=== PATIENT | female | born 1955 | race Caucasian/White ===

== ENCOUNTER → 2016-05-17 | Outpatient (CLI) | payer BC, MEDICAID, MEDICARE ==
[2016-05-17 16:42] LABS: BASO # 0.1 K/mm3 (0.0-0.2); BASO % 1.3 % (0.0-1.0); EOS # 0.2 K/mm3 (0.0-0.50); EOS % 2.3 % (0.0-3.0); LARGE UNSTAINED CELL # 0.2 K/mm3 (0.0-0.4); LYMPH # 2.8 K/mm3 (1.5-4.5); LYMPH % 33.2 % (24.0-44.0); MEAN CORPUSCULAR HEMOGLOBIN 29.9 pg (27.0-33.0); MEAN CORPUSCULAR HGB CONC 33.6 g/dl (32.0-36.5); MONO # 0.3 K/mm3 (0.0-0.8); MONO % 3.7 % (0.0-5.0); NEUTROPHILS # 4.9 K/mm3 (1.8-7.7); NEUTROPHILS % 57.5 % (36.0-66.0); PLATELET COUNT, AUTOMATED 257 k/mm3 (150-450); RED CELL DISTRIBUTION WIDTH 14.8 % (11.5-14.5); WHITE BLOOD COUNT 8.5 K/mm3 (4.0-10.0)
[2016-05-17 17:05] LABS: ALBUMIN 3.5 GM/DL (3.2-5.2); ALBUMIN/GLOBULIN RATIO 1.06 (1.00-1.93); ALKALINE PHOSPHATASE 111 U/L (45-117); ALT/SGPT 45 U/L (12-78); ANION GAP 8 MEQ/L (8-16); AST/SGOT 42 U/L (15-37); BILIRUBIN,TOTAL 0.4 MG/DL (0.2-1.0); BLOOD UREA NITROGEN 10 MG/DL (7-18); CALCIUM LEVEL 10.4 MG/DL (8.8-10.2); CARBON DIOXIDE LEVEL 27 MEQ/L (21-32); CHLORIDE LEVEL 106 MEQ/L (98-107); CHOLESTEROL LEVEL 275 MG/DL (<200); CREATININE FOR GFR 0.58 MG/DL (0.55-1.02); GLOMERULAR FILTRATION RATE > 60.0 (>45); GLUCOSE, FASTING 150 MG/DL (80-110); POTASSIUM SERUM 4.3 MEQ/L (3.5-5.1); SODIUM LEVEL 141 MEQ/L (136-145); TOTAL PROTEIN 6.8 GM/DL (6.4-8.2); TRIGLYCERIDES LEVEL 905 MG/DL (<150)
--- NOTE | 2016-05-19 00:46 | ECGEPIP ---
Stationary ECG Study [facility] Test Date: 2016-05-17 Pat Name: SHELBIE PEÑA Department: Room: - Gender: F Dominatrix: RF : 1955 Requested By: Taj Rosen Order Number: [id number] Reading MD: Don Graham Measurements Intervals [place] Rate: 65 P: 90 PA: 166 QRS: -50 QRSD: 110 T: 33 QT: 415 QTc: 433 Interpretive Statements SINUS RHYTHM MARKED LEFT AXIS DEVIATION PATTERN CONSISTENT WITH PULMONARY DISEASE Artifact noted on the baseline in the limb leads No prior tracing in the system Electronically Signed On 05-19-2016 0:46:28 EST by Don Graham
== END ==
LOC: M LAB 15:45
PROVIDERS: ATTEND Family Medicine Addiction Medicine
DX: E78.5 Hyperlipidemia, unspecified (principal); Z79.899 Other long term (current) drug therapy

== ENCOUNTER 2016-05-31 16:13 | Emergency (ER) | payer MEDICARE ==
[2016-05-31] MEDS ORDERED: ASPIRIN 81 MG CHEW TABLET As Ordered ONE (16:39)
[2016-05-31 16:52] LABS: BASO # 0.1 K/mm3 (0.0-0.2); BASO % 0.7 % (0.0-1.0); EOS # 0.2 K/mm3 (0.0-0.50); EOS % 2.1 % (0.0-3.0); LARGE UNSTAINED CELL # 0.2 K/mm3 (0.0-0.4); LARGE UNSTAINED CELL % 1.4 % (0.0-4.0); LYMPH # 2.6 K/mm3 (1.5-4.5); LYMPH % 22.8 % (24.0-44.0); MEAN CORPUSCULAR HEMOGLOBIN 30.1 pg (27.0-33.0); MEAN CORPUSCULAR HGB CONC 33.9 g/dl (32.0-36.5); MEAN CORPUSCULAR VOLUME 88.8 fl (80.0-96.0); MONO # 0.5 K/mm3 (0.0-0.8); MONO % 4.6 % (0.0-5.0); NEUTROPHILS # 7.4 K/mm3 (1.8-7.7); NEUTROPHILS % 68.4 % (36.0-66.0); PLATELET COUNT, AUTOMATED 279 k/mm3 (150-450); RED CELL DISTRIBUTION WIDTH 15.3 % (11.5-14.5); WHITE BLOOD COUNT 10.9 K/mm3 (4.0-10.0)
[2016-05-31 16:59] LABS: INR 1.54
--- NOTE | 2016-05-31 17:15 | REP ---
Portable chest, frontal 04:00 p.m., single AP view, patient sitting: The lung lagos are clear. The cardiac size is normal. The ann, mediastinum, and bony thorax are unremarkable. Impression: Negative portable chest. There is no interval change Signed by Abhishek Mendoza MD 05/31/2016 05:07 P
[2016-05-31 17:21] LABS: ANION GAP 7 MEQ/L (8-16); BLOOD UREA NITROGEN 15 MG/DL (7-18); CALCIUM LEVEL 10.3 MG/DL (8.8-10.2); CARBON DIOXIDE LEVEL 25 MEQ/L (21-32); CHLORIDE LEVEL 106 MEQ/L (98-107); CREATININE FOR GFR 0.61 MG/DL (0.55-1.02); GLOMERULAR FILTRATION RATE > 60.0 (>45); GLUCOSE, FASTING 170 MG/DL (80-110); POTASSIUM SERUM 4.2 MEQ/L (3.5-5.1); SODIUM LEVEL 138 MEQ/L (136-145)
[2016-05-31] MEDS ORDERED: PROMETHAZINE INJ 25 MG/ML VIAL (J2550) As Ordered ONE (17:35)
[2016-05-31] MEDS ORDERED: KETOROLAC 30 MG/ML VIAL (J1885) As Ordered ONE (17:35)
[2016-05-31] MEDS ORDERED: LORazepam 2 MG/ML VIAL (J2060) As Ordered ONE (17:36)
--- NOTE | 2016-05-31 18:58 | EDDOCDS ---
Physician Documentation [facility] Name: Yessenia Mars Age: 60 yrs Sex: Female : 1955 Arrival Date: 05/31/2016 Time: 16:13 Bed 5 Private MD: Frank Rosen Disposition: 05/31/16 18:12 Discharged to Home/Self Care. Impression: Chest pain, unspecified, Essential (primary) hypertension. - Condition is Stable. - Discharge Instructions: Nonspecific Chest Pain, Hypertension. - Medication Reconciliation, Local Pharmacy Hours form. - Follow up: Frank Rosen; When: Call to arrange an appointment; Reason: Continuance of care. - Problem is new. - Symptoms have improved. Historical: - Allergies: Morphine; Niacin; Zxzstsc-Vlq-Awr Reductase Inhibitors; - Home Meds: 1. Lantus 64 units Sub-Q crtg 64 units daily 2. Humalog subcutaneous 24 units Sub-Q three times a day 3. allopurinol 300 mg Oral tab 1 tab once daily 4. allopurinol 100 mg Oral tab evenings 5. citalopram 40 mg Oral tab 1 tab once daily 6. furosemide 20 mg Oral tab 1 tab once daily 7. Lovaza 1 gram oral cap 3 caps once daily 8. omeprazole 40 mg Oral cpDR 1 cap once daily 9. warfarin 6 mg Oral tab 1 tab once daily 10. metoprolol tartrate 50 mg Oral tab 1 tab 2 times per day 11. prednisone 5 mg Oral tab once daily 12. valsartan 160 mg oral tab 1 tab once daily 13. Saline Mist nasal nasal as needed 14. ventolin inhaler as needed for Cough and Congestion 15. oxycodone-acetaminophen 7.5-325 mg Oral tab 1 tab every 6 hours - PMHx: Diabetes - IDDM: uncontrolled; DVT; GERD; Gout; Hypertension; - PSHx: Hip Arthroplasty, Left; Hip Arthroplasty, Right; ; Tonsillectomy; Cholecystectomy; pilonidal cyst; - Social history: Smoking status: Patient uses tobacco products, current every day smoker. No barriers to communication noted, The patient speaks fluent Slovenian, Speaks appropriately for age. - Family history: Not pertinent. - : The pt / caregiver states he / she is not on anticoagulants. Home medication list is obtained from the patient. - Exposure Risk Screening:: None identified. Vital Signs: 05/31 16:16 BP 219 / 97; Pulse 66; Resp 18; Pulse Ox 99% on R/A; Weight 136.08 kg / 300.01 lbs; sew Height 5 ft. 10 in. (177.80 cm); Pain 7/10; 16:32 Pulse 66 MON; Pulse Ox 95% ; pml 16:32 BP 183 / 84 (auto/); pml 16:38 Pulse 58 MON; Pulse Ox 93% ; pml 16:38 BP 170 / 72 (auto/); pml 16:53 Pulse 58 MON; Pulse Ox 91% ; pml 16:53 BP 166 / 76 (auto/); pml 17:08 Pulse 60 MON; Pulse Ox 92% ; pml 17:08 BP 161 / 67 (auto/); pml 17:23 Pulse 56 MON; Pulse Ox 97% ; pml 17:23 BP 149 / 72 (auto/); pml 17:38 Pulse 56 MON; Pulse Ox 95% ; pml 17:38 BP 159 / 70 (auto/); pml 17:53 Pulse 62 MON; Pulse Ox 93% ; pml 17:53 BP 156 / 71 (auto/); pml 18:00 Pain 4/10; pml 18:08 Pulse 56 MON; Pulse Ox 95% ; pml 18:08 BP 156 / 72 (auto/); pml 18:44 BP 158 / 74; Pulse 60; Resp 20; Temp 97.3(O); Pulse Ox 94% on R/A; Pain 0/10; jmv 16:16 Body Mass Index 43.05 (136.08 kg, 177.80 cm) sew MDM: 16:15 ECG WITH READING ER PHYS+CARDIAG ordered. EDMS 16:33 Aspirin Chewable Tablet 324 mg PO once ordered. fg 16:33 Network Engineer/Pulse Ox/q 30 min VS ordered. fg 16:33 IV Saline Lock ordered. fg 16:33 Rhythm Strip to chart ordered. fg 16:33 Undress patient appropriately for examination ordered. fg 16:33 hydrALAZINE 5 mg IV at bolus once ordered. fg 16:34 B-Type Natiuretic Peptide Ordered. EDMS 16:34 Basic Metabolic Profile Ordered. EDMS 16:34 CBC with Diff Ordered. EDMS 16:34 Cardiac Injury Profile Ordered. EDMS 16:34 Prothrombin Time Profile\E\INR Ordered. EDMS 16:34 Troponin Ordered. EDMS 16:35 portable chest Ordered. EDMS 17:07 Financial registration complete. gjb 17:08 [facility] Payment Agreement was scanned into [employer] and attached to record. gjb 17:33 ketorolac 30 mg IVP once ordered. fg 17:33 Promethazine 25 mg IVP once; dilute and administer 30-60 minutes ordered. fg 17:33 LORazepam 0.5 mg PO once ordered. fg 17:47 LORazepam 0.5 mg IVP once ordered. pml Administered Medications: 16:38 Not Given (Physician Discretion): hydrALAZINE 5 mg IV at bolus once pml 16:41 Drug: Aspirin 324 mg [aspirin 81 mg chewable tablet (4 tabs)] Route: PO; pml 17:41 Drug: ketorolac 30 mg [ketorolac 30 mg/mL (1 mL) injection solution (1 mL)] Route: IVP; pml Site: right antecubital; 18:00 Follow up: Pain 4/10 Adult; Response: Pain is decreased pml 17:41 Drug: Promethazine 25 mg [promethazine 25 mg/mL injection solution (1 mL)] Route: IVP; pml Site: left antecubital; 17:47 Not Given (Duplicate Order): LORazepam 0.5 mg PO once pml 17:47 Drug: LORazepam 0.5 mg [lorazepam 2 mg/mL injection solution (0.25 mL)] Route: IVP; pml Site: right antecubital; 18:56 Follow up: Response: Confirmed pt not driving. pml Signatures: Dispatcher [employer] EDUT Christine Kidd RN RN [facility] Carol Moura RN RN [facility] Misti White MD MD fg Beck, Gabriela gjb The chart was reviewed and I authenticate all verbal orders and agree with the evaluation and treatment provided.Attachments: 17:08 [facility] Payment Agreement gjb MTDD
--- NOTE | 2016-05-31 18:58 | EDDOCDS ---
Nurse's Notes [facility] Name: Yessenia Mars Age: 60 yrs Sex: Female : 1955 Arrival Date: 05/31/2016 Time: 16:13 Bed 5 Private MD: Frank Rosen Diagnosis: Chest pain, unspecified;Essential (primary) hypertension Presentation: 05/31 16:20 Presenting complaint: Patient states: chest pain, palpitation,headache, and high bp for srm [address] tena 2 weeks ago and today as recheck. symptoms persist. Aspirin was not taken prior to arrival. Adult Sepsis Screening: The patient does not have new or worsening altered mentation. Patient's respiratory rate is less than 22. Systolic blood pressure is greater than 100. Patient has a qSOFA score of 0- Negative Sepsis Screen. Suicide/Homicide risk assessment- the patient denies having any suicidal and/or homicidal ideations and does not present with any other emotional, behavioral or mental health complaints. Status: Patient is not a director of field service or dependent. Transition of care: patient was received from a primary care office; dr matute. 16:20 Acuity: SIMON Level 2 [facility] 16:20 Method Of Arrival: Wheelchair [facility] Triage Assessment: 16:29 General: Appears uncomfortable, Behavior is anxious, appropriate for age, cooperative. srm Pain: Pain currently is 7 out of 10 on a pain scale. HIV screening NA for this visit Offered previously. Cardiovascular: Chest pain is described as vague, radiates Does not radiate. episodes are intermittent began 4 weeks ago. Historical: - Allergies: Morphine; Niacin; Ggckseu-Paf-Rqz Reductase Inhibitors; - Home Meds: 1. Lantus 64 units Sub-Q crtg 64 units daily 2. Humalog subcutaneous 24 units Sub-Q three times a day 3. allopurinol 300 mg Oral tab 1 tab once daily 4. allopurinol 100 mg Oral tab evenings 5. citalopram 40 mg Oral tab 1 tab once daily 6. furosemide 20 mg Oral tab 1 tab once daily 7. Lovaza 1 gram oral cap 3 caps once daily 8. omeprazole 40 mg Oral cpDR 1 cap once daily 9. warfarin 6 mg Oral tab 1 tab once daily 10. metoprolol tartrate 50 mg Oral tab 1 tab 2 times per day 11. prednisone 5 mg Oral tab once daily 12. valsartan 160 mg oral tab 1 tab once daily 13. Saline Mist nasal nasal as needed 14. ventolin inhaler as needed for Cough and Congestion 15. oxycodone-acetaminophen 7.5-325 mg Oral tab 1 tab every 6 hours - PMHx: Diabetes - IDDM: uncontrolled; DVT; GERD; Gout; Hypertension; - PSHx: Hip Arthroplasty, Left; Hip Arthroplasty, Right; ; Tonsillectomy; Cholecystectomy; pilonidal cyst; - Social history: Smoking status: Patient uses tobacco products, current every day smoker. No barriers to communication noted, The patient speaks fluent Yoruba, Speaks appropriately for age. - Family history: Not pertinent. - : The pt / caregiver states he / she is not on anticoagulants. Home medication list is obtained from the patient. - Exposure Risk Screening:: None identified. Screenin:33 Screening information is obtained from the patient. Fall risk: At risk due to gait srm disturbance. Assistance ADL's: requires no assistance with activities of daily living. Abuse/DV Screen: The patient / caregiver reports he/she is: not in a situation that causes fear, pain or injury. Nutritional screening: No deficits noted. Advance Directives: Currently, there is no health care proxy. There is no active DNR order. There is no Power of Branch Office Manager. home support is adequate. Assessment: 16:42 General: Appears in no apparent distress, comfortable, Behavior is appropriate for age, pml cooperative. Pain: Location: chest Pain currently is 10 out of 10 on a pain scale. Quality of pain is described as heavy, pressure, Pain began 4 weeks ago. Neurological: Level of Consciousness is awake, alert, Oriented to person, place, time. Cardiovascular: Capillary refill < 3 seconds Rhythm is sinus rhythm No ectopy. Respiratory: Airway is patent Respiratory effort is even, unlabored, Breath sounds are clear bilaterally. Reports pain with respiration since 4 weeks ago. GI: Abdomen is non- distended obese. Derm: Skin is pink, warm & dry. Swollen area noted that is +1 non pitting edema bilateral lower extremities. 17:47 General: Resting on stretcher, no apparent distress. resps easy and unlabored, skin pml p/w/d. sinus rhythm on monitor without ectopy. reports pain in chest persists. 18:13 General: Appears in no apparent distress, Behavior is appropriate for age, cooperative. pml Pain: Location: chest Pain currently is 4 out of 10 on a pain scale. Neurological: Level of Consciousness is awake, alert, Oriented to person, place, time. Cardiovascular: Capillary refill < 3 seconds Rhythm is sinus rhythm No ectopy. Derm: Skin is pink, warm & dry. 18:55 General: Appears in no apparent distress, Behavior is appropriate for age, cooperative. pml Pain: Location: chest Pain currently is 4 out of 10 on a pain scale. Neurological: Level of Consciousness is awake, alert, Oriented to person, place, time. Cardiovascular: Capillary refill < 3 seconds. Respiratory: Airway is patent Respiratory effort is even, unlabored. GI: Abdomen is non- distended obese. Derm: Skin is pink, warm & dry. Vital Signs: 16:16 BP 219 / 97; Pulse 66; Resp 18; Pulse Ox 99% on R/A; Weight 136.08 kg; Height 5 ft. 10 sew in. (177.80 cm); Pain 7/10; 16:32 Pulse 66 MON; Pulse Ox 95% ; pml 16:32 BP 183 / 84 (auto/); pml 16:38 Pulse 58 MON; Pulse Ox 93% ; pml 16:38 BP 170 / 72 (auto/); pml 16:53 Pulse 58 MON; Pulse Ox 91% ; pml 16:53 BP 166 / 76 (auto/); pml 17:08 Pulse 60 MON; Pulse Ox 92% ; pml 17:08 BP 161 / 67 (auto/); pml 17:23 Pulse 56 MON; Pulse Ox 97% ; pml 17:23 BP 149 / 72 (auto/); pml 17:38 Pulse 56 MON; Pulse Ox 95% ; pml 17:38 BP 159 / 70 (auto/); pml 17:53 Pulse 62 MON; Pulse Ox 93% ; pml 17:53 BP 156 / 71 (auto/); pml 18:00 Pain 4/10; pml 18:08 Pulse 56 MON; Pulse Ox 95% ; pml 18:08 BP 156 / 72 (auto/); pml 18:44 BP 158 / 74; Pulse 60; Resp 20; Temp 97.3(O); Pulse Ox 94% on R/A; Pain 0/10; jmv 16:16 Body Mass Index 43.05 (136.08 kg, 177.80 cm) sew Vitals: 16:16 Log In Time: May 31, 2016 at 16:13. RN notified that patient meets Red Flag sew criteria. ED Course: 16:15 Patient visited by Екатерина Marino. sew 16:15 Frank Rosen is Private Physician. sew 16:15 Patient moved to Waiting sew 16:17 Patient visited by Екатерина Marino. sew 16:17 Patient moved to Pre RCE sew 16:21 Triage Initiated srm 16:22 EKG done. (by ED staff). Reviewed by Misti White MD. dem1 16:24 Patient moved to kr3 16:26 quality assurance monitor body on. Pulse ox on. NIBP on. dem1 16:28 Patient visited by Phil Rodriguez. dem1 16:32 Misti White MD is Attending Physician. fg 16:32 Patient visited by Misti White MD. fg 16:32 The patient / caregiver is instructed regarding the plan of care and ED course. Patient srm has correct armband on for positive identification. Placed in gown. Bed in low position. Call light in reach. Side rails up X2. 16:32 Inserted saline lock: 18 gauge in right antecubital area and blood collected. by Tor tatum rn. 16:43 Patient visited by Carol Moura,TODD. pml 17:08 [facility] Payment Agreement was scanned into [employer] and attached to record. gjb 17:39 portable chest Returned. EDMS 17:46 Patient visited by Misti White MD. fg 18:12 Frank Rosen is Referral Physician. fg 18:15 Patient visited by Carol Moura,TODD. pml 18:45 Patient visited by Mario Flores PCA. jmv 18:55 Discontinued lock intact, bleeding controlled, pressure dressing applied, No pml redness/swelling at site. No procedures done that require assistance. Administered Medications: 16:38 Not Given (Physician Discretion): hydrALAZINE 5 mg IV at bolus once pml 16:41 Drug: Aspirin 324 mg [aspirin 81 mg chewable tablet (4 tabs)] Route: PO; pml 17:41 Drug: ketorolac 30 mg [ketorolac 30 mg/mL (1 mL) injection solution (1 mL)] Route: IVP; pml Site: right antecubital; 18:00 Follow up: Pain 4/10 Adult; Response: Pain is decreased pml 17:41 Drug: Promethazine 25 mg [promethazine 25 mg/mL injection solution (1 mL)] Route: IVP; pml Site: left antecubital; 17:47 Not Given (Duplicate Order): LORazepam 0.5 mg PO once pml 17:47 Drug: LORazepam 0.5 mg [lorazepam 2 mg/mL injection solution (0.25 mL)] Route: IVP; pml Site: right antecubital; 18:56 Follow up: Response: Confirmed pt not driving. pml Order Results: Lab Order: B-Type Natiuretic Peptide; SPEC'M 05/31/16 16:29 Test: BRAIN NATRIURETIC PEPTIDE; Value: 165; Range: <100; Abnormal: Above high normal; Units: PG/ML; Status: F Lab Order: Basic Metabolic Profile; SPEC'M 05/31/16 16:29 Test: GLUCOSE, FASTING; Value: 170; Range: 80-110; Abnormal: Above high normal; Units: MG/DL; Status: F Test: BLOOD UREA NITROGEN; Value: 15; Range: 7-18; Units: MG/DL; Status: F Test: CREATININE FOR GFR; Value: 0.61; Range: 0.55-1.02; Units: MG/DL; Status: F Test: GLOMERULAR FILTRATION RATE; Value: > 60.0; Range: >45; Status: F Test: SODIUM LEVEL; Value: 138; Range: 136-145; Units: MEQ/L; Status: F Test: POTASSIUM SERUM; Value: 4.2; Range: 3.5-5.1; Units: MEQ/L; Status: F Test: CHLORIDE LEVEL; Value: 106; Range: 98-107; Units: MEQ/L; Status: F Test: CARBON DIOXIDE LEVEL; Value: 25; Range: 21-32; Units: MEQ/L; Status: F Test: ANION GAP; Value: 7; Range: 8-16; Abnormal: Below low normal; Units: MEQ/L; Status: F Test: CALCIUM LEVEL; Value: 10.3; Range: 8.8-10.2; Abnormal: Above high normal; Units: MG/DL; Status: F Test Note: ; Units are mL/min/1.73 m2 Chronic Kidney Disease Staging per NKF: Stage I & II GFR >=60 Normal to Mildly Decreased Stage III GFR 30-59 Moderately Decreased Stage IV GFR 15-29 Severely Decreased Stage V GFR <15 Very Little GFR Left ESRD GFR <15 on CONSULTING ACTUARY Lab Order: CBC with Diff; [facility] 05/31/16 16:29 Test: WHITE BLOOD COUNT; Value: 10.9; Range: 4.0-10.0; Abnormal: Above high normal; Units: K/mm3; Status: F Test: RED BLOOD COUNT; Value: 4.49; Range: 4.00-5.40; Units: M/mm3; Status: F Test: HEMOGLOBIN; Value: 13.5; Range: 12.0-16.0; Units: g/dl; Status: F Test: HEMATOCRIT; Value: 39.9; Range: 36.0-47.0; Units: %; Status: F Test: MEAN CORPUSCULAR VOLUME; Value: 88.8; Range: 80.0-96.0; Units: fl; Status: F Test: MEAN CORPUSCULAR HEMOGLOBIN; Value: 30.1; Range: 27.0-33.0; Units: pg; Status: F Test: MEAN CORPUSCULAR HGB CONC; Value: 33.9; Range: 32.0-36.5; Units: g/dl; Status: F Test: RED CELL DISTRIBUTION WIDTH; Value: 15.3; Range: 11.5-14.5; Abnormal: Above high normal; Units: %; Status: F Test: PLATELET COUNT, AUTOMATED; Value: 279; Range: 150-450; Units: k/mm3; Status: F Test: NEUTROPHILS %; Value: 68.4; Range: 36.0-66.0; Abnormal: Above high normal; Units: %; Status: F Test: LYMPH %; Value: 22.8; Range: 24.0-44.0; Abnormal: Below low normal; Units: %; Status: F Test: MONO %; Value: 4.6; Range: 0.0-5.0; Units: %; Status: F Test: EOS %; Value: 2.1; Range: 0.0-3.0; Units: %; Status: F Test: BASO %; Value: 0.7; Range: 0.0-1.0; Units: %; Status: F Test: LARGE UNSTAINED CELL %; Value: 1.4; Range: 0.0-4.0; Units: %; Status: F Test: NEUTROPHILS #; Value: 7.4; Range: 1.8-7.7; Units: K/mm3; Status: F Test: LYMPH #; Value: 2.6; Range: 1.5-4.5; Units: K/mm3; Status: F Test: MONO #; Value: 0.5; Range: 0.0-0.8; Units: K/mm3; Status: F Test: EOS #; Value: 0.2; Range: 0.0-0.50; Units: K/mm3; Status: F Test: BASO #; Value: 0.1; Range: 0.0-0.2; Units: K/mm3; Status: F Test: LARGE UNSTAINED CELL #; Value: 0.2; Range: 0.0-0.4; Units: K/mm3; Status: F Lab Order: Cardiac Injury Profile; [facility]' 05/31/16 16:29 Test: CPK CREATINE PHOSPHOKINASE; Value: 47; Range: 26-192; Units: U/L; Status: F Test: CK-MB VALUE MASS; Value: 1.0; Range: 0.0-3.6; Units: NG/ML; Status: F Test: MB/CK RELATIVE INDEX; Value: 2.12; Range: < OR =4; Status: F Test Note: ; DIAGNOSIS CRITERIA MMB ng/ml Relative Index (RI) NON-AMI < or = 5 N/A GREEN ZONE > 5 < or = 4 AMI > 5 > 4 Lab Order: Prothrombin Time Profile\E\INR; [facility]' 05/31/16 16:29 Test: PROTHROMBIN TIME; Value: 18.6; Range: 12.3-14.5; Abnormal: Above high normal; Units: SECONDS; Status: F Test: INR; Value: 1.54; Status: F Test Note: ; THERAPUTIC HUMAN INR VALUES INDICATIONS NORMAL RANGES PROPHYLAXIS/TREATMENT OF: VENOUS THROMBOSIS 2.0-3.0 PULMONARY EMBOLISM 2.0-3.0 PREVENTION OF SYSTEMIC EMBOLISM FROM: TISSUE HEART VALVES 2.0-3.0 ACUTE MYOCARDIAL INFARCTION 2.0-3.0 VALVULAR HEART DISEASE 2.0-3.0 ATRIAL FIBRILLATION 2.0-3.0 MECHANICAL VALVES(HIGH RISK) 2.5-3.5 RECURRENT MYOCARDIAL INFARCTION 2.5-3.5 Lab Order: Troponin; [facility] 05/31/16 16:29 Test: TROPONIN I; Value: < 0.02; Range: < 0.10; Units: NG/ML; Status: F Test Note: ; Troponin I Reference Interval for Siemens [place] LOCI: 99th Percentile= 0.00-0.045 ng/ml Risk Stratification: <= 0.10 ng/ml Decreased Risk for Adverse Clinical Events. 0.10-1.50 ng/ml Increased Risk for Adverse Clinical Events. Evaluation of additional criterion and/or repeat testing in 2-6 hours is suggested to rule out myocardial damage. >= 1.50 ng/ml Indicative of Myocardial Injury. Radiology Order: portable chest Test: portable chest REASON FOR EXAMINATION: Chest Pain; Portable chest, frontal 04:00 p.m., single AP view, patient sitting:; ; The lung lagos are clear.; ; The cardiac size is normal.; ; The ann, mediastinum, and bony thorax are unremarkable.; ; Impression:; ; Negative portable chest. There is no interval change; ; ; Signed by; Abhishek Mendoza MD 05/31/2016 05:07 P; Outcome: 18:12 Discharge ordered by Provider. fg 18:55 Discharge Assessment: Patient awake, alert and oriented x 3. No cognitive and/or pml functional deficits noted. Patient verbalized understanding of disposition instructions. patient administered narcotics - yes. Pt provided with safe discharge. The following High Risk Discharge criteria are identified: None. Discharged to home ambulatory, with family. Condition: good Condition: stable. Discharge instructions given to patient, Instructed on discharge instructions, follow up and referral plans. Demonstrated understanding of instructions, Pt was receptive of discharge instructions/ teaching. No special radiology studies were completed. Property sent home with patient. 18:57 Patient left the ED. pml Signatures: Dispatcher [employer] EDMS Christine Kidd, Zenaida Mackey RN, RN RN kr3 Carol Moura RN RN pml Mack, Demeishia dem1 Wallace, Sarah sew Gill, Frances, MD MD fg Beck, Gabriela gjb Vega, Jose, PCA PCA jmv MTDD
--- NOTE | 2016-06-01 12:47 | ECGEPIP ---
Stationary ECG Study [facility] - ED Test Date: 2016-05-31 Pat Name: SHELBIE PEÑA Department: Room: - Gender: F Production Clerk: john : 1955 Requested By: IRIS Torres Order Number: [id number] Reading MD: Linda Yeung Measurements Intervals [place] Rate: 68 P: 64 CO: 161 QRS: -49 QRSD: 93 T: 11 QT: 390 QTc: 415 Interpretive Statements SINUS RHYTHM WITH OCCASIONAL SUPRAVENTRICULAR PREMATURE COMPLEXES MARKED LEFT AXIS DEVIATION PATTERN CONSISTENT WITH PULMONARY DISEASE INFERIOR MYOCARDIAL INFARCTION, OF INDETERMINATE AGE CW 05/17/16 - RATE INCREASED Electronically Signed On 06-01-2016 12:47:37 EST by Linda Yeung
--- NOTE | 2016-06-02 19:58 | EDDOCDS ---
Physician Documentation [facility] Name: Yessenia Mars Age: 60 yrs Sex: Female : 1955 Arrival Date: 05/31/2016 Time: 16:13 Bed 5 Private MD: Frank Rosen Disposition: 05/31/16 18:12 Discharged to Home/Self Care. Impression: Chest pain, unspecified, Essential (primary) hypertension. - Condition is Stable. - Discharge Instructions: Nonspecific Chest Pain, Hypertension. - Medication Reconciliation, Local Pharmacy Hours form. - Follow up: Frank Rosen; When: Call to arrange an appointment; Reason: Continuance of care. - Problem is new. - Symptoms have improved. Historical: - Allergies: Morphine; Niacin; Nbxqtyd-Tdc-Yxu Reductase Inhibitors; - Home Meds: 1. Lantus 64 units Sub-Q crtg 64 units daily 2. Humalog subcutaneous 24 units Sub-Q three times a day 3. allopurinol 300 mg Oral tab 1 tab once daily 4. allopurinol 100 mg Oral tab evenings 5. citalopram 40 mg Oral tab 1 tab once daily 6. furosemide 20 mg Oral tab 1 tab once daily 7. Lovaza 1 gram oral cap 3 caps once daily 8. omeprazole 40 mg Oral cpDR 1 cap once daily 9. warfarin 6 mg Oral tab 1 tab once daily 10. metoprolol tartrate 50 mg Oral tab 1 tab 2 times per day 11. prednisone 5 mg Oral tab once daily 12. valsartan 160 mg oral tab 1 tab once daily 13. Saline Mist nasal nasal as needed 14. ventolin inhaler as needed for Cough and Congestion 15. oxycodone-acetaminophen 7.5-325 mg Oral tab 1 tab every 6 hours - PMHx: Diabetes - IDDM: uncontrolled; DVT; GERD; Gout; Hypertension; - PSHx: Hip Arthroplasty, Left; Hip Arthroplasty, Right; ; Tonsillectomy; Cholecystectomy; pilonidal cyst; - Social history: Smoking status: Patient uses tobacco products, current every day smoker. No barriers to communication noted, The patient speaks fluent Portuguese, Speaks appropriately for age. - Family history: Not pertinent. - : The pt / caregiver states he / she is not on anticoagulants. Home medication list is obtained from the patient. - Exposure Risk Screening:: None identified. Vital Signs: 05/31 16:16 BP 219 / 97; Pulse 66; Resp 18; Pulse Ox 99% on R/A; Weight 136.08 kg / 300.01 lbs; sew Height 5 ft. 10 in. (177.80 cm); Pain 7/10; 16:32 Pulse 66 MON; Pulse Ox 95% ; pml 16:32 BP 183 / 84 (auto/); pml 16:38 Pulse 58 MON; Pulse Ox 93% ; pml 16:38 BP 170 / 72 (auto/); pml 16:53 Pulse 58 MON; Pulse Ox 91% ; pml 16:53 BP 166 / 76 (auto/); pml 17:08 Pulse 60 MON; Pulse Ox 92% ; pml 17:08 BP 161 / 67 (auto/); pml 17:23 Pulse 56 MON; Pulse Ox 97% ; pml 17:23 BP 149 / 72 (auto/); pml 17:38 Pulse 56 MON; Pulse Ox 95% ; pml 17:38 BP 159 / 70 (auto/); pml 17:53 Pulse 62 MON; Pulse Ox 93% ; pml 17:53 BP 156 / 71 (auto/); pml 18:00 Pain 4/10; pml 18:08 Pulse 56 MON; Pulse Ox 95% ; pml 18:08 BP 156 / 72 (auto/); pml 18:44 BP 158 / 74; Pulse 60; Resp 20; Temp 97.3(O); Pulse Ox 94% on R/A; Pain 0/10; jmv 16:16 Body Mass Index 43.05 (136.08 kg, 177.80 cm) sew MDM: 16:15 ECG WITH READING ER PHYS+CARDIAG ordered. EDMS 16:33 Aspirin Chewable Tablet 324 mg PO once ordered. fg 16:33 Supervisor Television Chassis Repair/Pulse Ox/q 30 min VS ordered. fg 16:33 IV Saline Lock ordered. fg 16:33 Rhythm Strip to chart ordered. fg 16:33 Undress patient appropriately for examination ordered. fg 16:33 hydrALAZINE 5 mg IV at bolus once ordered. fg 16:34 B-Type Natiuretic Peptide Ordered. EDMS 16:34 Basic Metabolic Profile Ordered. EDMS 16:34 CBC with Diff Ordered. EDMS 16:34 Cardiac Injury Profile Ordered. EDMS 16:34 Prothrombin Time Profile\E\INR Ordered. EDMS 16:34 Troponin Ordered. EDMS 16:35 portable chest Ordered. EDMS 17:07 Financial registration complete. gjb 17:08 [facility] Agreement was scanned into [employer] and attached to record. gjb 17:33 ketorolac 30 mg IVP once ordered. fg 17:33 Promethazine 25 mg IVP once; dilute and administer 30-60 minutes ordered. fg 17:33 LORazepam 0.5 mg PO once ordered. fg 17:47 LORazepam 0.5 mg IVP once ordered. pml 06/01 10:37 T-Sheet-- Draft Copy was scanned into [employer] and attached to record. gb 15:39 ECG/EKG was scanned into [employer] and attached to record. gb Administered Medications: 05/31 16:38 Not Given (Physician Discretion): hydrALAZINE 5 mg IV at bolus once pml 16:41 Drug: Aspirin 324 mg [aspirin 81 mg chewable tablet (4 tabs)] Route: PO; pml 17:41 Drug: ketorolac 30 mg [ketorolac 30 mg/mL (1 mL) injection solution (1 mL)] Route: IVP; pml Site: right antecubital; 18:00 Follow up: Pain 4/10 Adult; Response: Pain is decreased pml 17:41 Drug: Promethazine 25 mg [promethazine 25 mg/mL injection solution (1 mL)] Route: IVP; pml Site: left antecubital; 17:47 Not Given (Duplicate Order): LORazepam 0.5 mg PO once pml 17:47 Drug: LORazepam 0.5 mg [lorazepam 2 mg/mL injection solution (0.25 mL)] Route: IVP; pml Site: right antecubital; 18:56 Follow up: Response: Confirmed pt not driving. pml Signatures: Dispatcher [employer] EDMS Christine Kidd RN RN srm Gabriella Lee, Reg Reg gb Carol Moura RN RN pml Misti White MD MD fg Beck, Gabriela gjb The chart was reviewed and I authenticate all verbal orders and agree with the evaluation and treatment provided.Attachments: 17:08 [facility] Payment Agreement gjb 06/01 10:37 T-Sheet-- Draft Copy gb 15:39 ECG/EKG gb Chart Complete MTDD
--- NOTE | 2016-06-02 19:58 | EDDOCDS ---
Nurse's Notes [facility] Name: Yessenia Peña Age: 60 yrs Sex: Female : 1955 Arrival Date: 05/31/2016 Time: 16:13 Bed 5 Private MD: Frank Rosen Diagnosis: Chest pain, unspecified;Essential (primary) hypertension Presentation: 05/31 16:20 Presenting complaint: Patient states: chest pain, palpitation,headache, and high bp for srm [address] tena 2 weeks ago and today as recheck. symptoms persist. Aspirin was not taken prior to arrival. Adult Sepsis Screening: The patient does not have new or worsening altered mentation. Patient's respiratory rate is less than 22. Systolic blood pressure is greater than 100. Patient has a qSOFA score of 0- Negative Sepsis Screen. Suicide/Homicide risk assessment- the patient denies having any suicidal and/or homicidal ideations and does not present with any other emotional, behavioral or mental health complaints. Status: Patient is not a field services director or dependent. Transition of care: patient was received from a primary care office; dr matute. 16:20 Acuity: SIMON Level 2 [facility] 16:20 Method Of Arrival: Wheelchair [facility] Triage Assessment: 16:29 General: Appears uncomfortable, Behavior is anxious, appropriate for age, cooperative. srm Pain: Pain currently is 7 out of 10 on a pain scale. HIV screening NA for this visit Offered previously. Cardiovascular: Chest pain is described as vague, radiates Does not radiate. episodes are intermittent began 4 weeks ago. Historical: - Allergies: Morphine; Niacin; Qretyzg-Ljm-Qdz Reductase Inhibitors; - Home Meds: 1. Lantus 64 units Sub-Q crtg 64 units daily 2. Humalog subcutaneous 24 units Sub-Q three times a day 3. allopurinol 300 mg Oral tab 1 tab once daily 4. allopurinol 100 mg Oral tab evenings 5. citalopram 40 mg Oral tab 1 tab once daily 6. furosemide 20 mg Oral tab 1 tab once daily 7. Lovaza 1 gram oral cap 3 caps once daily 8. omeprazole 40 mg Oral cpDR 1 cap once daily 9. warfarin 6 mg Oral tab 1 tab once daily 10. metoprolol tartrate 50 mg Oral tab 1 tab 2 times per day 11. prednisone 5 mg Oral tab once daily 12. valsartan 160 mg oral tab 1 tab once daily 13. Saline Mist nasal nasal as needed 14. ventolin inhaler as needed for Cough and Congestion 15. oxycodone-acetaminophen 7.5-325 mg Oral tab 1 tab every 6 hours - PMHx: Diabetes - IDDM: uncontrolled; DVT; GERD; Gout; Hypertension; - PSHx: Hip Arthroplasty, Left; Hip Arthroplasty, Right; ; Tonsillectomy; Cholecystectomy; pilonidal cyst; - Social history: Smoking status: Patient uses tobacco products, current every day smoker. No barriers to communication noted, The patient speaks fluent Japanese, Speaks appropriately for age. - Family history: Not pertinent. - : The pt / caregiver states he / she is not on anticoagulants. Home medication list is obtained from the patient. - Exposure Risk Screening:: None identified. Screenin:33 Screening information is obtained from the patient. Fall risk: At risk due to gait srm disturbance. Assistance ADL's: requires no assistance with activities of daily living. Abuse/DV Screen: The patient / caregiver reports he/she is: not in a situation that causes fear, pain or injury. Nutritional screening: No deficits noted. Advance Directives: Currently, there is no health care proxy. There is no active DNR order. There is no Power of Dye Range Feeder. home support is adequate. Assessment: 16:42 General: Appears in no apparent distress, comfortable, Behavior is appropriate for age, pml cooperative. Pain: Location: chest Pain currently is 10 out of 10 on a pain scale. Quality of pain is described as heavy, pressure, Pain began 4 weeks ago. Neurological: Level of Consciousness is awake, alert, Oriented to person, place, time. Cardiovascular: Capillary refill < 3 seconds Rhythm is sinus rhythm No ectopy. Respiratory: Airway is patent Respiratory effort is even, unlabored, Breath sounds are clear bilaterally. Reports pain with respiration since 4 weeks ago. GI: Abdomen is non- distended obese. Derm: Skin is pink, warm & dry. Swollen area noted that is +1 non pitting edema bilateral lower extremities. 17:47 General: Resting on stretcher, no apparent distress. resps easy and unlabored, skin pml p/w/d. sinus rhythm on monitor without ectopy. reports pain in chest persists. 18:13 General: Appears in no apparent distress, Behavior is appropriate for age, cooperative. pml Pain: Location: chest Pain currently is 4 out of 10 on a pain scale. Neurological: Level of Consciousness is awake, alert, Oriented to person, place, time. Cardiovascular: Capillary refill < 3 seconds Rhythm is sinus rhythm No ectopy. Derm: Skin is pink, warm & dry. 18:55 General: Appears in no apparent distress, Behavior is appropriate for age, cooperative. pml Pain: Location: chest Pain currently is 4 out of 10 on a pain scale. Neurological: Level of Consciousness is awake, alert, Oriented to person, place, time. Cardiovascular: Capillary refill < 3 seconds. Respiratory: Airway is patent Respiratory effort is even, unlabored. GI: Abdomen is non- distended obese. Derm: Skin is pink, warm & dry. Vital Signs: 16:16 BP 219 / 97; Pulse 66; Resp 18; Pulse Ox 99% on R/A; Weight 136.08 kg; Height 5 ft. 10 sew in. (177.80 cm); Pain 7/10; 16:32 Pulse 66 MON; Pulse Ox 95% ; pml 16:32 BP 183 / 84 (auto/); pml 16:38 Pulse 58 MON; Pulse Ox 93% ; pml 16:38 BP 170 / 72 (auto/); pml 16:53 Pulse 58 MON; Pulse Ox 91% ; pml 16:53 BP 166 / 76 (auto/); pml 17:08 Pulse 60 MON; Pulse Ox 92% ; pml 17:08 BP 161 / 67 (auto/); pml 17:23 Pulse 56 MON; Pulse Ox 97% ; pml 17:23 BP 149 / 72 (auto/); pml 17:38 Pulse 56 MON; Pulse Ox 95% ; pml 17:38 BP 159 / 70 (auto/); pml 17:53 Pulse 62 MON; Pulse Ox 93% ; pml 17:53 BP 156 / 71 (auto/); pml 18:00 Pain 4/10; pml 18:08 Pulse 56 MON; Pulse Ox 95% ; pml 18:08 BP 156 / 72 (auto/); pml 18:44 BP 158 / 74; Pulse 60; Resp 20; Temp 97.3(O); Pulse Ox 94% on R/A; Pain 0/10; jmv 16:16 Body Mass Index 43.05 (136.08 kg, 177.80 cm) sew Vitals: 16:16 Log In Time: May 31, 2016 at 16:13. RN notified that patient meets Red Flag sew criteria. ED Course: 16:15 Patient visited by Екатерина Marino. sew 16:15 Frank Rosen is Private Physician. sew 16:15 Patient moved to Waiting sew 16:17 Patient visited by Екатерина Marino. sew 16:17 Patient moved to Pre RCE sew 16:21 Triage Initiated srm 16:22 EKG done. (by ED staff). Reviewed by Misti White MD. dem1 16:24 Patient moved to kr3 16:26 environmental monitoring technician on. Pulse ox on. NIBP on. dem1 16:28 Patient visited by Phil Rodriguez. dem1 16:32 Misti White MD is Attending Physician. fg 16:32 Patient visited by Misti White MD. fg 16:32 The patient / caregiver is instructed regarding the plan of care and ED course. Patient srm has correct armband on for positive identification. Placed in gown. Bed in low position. Call light in reach. Side rails up X2. 16:32 Inserted saline lock: 18 gauge in right antecubital area and blood collected. by Tor tatum rn. 16:43 Patient visited by Carol Moura,OTDD. pml 17:08 [facility] Payment Agreement was scanned into [employer] and attached to record. gjb 17:39 portable chest Returned. EDMS 17:46 Patient visited by Misti White MD. fg 18:12 Frank Rosen is Referral Physician. fg 18:15 Patient visited by Carol Moura,TODD. pml 18:45 Patient visited by Mario Flores PCA. jmv 18:55 Discontinued lock intact, bleeding controlled, pressure dressing applied, No pml redness/swelling at site. No procedures done that require assistance. 06/01 10:37 T-Sheet-- Draft Copy was scanned into [employer] and attached to record. gb 13:27 EKG-ADULT Returned. EDMS 15:39 ECG/EKG was scanned into [employer] and attached to record. gb Administered Medications: 05/31 16:38 Not Given (Physician Discretion): hydrALAZINE 5 mg IV at bolus once pml 16:41 Drug: Aspirin 324 mg [aspirin 81 mg chewable tablet (4 tabs)] Route: PO; pml 17:41 Drug: ketorolac 30 mg [ketorolac 30 mg/mL (1 mL) injection solution (1 mL)] Route: IVP; pml Site: right antecubital; 18:00 Follow up: Pain 4/10 Adult; Response: Pain is decreased pml 17:41 Drug: Promethazine 25 mg [promethazine 25 mg/mL injection solution (1 mL)] Route: IVP; pml Site: left antecubital; 17:47 Not Given (Duplicate Order): LORazepam 0.5 mg PO once pml 17:47 Drug: LORazepam 0.5 mg [lorazepam 2 mg/mL injection solution (0.25 mL)] Route: IVP; pml Site: right antecubital; 18:56 Follow up: Response: Confirmed pt not driving. pml Order Results: Lab Order: B-Type Natiuretic Peptide; SPEC'M 05/31/16 16:29 Test: BRAIN NATRIURETIC PEPTIDE; Value: 165; Range: <100; Abnormal: Above high normal; Units: PG/ML; Status: F Lab Order: Basic Metabolic Profile; SPEC'M 05/31/16 16:29 Test: GLUCOSE, FASTING; Value: 170; Range: 80-110; Abnormal: Above high normal; Units: MG/DL; Status: F Test: BLOOD UREA NITROGEN; Value: 15; Range: 7-18; Units: MG/DL; Status: F Test: CREATININE FOR GFR; Value: 0.61; Range: 0.55-1.02; Units: MG/DL; Status: F Test: GLOMERULAR FILTRATION RATE; Value: > 60.0; Range: >45; Status: F Test: SODIUM LEVEL; Value: 138; Range: 136-145; Units: MEQ/L; Status: F Test: POTASSIUM SERUM; Value: 4.2; Range: 3.5-5.1; Units: MEQ/L; Status: F Test: CHLORIDE LEVEL; Value: 106; Range: 98-107; Units: MEQ/L; Status: F Test: CARBON DIOXIDE LEVEL; Value: 25; Range: 21-32; Units: MEQ/L; Status: F Test: ANION GAP; Value: 7; Range: 8-16; Abnormal: Below low normal; Units: MEQ/L; Status: F Test: CALCIUM LEVEL; Value: 10.3; Range: 8.8-10.2; Abnormal: Above high normal; Units: MG/DL; Status: F Test Note: ; Units are mL/min/1.73 m2 Chronic Kidney Disease Staging per NKF: Stage I & II GFR >=60 Normal to Mildly Decreased Stage III GFR 30-59 Moderately Decreased Stage IV GFR 15-29 Severely Decreased Stage V GFR <15 Very Little GFR Left ESRD GFR <15 on BOAT CARPENTER MECHANIC Lab Order: CBC with Diff; MAEGAN'M 05/31/16 16:29 Test: WHITE BLOOD COUNT; Value: 10.9; Range: 4.0-10.0; Abnormal: Above high normal; Units: K/mm3; Status: F Test: RED BLOOD COUNT; Value: 4.49; Range: 4.00-5.40; Units: M/mm3; Status: F Test: HEMOGLOBIN; Value: 13.5; Range: 12.0-16.0; Units: g/dl; Status: F Test: HEMATOCRIT; Value: 39.9; Range: 36.0-47.0; Units: %; Status: F Test: MEAN CORPUSCULAR VOLUME; Value: 88.8; Range: 80.0-96.0; Units: fl; Status: F Test: MEAN CORPUSCULAR HEMOGLOBIN; Value: 30.1; Range: 27.0-33.0; Units: pg; Status: F Test: MEAN CORPUSCULAR HGB CONC; Value: 33.9; Range: 32.0-36.5; Units: g/dl; Status: F Test: RED CELL DISTRIBUTION WIDTH; Value: 15.3; Range: 11.5-14.5; Abnormal: Above high normal; Units: %; Status: F Test: PLATELET COUNT, AUTOMATED; Value: 279; Range: 150-450; Units: k/mm3; Status: F Test: NEUTROPHILS %; Value: 68.4; Range: 36.0-66.0; Abnormal: Above high normal; Units: %; Status: F Test: LYMPH %; Value: 22.8; Range: 24.0-44.0; Abnormal: Below low normal; Units: %; Status: F Test: MONO %; Value: 4.6; Range: 0.0-5.0; Units: %; Status: F Test: EOS %; Value: 2.1; Range: 0.0-3.0; Units: %; Status: F Test: BASO %; Value: 0.7; Range: 0.0-1.0; Units: %; Status: F Test: LARGE UNSTAINED CELL %; Value: 1.4; Range: 0.0-4.0; Units: %; Status: F Test: NEUTROPHILS #; Value: 7.4; Range: 1.8-7.7; Units: K/mm3; Status: F Test: LYMPH #; Value: 2.6; Range: 1.5-4.5; Units: K/mm3; Status: F Test: MONO #; Value: 0.5; Range: 0.0-0.8; Units: K/mm3; Status: F Test: EOS #; Value: 0.2; Range: 0.0-0.50; Units: K/mm3; Status: F Test: BASO #; Value: 0.1; Range: 0.0-0.2; Units: K/mm3; Status: F Test: LARGE UNSTAINED CELL #; Value: 0.2; Range: 0.0-0.4; Units: K/mm3; Status: F Lab Order: Cardiac Injury Profile; SPEC'M 05/31/16 16:29 Test: CPK CREATINE PHOSPHOKINASE; Value: 47; Range: 26-192; Units: U/L; Status: F Test: CK-MB VALUE MASS; Value: 1.0; Range: 0.0-3.6; Units: NG/ML; Status: F Test: MB/CK RELATIVE INDEX; Value: 2.12; Range: < OR =4; Status: F Test Note: ; DIAGNOSIS CRITERIA MMB ng/ml Relative Index (RI) NON-AMI < or = 5 N/A GREEN ZONE > 5 < or = 4 AMI > 5 > 4 Lab Order: Prothrombin Time Profile\E\INR; SPEC'M 05/31/16 16:29 Test: PROTHROMBIN TIME; Value: 18.6; Range: 12.3-14.5; Abnormal: Above high normal; Units: SECONDS; Status: F Test: INR; Value: 1.54; Status: F Test Note: ; THERAPUTIC HUMAN INR VALUES INDICATIONS NORMAL RANGES PROPHYLAXIS/TREATMENT OF: VENOUS THROMBOSIS 2.0-3.0 PULMONARY EMBOLISM 2.0-3.0 PREVENTION OF SYSTEMIC EMBOLISM FROM: TISSUE HEART VALVES 2.0-3.0 ACUTE MYOCARDIAL INFARCTION 2.0-3.0 VALVULAR HEART DISEASE 2.0-3.0 ATRIAL FIBRILLATION 2.0-3.0 MECHANICAL VALVES(HIGH RISK) 2.5-3.5 RECURRENT MYOCARDIAL INFARCTION 2.5-3.5 Lab Order: Troponin; SPEC'M 05/31/16 16:29 Test: TROPONIN I; Value: < 0.02; Range: < 0.10; Units: NG/ML; Status: F Test Note: ; Troponin I Reference Interval for Siemens [place] LOCI: 99th Percentile= 0.00-0.045 ng/ml Risk Stratification: <= 0.10 ng/ml Decreased Risk for Adverse Clinical Events. 0.10-1.50 ng/ml Increased Risk for Adverse Clinical Events. Evaluation of additional criterion and/or repeat testing in 2-6 hours is suggested to rule out myocardial damage. >= 1.50 ng/ml Indicative of Myocardial Injury. Radiology Order: EKG-ADULT Test: EKG-ADULT REASON FOR EXAMINATION: Chest Pain; Stationary ECG Study; [facility] - ED; ; Test Date: 2016-05-31; Pat Name: YESSENIA PEÑA Department:; Room: -; Gender: F Nurse Practitioner Physicians Assistant: john; : 1955 Requested By: MISTI Torres; Order Number: [id number] Reading MD: Linda Yeung; Measurements; Intervals [place]; Rate: 68 P: 64; MS: 161 QRS: -49; QRSD: 93 T: 11; QT: 390; QTc: 415; Interpretive Statements; SINUS RHYTHM WITH OCCASIONAL SUPRAVENTRICULAR PREMATURE COMPLEXES; MARKED LEFT AXIS DEVIATION; PATTERN CONSISTENT WITH PULMONARY DISEASE; INFERIOR MYOCARDIAL INFARCTION, OF INDETERMINATE AGE; ; CW 05/17/16 - RATE INCREASED; ; Electronically Signed On 06-01-2016 12:47:37 EST by Linda Yeung; Radiology Order: portable chest Test: portable chest REASON FOR EXAMINATION: Chest Pain; Portable chest, frontal 04:00 p.m., single AP view, patient sitting:; ; The lung lagos are clear.; ; The cardiac size is normal.; ; The ann, mediastinum, and bony thorax are unremarkable.; ; Impression:; ; Negative portable chest. There is no interval change; ; ; Signed by; Abhishek Mendoza MD 05/31/2016 05:07 P; Outcome: 18:12 Discharge ordered by Provider. fg 18:55 Discharge Assessment: Patient awake, alert and oriented x 3. No cognitive and/or pml functional deficits noted. Patient verbalized understanding of disposition instructions. patient administered narcotics - yes. Pt provided with safe discharge. The following High Risk Discharge criteria are identified: None. Discharged to home ambulatory, with family. Condition: good Condition: stable. Discharge instructions given to patient, Instructed on discharge instructions, follow up and referral plans. Demonstrated understanding of instructions, Pt was receptive of discharge instructions/ teaching. No special radiology studies were completed. Property sent home with patient. 18:57 Patient left the ED. pml Signatures: Dispatcher [employer] EDMS Christine Kidd, RN RN [facility] Jesus, Gabriella, Reg Reg gb Zenaida Wolfe,RN TODD [id number] Carol Moura RN RN Phil Cornejo Sarah sew Gill, Frances, MD MD fg Beck, Gabriela gjb Vega, Jose, DEJON MEDICAL TRANSCRIPTION EDITOR jmv Chart Complete MTDD
--- NOTE | 2016-06-02 19:58 | EDDOCDS ---
Physician Documentation [facility] Name: Yessenia Mars Age: 60 yrs Sex: Female : 1955 Arrival Date: 05/31/2016 Time: 16:13 Bed 5 Private MD: Frank Rosen Disposition: 05/31/16 18:12 Discharged to Home/Self Care. Impression: Chest pain, unspecified, Essential (primary) hypertension. - Condition is Stable. - Discharge Instructions: Nonspecific Chest Pain, Hypertension. - Medication Reconciliation, Local Pharmacy Hours form. - Follow up: Frank Rosen; When: Call to arrange an appointment; Reason: Continuance of care. - Problem is new. - Symptoms have improved. Historical: - Allergies: Morphine; Niacin; Fwisdcp-Fuc-Jgk Reductase Inhibitors; - Home Meds: 1. Lantus 64 units Sub-Q crtg 64 units daily 2. Humalog subcutaneous 24 units Sub-Q three times a day 3. allopurinol 300 mg Oral tab 1 tab once daily 4. allopurinol 100 mg Oral tab evenings 5. citalopram 40 mg Oral tab 1 tab once daily 6. furosemide 20 mg Oral tab 1 tab once daily 7. Lovaza 1 gram oral cap 3 caps once daily 8. omeprazole 40 mg Oral cpDR 1 cap once daily 9. warfarin 6 mg Oral tab 1 tab once daily 10. metoprolol tartrate 50 mg Oral tab 1 tab 2 times per day 11. prednisone 5 mg Oral tab once daily 12. valsartan 160 mg oral tab 1 tab once daily 13. Saline Mist nasal nasal as needed 14. ventolin inhaler as needed for Cough and Congestion 15. oxycodone-acetaminophen 7.5-325 mg Oral tab 1 tab every 6 hours - PMHx: Diabetes - IDDM: uncontrolled; DVT; GERD; Gout; Hypertension; - PSHx: Hip Arthroplasty, Left; Hip Arthroplasty, Right; ; Tonsillectomy; Cholecystectomy; pilonidal cyst; - Social history: Smoking status: Patient uses tobacco products, current every day smoker. No barriers to communication noted, The patient speaks fluent Estonian, Speaks appropriately for age. - Family history: Not pertinent. - : The pt / caregiver states he / she is not on anticoagulants. Home medication list is obtained from the patient. - Exposure Risk Screening:: None identified. Vital Signs: 05/31 16:16 BP 219 / 97; Pulse 66; Resp 18; Pulse Ox 99% on R/A; Weight 136.08 kg / 300.01 lbs; sew Height 5 ft. 10 in. (177.80 cm); Pain 7/10; 16:32 Pulse 66 MON; Pulse Ox 95% ; pml 16:32 BP 183 / 84 (auto/); pml 16:38 Pulse 58 MON; Pulse Ox 93% ; pml 16:38 BP 170 / 72 (auto/); pml 16:53 Pulse 58 MON; Pulse Ox 91% ; pml 16:53 BP 166 / 76 (auto/); pml 17:08 Pulse 60 MON; Pulse Ox 92% ; pml 17:08 BP 161 / 67 (auto/); pml 17:23 Pulse 56 MON; Pulse Ox 97% ; pml 17:23 BP 149 / 72 (auto/); pml 17:38 Pulse 56 MON; Pulse Ox 95% ; pml 17:38 BP 159 / 70 (auto/); pml 17:53 Pulse 62 MON; Pulse Ox 93% ; pml 17:53 BP 156 / 71 (auto/); pml 18:00 Pain 4/10; pml 18:08 Pulse 56 MON; Pulse Ox 95% ; pml 18:08 BP 156 / 72 (auto/); pml 18:44 BP 158 / 74; Pulse 60; Resp 20; Temp 97.3(O); Pulse Ox 94% on R/A; Pain 0/10; jmv 16:16 Body Mass Index 43.05 (136.08 kg, 177.80 cm) sew MDM: 16:15 ECG WITH READING ER PHYS+CARDIAG ordered. EDMS 16:33 Aspirin Chewable Tablet 324 mg PO once ordered. fg 16:33 Director Of Accounting/Pulse Ox/q 30 min VS ordered. fg 16:33 IV Saline Lock ordered. fg 16:33 Rhythm Strip to chart ordered. fg 16:33 Undress patient appropriately for examination ordered. fg 16:33 hydrALAZINE 5 mg IV at bolus once ordered. fg 16:34 B-Type Natiuretic Peptide Ordered. EDMS 16:34 Basic Metabolic Profile Ordered. EDMS 16:34 CBC with Diff Ordered. EDMS 16:34 Cardiac Injury Profile Ordered. EDMS 16:34 Prothrombin Time Profile\E\INR Ordered. EDMS 16:34 Troponin Ordered. EDMS 16:35 portable chest Ordered. EDMS 17:07 Financial registration complete. gjb 17:08 [facility] Payment Agreement was scanned into [employer] and attached to record. gjb 17:33 ketorolac 30 mg IVP once ordered. fg 17:33 Promethazine 25 mg IVP once; dilute and administer 30-60 minutes ordered. fg 17:33 LORazepam 0.5 mg PO once ordered. fg 17:47 LORazepam 0.5 mg IVP once ordered. pml 06/01 10:37 T-Sheet-- Draft Copy was scanned into [employer] and attached to record. gb 15:39 ECG/EKG was scanned into [employer] and attached to record. gb Administered Medications: 05/31 16:38 Not Given (Physician Discretion): hydrALAZINE 5 mg IV at bolus once pml 16:41 Drug: Aspirin 324 mg [aspirin 81 mg chewable tablet (4 tabs)] Route: PO; pml 17:41 Drug: ketorolac 30 mg [ketorolac 30 mg/mL (1 mL) injection solution (1 mL)] Route: IVP; pml Site: right antecubital; 18:00 Follow up: Pain 4/10 Adult; Response: Pain is decreased pml 17:41 Drug: Promethazine 25 mg [promethazine 25 mg/mL injection solution (1 mL)] Route: IVP; pml Site: left antecubital; 17:47 Not Given (Duplicate Order): LORazepam 0.5 mg PO once pml 17:47 Drug: LORazepam 0.5 mg [lorazepam 2 mg/mL injection solution (0.25 mL)] Route: IVP; pml Site: right antecubital; 18:56 Follow up: Response: Confirmed pt not driving. pml Signatures: Dispatcher [employer] EDMS Christine Kidd RN RN srm Gabriella Lee, Reg Reg gb Carol Moura RN RN pml Misti White MD MD fg Beck, Gabriela gjb The chart was reviewed and I authenticate all verbal orders and agree with the evaluation and treatment provided.Attachments: 17:08 [facility] Payment Agreement gjb 06/01 10:37 T-Sheet-- Draft Copy gb 15:39 ECG/EKG gb Chart Complete MTDD
== END 2016-05-31 18:57 | disposition home or self-care (01) ==
LOC: M ED 16:13
DX: R07.9 Chest pain, unspecified (principal); I10 Essential (primary) hypertension; E10.9 Type 1 diabetes mellitus without complications; K21.9 Gastro-esophageal reflux disease without esophagitis; M10.9 Gout, unspecified; Z72.0 Tobacco use; Z86.718 Personal history of other venous thrombosis and embolism; Z96.641 Presence of right artificial hip joint; Z96.642 Presence of left artificial hip joint; Z79.01 Long term (current) use of anticoagulants; Z79.4 Long term (current) use of insulin; Z79.52 Long term (current) use of systemic steroids; Z79.891 Long term (current) use of opiate analgesic; Z79.899 Other long term (current) drug therapy; Z88.5 Allergy status to narcotic agent; Z88.6 Allergy status to analgesic agent; Z88.8 Allergy status to other drugs, medicaments and biological substances
CPT/HCPCS: 36415; 71010; 80048; 82550; 82553; 83880; 84484; 85025; 85610; 93005; 93041; 96374; 96375; 99284; J1885; J2060

== ENCOUNTER 2016-08-12 14:47 | Emergency (ER) | payer MEDICARE ==
[~2016-08-12] VITALS: Ht 154.9 cm; Wt 130.6 kg
[2016-08-12] MEDS ORDERED: METO50TA2 (15:16)
[2016-08-12] MEDS ORDERED: ALLO15TA (15:16)
[2016-08-12] MEDS ORDERED: HUMI40KI2 (15:16)
[2016-08-12] MEDS ORDERED: FURO20TA2 (15:16)
[2016-08-12] MEDS ORDERED: WARF4TAB52 (15:16)
[2016-08-12] MEDS ORDERED: PRED5TA (15:16)
[2016-08-12] MEDS ORDERED: ALLO100T (15:16)
[2016-08-12] MEDS ORDERED: OMEP40CA2 (15:16)
[2016-08-12] MEDS ORDERED: CITA40TA4 (15:16)
[2016-08-12] MEDS ORDERED: LORSARTIN (15:16)
[2016-08-12] MEDS ORDERED: INSULANT SC (15:16)
[2016-08-12] MEDS ORDERED: ASPIRIN 81 MG CHEW TABLET PO ONE (16:15)
[2016-08-12 16:25] LABS: BASO # 0.1 K/mm3 (0.0-0.2); BASO % 0.6 % (0.0-1.0); EOS # 0.2 K/mm3 (0.0-0.50); EOS % 1.6 % (0.0-3.0); LARGE UNSTAINED CELL # 0.1 K/mm3 (0.0-0.4); LARGE UNSTAINED CELL % 1.1 % (0.0-4.0); LYMPH # 1.8 K/mm3 (1.5-4.5); LYMPH % 15.9 % (24.0-44.0); MEAN CORPUSCULAR HEMOGLOBIN 29.7 pg (27.0-33.0); MEAN CORPUSCULAR HGB CONC 33.8 g/dl (32.0-36.5); MEAN CORPUSCULAR VOLUME 87.8 fl (80.0-96.0); MONO # 0.4 K/mm3 (0.0-0.8); MONO % 3.5 % (0.0-5.0); NEUTROPHILS # 8.2 K/mm3 (1.8-7.7); NEUTROPHILS % 77.3 % (36.0-66.0); PLATELET COUNT, AUTOMATED 262 k/mm3 (150-450); RED CELL DISTRIBUTION WIDTH 15.1 % (11.5-14.5); WHITE BLOOD COUNT 10.6 K/mm3 (4.0-10.0)
[2016-08-12 16:35] LABS: ANION GAP 7 MEQ/L (8-16); BLOOD UREA NITROGEN 11 MG/DL (7-18); CALCIUM LEVEL 9.7 MG/DL (8.8-10.2); CARBON DIOXIDE LEVEL 25 MEQ/L (21-32); CHLORIDE LEVEL 106 MEQ/L (98-107); CREATININE FOR GFR 0.67 MG/DL (0.55-1.02); GLOMERULAR FILTRATION RATE > 60.0 (>45); GLUCOSE, FASTING 181 MG/DL (80-110); POTASSIUM SERUM 4.4 MEQ/L (3.5-5.1); SODIUM LEVEL 138 MEQ/L (136-145)
--- NOTE | 2016-08-12 16:55 | REP ---
PORTABLE CHEST: HISTORY: Chest pain. COMPARISON: 05/31/2016, also portable. The technique utilized in obtaining the radiograph has magnified the cardiac silhouette and accentuated the interstitial markings. The superior mediastinal structures are midline. The cardiac silhouette is unremarkable in size, shape, and position. The diaphragmatic surfaces of the lungs are regular, and the costophrenic angles are clear. The pulmonary lagos are clear. The imaged osseous structures are intact. IMPRESSION: There is no acute cardiopulmonary disease. No significant change from the prior exam. Signed by Vince Hernandez DO 08/13/2016 09:34 A
[2016-08-12 18:32] VITALS: BP 146/70
--- NOTE | 2016-08-12 20:42 | ECGEPIP ---
Stationary ECG Study [facility] - ED Test Date: 2016-08-12 Pat Name: SHELBIE PEÑA Department: Room: - Gender: F Strategic Planning Director: tara : 1955 Requested By: Nikita Davis Order Number: [id number] Reading MD: Екатерина Alcala Measurements Intervals [place] Rate: 60 P: 67 WA: 160 QRS: -51 QRSD: 101 T: 32 QT: 405 QTc: 407 Interpretive Statements SINUS RHYTHM PATTERN CONSISTENT WITH PULMONARY DISEASE LEFT ANTERIOR FASCICULAR BLOCK PRWP NSTTW ABNORMALITY Electronically Signed On 08-12-2016 20:42:04 EDT by Екатерина Alcala
--- NOTE | 2016-08-12 20:43 | ECGEPIP ---
Stationary ECG Study [facility] - ED Test Date: 2016-08-12 Pat Name: SHELBIE PEÑA Department: Room: - Gender: F Clinical Nursing Instructor: edgar : 1955 Requested By: Nikita Davis Order Number: [id number] Reading MD: Екатерина Alcala Measurements Intervals [place] Rate: 55 P: 72 GA: 164 QRS: -52 QRSD: 102 T: 18 QT: 447 QTc: 429 Interpretive Statements SINUS BRADYCARDIA WITH OCCASIONAL SUPRAVENTRICULAR PREMATURE COMPLEXES PATTERN CONSISTENT WITH PULMONARY DISEASE LEFT ANTERIOR FASCICULAR BLOCK PRWP NSTTW ABNORMALITY ?PRIOR INFERIOR GA SIMILAR 15:13 Electronically Signed On 08-12-2016 20:42:51 EDT by Екатерина Alcala
== END 2016-08-12 18:43 | disposition home or self-care (01) ==
LOC: M ED 16:04
DX: R07.89 Other chest pain (principal); I10 Essential (primary) hypertension; I44.4 Left anterior fascicular block; R94.31 Abnormal electrocardiogram [ECG] [EKG]; E78.5 Hyperlipidemia, unspecified; E11.9 Type 2 diabetes mellitus without complications; E66.9 Obesity, unspecified; M06.9 Rheumatoid arthritis, unspecified; Z82.49 Family history of ischemic heart disease and other diseases of the circulatory system; Z79.899 Other long term (current) drug therapy; Z79.01 Long term (current) use of anticoagulants; Z79.4 Long term (current) use of insulin

== ENCOUNTER → 2016-10-11 | Outpatient (REF) | payer MEDICARE ==
[~2016-10-11] MED LIST: ALLO100T; ALLO15TA; CITA40TA4; FURO20TA2; HUMI40KI2; INSULANT SC; LORSARTIN; METO50TA2; OMEP40CA2; PRED5TA; WARF4TAB52
[2016-10-11 18:48] LABS: INR 1.49
== END ==
LOC: M LAB REF 16:23
PROVIDERS: ATTEND Family Medicine Addiction Medicine
DX: Z79.01 Long term (current) use of anticoagulants (principal)

== ENCOUNTER 2016-12-02 19:50 | Emergency (ER) | payer MEDICARE ==
[~2016-12-02] VITALS: Ht 177.8 cm; Wt 135.4 kg
[~2016-12-02 19:50] MED LIST changes: -ALLO100T; +ALLO100T PO; -CITA40TA4; +CITA40TA4 PO; -FURO20TA2; +FURO20TA2 PO; -HUMI40KI2; +HUMI40KI2 IM; -METO50TA2; +METO50TA7 PO; -OMEP40CA2; +OMEP40CA2 PO; -PRED5TA; +PRED5TA PO
[2016-12-02] MEDS ORDERED: FENO48TA2 PO ×2 (20:15)
[2016-12-02] MEDS ORDERED: COUM6TAB PO (20:15)
[2016-12-02] MEDS ORDERED: OXYC1TAB15 PO (20:15)
--- NOTE | 2016-12-02 23:00 | REPUSA ---
CLINICAL HISTORY: Pain. COMMENTS: Real time sonography with duplex doppler of the left lower extremity was performed with attention to the major deep venous structures. Evaluation reveals the left common femoral, superficial femoral and popliteal veins to be completely compressible without intraluminal thrombus. There is normal spontaneous phasic flow and augmentation. The greater saphenous/common femoral vein junction is patent. IMPRESSION: No evidence of DVT in left lower extremity. Thank you for your kind referral of this patient.
[2016-12-02] MEDS ORDERED: CYCL10TA PO (23:15)
[2016-12-02 23:38] VITALS: BP 146/71
== END 2016-12-02 23:39 | disposition home or self-care (01) ==
LOC: M ED 19:50
DX: S86.902A Unspecified injury of unspecified muscle(s) and tendon(s) at lower leg level, left leg, initial encounter (principal); I10 Essential (primary) hypertension; Z86.718 Personal history of other venous thrombosis and embolism; X58.XXXA Exposure to other specified factors, initial encounter; Y92.018 Other place in single-family (private) house as the place of occurrence of the external cause; Y99.9 Unspecified external cause status; Y93.9 Activity, unspecified; Z88.8 Allergy status to other drugs, medicaments and biological substances; Z79.01 Long term (current) use of anticoagulants; Z79.4 Long term (current) use of insulin; Z79.899 Other long term (current) drug therapy

== ENCOUNTER 2016-12-29 18:21 | Inpatient (IN) | payer MEDICARE ==
[~2016-12-29] VITALS: Ht 177.8 cm; Wt 147.0 kg
[~2016-12-29 18:21] MED LIST changes: +COUM6TAB PO; +CYCL10TA PO; +FENO48TA2 PO; +OXYC1TAB15 PO
--- NOTE | 2016-12-29 19:55 | REP ---
Clinical: Pain and swelling. Technique: AP, lateral, bilateral oblique views of the right foot. Findings: Diffuse moderate/early advanced osteoarthritic degenerative changes are appreciated including hallux valgus deformity, joint space narrowing, subchondral sclerosis/heterogeneity and somewhat mottled appearance to the periarticular osteoid matrix. Oblique and lateral views demonstrate calcifications in the plantar fascia. No obvious acute fracture dislocation. Impression: Diffuse moderate to early advanced degenerative changes. No acute fracture dislocation. Diffuse swelling. Osteomyelitis cannot definitively be diagnosed based on radiographic evaluation. Signed by Jeffrey Olsen MD 12/29/2016 07:47 P
--- NOTE | 2016-12-29 19:56 | REP ---
Clinical: Pain and swelling. Technique: AP, lateral, bilateral oblique views of the right ankle. Findings: Moderate osteopenia and arthritic degenerative changes are appreciated along with soft tissue swelling. No definite acute fracture dislocation. No obvious lytic / destructive changes and no periosteal reaction identified to suggest osteomyelitis. Ankle mortise is intact. Lateral view demonstrates significant calcifications in the plantar fascia. Impression: Moderate osteopenia and arthritic degenerative changes. No obvious acute fracture dislocation. Osteomyelitis cannot be diagnosed based on radiographic evaluation. Signed by Jeffrey Olsen MD 12/29/2016 07:48 P
[2016-12-29 20:01] LABS: BASO # 0.1 K/mm3 (0.0-0.2); BASO % 0.6 % (0.0-1.0); EOS # 0.3 K/mm3 (0.0-0.50); EOS % 2.3 % (0.0-3.0); LARGE UNSTAINED CELL # 0.1 K/mm3 (0.0-0.4); LARGE UNSTAINED CELL % 0.9 % (0.0-4.0); LYMPH # 1.8 K/mm3 (1.5-4.5); MEAN CORPUSCULAR HGB CONC 34.3 g/dl (32.0-36.5); MEAN CORPUSCULAR VOLUME 90.3 fl (80.0-96.0); MONO # 0.5 K/mm3 (0.0-0.8); MONO % 4.1 % (0.0-5.0); NEUTROPHILS # 10.4 K/mm3 (1.8-7.7); NEUTROPHILS % 79.1 % (36.0-66.0); PLATELET COUNT, AUTOMATED 257 k/mm3 (150-450); RED CELL DISTRIBUTION WIDTH 15.3 % (11.5-14.5); WHITE BLOOD COUNT 13.2 K/mm3 (4.0-10.0)
[2016-12-29 20:08] LABS: INR 1.86
[2016-12-29 20:23] LABS: ALBUMIN 3.6 GM/DL (3.2-5.2); ALBUMIN/GLOBULIN RATIO 1.03 (1.00-1.93); ALKALINE PHOSPHATASE 115 U/L (45-117); ALT/SGPT 37 U/L (12-78); ANION GAP 5 MEQ/L (8-16); AST/SGOT 17 U/L (15-37); BILIRUBIN,TOTAL 0.4 MG/DL (0.2-1.0); BLOOD UREA NITROGEN 11 MG/DL (7-18); CALCIUM LEVEL 10.7 MG/DL (8.8-10.2); CARBON DIOXIDE LEVEL 31 MEQ/L (21-32); CHLORIDE LEVEL 101 MEQ/L (98-107); CREATININE FOR GFR 0.76 MG/DL (0.55-1.02); GLOMERULAR FILTRATION RATE > 60.0 (>45); GLUCOSE, FASTING 195 MG/DL (80-110); POTASSIUM SERUM 3.9 MEQ/L (3.5-5.1); SODIUM LEVEL 137 MEQ/L (136-145); TOTAL PROTEIN 7.1 GM/DL (6.4-8.2); URIC ACID 3.4 MG/DL (2.6-6.0)
[2016-12-29 20:25] LABS: ERYTHROCYTE SEDIMENTATION RATE 40 mm/hr (0-30)
[2016-12-29] MEDS ORDERED: VANCOMYCIN HCL 1,000 MG, VIAL MATE ADAPTER 1 EACH in D5W 250 ML IV ONE (21:15)
[2016-12-29] MEDS ORDERED: ZYLO300T4 PO (22:32)
[2016-12-29] MEDS ORDERED: LOSA50TA20 PO (22:32)
[2016-12-29] MEDS ORDERED: FENO200C PO (22:32)
[2016-12-29] MEDS ORDERED: LANTINJ4 SC (22:32)
--- NOTE | 2016-12-29 22:35 | HPEPDOC ---
Medical History and Physical Date of Admission Dec 29, 2016 at 21:44 History and Physical PRIMARY CARE PROVIDER: Dr. Taj Rosen ATTENDING: Dr. Luis Tang CHIEF COMPLAINT: Left leg erythema/pain HISTORY OF PRESENT ILLNESS: 61-year-old female with insulin-dependent diabetes mellitus, obstructive sleep apnea on CPAP, hypertension, DVT on Coumadin, rheumatoid arthritis, ankylosing spondylitis, gout who presents complaining of right foot pain and swelling. Patient states that she initially and developed pain in bruising appearing area of her right foot on Friday, which developed into warm/hot/tender region that was edematous. On Friday she started to develop chills and decided to came to the ED. Patient denies any trauma to her right foot. States she's been unable to walk on it given the pain. Patient denies chest pain/shortness of breath/palpitations. No nausea/vomiting/ abdominal pain. PAST MEDICAL HISTORY: As per HPI PAST SURGICAL HISTORY: Cholecystectomy, b/l hip replacement, pilonidal cyst, tonsillectomy, , SOCIAL HISTORY: smokes half a pack per day 25 years, no alcohol or illicit drug use. FAMILY HISTORY: Father with lymphoma, mother with Parkinson's ALLERGIES: Please see below. REVIEW OF SYSTEMS: HEENT: Denies sore throat/headache CARDIOVASCULAR: Denies chest pain/palpitations RESPIRATORY: Denies shortness of breath/cough GASTROINTESTINAL: denies nausea/vomiting GENITOURINARY: Denies dysuria/urinary urgency. MUSCULOSKELETAL: Denies myalgias/arthralgias NEUROLOGICAL: Denies any focal weakness HOME MEDICATIONS: Please see below. PHYSICAL EXAMINATION: Vitals: (see below) General: No acute distress, laying comfortably in bed. HEENT: Moist mucous membranes. Neck: No JVD or lymphadenopathy Cardiac: RRR, No murmurs Pulm: Clear to auscultation b/l. No wheezing, rhonchi Abd: NT/ND + BS Ext: Right lower extremity 1-2+ pitting edema. Distal pulses intact. Significant erythema of the dorsal surface of the right foot with cellulitis extending midway up the tibial region. Capillary refill less than 2 seconds. Tender to palpation. No fluctuant region. No abscess noted. LABORATORY DATA: See below. IMAGING: X-ray right foot on 12/29/16 Impression: Diffuse moderate to early advanced degenerative changes. No acute fracture dislocation. Diffuse swelling. Osteomyelitis cannot definitively be diagnosed based on radiographic evaluation. X-ray right ankle on 12/29/16 Impression: Moderate osteopenia and arthritic degenerative changes. No obvious acute fracture dislocation. Osteomyelitis cannot be diagnosed based on radiographic evaluation. MICROBIOLOGY: Please see below. ASSESSMENT/PLAN: 1. Sepsis secondary to right lower extremity cellulitis. Febrile with leukocytosis. Patient denies any trauma. Diabetic foot infection. Started on vancomycin. We will also obtain a lactic acid level, venous blood gas, blood cultures. CT of the right lower extremity to rule out abscess. May need MRI to rule out osteomyelitis. Trend CRP/ESR. 2. Right lower extremity edema- likely secondary to underlying infection. Given the subtherapeutic INR, we'll obtain ultrasound to rule out recurrent DVT. 3. History of DVT- resume Coumadin. 4. History of hypertension- continue home meds 5. History of DREW- on CPAP 6. History of diabetes mellitus- continue insulin regimen. Sliding scale insulin. 7. History of rheumatoid arthritis/ankylosing spondylitis/gout- continue home meds 8. History of GERD- on PPI 9. History tobacco abuse- tobacco cessation counseling DVT prophylaxis- on Coumadin Patient followed by Dr. Luis Tang starting 12/30/16 at 7 AM. 8. Vital Signs Vital Signs Date Time Temp Pulse Resp B/P (MAP) Pulse Ox O2 Delivery O2 Flow Rate FiO2 12/29/16 20:49 101.0 74 18 167/64 (98) 98 Room Air Laboratory Data Labs 24H Laboratory Tests 2 12/29/16 19:47: White Blood Count 13.2H, Red Blood Count 4.74, Hemoglobin 14.7, Hematocrit 42.8 , Mean Corpuscular Volume 90.3, Mean Corpuscular Hemoglobin 31.0, Mean Corpuscular Hemoglobin Concent 34.3, Red Cell Distribution Width 15.3H, Platelet Count 257, Neutrophils (%) (Auto) 79.1H, Lymphocytes (%) (Auto) 13.0L, Monocytes (%) (Auto) 4.1, Eosinophils (%) (Auto) 2.3, Basophils (%) (Auto) 0.6, Neutrophils # (Auto) 10.4H, Lymphocytes # (Auto) 1.8, Monocytes # (Auto) 0.5, Eosinophils # (Auto) 0.3, Basophils # (Auto) 0.1, Large Unclassified Cells % 0.9 , Large Unclassified Cells # 0.1, Erythrocyte Sedimentation Rate 40H, Prothrombin Time 22.0H, Prothromb Time International Ratio 1.86, Anion Gap 5L, Glomerular Filtration Rate > 60.0, Blood Urea Nitrogen 11, Creatinine 0.76, Sodium Level 137, Potassium Level 3.9, Chloride Level 101, Carbon Dioxide Level 31, Calcium Level 10.7H, Aspartate Amino Transf (AST/SGOT) 17, Alanine Aminotransferase (ALT/SGPT) 37, Alkaline Phosphatase 115, Total Bilirubin 0.4, Uric Acid 3.4, Total Protein 7.1, Albumin 3.6, C-Reactive Protein, Quantitative 7.29H, Albumin/Globulin Ratio 1.03 CBC/BMP Laboratory Tests 12/29/16 19:47 Red Blood Count 4.74, Mean Corpuscular Volume 90.3, Mean Corpuscular Hemoglobin 31.0, Mean Corpuscular Hemoglobin Concent 34.3, Red Cell Distribution Width 15.3 H, Neutrophils (%) (Auto) 79.1 H, Lymphocytes (%) (Auto) 13.0 L, Monocytes (%) (Auto) 4.1, Eosinophils (%) (Auto) 2.3, Basophils (%) (Auto) 0.6, Neutrophils # (Auto) 10.4 H, Lymphocytes # (Auto) 1.8, Monocytes # (Auto) 0.5, Eosinophils # (Auto) 0.3, Basophils # (Auto) 0.1, Calcium Level 10.7 H, Aspartate Amino Transf (AST/SGOT) 17, Alanine Aminotransferase (ALT/SGPT) 37, Alkaline Phosphatase 115, Total Bilirubin 0.4, Uric Acid 3.4, Total Protein 7.1 , Albumin 3.6 Home Medications Scheduled Warfarin Sod (Coumadin) 6 Mg Tab, 6 MG PO DAILY Scheduled PRN Insulin Glargine (Lantus) 1 Units/0.01 Ml Susp, 60 UNITS SC units PRN for am Miscellaneous Medications (Humira Pen) 40 Mg/0.8 Ml Kit (Oxycodone/Acetaminophen 7.5-325 mg) 1 Tab Tab, 1 TAB PO for PAIN Allopurinol (Allopurinol) 150 Mg Halftab Allopurinol (Allopurinol) 100 Mg Tab Citalopram Hydrobromide (Citalopram Hydrobromide) 40 Mg Tab Fenofibrate (Fenofibrate) 48 Mg Tab, 48 MG PO Furosemide (Furosemide) 20 Mg Tab Metoprolol Tartrate (Metoprolol Tartrate) 50 Mg Tab Omeprazole (Omeprazole) 40 Mg Cap Prednisone (Prednisone) 5 Mg Tab [Lorsartin] , 50 MG Allergies Coded Allergies: Niacin (Verified Allergy, Severe, 12/29/16) ERIKA LEWIS MD Dec 29, 2016 22:35
[2016-12-29] MEDS ORDERED: ISOVUE-370 76% 100ML VIAL (Q9967) As Ordered ONE (22:43)
[2016-12-29] MEDS ORDERED: WARFARIN SOD 3 MG TAB PO ONE (23:00)
--- NOTE | 2016-12-29 23:20 | REPUSA ---
Clinical history: Pain, swelling. Findings: The common femoral, superficial femoral, popliteal, and other deep venous structures compre ss normally and demonstrate normal color Doppler flow. Normal venous waveforms with augmentation are seen. Impression: No evidence of deep vein thrombosis in either femoral popliteal venous system.
[2016-12-30] MEDS ORDERED: VANCOMYCIN HCL 1,000 MG, VIAL MATE ADAPTER 1 EACH in D5W 250 ML IV ONE ×3
--- NOTE | 2016-12-30 | REPUSA ---
CT of the right hip with contrast Clinical statement: infection, rule out abscess. Technique: Multiple axial CT images were obtained with 5 mm cuts through the right lower extremity af ter administration of nonionic intravenous contrast. Coronal and sagittal reconstructions were also o btained. No comparison is available. Findings: The osseous structures do not demonstrate any fractures or dislocations. Right hip arthropl asty is in satisfactory position and alignment. There is no evidence of loosening or displacement of the surgical hardware. No soft tissue masses or fluid collections are identified. There is mild soft tissue edema in the posterior aspect of the calf. Several prominent lymph nodes are seen in the right inguinal region, the largest measuring 2.5 x 1.4 cm. The superficial soft tissues are otherwise unr emarkable. Anterior varicose veins are noted. The joint spaces are well-maintained. Impression: 1. No focal abscess, fluid collection, or mass is appreciated. 2. Mild posterior soft tissue edema in the right lower leg. This is a nonspecific finding, likely rep resenting edema. However, early cellulitis could have this appearance. Clinical correlation is recomm ended. 3. No suspicious or destructive osseous lesions. 4. The right hip arthroplasty is intact. 5. Mild right inguinal lymphadenopathy.
[2016-12-30] MEDS ORDERED: UNRESOLVED CLARIFICATION ENTRY XX SCH (00:01)
[2016-12-30] MEDS: METOPROLOL TART 50 MG TAB PO SCH ×3 (00:01→20:44)
[2016-12-30] MEDS: LOSARTAN 50 MG TAB PO SCH ×3 (00:02→20:43)
--- NOTE | 2016-12-30 00:12 | PHACANCOPD ---
PHARMACY VANCOMYCIN DOSING Pt Demographics Demographics Patient Age:61 , Weight:135.450 , Gender: female Adjusted Body Weight Date: 12/30/16, Adjusted Body Weight: [95.28] Kg Vancomycin Vancomycin indication: RT.FOOT CELLULITIS/SEPSIS Vancomycin Target Ranges: 15-20 mcg/ml Vancomycin Load Y/N: Yes Load Dose Date Time Vancomycin Load Dose: 2GM Date: 12/29 Time: 2200 Vancomycin Dose Date: 12/30/16. Current Vancomycin Dose: [1 GM IV Q12H@12] Intermittent Dosing?: No Labs Labs Laboratory Tests 12/29/16 19:47 Red Blood Count 4.74, Mean Corpuscular Volume 90.3, Mean Corpuscular Hemoglobin 31.0, Mean Corpuscular Hemoglobin Concent 34.3, Red Cell Distribution Width 15.3 H, Neutrophils (%) (Auto) 79.1 H, Lymphocytes (%) (Auto) 13.0 L, Monocytes (%) (Auto) 4.1, Eosinophils (%) (Auto) 2.3, Basophils (%) (Auto) 0.6, Neutrophils # (Auto) 10.4 H, Lymphocytes # (Auto) 1.8, Monocytes # (Auto) 0.5, Eosinophils # (Auto) 0.3, Basophils # (Auto) 0.1, Calcium Level 10.7 H, Aspartate Amino Transf (AST/SGOT) 17, Alanine Aminotransferase (ALT/SGPT) 37, Alkaline Phosphatase 115, Total Bilirubin 0.4, Uric Acid 3.4, Total Protein 7.1 , Albumin 3.6 Creatinine Clearance Date:12/30/16. Creatinine Clearance: [>100].CALCULATED Pending Labs VANCOMYCIN TROUGH DUE Assessment and Plan Maintaining Current Dose?: Yes Reason for dose change: No Dose Change Pharmacist Note Pharmacist Note Date: 12/30/16. Pharmacist note:61YOF 70",135.45KG,ALLERGY=NIACIN,SCR=0.76,CRCL> 100(calculated).Admitted w/ rt.foot pain/swelling;treating sepsis/cellulitis w/ Vancomycin per Pharmacy consult. Vancomycin 1 GMgiven in ED@2200@12mid (2 gram total as load),Then will continue regimen at 1 gram q12h. First trough scheduled for12/30@2299(prior to the 3rd dose.;Will continue to follow levels and labs NAGI GALEAS PHARMACY Dec 30, 2016 00:12
[2016-12-30] MEDS: ALLOPURINOL 100 MG TAB PO SCH ×2 (00:17→20:43)
[2016-12-30] MEDS: PERCOCET 5MG/325MG TAB PO PRN ×2 (00:19→14:24)
[2016-12-30] MEDS: MORPHINE 2 MG/ML 1ML SYRINGE IV PRN ×3 (01:11→23:24)
[2016-12-30] MEDS: ONDANSETRON 4MG/2ML VIAL (J2405) IV PRN (01:16)
[2016-12-30 03:18] LABS: VENOUS BASE EXCESS -0.9 (-2.0-2.0); VENOUS O2 SATURATION 72.7 % (60.0-80.0); VENOUS PARTIAL PRESSURE CO2 42.6 mmHg (38.0-50.0); VENOUS PARTIAL PRESSURE O2 34.8 mmHg (30.0-50.0); VENOUS STANDARD HCO3 23.2 MEQ/L; VENOUS TOTAL CO2 25.7 MEQ/L (24.0-28.0)
[2016-12-30 03:25] VITALS: BP 134/63
[2016-12-30] MEDS ORDERED: GLUCAGON FOR INJ 1 MG VIAL (J1610) SC PRN (04:30)
[2016-12-30] MEDS ORDERED: GLUCOSE 4 GM CHEW TABLET PO PRN (04:30)
[2016-12-30] MEDS ORDERED: DEXTROSE 50% 50 ML SYRINGE IV PRN (04:30)
[2016-12-30 05:46] LABS: BASO # 0.1 K/mm3 (0.0-0.2); BASO % 0.5 % (0.0-1.0); EOS # 0.1 K/mm3 (0.0-0.50); EOS % 1.3 % (0.0-3.0); LARGE UNSTAINED CELL # 0.2 K/mm3 (0.0-0.4); LARGE UNSTAINED CELL % 1.5 % (0.0-4.0); LYMPH # 1.9 K/mm3 (1.5-4.5); LYMPH % 17.1 % (24.0-44.0); MEAN CORPUSCULAR HGB CONC 34.5 g/dl (32.0-36.5); MEAN CORPUSCULAR VOLUME 89.7 fl (80.0-96.0); MONO # 0.5 K/mm3 (0.0-0.8); MONO % 4.7 % (0.0-5.0); NEUTROPHILS # 8.3 K/mm3 (1.8-7.7); NEUTROPHILS % 74.8 % (36.0-66.0); PLATELET COUNT, AUTOMATED 229 k/mm3 (150-450); WHITE BLOOD COUNT 11.1 K/mm3 (4.0-10.0)
[2016-12-30 05:49] LABS: INR 1.9
[2016-12-30 06:01] LABS: ALBUMIN 2.8 GM/DL (3.2-5.2); ALKALINE PHOSPHATASE 90 U/L (45-117); ALT/SGPT 33 U/L (12-78); ANION GAP 5 MEQ/L (8-16); AST/SGOT 21 U/L (15-37); BILIRUBIN,TOTAL 0.5 MG/DL (0.2-1.0); BLOOD UREA NITROGEN 10 MG/DL (7-18); CALCIUM LEVEL 9.6 MG/DL (8.8-10.2); CARBON DIOXIDE LEVEL 27 MEQ/L (21-32); CHLORIDE LEVEL 105 MEQ/L (98-107); CREATININE FOR GFR 0.69 MG/DL (0.55-1.02); GLOMERULAR FILTRATION RATE > 60.0 (>45); GLUCOSE, FASTING 181 MG/DL (80-110); MAGNESIUM LEVEL 1.7 MG/DL (1.8-2.4); SODIUM LEVEL 137 MEQ/L (136-145); TOTAL PROTEIN 6.3 GM/DL (6.4-8.2)
[2016-12-30] MEDS ORDERED: MAG SULF 1GM/100ML (MAG RUN) 1 GM in APPROPRIATE DILUENT 1 EA IV ONE (06:45)
[2016-12-30 07:41] LABS: ERYTHROCYTE SEDIMENTATION RATE 56 mm/hr (0-30)
[2016-12-30 08:00] VITALS: BP 107/52
[2016-12-30] MEDS ORDERED: FUROSEMIDE 20 MG TAB PO SCH (09:00)
[2016-12-30] MEDS ORDERED: LEVEMIR (INSULIN DETEMIR) 1 UNITS/0.01ML SC SCH (09:00)
[2016-12-30] MEDS: HumaLOG INSULIN (NovoLOG) PER UNIT SC SCH ×4 (09:24→20:44)
[2016-12-30] MEDS: CitaloPRAM (CeleXA) 20 MG TAB PO SCH (09:25)
[2016-12-30] MEDS: predniSONE 5 MG TAB PO SCH (09:25)
[2016-12-30] MEDS: OMEPRAZOLE 20 MG CAP PO SCH (09:26)
[2016-12-30] MEDS: ALLOPURINOL 300 MG TAB PO SCH (09:26)
--- NOTE | 2016-12-30 11:58 | IPN ---
DATE: 12/30/2016 SUBJECTIVE: The patient complains of pain her right foot. She tells me that it is not any better than yesterday. She denies fevers, chills, chest pain, or shortness of breath. OBJECTIVE: VITAL SIGNS: T-max 101.6, temperature current 98.4, pulse 70, respiratory rate 20, blood pressure 124/60, oxygen saturation 93% on room air. GENERAL: She is a morbidly obese female sitting on the edge of her bed. She does not appear to be any acute distress. HEENT: Cranial nerves II through XII are grossly intact. She has moist mucous membranes and a large neck. CARDIOVASCULAR EXAM: S1 and S2 regular. RESPIRATORY EXAM: Clear. ABDOMINAL EXAM: Obese and nontender. EXTREMITIES: The right lower extremity, the dorsum of the right foot is red, swollen and tender, warm to touch. It is difficult to examine in between her toes as there is significant edema. However, no obvious areas of necrosis or ulcers. She does have some breaks in her skin and there does appear to be dirt in between her toes as well suggestive of poor hygiene. LABORATORY STUDIES: WBC 11.1, hemoglobin 12.9, hematocrit 37.3, platelet count 229. Chemistry panel: Sodium 137, potassium 4.0, chloride 105, bicarb 27, BUN 10, creatinine 0.6, magnesium level of 1.7, which has been repleted. CRP is 10.3 today. She did have a VBG in the emergency room with a pH of 7.3, pCO2 14.6, and a pO2 of 34.8, INR is 1.9. Blood cultures are currently drawn and pending. IMAGING: The patient had an x-ray of the foot, which could not definitively diagnoses osteomyelitis. No acute fracture or dislocation. Diffuse moderate to early advanced degenerative changes. Patent also had an ankle x-ray that revealed moderate osteopenia and arthritic degenerative changes. No obvious acute fracture or dislocation and osteomyelitis could not be diagnosed per radiographic evaluation. She also had a vascular ultrasound that revealed no evidence of deep vein thrombosis (DVT) in either femoral or popliteal venous systems. She did have a CT scan of the lower extremity which revealed no focal abscess, fluid collection or mass. There was mild posterior soft tissue edema in the right lower leg likely representing edema. No suspicious or destructive osseous lesions. ASSESSMENT/PLAN: This is a 61-year-old female with a diabetic lower extremity cellulitis. PROBLEMS: 1. Diabetic lower extremity cellulitis. Patient is currently on vancomycin. I will add Zosyn as well. Her fever curve appears to be trending down. Her pain is significant. I suspect it will take significant time for this to improve. Physical therapy has been ordered for the patient. Continue to monitor her CRP and ESR. At this time I do have little suspicion for osteomyelitis per imaging studies thus far. I will continue to follow her closely. 2. History of DVT. No acute DVT at this time. She is continued on Coumadin. She is slightly subtherapeutic, but she is also starting on antibiotics, so I suspect this will become therapeutic very shortly. 3. Hypertension. She is continued on losartan and metoprolol. 4. Sleep apnea. She is using her home CPAP. 5. Type 2 diabetes. She is on sliding scale insulin. 6. Rheumatoid arthritis/anklyosing spondylitis. She is on low dose prednisone. We will monitor for any adrenal insufficiency. 7. Gastroesophageal reflux disease (GERD). She is on omeprazole. 8. Tobacco abuse. Cessation and counseling offered. 9. Gout. She is continued on allopurinol. 10. Mood disorder. She is on Celexa. 11. Fluid overload. She is chronically Lasix, which she is continued on here. Her edema is restricted to the right lower extremity and on the left. 12. Deep vein thrombosis (DVT) prophylaxis. Patient is on Coumadin. DISPOSITION: Continue to monitor the patient closely. She is stable without any events on telemetry. She can be transferred to the medical/surgical floor.
[2016-12-30] MEDS: PIPERACILLIN/TAZOBACTAM SOD 3.375 GM in D5W MINI-BAG PLUS 50 ML IV SCH ×2 (12:08→18:01)
[2016-12-30] MEDS: VANCOMYCIN HCL 1,000 MG, VIAL MATE ADAPTER 1 EACH in D5W 250 ML IV SCH ×2 (13:46→23:24)
[2016-12-30 16:00] VITALS: BP 149/68
[2016-12-30] MEDS ORDERED: WARFARIN SOD 3 MG TAB PO SCH (17:00)
[2016-12-30 19:42] VITALS: BP 129/59
[2016-12-30 23:26] VITALS: BP 152/69
--- NOTE | 2016-12-30 23:33 | PHACANCOPD ---
PHARMACY VANCOMYCIN DOSING Pt Demographics Demographics Patient Age:61 , Weight:148.400 , Gender: female Adjusted Body Weight Date: 12/30/16, Adjusted Body Weight: [95.28] Kg Events Past 24 Hours Events Past 24 Hours: NO: Dialysis, Diuretic Therapy, Change in CrCl, Fever, Elevation in WBC, Pending Diagnostics, Pending Procedures, Other Vancomycin Vancomycin indication: RT.FOOT CELLULITIS/SEPSIS Vancomycin Target Ranges: 15-20 mcg/ml Vancomycin Load Y/N: Yes Load Dose Date Time Vancomycin Load Dose: 2GM Date: 12/29 Time: 2200 Vancomycin Dose Date: 12/30/16. Current Vancomycin Dose: [1 GM IV Q6H] Intermittent Dosing?: No Labs Labs Item Value Date Time White Blood Count 11.1 K/mm3 H 12/30/16 0509 Creatinine 0.69 MG/DL 12/30/16 0509 Vancomycin Level Trough 7.5 UG/ML L 12/30/16 2245 Vital Signs Label Value Date Time Patient Temperature 99.3 degrees F 12/30/161941 Temperature Source Temporal 12/30/161941 Micro Microbiology 12/30/16 Blood Culture, Received Pending 12/30/16 Blood Culture, Received Pending Creatinine Clearance Date:12/30/16. Creatinine Clearance: [>100].CALCULATED Pending Labs VANCOMYCIN TROUGH DUE 12/31@1700 Assessment and Plan Maintaining Current Dose?: No Reason for dose change: Trough too low Pharmacist Note Pharmacist Note Date: 12/30/16. Pharmacist note:Trough of 7.5 is below target range. Dose increased to 1000mg q6h with a trough ordered for 12-31 @1700. Will continue to monitor and make adjustments as needed. [facility] Dec 30, 2016 23:33
[2016-12-31] VITALS (9 sets, daily range): BP systolic 119–148; BP diastolic 57–77
[2016-12-31] MEDS ORDERED: ISOVUE-370 76% 100ML VIAL (Q9967) As Ordered ONE (00:22)
[2016-12-31] MEDS ORDERED: MORPHINE 2 MG/ML 1ML SYRINGE IV ONE (00:45)
[2016-12-31 00:52] LABS: ALBUMIN 2.8 GM/DL (3.2-5.2); ALBUMIN/GLOBULIN RATIO 0.93 (1.00-1.93); ALKALINE PHOSPHATASE 90 U/L (45-117); ALT/SGPT 26 U/L (12-78); ANION GAP 4 MEQ/L (8-16); AST/SGOT 13 U/L (15-37); BILIRUBIN,TOTAL 0.4 MG/DL (0.2-1.0); BLOOD UREA NITROGEN 10 MG/DL (7-18); CALCIUM LEVEL 9.6 MG/DL (8.8-10.2); CARBON DIOXIDE LEVEL 29 MEQ/L (21-32); CHLORIDE LEVEL 105 MEQ/L (98-107); CREATININE FOR GFR 0.76 MG/DL (0.55-1.02); GLOMERULAR FILTRATION RATE > 60.0 (>45); GLUCOSE, FASTING 203 MG/DL (80-110); POTASSIUM SERUM 4.3 MEQ/L (3.5-5.1); SODIUM LEVEL 138 MEQ/L (136-145); TOTAL PROTEIN 5.8 GM/DL (6.4-8.2)
[2016-12-31 01:00] LABS: BASO # 0.1 K/mm3 (0.0-0.2); BASO % 0.6 % (0.0-1.0); EOS # 0.2 K/mm3 (0.0-0.50); EOS % 1.4 % (0.0-3.0); LARGE UNSTAINED CELL # 0.2 K/mm3 (0.0-0.4); LARGE UNSTAINED CELL % 1.5 % (0.0-4.0); LYMPH # 1.5 K/mm3 (1.5-4.5); LYMPH % 14.3 % (24.0-44.0); MEAN CORPUSCULAR HEMOGLOBIN 30.9 pg (27.0-33.0); MEAN CORPUSCULAR HGB CONC 33.9 g/dl (32.0-36.5); MEAN CORPUSCULAR VOLUME 91.3 fl (80.0-96.0); MONO # 0.5 K/mm3 (0.0-0.8); MONO % 4.7 % (0.0-5.0); NEUTROPHILS # 8.2 K/mm3 (1.8-7.7); NEUTROPHILS % 77.5 % (36.0-66.0); PLATELET COUNT, AUTOMATED 212 k/mm3 (150-450); WHITE BLOOD COUNT 10.5 K/mm3 (4.0-10.0)
--- NOTE | 2016-12-31 02:10 | REPUSA ---
CLINICAL HISTORY: Abdominal pain. TECHNIQUE: Multiple axial, sagittal and coronal CT images were obtained through the abdomen and pelvi s after administration of intravenous contrast material. COMMENTS: Comparison is made to prior exam performed on 01/01/2015. Impacted appendicolith at the base of the appendix. Enlarged appendix measuring 1.2 cm in its largest transverse dimension. Diffuse thickening of the wall of the appendix. Periappendiceal fat stranding. Fat-containing umbilical hernia without incarceration. Prior cholecystectomy. The liver is of uniform attenuation without mass or defect. Interposition of the colon between the liver and the right hemidiaphragm. There is no intra or extrahepatic biliary ductal dilatation. The spleen is normal. The pancreas is of normal contour and attenuation characteristics. There is no evidence of adrenal ma ss. Both kidneys demonstrate prompt and equal nephrograms. The kidneys are normal in size, shape and conf iguration. There is no evidence of renal or ureteral mass. No renal or ureteral calculi are identifie d. There is no hydroureter or hydronephrosis. There is no bowel wall thickening. No evidence for small or large bowel obstruction. There is no evid ence of abdominal ascites or lymphadenopathy. There is no evidence of intrinsic or extrinsic bladder mass. There is no pelvic ascites or lymphadeno mirza. Images of the lung bases show no evidence of pleural or parenchymal mass. There are no pleural effusi ons. The bony structures are free of lytic or blastic lesions. Multilevel degenerative changes are seen in volving the thoracolumbar spine. Scattered calcifications are seen involving the aorta and major branches compatible with atherosclero sis. Bilateral total hip arthroplasties. Metallic prostheses are in good position. IMPRESSION: Hepatomegaly with fatty liver infiltration. Prior cholecystectomy. Acute appendicitis. No perforation or abscess formation. Impacted appendicolith in the base of the appendix. Interposition of the colon between the liver and the right hemidiaphragm. Benign chronic finding. Thank you for your kind referral of this patient.
[2016-12-31] MEDS ORDERED: NS 0.45% 1,000 ML IV SCH (02:30)
[2016-12-31] MEDS: PIPERACILLIN/TAZOBACTAM SOD 3.375 GM in D5W MINI-BAG PLUS 50 ML IV SCH ×3 (02:39→20:06)
--- NOTE | 2016-12-31 02:40 | IPNPDOC ---
Text Note Date of Service The patient was seen on 12/30/16. NOTE Call to evaluate patient who is complaining of right lower quadrant pain. Patient had initially been admitted for sepsis secondary to right lower extremity cellulitis. She is a diabetic. The patient was hemodynamically stable. Saturating well. Patient states that she developed nonspecific right- sided abdominal pain on Friday morning which has been progressing. She states the pain is severe at this point and is 7 out of 10, sharp, nonradiating, no associated nausea/vomiting. Patient denies any prior episodes. The patient's abdomen was tender to palpation at the right lower quadrant however no rebound guarding or rigidity was noted. CT abdomen and pelvis was ordered and was notable for acute appendicitis however no perforation or abscess was noted. I discussed these findings with Dr. Dacosta, who will take the patient to the OR in the a.m. We will continue with the current antibiotic regimen. Nothing by mouth. IV fluids. We'll also decrease the patient's Levemir dose as she is NPO now. D/c lasix. Increase morphine dosage. The patient's INR on the morning of was 1.9 and the patient has received dosage of Coumadin at 6 PM. We have discussed this with Dr. Day recommends no vitamin K, however we will order 2 unit of FFP to be given prior to surgery. Will need anticoagulation restarted after surgery given her history of DVT. Also has RA - will need proper care with positioning of cervical spine when intubated for surgery. Has DREW which may complicate/prolong extubation after OR. VS,Fishbone, I+O VS, Fishbone, I+O Laboratory Tests 12/30/16 05:09 Red Blood Count 4.16, Mean Corpuscular Volume 89.7, Mean Corpuscular Hemoglobin 31.0, Mean Corpuscular Hemoglobin Concent 34.5, Red Cell Distribution Width 15.0 H, Neutrophils (%) (Auto) 74.8 H, Lymphocytes (%) (Auto) 17.1 L, Monocytes (%) (Auto) 4.7, Eosinophils (%) (Auto) 1.3, Basophils (%) (Auto) 0.5, Neutrophils # (Auto) 8.3 H, Lymphocytes # (Auto) 1.9, Monocytes # (Auto) 0.5, Eosinophils # (Auto) 0.1, Basophils # (Auto) 0.1, Calcium Level 9.6, Aspartate Amino Transf (AST/SGOT) 21, Alanine Aminotransferase (ALT/SGPT) 33, Alkaline Phosphatase 90, Total Bilirubin 0.5, Total Protein 6.3 L, Albumin 2.8 #L 12/31/16 00:14 Red Blood Count 4.08, Mean Corpuscular Volume 91.3, Mean Corpuscular Hemoglobin 30.9, Mean Corpuscular Hemoglobin Concent 33.9, Red Cell Distribution Width 15.0 H, Neutrophils (%) (Auto) 77.5 H, Lymphocytes (%) (Auto) 14.3 L, Monocytes (%) (Auto) 4.7, Eosinophils (%) (Auto) 1.4, Basophils (%) (Auto) 0.6, Neutrophils # (Auto) 8.2 H, Lymphocytes # (Auto) 1.5, Monocytes # (Auto) 0.5, Eosinophils # (Auto) 0.2, Basophils # (Auto) 0.1, Calcium Level 9.6, Aspartate Amino Transf (AST/SGOT) 13 L, Alanine Aminotransferase (ALT/SGPT) 26, Alkaline Phosphatase 90, Total Bilirubin 0.4, Total Protein 5.8 L, Albumin 2.8 L Vital Signs Date Time Temp Pulse Resp B/P (MAP) Pulse Ox O2 Delivery O2 Flow Rate FiO2 12/31/16 00:49 18 12/30/16 23:26 98.5 75 152/69 (96) 93 Room Air 12/30/16 14:54 2.0 I&O- Last 24 Hours up to 6 AM 12/31/16 06:00 Intake Total 610 ml Output Total 1900 ml Balance -1290 ml ERIKA LEWIS MD Dec 31, 2016 02:40
[2016-12-31] MEDS: MORPHINE 2 MG/ML 1ML SYRINGE IV PRN ×3 (04:36→18:39)
[2016-12-31 04:55] LABS: BASO # 0.1 K/mm3 (0.0-0.2); BASO % 0.5 % (0.0-1.0); EOS # 0.3 K/mm3 (0.0-0.50); LARGE UNSTAINED CELL # 0.1 K/mm3 (0.0-0.4); LYMPH # 1.7 K/mm3 (1.5-4.5); LYMPH % 12.2 % (24.0-44.0); MEAN CORPUSCULAR HEMOGLOBIN 30.5 pg (27.0-33.0); MEAN CORPUSCULAR HGB CONC 33.9 g/dl (32.0-36.5); MEAN CORPUSCULAR VOLUME 90.1 fl (80.0-96.0); MONO # 0.6 K/mm3 (0.0-0.8); MONO % 4.7 % (0.0-5.0); NEUTROPHILS # 10.2 K/mm3 (1.8-7.7); NEUTROPHILS % 79.6 % (36.0-66.0); PLATELET COUNT, AUTOMATED 226 k/mm3 (150-450); RED CELL DISTRIBUTION WIDTH 15.3 % (11.5-14.5); WHITE BLOOD COUNT 12.8 K/mm3 (4.0-10.0)
[2016-12-31 04:56] LABS: INR 2.23
[2016-12-31 05:12] LABS: ALBUMIN 2.9 GM/DL (3.2-5.2); ALBUMIN/GLOBULIN RATIO 0.74 (1.00-1.93); ALKALINE PHOSPHATASE 85 U/L (45-117); ALT/SGPT 36 U/L (12-78); ANION GAP 6 MEQ/L (8-16); AST/SGOT 24 U/L (15-37); BILIRUBIN,TOTAL 0.5 MG/DL (0.2-1.0); BLOOD UREA NITROGEN 8 MG/DL (7-18); CALCIUM LEVEL 10.4 MG/DL (8.8-10.2); CARBON DIOXIDE LEVEL 25 MEQ/L (21-32); CHLORIDE LEVEL 107 MEQ/L (98-107); CREATININE FOR GFR 0.65 MG/DL (0.55-1.02); GLOMERULAR FILTRATION RATE > 60.0 (>45); GLUCOSE, FASTING 171 MG/DL (80-110); MAGNESIUM LEVEL 1.7 MG/DL (1.8-2.4); SODIUM LEVEL 138 MEQ/L (136-145); TOTAL PROTEIN 6.8 GM/DL (6.4-8.2)
[2016-12-31] MEDS: VANCOMYCIN HCL 1,000 MG, VIAL MATE ADAPTER 1 EACH in D5W 250 ML IV SCH ×3 (05:15→17:41)
[2016-12-31 05:53] LABS: ERYTHROCYTE SEDIMENTATION RATE 65 mm/hr (0-30)
[2016-12-31] MEDS ORDERED: MAG SULF 1GM/100ML (MAG RUN) 1 GM in APPROPRIATE DILUENT 1 EA IV ONE (06:30)
[2016-12-31] MEDS ORDERED: PHYTONADIONE 10MG/ML INJECTION (J3430) SQ ONE (09:00)
[2016-12-31] MEDS ORDERED: PHYTONADIONE INJection 10 MG in NS 50 ML IV ONE (09:00)
--- NOTE | 2016-12-31 09:16 | ECGEPIP ---
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
[2016-12-31] MEDS ORDERED: ZOSYN 3.375 GM VIAL (J2543) As Ordered ONE (09:44)
[2016-12-31] MEDS ORDERED: HumaLOG INSULIN (NovoLOG) PER UNIT As Ordered ONE ×2 (09:58→12:16)
[2016-12-31] MEDS: HumaLOG INSULIN (NovoLOG) PER UNIT SC SCH ×4 (10:05→20:09)
[2016-12-31] MEDS ORDERED: BUPIVACAINE/EPIN 0.25% 30 ML VIAL As Ordered ONE (10:08)
[2016-12-31] MEDS ORDERED: HumaLOG INSULIN (NovoLOG) PER UNIT SC ONE ×2 (10:15→12:45)
[2016-12-31] MEDS ORDERED: PROPOFOL 200 MG/20 ML VIAL As Ordered ONE (11:01)
[2016-12-31] MEDS ORDERED: KETOROLAC 60 MG/2 ML VIAL (J1885) As Ordered ONE (11:01)
[2016-12-31] MEDS ORDERED: ROCURONIUM BROMIDE 50 MG/5 ML VIAL/SYRINGE As Ordered ONE (11:01)
[2016-12-31] MEDS ORDERED: ONDANSETRON 4MG/2ML VIAL (J2405) As Ordered ONE (11:01)
[2016-12-31] MEDS ORDERED: HYDROCORTISONE 100 MG/2 ML VIAL (J1720) As Ordered ONE (11:01)
[2016-12-31] MEDS ORDERED: MIDAZOLAM INJ 2 MG/2 ML VIAL (J2250) As Ordered ONE (11:01)
[2016-12-31] MEDS ORDERED: LIDOCAINE 2% INJ 100 MG/5 ML SDV (FOR ANES.) As Ordered ONE (11:01)
[2016-12-31] MEDS ORDERED: fentaNYL 100 MCG/2 ML INJECTION (J3010) As Ordered ONE ×2 (11:01→11:31)
[2016-12-31] MEDS ORDERED: GLYCOPYRROLATE INJ 0.2 MG/ML 2 ML VIAL As Ordered ONE (11:02)
[2016-12-31] MEDS ORDERED: NEOSTIGMINE 1MG/ML 5 ML SYRINGE (J2710) As Ordered ONE (11:02)
[2016-12-31] MEDS ORDERED: ePHEDrine SULFATE 25 MG/5 ML(5MG/ML) SYRINGE As Ordered ONE (11:04)
--- NOTE | 2016-12-31 11:50 | RO ---
DATE OF PROCEDURE: 12/31/2016 PREOPERATIVE DIAGNOSIS: Acute appendicitis. POSTOPERATIVE DIAGNOSIS: Acute appendicitis. PROCEDURE: Laparoscopic appendectomy. SURGEON: Dr. Cuba Valentine TRANSFORMATION ANALYST: ANESTHESIA: General endotracheal anesthesia. ESTIMATED BLOOD LOSS: Minimal. FLUIDS: Crystalloid. BRIEF PROCEDURE SUMMARY: The patient was brought to the operating room and was given general anesthesia. After adequate anesthesia, the patient was prepped and draped in the usual sterile fashion. Next, a supraumbilical incision was made with skin knife. Blunt dissection was carried down to fascia. The fascia was grasped with Ciro clamps, elevated and a Veress needle placed into the abdominal cavity and insufflated to 15 mm of pressure. A dilating 10 mm trocar was placed at the umbilicus and under direct visualization a midline lower abdominal 5 mm trocar was placed as well as just to the left of the midline infraumbilically a second 5 mm trocar was placed. The patient was placed in Trendelenburg position during this portion of the procedure and then placed left side down. The patient had some adhesions in the right upper quadrant and in the right lateral abdomen. These were not taken down. There was some fibrinous exudate in the area of the cecum and it was obvious that there was an inflammatory process here. Thus, after some minimal blunt dissection, the appendix could be seen. It was quite inflamed and had some fibrinous exudate associated with it. The tip of the appendix was able to be mobilized easily; however, the rest of the mesentery was taken piecemeal using the harmonic scalpel all the way to the base of the appendix to where it abutted the cecum. Once I was approximated nicely on the base of the appendix, the 45 EEA stapler was placed across the base of the appendix and transected. This was placed in an EndoCatch bag and brought out through the umbilicus. The right lower quadrant was copiously irrigated until clear. No excessive bleeding was appreciated; however, care was taken during all the dissection to make sure that a slow meticulous transection of vessels was created along the mesentery itself. After the staple line appeared clean and dry and the right lower quadrant was copiously irrigated clean and the operative field was clean and dry, all trocars were removed under direct visualization. #0 Vicryl was used close the fascia at the umbilicus and all incisions were closed with #4-0 Vicryl. Steri-Strips and a dry sterile dressing was applied. The patient was awakened, extubated and brought to the recovery room awake, alert and hemodynamically stable. Sponge and needle counts were correct times two.
[2016-12-31] MEDS ORDERED: PERCOCET 5MG/325MG TAB PO PRN (12:45)
[2016-12-31] MEDS ORDERED: MEPERIDINE INJ 25 MG/ML VIAL (J2175) IV PRN (12:45)
[2016-12-31] MEDS ORDERED: fentaNYL 100 MCG/2 ML INJECTION (J3010) IV PRN (12:45)
[2016-12-31] MEDS ORDERED: METOCLOPRAMIDE INJ 10MG/2ML VIAL (J2765) IV PRN (12:45)
[2016-12-31] MEDS ORDERED: ONDANSETRON 4MG/2ML VIAL (J2405) IV PRN (12:45)
[2016-12-31] MEDS ORDERED: LR 1,000 ML IV SCH (12:45)
[2016-12-31] MEDS: LOSARTAN 50 MG TAB PO SCH ×2 (13:47→20:06)
[2016-12-31] MEDS: LEVEMIR (INSULIN DETEMIR) 1 UNITS/0.01ML SC SCH (13:47)
[2016-12-31] MEDS: CitaloPRAM (CeleXA) 20 MG TAB PO SCH (13:47)
[2016-12-31] MEDS: OMEPRAZOLE 20 MG CAP PO SCH (13:47)
[2016-12-31] MEDS: ALLOPURINOL 300 MG TAB PO SCH (13:48)
[2016-12-31] MEDS: METOPROLOL TART 50 MG TAB PO SCH ×2 (13:48→20:07)
[2016-12-31] MEDS: predniSONE 5 MG TAB PO SCH (13:48)
--- NOTE | 2016-12-31 15:20 | IPN ---
DATE: 12/31/2016 SOCIAL HISTORY: This morning the patient tells me that she is having continued pain in the right lower quadrant. She denies fevers or chest pain. She does have some nausea but no vomiting. OBJECTIVE: VITAL SIGNS: Temperature 98.6, maximum temperature 99.3, pulse 72, respiratory rate 18, blood pressure (BP) 136/63, oxygen saturation 94% on 3 liters nasal cannula. GENERAL: She is a morbidly obese elderly female lying flat in bed. She appears to be mildly diaphoretic but in no acute distress. HEENT: Cranial nerves II-XII are grossly intact. She has moist mucous membranes. No elevation in central venous pressure (CVP). CARDIOVASCULAR: S1, S2, regular. RESPIRATORY: Clear. ABDOMEN: Bowel sounds are diminished. She has tenderness in the right lower quadrant. No rebound or guarding. The patient's right lower extremity erythema appears to be slightly decreased. LABORATORY STUDIES: WBC 12.8, hemoglobin 12.9, platelet count 226. Chemistry panel: Sodium 138, potassium 4.0, chloride 107, bicarbonate 25, BUN 8, creatinine 0.6. INR is 2.23 this morning. Blood cultures are negative after 24 hours. NEW IMAGING: The patient did have a CT scan of the abdomen and pelvis completed overnight, which revealed acute appendicitis, impacted appendicolith in the base of the appendix. ASSESSMENT AND PLAN: This is a 61-year-old female initially admitted for right lower extremity diabetic cellulitis, hospital course complicated by acute appendicitis. 1. Acute appendicitis. General surgery's help is greatly appreciated. Patient is to proceed to the operating room (OR) this morning. She is currently on vancomycin and Zosyn. 2. Diabetic lower extremity cellulitis. She is currently on vancomycin and Zosyn. Will followup her cultures. Her fever curve was trending down, but her inflammatory markers began to rise again when she underwent acute appendicitis. Continue to monitor her clinically. Have her work with physical therapy (PT). 3. History of deep vein thromboses (DVTs). No acute DVT. At this time she is continued on Coumadin. She will be given 2 units fresh frozen plasma (FFP) prior to the operating room. Her INR was therapeutic this morning. 4. Hypertension. She is on losartan and metoprolol. Monitor her postoperatively. 5. Obstructive sleep apnea. She is compliant with her home continuous positive airway pressure (CPAP). 6. Type 2 diabetes. She is on sliding-scale insulin. 7. Rheumatoid arthritis and ankylosing spondylitis. She is on a low-dose prednisone. Will monitor her for any adrenal insufficiency postoperatively. 8. Gastroesophageal reflux disease. She is on omeprazole. 9. Tobacco abuse cessation. Counseling offered. 10. Gout. She is on allopurinol. 11. Mood disorder. She is on Celexa. 12. Fluid overload. She is chronically on Lasix, which is continued here. Her edema is restricted to the right lower extremity associated with her cellulitis. 13. DVT prophylaxis. She is on Coumadin. DISPOSITION: Pending clinical improvement. MTDD
[2016-12-31] MEDS: ALLOPURINOL 100 MG TAB PO SCH (20:06)
[2016-12-31] MEDS: PERCOCET 5MG/325MG TAB PO PRN (20:41)
[2017-01-01] MEDS: VANCOMYCIN HCL 1,000 MG, VIAL MATE ADAPTER 1 EACH in D5W 250 ML IV SCH ×2 (00:21→05:46)
[2017-01-01 02:00] VITALS: BP 139/65
[2017-01-01] MEDS: PIPERACILLIN/TAZOBACTAM SOD 3.375 GM in D5W MINI-BAG PLUS 50 ML IV SCH ×3 (02:41→18:15)
[2017-01-01 06:00] VITALS: BP 146/65
[2017-01-01 06:47] LABS: BASO % 0.4 % (0.0-1.0); EOS # 0.2 K/mm3 (0.0-0.50); EOS % 1.8 % (0.0-3.0); INR 1.92; LARGE UNSTAINED CELL # 0.1 K/mm3 (0.0-0.4); LARGE UNSTAINED CELL % 1.2 % (0.0-4.0); LYMPH # 1.2 K/mm3 (1.5-4.5); LYMPH % 11.6 % (24.0-44.0); MEAN CORPUSCULAR HEMOGLOBIN 31.1 pg (27.0-33.0); MEAN CORPUSCULAR HGB CONC 34.3 g/dl (32.0-36.5); MEAN CORPUSCULAR VOLUME 90.5 fl (80.0-96.0); MONO # 0.5 K/mm3 (0.0-0.8); MONO % 5.1 % (0.0-5.0); NEUTROPHILS % 79.9 % (36.0-66.0); PLATELET COUNT, AUTOMATED 215 k/mm3 (150-450); RED CELL DISTRIBUTION WIDTH 14.9 % (11.5-14.5)
[2017-01-01] MEDS: PERCOCET 5MG/325MG TAB PO PRN (06:48)
[2017-01-01] MEDS: MORPHINE 2 MG/ML 1ML SYRINGE IV PRN ×2 (06:50→20:18)
[2017-01-01 07:03] LABS: ALBUMIN 2.5 GM/DL (3.2-5.2); ALBUMIN/GLOBULIN RATIO 0.6 (1.00-1.93); BILIRUBIN,TOTAL 0.6 MG/DL (0.2-1.0); CREATININE FOR GFR 1.21 MG/DL (0.55-1.02); POTASSIUM SERUM 4.6 MEQ/L (3.5-5.1); TOTAL PROTEIN 6.7 GM/DL (6.4-8.2)
[2017-01-01 07:26] LABS: ERYTHROCYTE SEDIMENTATION RATE 72 mm/hr (0-30)
[2017-01-01] MEDS: METOPROLOL TART 50 MG TAB PO SCH ×2 (08:56→20:17)
[2017-01-01] MEDS: OMEPRAZOLE 20 MG CAP PO SCH (08:56)
[2017-01-01] MEDS: CitaloPRAM (CeleXA) 20 MG TAB PO SCH (08:56)
[2017-01-01] MEDS: ALLOPURINOL 300 MG TAB PO SCH (08:57)
[2017-01-01] MEDS: predniSONE 5 MG TAB PO SCH (08:57)
[2017-01-01] MEDS: LOSARTAN 50 MG TAB PO SCH ×2 (08:57→20:19)
[2017-01-01] MEDS: HumaLOG INSULIN (NovoLOG) PER UNIT SC SCH ×4 (08:57→21:00)
[2017-01-01] MEDS: LEVEMIR (INSULIN DETEMIR) 1 UNITS/0.01ML SC SCH (08:58)
[2017-01-01] MEDS ORDERED: INFLUENZA QUADRIVALENT PF VACCINE 0.5ML SYRINGE (90686) IM ONE (09:00)
[2017-01-01 10:00] VITALS: BP 145/65
[2017-01-01] MEDS: ACETAMINOPHEN TAB 650MG DOSE (2X325MG) PO PRN (10:07)
[2017-01-01] MEDS ORDERED: VANCOMYCIN HCL 1,000 MG, VIAL MATE ADAPTER 1 EACH in D5W 250 ML IV SCH (13:15)
--- NOTE | 2017-01-01 13:44 | PHACANCOPD ---
PHARMACY VANCOMYCIN DOSING Pt Demographics Demographics Patient Age:61 , Weight:148.000 , Gender: female Adjusted Body Weight Date: 12/30/16, Adjusted Body Weight: [95.28] Kg Events Past 24 Hours Events Past 24 Hours: YES: Change in CrCl Vancomycin Vancomycin indication: RT.FOOT CELLULITIS/SEPSIS Vancomycin Target Ranges: 15-20 mcg/ml Vancomycin Load Y/N: Yes Load Dose Date Time Vancomycin Load Dose: 2GM Date: 12/29 Time: 2200 Vancomycin Dose Date: 01/01/17. Current Vancomycin Dose: [1 GM IV Q12H] Date: 12/30/16. Current Vancomycin Dose: [1 GM IV Q6H] Intermittent Dosing?: No Labs Micro Microbiology 12/30/16 Blood Culture - Preliminary, Resulted No Growth after 48 hours. All Specime... 12/30/16 Blood Culture - Preliminary, Resulted No Growth after 48 hours. All Specime... Creatinine Clearance Date:01/01/17. Creatinine Clearance: [77ML/MIN CALCULATED]. Date:12/30/16. Creatinine Clearance: [>100].CALCULATED Pending Labs VANCOMYCIN TROUGH DUE 12/31@1700 Assessment and Plan Maintaining Current Dose?: No Reason for dose change: Change in serum Cr, Significant event Pharmacist Note Pharmacist Note Date: 01/01/17. Pharmacist note: Pt had an increase in her Scr to 1.21mg/dl and her estimated creatinine clearance decreased to 77ml min. Her noon dose was held and a random vancomycin level was drawn at 12:00 which came back 27.3mcg/ ml. To allow vancomycin to clear dosing will be restarted 01/02 @ at 1g iv q 12h. We will continue to monitor and adjust dose as needed Date: 12/30/16. Pharmacist note:Trough of 7.5 is below target range. Dose increased to 1000mg q6h with a trough ordered for 12-31 @1700. Will continue to monitor and make adjustments as needed. [facility] Jan 01, 2017 13:44
[2017-01-01 14:00] VITALS: BP 134/61
--- NOTE | 2017-01-01 17:42 | IPN ---
DATE: Ms. Mars is feeling a little better today. She does have some abdominal discomfort on the right. She thinks her foot is still quite red and not much improved from the time of presentation. She has been tolerating diet. T-max is 102, T-current 98.3, pulse is 77, respiratory rate 20, blood pressure 145/65. She is 89% on room air. Input and output notable for a positive fluid balance of 1390. No bowel movements noted. Body mass index 46.8. She is awake, appropriately interactive, pleasant conversant. A good historian. Mucous membranes are moist. Breathing is symmetrical and rested. No accessory muscle use. Speaking in complete sentences. Heart is distant sounding. Normal S1, S2, is not tachycardiac. Abdomen is distended, mildly tender especially in the right lower quadrant without rebound or guarding. Right foot is erythematous especially on the dorsum. There is erythema in the distal half of the lower extremity. There is some tenderness of the foot, but no drainage. White cell count is 10, down from 12.8, hemoglobin 12.3, platelets 215. Erythrocyte sedimentation rate is 72. BUN 13, creatine 1.2. C-reactive protein (CRP) is 15.8. Blood cultures from the are negative. My assessment is as follows: This is a 61-year-old status post acute appendicitis with right lower extremity cellulitis related to diabetes. Plan is the followin. Acute appendicitis. The patient is postoperative day one, abdomen is relatively benign. She is tolerating diet. 2. The patient has right lower extremity diabetic foot. Magnetic Resonance Imaging (MRI) is ordered to assess for the possibility of osteomyelitis. I have consulted Dr. Ledezma for assistance. Will continue with current antibiotics and monitor clinically. 3. The patient has a history of deep vein thrombosis (DVT). No evidence of acute deep vein thrombosis (DVT) currently. She is on Coumadin. She was given fresh frozen plasma (FFP) prior to the OR yesterday. 4. The patient has obstructive sleep apnea. She is compliant with her CPAP. 5. The patient has type 2 diabetes. This is recently well controlled with the current setting. 6. The patient has rheumatoid arthritis, ankylosing spondylitis. She is on chronic steroid therapy. Does not appear to be adrenally insufficient currently.
[2017-01-01 18:00] VITALS: BP 155/81
[2017-01-01] MEDS: ONDANSETRON 4MG/2ML VIAL (J2405) IV PRN (20:17)
[2017-01-01] MEDS: ALLOPURINOL 100 MG TAB PO SCH (20:19)
[2017-01-01 22:00] VITALS: BP 144/67
[2017-01-02] MEDS: VANCOMYCIN HCL 1,000 MG, VIAL MATE ADAPTER 1 EACH in D5W 250 ML IV SCH ×2 (01:14→13:42)
[2017-01-02 02:00] VITALS: BP 168/79
[2017-01-02] MEDS: PIPERACILLIN/TAZOBACTAM SOD 3.375 GM in D5W MINI-BAG PLUS 50 ML IV SCH ×3 (03:00→18:34)
[2017-01-02 06:00] VITALS: BP 129/62
[2017-01-02 06:54] LABS: BASO # 0.1 K/mm3 (0.0-0.2); BASO % 0.6 % (0.0-1.0); EOS # 0.2 K/mm3 (0.0-0.50); LARGE UNSTAINED CELL # 0.1 K/mm3 (0.0-0.4); LARGE UNSTAINED CELL % 1.1 % (0.0-4.0); LYMPH # 1.4 K/mm3 (1.5-4.5); LYMPH % 12.5 % (24.0-44.0); MEAN CORPUSCULAR HEMOGLOBIN 30.6 pg (27.0-33.0); MEAN CORPUSCULAR HGB CONC 33.6 g/dl (32.0-36.5); MONO # 0.6 K/mm3 (0.0-0.8); MONO % 5.8 % (0.0-5.0); NEUTROPHILS # 7.8 K/mm3 (1.8-7.7); NEUTROPHILS % 78.1 % (36.0-66.0); PLATELET COUNT, AUTOMATED 248 k/mm3 (150-450); RED CELL DISTRIBUTION WIDTH 15.1 % (11.5-14.5)
[2017-01-02 07:00] LABS: INR 1.45
[2017-01-02 07:20] LABS: ERYTHROCYTE SEDIMENTATION RATE > 140 mm/hr (0-30)
[2017-01-02 07:23] LABS: ALBUMIN 2.4 GM/DL (3.2-5.2); ALBUMIN/GLOBULIN RATIO 0.56 (1.00-1.93); BILIRUBIN,TOTAL 0.7 MG/DL (0.2-1.0); CALCIUM LEVEL 10.1 MG/DL (8.8-10.2); MAGNESIUM LEVEL 1.7 MG/DL (1.8-2.4); POTASSIUM SERUM 3.8 MEQ/L (3.5-5.1); TOTAL PROTEIN 6.7 GM/DL (6.4-8.2)
[2017-01-02 07:40] LABS: GLOMERULAR FILTRATION RATE 31.1 (>45)
[2017-01-02 07:46] LABS: CREATININE FOR GFR 1.76 MG/DL (0.55-1.02)
[2017-01-02] MEDS: HumaLOG INSULIN (NovoLOG) PER UNIT SC SCH ×4 (08:08→21:00)
[2017-01-02] MEDS: LEVEMIR (INSULIN DETEMIR) 1 UNITS/0.01ML SC SCH (08:08)
[2017-01-02] MEDS: ALLOPURINOL 300 MG TAB PO SCH (08:09)
[2017-01-02] MEDS: CitaloPRAM (CeleXA) 20 MG TAB PO SCH (08:09)
[2017-01-02] MEDS: PERCOCET 5MG/325MG TAB PO PRN (08:09)
[2017-01-02] MEDS: predniSONE 5 MG TAB PO SCH (08:09)
[2017-01-02] MEDS: OMEPRAZOLE 20 MG CAP PO SCH (08:09)
[2017-01-02] MEDS: LOSARTAN 50 MG TAB PO SCH (08:10)
[2017-01-02] MEDS: METOPROLOL TART 50 MG TAB PO SCH ×2 (08:10→20:29)
--- NOTE | 2017-01-02 08:27 | IPN ---
DATE: 01/02/2017 TIME: 7:36 a.m. CHIEF COMPLAINT: The patient is seen at bedside for evaluation of pain and swelling of her right lower extremity. The patient states that she also, several days after she presented with the pain and swelling of her right leg, had abdominal pain and subsequent appendectomy. She is seen today for evaluation of swelling and blister formation of her right foot. She denies any trauma to the area and states that it just started getting red. The patient is a diabetic and has ankylosing spondylitis with rheumatoid arthritis. PAST MEDICAL HISTORY: 1. Diabetes mellitus. 2. Ankylosing spondylitis. 3. Rheumatoid arthritis. 4. Gastroesophageal reflux disease (GERD). 5. Tobacco abuse. 6. History of deep vein thrombosis (DVT). 7. Hypertension. PHYSICAL EXAMINATION: Reveals an alert, well oriented 61-year-old female with insulin-dependent diabetes. Evaluation of her lower extremity reveals an area of erythema on the dorsal aspect of her foot. This area of erythema measures 8 cm x 6 cm on the dorsum of the foot, centered between the first, second and third metatarsals. There is a blister formation on the hallux and on the plantar aspect of the foot. These two blisters appear to be coalesced into one large blister. This does seem to be contiguous also with the dorsal foot. The blister on the plantar surface is 3 cm x 2 cm and on the dorsal surface of the hallux measures 7 cm x 2 cm. There is a moderately severe hallux valgus deformity with limited range of motion on the first metatarsophalangeal joint. The dorsalis pedis and posterior tibialis pulses are palpable. ASSESSMENT: Cellulitis with infected blisters, right foot, as described. PLAN: Unfortunately, the patient was unable to sit still for her MRI last night and this will be repeated today. It is quite possible the patient has a dorsal space abscess. The skin was cleansed with Betadine and utilizing an 18 gauge needle, approximately 1.5 cm of infected fluid was drained from the blister. This was deluna to yellow in color and was somewhat viscous. This will be cultured for aerobic and anaerobic and gram stain was ordered. A dry, sterile dressing was applied. The patient will be followed up after her MRI. Thank you for this consultation.
[2017-01-02 10:00] VITALS: BP 156/73
[2017-01-02] MEDS ORDERED: MAG SULF 1GM/100ML (MAG RUN) 1 GM in APPROPRIATE DILUENT 1 EA IV ONE (10:00)
[2017-01-02] MEDS ORDERED: NS 500 ML IV SCH (10:00)
--- NOTE | 2017-01-02 12:14 | IPN ---
DATE: 01/02/2017 Ms. Mars is feeling well pretty well this morning. She tried to get an MRI last night, had too many generalized aches and pains to accomplish that. Not particularly uncomfortable right now. Thinks she will be able to get an MRI today. Was seen by Dr. Ledezma earlier. Temperature 97.3, pulse 66, respiratory rate 17, blood pressure 156/73, 98% on 2 liters. Input and output notable for a negative fluid balance of -415. Weight is 149 kg. Body mass index is 47. She is awake, appropriately interactive, pleasantly conversant, reasonable historian. Breathing is symmetrical, rested. I:E ratio is 1:3. No wheezes, rales or rhonchi. Heart is distant sounding, normal S1, S2. Radial pulses 2+. Abdomen is mildly tender right side. No rebound. No guarding. Hyperactive bowel sounds. Right foot is cleanly dressed. There is fading erythema of the right leg. White cell count 10, hemoglobin 11.6, platelets 248. BUN 20, creatinine 1.76 which is worse than baseline. C-reactive protein is 20.6 which is also an increase. This is a 61-year-old status post acute appendicitis with right lower extremity cellulitis in the setting of diabetes. PLAN: 1. Acute appendicitis. The patient is postoperative day #2. The abdomen is somewhat uncomfortable but benign. She is tolerating diet. 2. Patient has right lower extremity diabetic foot. Discussed this case with Dr. Ledezma who has sent a fluid sample for culture. MRI is pending. I believe we will be able to obtain that today. Look for evidence of osteomyelitis or perhaps abscess. Patient may require surgical debridement. 3. Patient has a history of deep venous thrombosis (DVT). There is no evidence of acute DVT currently. Coumadin has been held in the postoperative setting as there are potentially plans for upcoming podiatric surgery. Will continue to hold that now. 4. Patient has obstructive sleep apnea (DREW), she is compliant with CPAP. She is requiring some daytime oxygen which she has not required previously. This is either an instance where she did require a daytime oxygen and did not know it or it is because of her namely bed bound state. 5. Patient has type 2 diabetes which is reasonable well controlled in the current setting. 6. Patient has rheumatoid arthritis and ankylosing spondylitis. She is on chronic steroid therapy. If she did go to the operating room (OR) again, would likely benefit from some additional steroid treatment.
[2017-01-02 14:00] VITALS: BP 130/71
[2017-01-02 18:00] VITALS: BP 139/65
[2017-01-02] MEDS: MORPHINE 2 MG/ML 1ML SYRINGE IV PRN (18:34)
[2017-01-02] MEDS: ALLOPURINOL 100 MG TAB PO SCH (20:29)
[2017-01-02 22:00] VITALS: BP 135/63
[2017-01-03 02:00] VITALS: BP 159/79
[2017-01-03] MEDS: PIPERACILLIN/TAZOBACTAM SOD 3.375 GM in D5W MINI-BAG PLUS 50 ML IV SCH ×3 (02:28→18:39)
[2017-01-03 06:00] VITALS: BP 153/77
[2017-01-03 07:07] LABS: BASO % 0.6 % (0.0-1.0); EOS # 0.2 K/mm3 (0.0-0.50); EOS % 1.9 % (0.0-3.0); LARGE UNSTAINED CELL # 0.2 K/mm3 (0.0-0.4); LARGE UNSTAINED CELL % 1.8 % (0.0-4.0); LYMPH # 1.1 K/mm3 (1.5-4.5); LYMPH % 11.8 % (24.0-44.0); MEAN CORPUSCULAR HEMOGLOBIN 31.1 pg (27.0-33.0); MEAN CORPUSCULAR HGB CONC 34.3 g/dl (32.0-36.5); MEAN CORPUSCULAR VOLUME 90.7 fl (80.0-96.0); MONO # 0.5 K/mm3 (0.0-0.8); MONO % 5.5 % (0.0-5.0); NEUTROPHILS # 7.4 K/mm3 (1.8-7.7); NEUTROPHILS % 78.5 % (36.0-66.0); PLATELET COUNT, AUTOMATED 300 k/mm3 (150-450); RED CELL DISTRIBUTION WIDTH 14.8 % (11.5-14.5); WHITE BLOOD COUNT 9.4 K/mm3 (4.0-10.0)
[2017-01-03 07:08] LABS: INR 1.27
[2017-01-03 07:26] LABS: ALBUMIN 2.3 GM/DL (3.2-5.2); ALBUMIN/GLOBULIN RATIO 0.52 (1.00-1.93); BILIRUBIN,TOTAL 0.5 MG/DL (0.2-1.0); CALCIUM LEVEL 10.5 MG/DL (8.8-10.2); CREATININE FOR GFR 1.79 MG/DL (0.55-1.02); GLOMERULAR FILTRATION RATE 30.5 (>45); MAGNESIUM LEVEL 1.9 MG/DL (1.8-2.4); TOTAL PROTEIN 6.7 GM/DL (6.4-8.2)
[2017-01-03] MEDS: HumaLOG INSULIN (NovoLOG) PER UNIT SC SCH ×5 (07:30→21:00)
[2017-01-03 07:47] LABS: ERYTHROCYTE SEDIMENTATION RATE > 140 mm/hr (0-30)
[2017-01-03] MEDS: ALLOPURINOL 300 MG TAB PO SCH (09:38)
[2017-01-03] MEDS: CitaloPRAM (CeleXA) 20 MG TAB PO SCH (09:38)
[2017-01-03] MEDS: predniSONE 5 MG TAB PO SCH (09:38)
[2017-01-03] MEDS: OMEPRAZOLE 20 MG CAP PO SCH (09:38)
[2017-01-03] MEDS: METOPROLOL TART 50 MG TAB PO SCH ×2 (09:38→22:12)
--- NOTE | 2017-01-03 09:42 | REP ---
MRI RIGHT FOOT WITHOUT CONTRAST: HISTORY: Osteomyelitis right foot. Comparison radiographs December 29, 2016. TECHNIQUE: Axial coronal and sagittal imaging planes utilized. T1 and T2-weighted scans were obtained with and without fat saturation. MRI FINDINGS: There is a moderate hallux valgus as seen radiographically. Cortical and medullary bone signal intensity are normal in the tarsal bones and metatarsal bones. There are arthritis associated small subcortical cysts on either side of the articulation between the cuboid and the lateral cuneiform. There is no MR evidence of osteomyelitis. There is no evidence to suggest soft tissue abscess. The dorsal skin of the foot appears thickened. This is a diffuse finding. It extends about the ankle with subcutaneous edema associated. No fluid collection is seen. IMPRESSION: Dorsal skin thickening and subcutaneous edema. No abscess or evidence of osteomyelitis seen. Moderate hallux valgus. Signed by Adam Lisa MD 01/03/2017 02:46 P
[2017-01-03 10:00] VITALS: BP 147/67
[2017-01-03] MEDS: LEVEMIR (INSULIN DETEMIR) 1 UNITS/0.01ML SC SCH (10:34)
[2017-01-03] MEDS: PERCOCET 5MG/325MG TAB PO PRN (12:09)
[2017-01-03 14:00] VITALS: BP 151/70
[2017-01-03 17:58] VITALS: BP 159/75
--- NOTE | 2017-01-03 18:02 | IPN ---
DATE: 01/03/2017 Ms. Mars believes that she is starting to feel better. She still has abdominal pain which is worse with movement. She is tolerating a diet and passing her bowels. Her foot is perhaps somewhat better. She did have an MRI today and saw Dr. Ledezma. Temperature is 98.9, pulse 67, respiratory rate 18, blood pressure 147/67, 94% on two liters. Body mass index (BMI) is 47.2. Input and output are notable for a positive fluid balance 1440. One bowel movement today which she described as large. She is awake, appropriately interactive. Her breathing is symmetrical and rested. Heart is in a regular rate and rhythm. Abdomen is somewhat distended, some right-sided tenderness without rebound or guarding. Less erythema in her right foot, less swelling. She did have a blister drained and sent for culture. LABORATORY DATA: White cell count 9.4, hemoglobin 11.5. ASSESSMENT: This is a 61-year-old with diabetic right foot cellulitis and resolved appendicitis. PLAN: 1. Acute appendicitis. This is postoperative day number three. Abdomen continues to be somewhat uncomfortable but benign. She is tolerating a diet and moving her bowels. She is likely improving as expected. 2. The patient has right lower extremity diabetic foot cellulitis. I again discussed this case with Dr. Ledezma. There is no role for surgery as the MRI shows no abscess or osteomyelitis which is excellent news for her, and in fact the foot does for the first time look substantially better today. Continue on antibiotics as ordered with the exception of vancomycin. I have held that, random level was 21, and her renal function has declined. We will repeat a level tomorrow. Depending on culture results, we may switch to Teflaro. 3. The patient has a history of deep venous thrombosis (DVT). We can restart her Coumadin now that there is no role for surgery. 4. The patient has obstructive sleep apnea (DREW) and is compliant with continuous positive airway pressure (CPAP). She is requiring daytime oxygen and she may require this at the time of discharge. 5. The patient has type 2 diabetes which is reasonably well-controlled. 6. The patient has rheumatoid arthritis and ankylosing spondylitis. She is on chronic steroid therapy.
[2017-01-03] MEDS: WARFARIN SOD 3 MG TAB PO SCH (18:39)
[2017-01-03 22:00] VITALS: BP 152/68
[2017-01-03] MEDS: ALLOPURINOL 100 MG TAB PO SCH (22:10)
[2017-01-04] VITALS (7 sets, daily range): BP systolic 140–182; BP diastolic 60–82
[2017-01-04] MEDS: PIPERACILLIN/TAZOBACTAM SOD 3.375 GM in D5W MINI-BAG PLUS 50 ML IV SCH ×3 (03:12→18:15)
[2017-01-04 06:34] LABS: BASO # 0.1 K/mm3 (0.0-0.2); BASO % 0.9 % (0.0-1.0); EOS # 0.3 K/mm3 (0.0-0.50); EOS % 2.7 % (0.0-3.0); LARGE UNSTAINED CELL # 0.2 K/mm3 (0.0-0.4); LARGE UNSTAINED CELL % 1.4 % (0.0-4.0); LYMPH # 1.5 K/mm3 (1.5-4.5); MEAN CORPUSCULAR HGB CONC 33.1 g/dl (32.0-36.5); MEAN CORPUSCULAR VOLUME 90.7 fl (80.0-96.0); MONO # 0.6 K/mm3 (0.0-0.8); MONO % 5.9 % (0.0-5.0); NEUTROPHILS % 76.1 % (36.0-66.0); PLATELET COUNT, AUTOMATED 327 k/mm3 (150-450); RED CELL DISTRIBUTION WIDTH 14.7 % (11.5-14.5); WHITE BLOOD COUNT 10.5 K/mm3 (4.0-10.0)
[2017-01-04 06:41] LABS: INR 1.19
[2017-01-04 07:03] LABS: ALBUMIN 2.3 GM/DL (3.2-5.2); ALBUMIN/GLOBULIN RATIO 0.51 (1.00-1.93); BILIRUBIN,TOTAL 0.4 MG/DL (0.2-1.0); CALCIUM LEVEL 9.9 MG/DL (8.8-10.2); CREATININE FOR GFR 1.63 MG/DL (0.55-1.02); MAGNESIUM LEVEL 1.8 MG/DL (1.8-2.4); POTASSIUM SERUM 3.9 MEQ/L (3.5-5.1); TOTAL PROTEIN 6.8 GM/DL (6.4-8.2); VANCOMYCIN RANDOM 12.8 UG/ML
[2017-01-04 07:21] LABS: ERYTHROCYTE SEDIMENTATION RATE 125 mm/hr (0-30)
[2017-01-04] MEDS: predniSONE 5 MG TAB PO SCH (08:15)
[2017-01-04] MEDS: CitaloPRAM (CeleXA) 20 MG TAB PO SCH (08:16)
[2017-01-04] MEDS: OMEPRAZOLE 20 MG CAP PO SCH (08:16)
[2017-01-04] MEDS: METOPROLOL TART 50 MG TAB PO SCH ×2 (08:16→21:08)
[2017-01-04] MEDS: ALLOPURINOL 300 MG TAB PO SCH (08:16)
[2017-01-04] MEDS: HumaLOG INSULIN (NovoLOG) PER UNIT SC SCH ×4 (08:17→21:00)
[2017-01-04] MEDS: LEVEMIR (INSULIN DETEMIR) 1 UNITS/0.01ML SC SCH (08:17)
[2017-01-04] MEDS: ONDANSETRON 4MG/2ML VIAL (J2405) IV PRN (13:00)
[2017-01-04] MEDS: WARFARIN SOD 3 MG TAB PO SCH (17:03)
[2017-01-04] MEDS: ENOXAPARIN 40 MG/0.4 ML SYRINGE (J1650) SC SCH (17:04)
--- NOTE | 2017-01-04 18:07 | IPN ---
DATE: 01/04/2017 Ms. Mars is feeling better. She has been walking short distances. Still has abdominal pain, which is improving. Temperature 97.3, pulse 79, respiratory rate 20, blood pressure 123/82, 94% on 2 liters. Input and output notable for negative fluid balance of -1070. Three bowel movements today. She is awake, appropriately interactive, pleasantly conversant, good historian. Mucous membranes are moist. Neck is supple. Breathing is symmetrical and rested. Heart has regular rate and rhythm. Abdomen is soft, distended, nontender. Active bowel sounds. Less erythema on her right foot, tender, warm. White cell count 10.5, hemoglobin 12.9, ESR is 125, trending downward. BUN 27, creatinine 1.63, C-reactive protein is 10.6. ASSESSMENT: This is a 61-year-old with diabetic foot cellulitis, resolved appendicitis. PLAN: 1. Acute appendicitis. This is resolved, postoperative day #4. 2. The patient has right lower extremity diabetic foot cellulitis. Culture has grown Staphylococcus aureus. No further role for vancomycin. Continue with Zosyn for now. The patient is improving. 3. The patient has a history of deep vein thrombosis (DVT) and has been started on Coumadin. INR is subtherapeutic. At this point, should likely start DVT prophylaxis in the form of Lovenox. 4. The patient has obstructive sleep apnea and has been compliant as an outpatient with a CPAP. 5. The patient has type 2 diabetes, reasonably well controlled. 6. The patient has rheumatoid arthritis and ankylosing spondylitis.
[2017-01-04] MEDS: ALLOPURINOL 100 MG TAB PO SCH (21:08)
[2017-01-04 23:36] LABS: BASO # 0.1 K/mm3 (0.0-0.2); BASO % 0.7 % (0.0-1.0); EOS # 0.3 K/mm3 (0.0-0.50); EOS % 2.6 % (0.0-3.0); LARGE UNSTAINED CELL # 0.2 K/mm3 (0.0-0.4); LARGE UNSTAINED CELL % 1.5 % (0.0-4.0); LYMPH # 1.6 K/mm3 (1.5-4.5); LYMPH % 13.5 % (24.0-44.0); MEAN CORPUSCULAR HEMOGLOBIN 30.1 pg (27.0-33.0); MEAN CORPUSCULAR HGB CONC 33.5 g/dl (32.0-36.5); MEAN CORPUSCULAR VOLUME 89.9 fl (80.0-96.0); MONO # 0.5 K/mm3 (0.0-0.8); MONO % 4.6 % (0.0-5.0); NEUTROPHILS # 8.5 K/mm3 (1.8-7.7); NEUTROPHILS % 77.2 % (36.0-66.0); PLATELET COUNT, AUTOMATED 344 k/mm3 (150-450); RED CELL DISTRIBUTION WIDTH 14.8 % (11.5-14.5); WHITE BLOOD COUNT 11.1 K/mm3 (4.0-10.0)
[2017-01-04 23:56] LABS: CALCIUM LEVEL 10.7 MG/DL (8.8-10.2); CREATININE FOR GFR 1.57 MG/DL (0.55-1.02); GLOMERULAR FILTRATION RATE 35.5 (>45); MAGNESIUM LEVEL 1.9 MG/DL (1.8-2.4); POTASSIUM SERUM 3.6 MEQ/L (3.5-5.1)
[2017-01-05] VITALS (7 sets, daily range): BP systolic 118–178; BP diastolic 60–91
[2017-01-05] MEDS ORDERED: POTASSIUM CHLORIDE 10 MEQ SR TABLET PO ONE (00:15)
[2017-01-05] MEDS: PIPERACILLIN/TAZOBACTAM SOD 3.375 GM in D5W MINI-BAG PLUS 50 ML IV SCH ×3 (02:41→18:06)
[2017-01-05] MEDS: ACETAMINOPHEN TAB 650MG DOSE (2X325MG) PO PRN ×2 (02:42→21:13)
[2017-01-05 06:21] LABS: INR 1.22
--- NOTE | 2017-01-05 06:25 | ECGEPIP ---
Stationary ECG Study [facility] Test Date: 2017-01-04 Pat Name: SHELBIE PEÑA Department: 4PAV Room: [place] [address] Gender: F Data Collection Associate: COLLEEN : 1955 Requested By: ROSALIA TURNER Order Number: [id number] Reading MD: Judd Koehler Measurements Intervals [place] Rate: 106 P: 95 NE: 176 QRS: -49 QRSD: 105 T: 59 QT: 326 QTc: 433 Interpretive Statements SINUS TACHYCARDIA WITH FREQUENT SUPRAVENTRICULAR PREMATURE COMPLEXES MARKED LEFT AXIS DEVIATION PATTERN CONSISTENT WITH PULMONARY DISEASE Nonspecific ST-T wave abnormalities Baseline artifact Electronically Signed On 01-05-2017 6:24:59 EDT by Judd Koehler
[2017-01-05 06:29] LABS: BASO % 0.5 % (0.0-1.0); EOS # 0.2 K/mm3 (0.0-0.50); LARGE UNSTAINED CELL # 0.2 K/mm3 (0.0-0.4); LARGE UNSTAINED CELL % 2.2 % (0.0-4.0); LYMPH # 1.4 K/mm3 (1.5-4.5); LYMPH % 14.2 % (24.0-44.0); MEAN CORPUSCULAR HEMOGLOBIN 31.1 pg (27.0-33.0); MEAN CORPUSCULAR HGB CONC 35.1 g/dl (32.0-36.5); MEAN CORPUSCULAR VOLUME 88.4 fl (80.0-96.0); MONO # 0.4 K/mm3 (0.0-0.8); MONO % 4.3 % (0.0-5.0); NEUTROPHILS # 7.3 K/mm3 (1.8-7.7); NEUTROPHILS % 76.7 % (36.0-66.0); PLATELET COUNT, AUTOMATED 350 k/mm3 (150-450); RED CELL DISTRIBUTION WIDTH 14.5 % (11.5-14.5); WHITE BLOOD COUNT 9.6 K/mm3 (4.0-10.0)
[2017-01-05 06:35] LABS: ALBUMIN 2.2 GM/DL (3.2-5.2); ALBUMIN/GLOBULIN RATIO 0.51 (1.00-1.93); BILIRUBIN,TOTAL 0.3 MG/DL (0.2-1.0); CALCIUM LEVEL 10.1 MG/DL (8.8-10.2); CREATININE FOR GFR 1.61 MG/DL (0.55-1.02); GLOMERULAR FILTRATION RATE 34.5 (>45); MAGNESIUM LEVEL 1.8 MG/DL (1.8-2.4); POTASSIUM SERUM 4.1 MEQ/L (3.5-5.1); TOTAL PROTEIN 6.5 GM/DL (6.4-8.2)
[2017-01-05 07:04] LABS: ERYTHROCYTE SEDIMENTATION RATE 108 mm/hr (0-30)
[2017-01-05] MEDS: HumaLOG INSULIN (NovoLOG) PER UNIT SC SCH ×4 (07:30→21:00)
[2017-01-05] MEDS: LEVEMIR (INSULIN DETEMIR) 1 UNITS/0.01ML SC SCH (09:00)
[2017-01-05] MEDS: CitaloPRAM (CeleXA) 20 MG TAB PO SCH (09:23)
[2017-01-05] MEDS: OMEPRAZOLE 20 MG CAP PO SCH (09:23)
[2017-01-05] MEDS: ALLOPURINOL 300 MG TAB PO SCH (09:23)
[2017-01-05] MEDS: predniSONE 5 MG TAB PO SCH (09:23)
[2017-01-05] MEDS: METOPROLOL TART 50 MG TAB PO SCH ×2 (09:24→21:14)
[2017-01-05] MEDS: ENOXAPARIN 40 MG/0.4 ML SYRINGE (J1650) SC SCH (09:24)
[2017-01-05] MEDS: WARFARIN SOD 4 MG TAB PO SCH (17:14)
[2017-01-05] MEDS: ONDANSETRON 4MG/2ML VIAL (J2405) IV PRN (18:06)
--- NOTE | 2017-01-05 20:48 | IPN ---
DATE: 01/05/2017 Ms. Mars is feeling well today. Unfortunately, she has had an elevated temperature of 100.2. Foot feels better. Abdomen feels better. She has no cough. Was not complaining of diarrhea or dysuria. Temperature 100.2, pulse 56, respiratory rate 18, blood pressure 150/60, 96% on room air. Negative fluid balance of -490, four bowel movements yesterday. She is awake, appropriately interactive, pleasantly conversant. Neck is thick. Breathing is symmetrical and rested. Heart is distant sounding, normal S1, S2. Abdomen soft, doughy, nontender, even on the right. Right foot is less red, nontender, there is no erythema at the lower extremity. White cell count 9.6, hemoglobin 11.1, platelets 350, BUN 24, creatinine 1.6, INR 1.22. My assessment is as follows: This is a 61-year-old with diabetic foot cellulitis and resolved appendicitis. Plan is as follows: 1. Acute appendicitis. This is resolved postoperative day #5. 2. The patient has right lower extremity diabetic foot cellulitis. Culture has grown Staphylococcus aureus. Continue with Zosyn. Had received vancomycin briefly. Patient is much improved and is able to walk short distances. Unfortunately, the patient is still febrile and will be monitored clinically in hospital. 3. The patient has a history of deep venous thrombosis (DVT) and has been started on Coumadin. Dose was increased today. INR is subtherapeutic. The patient does have Lovenox for deep venous thrombosis (DVT) prophylaxis currently. 4. The patient has obstructive sleep apnea and has not been compliant as an outpatient with continuous positive airway pressure (CPAP). 5. The patient has type 2 diabetes, which is reasonably controlled for the current setting. 6. Ankylosing spondylitis. [facility]
[2017-01-05] MEDS: ALLOPURINOL 100 MG TAB PO SCH (21:13)
[2017-01-06 02:00] VITALS: BP 156/64
[2017-01-06] MEDS: PIPERACILLIN/TAZOBACTAM SOD 3.375 GM in D5W MINI-BAG PLUS 50 ML IV SCH ×3 (02:36→18:02)
[2017-01-06 06:00] VITALS: BP 152/68
[2017-01-06] MEDS: LEVEMIR (INSULIN DETEMIR) 1 UNITS/0.01ML SC SCH (09:00)
[2017-01-06] MEDS: OMEPRAZOLE 20 MG CAP PO SCH (09:24)
[2017-01-06] MEDS: CitaloPRAM (CeleXA) 20 MG TAB PO SCH (09:24)
[2017-01-06] MEDS: METOPROLOL TART 50 MG TAB PO SCH ×2 (09:25→20:14)
[2017-01-06] MEDS: predniSONE 5 MG TAB PO SCH (09:25)
[2017-01-06] MEDS: ALLOPURINOL 300 MG TAB PO SCH (09:25)
[2017-01-06] MEDS: ENOXAPARIN 40 MG/0.4 ML SYRINGE (J1650) SC SCH (09:26)
[2017-01-06] MEDS: HumaLOG INSULIN (NovoLOG) PER UNIT SC SCH ×4 (09:28→21:00)
[2017-01-06 10:00] VITALS: BP 164/78
--- NOTE | 2017-01-06 12:36 | IPN ---
DATE: 01/06/2017 Ms. Mars is feeling better. She has walked short distances but has not seen physical therapy in several days and needs to do 13 stairs to go home. Abdominal pain has resolved. Temperature 97.4, pulse 68, respiratory rate 18, blood pressure 162/68, 100% on room air. Intake and output notable for a positive fluid balance of 350. Two bowel movements yesterday. She is awake, appropriately interactive, pleasantly conversant. Breathing is symmetrical and rested. I:E ratio is 1:3. Heart is distant sounding, regular rate and rhythm. Normal S1, S2. Abdomen soft, doughy , nontender. Right lower extremity is undressed. The previously debrided blister is dried. There is no drainage. Minimal erythema to the foot. White cell count 9.6, hemoglobin 11.1, platelets 350. BUN 24, creatinine 1.6. This is a 61-year-old with diabetic foot cellulitis and resolved appendicitis. Plan is as follows: 1. Acute appendicitis. This is postoperative day #6. She is tolerating diet. 2. Patient has right lower extremity diabetic foot. Culture has grown Staphylococcus aureus susceptible to penicillins. Continue on Zosyn for now. Vancomycin has been discontinued. She has not yet passed physical therapy. 3. Patient has a history of deep venous thrombosis (DVT) and is on Coumadin. Dose was increased. International normalized ratio (INR) is increasing from yesterday. She does have Lovenox for deep venous thrombosis (DVT) prophylaxis. 4. Patient has type 2 diabetes, which is reasonably well controlled. 5. Patient has an element of acute renal failure. Most likely related to her acute illness and use of vancomycin. Will continue to monitor her labs. 6. Patient has obstructive sleep apnea. Is not compliant as an outpatient with continuous positive airway pressure (CPAP). 7. Patient has ankylosing spondylitis. [facility]
[2017-01-06 14:00] VITALS: BP 176/72
[2017-01-06 18:00] VITALS: BP 152/78
[2017-01-06] MEDS: WARFARIN SOD 4 MG TAB PO SCH (18:02)
[2017-01-06] MEDS: ALLOPURINOL 100 MG TAB PO SCH (20:13)
[2017-01-06] MEDS: ACETAMINOPHEN TAB 650MG DOSE (2X325MG) PO PRN (20:23)
[2017-01-06 22:00] VITALS: BP 142/70
[2017-01-07] VITALS (8 sets, daily range): BP systolic 142–178; BP diastolic 52–82
[2017-01-07] MEDS: PIPERACILLIN/TAZOBACTAM SOD 3.375 GM in D5W MINI-BAG PLUS 50 ML IV SCH ×3 (03:00→18:51)
[2017-01-07] MEDS: ACETAMINOPHEN TAB 650MG DOSE (2X325MG) PO PRN ×2 (09:52→17:10)
[2017-01-07] MEDS: predniSONE 5 MG TAB PO SCH (09:52)
[2017-01-07] MEDS: METOPROLOL TART 50 MG TAB PO SCH ×2 (09:53→20:37)
[2017-01-07] MEDS: ALLOPURINOL 300 MG TAB PO SCH (09:53)
[2017-01-07] MEDS: CitaloPRAM (CeleXA) 20 MG TAB PO SCH (09:54)
[2017-01-07] MEDS: OMEPRAZOLE 20 MG CAP PO SCH (09:54)
[2017-01-07] MEDS: ENOXAPARIN 40 MG/0.4 ML SYRINGE (J1650) SC SCH (09:54)
[2017-01-07] MEDS: LEVEMIR (INSULIN DETEMIR) 1 UNITS/0.01ML SC SCH (09:56)
[2017-01-07] MEDS: HumaLOG INSULIN (NovoLOG) PER UNIT SC SCH ×4 (10:20→20:37)
[2017-01-07] MEDS ORDERED: SODIUM CHLORIDE NASAL 0.65% SPRAY BTL (OCEAN) PRN (14:00)
[2017-01-07 14:10] LABS: INR 1.33
[2017-01-07 14:14] LABS: CALCIUM LEVEL 9.7 MG/DL (8.8-10.2); CREATININE FOR GFR 1.62 MG/DL (0.55-1.02); GLOMERULAR FILTRATION RATE 34.3 (>45); POTASSIUM SERUM 4.1 MEQ/L (3.5-5.1)
[2017-01-07 14:32] LABS: BASO # 0.1 K/mm3 (0.0-0.2); BASO % 0.8 % (0.0-1.0); EOS # 0.2 K/mm3 (0.0-0.50); EOS % 1.8 % (0.0-3.0); LARGE UNSTAINED CELL # 0.1 K/mm3 (0.0-0.4); LARGE UNSTAINED CELL % 1.3 % (0.0-4.0); LYMPH # 1.3 K/mm3 (1.5-4.5); MEAN CORPUSCULAR HEMOGLOBIN 30.2 pg (27.0-33.0); MEAN CORPUSCULAR HGB CONC 33.5 g/dl (32.0-36.5); MEAN CORPUSCULAR VOLUME 90.3 fl (80.0-96.0); MONO # 0.4 K/mm3 (0.0-0.8); MONO % 3.6 % (0.0-5.0); NEUTROPHILS # 8.1 K/mm3 (1.8-7.7); NEUTROPHILS % 80.6 % (36.0-66.0); PLATELET COUNT, AUTOMATED 380 k/mm3 (150-450); RED CELL DISTRIBUTION WIDTH 14.6 % (11.5-14.5)
[2017-01-07] MEDS: ONDANSETRON 4MG/2ML VIAL (J2405) IV PRN (17:10)
[2017-01-07] MEDS: WARFARIN SOD 4 MG TAB PO SCH (17:10)
[2017-01-07] MEDS: ALLOPURINOL 100 MG TAB PO SCH (20:37)
--- NOTE | 2017-01-07 21:10 | IPN ---
DATE: 01/07/2017 The patient is not feeling very well today. She has upper nasal congestion. SUBJECTIVE: Fever and generally feels unwell. Declined physical therapy today. Did not pass physical therapy yesterday. PHYSICAL EXAMINATION: Temperature is 98.3, pulse 66, respirations 15, blood pressure 143.60, 97% on room air. Body mass index is 46.5. She is awake, appropriately interactive. Pleasantly conversant. Appears somewhat uncomfortable but not in any acute distress. Neck is supple. Thick. Breathing is symmetrical. Inspiratory to expiratory (I-to-E) ratio is 1:3. No wheezes, rales or rhonchi. Heart: Regular rate and rhythm. Abdomen: Soft, doughy, nontender. White cell count 10, hemoglobin 11.6, and platelets of 380. INR 1.33. Trending upward. BUN 19, creatinine 1.62. ASSESSMENT: This is a 61-year-old diabetic with cellulitis and resolved appendicitis. PLAN: 1. Acute appendicitis. The patient is postoperative day #7 for acute appendicitis. Tolerating diet. No abdominal pain. 2. The patient has right lower extremity diabetic foot. No evidence of abscess or osteomyelitis. Continuing on broad-spectrum antibiotics. Wound culture grew staphylococcus aureus. 3. The patient has history of deep venous thrombosis (DVT). Is on Coumadin. INR is still subtherapeutic. She is on Lovenox for DVT prophylaxis. 4. The patient has type 2 diabetes, which is reasonably well controlled. 5. The patient has continuous positive airway pressure (CPAP) for obstructive sleep apnea. 6. The patient has acute renal failure, which continues to be worse than baseline. Might be related to previous antibiotic use. The patient is not currently on any nephrotoxic drugs. This will be monitored clinically.
[2017-01-07] MEDS: AZELASTINE 137MCG NASAL SPY 30 ML (ASTELIN) SCH (21:29)
[2017-01-08] MEDS: ACETAMINOPHEN TAB 650MG DOSE (2X325MG) PO PRN (01:20)
[2017-01-08 02:00] VITALS: BP 174/78
[2017-01-08] MEDS: PIPERACILLIN/TAZOBACTAM SOD 3.375 GM in D5W MINI-BAG PLUS 50 ML IV SCH ×2 (02:51→11:26)
[2017-01-08] MEDS: PERCOCET 5MG/325MG TAB PO PRN (02:52)
[2017-01-08 06:00] VITALS: BP 168/72
[2017-01-08 06:56] LABS: MEAN CORPUSCULAR HGB CONC 34.2 g/dl (32.0-36.5); MEAN CORPUSCULAR VOLUME 87.6 fl (80.0-96.0); RED CELL DISTRIBUTION WIDTH 14.2 % (11.5-14.5); WHITE BLOOD COUNT 8.3 K/mm3 (4.0-10.0)
[2017-01-08 07:12] LABS: CALCIUM LEVEL 9.7 MG/DL (8.8-10.2); CREATININE FOR GFR 1.57 MG/DL (0.55-1.02); GLOMERULAR FILTRATION RATE 35.5 (>45); INR 1.58; POTASSIUM SERUM 3.8 MEQ/L (3.5-5.1)
[2017-01-08 08:00] VITALS: BP 136/82
[2017-01-08] MEDS: HumaLOG INSULIN (NovoLOG) PER UNIT SC SCH ×2 (08:33→12:13)
[2017-01-08] MEDS ORDERED: DOXY100C PO (10:02)
[2017-01-08] MEDS: LEVEMIR (INSULIN DETEMIR) 1 UNITS/0.01ML SC SCH (10:37)
[2017-01-08] MEDS: CitaloPRAM (CeleXA) 20 MG TAB PO SCH (10:40)
[2017-01-08] MEDS: ALLOPURINOL 300 MG TAB PO SCH (10:41)
[2017-01-08] MEDS: predniSONE 5 MG TAB PO SCH (10:41)
[2017-01-08] MEDS: OMEPRAZOLE 20 MG CAP PO SCH (10:41)
[2017-01-08 10:43] VITALS: BP 136/82
[2017-01-08] MEDS: METOPROLOL TART 50 MG TAB PO SCH (10:43)
[2017-01-08] MEDS: ENOXAPARIN 40 MG/0.4 ML SYRINGE (J1650) SC SCH (10:45)
[2017-01-08] MEDS: AZELASTINE 137MCG NASAL SPY 30 ML (ASTELIN) SCH (10:45)
[2017-01-08 12:00] VITALS: BP 156/78
--- NOTE | 2017-01-08 16:35 | DSES ---
DATE OF ADMISSION: 12/29/2016 DATE OF DISCHARGE: 01/08/2017 SPECIALISTS INVOLVED IN CARE: Dr. Valentine, Dr. Ledezma. PROCEDURES PERFORMED DURING STAY: Include appendectomy. COMPLICATIONS OF STAY: None. DIAGNOSES: 1. Diabetic foot. 2. Right-sided diabetic cellulitis. 3. Acute appendicitis. 4. Hypertension. 5. Obstructive sleep apnea. 6. Type 2 diabetes. 7. Rheumatoid arthritis. 8. Ankylosing spondylitis. 9. Chronic steroid use. 10. Gastroesophageal reflux disease. 11. Tobacco use. 12. Gout. 13. Mood disorder. 14. Fluid overload. SUMMARY OF PRESENTATION: This is a 61-year-old patient of Dr. Taj Rosen, who presented with right lower extremity pain and erythema. Was admitted to the hospitalist service. Was started on appropriate antibiotics. There was no evidence of abscess, although she did have blistering of the skin. She did eventually go on to have MRI of the lower extremity, which showed no evidence of abscess or osteomyelitis. Unfortunately during the stay she developed symptoms associated with acute appendicitis and had to go for a laparoscopic appendectomy, which occurred on December 31. She did well. She recovered quickly from that. Was able to tolerate diet, and then was treated for a course of intravenous (IV) antibiotics. Was seen by physical therapy and eventually cleared physical therapy. On the date of discharge she is feeling well. She feels ready to go home. There are no complaints of pain, chest pain, shortness of breath. Temperature is 98, pulse 60, respiratory rate 20, blood pressure 156/78, 94% on room air. Awake, appropriately interactive, pleasantly conversant. Positive fluid balance of 740. Two bowel movements on the day prior to discharge. Mucous membranes moist. Neck supple, thick. Breathing is symmetrical and rested. Heart is in a regular rate and rhythm. Abdomen soft, doughy, nontender. Steri-Strips are in place, right lower extremity. Has no significant erythema. A blister that was drained by Dr. Ledezma has dried. There is no role for further dressing to that foot. White cell count 8.3, hemoglobin 10.4, platelets of 351. BUN 18, creatinine 1.57, which is higher than her baseline. We have discontinued vancomycin, which seemed to have contributed to the change in renal function. DISCHARGE ORDERS: Followup with Dr. Valentine as needed. Followup with Dr. Taj Rosen on January 15 at 9:30. Diet and activity as tolerated. Continue doxycycline 100 mg by mouth twice daily for 7 more days. Continue allopurinol 200 mg by mouth every evening, 300 mg by mouth daily, citalopram 40 mg by mouth daily, fenofibrate 200 mg by mouth daily. Continue home Humira dosing. Continue Lantus 64 units daily and 30 units in the evening, metoprolol tartrate 50 mg by mouth twice daily, omeprazole 40 mg by mouth daily, oxycodone/Tylenol 7.5/325 every 6 hours as needed for pain. Continue home prednisone 5 mg by mouth daily, Coumadin 6 mg by mouth every evening. I have discontinued Lasix and losartan for now in the setting of acute renal failure. I have given her a prescription for PT/INR and basic metabolic panel (BMP) twice weekly with results to Dr. Rosen.
== END 2017-01-08 13:52 | disposition home or self-care (01) | DRG 854 ==
LOC: M ED 18:21 → M ED INP 21:44 → M PCU 12-30 03:25 → M MSPAV 12-31 11:46
PROVIDERS: ADMIT Internal Medicine; ATTEND Internal Medicine
PROC: 30253K1 (ICD-10-PCS; 2016-12-31)
PROC: 0DTJ4ZZ Resection of Appendix, Percutaneous Endoscopic Approach (ICD-10-PCS; principal; 2016-12-31 06:30)
PROC: 0HDMXZZ Extraction of Right Foot Skin, External Approach (ICD-10-PCS; 2017-01-02)
DX: A41.9 Sepsis, unspecified organism (principal); L03.115 Cellulitis of right lower limb; Z68.42 Body mass index [BMI] 45.0-49.9, adult; K35.80 Unspecified acute appendicitis; E11.69 Type 2 diabetes mellitus with other specified complication; G47.33 Obstructive sleep apnea (adult) (pediatric); I10 Essential (primary) hypertension; M06.9 Rheumatoid arthritis, unspecified; F17.210 Nicotine dependence, cigarettes, uncomplicated; K21.9 Gastro-esophageal reflux disease without esophagitis; E66.01 Morbid (severe) obesity due to excess calories; F39 Unspecified mood [affective] disorder; E87.70 Fluid overload, unspecified; M10.9 Gout, unspecified; M45.9 Ankylosing spondylitis of unspecified sites in spine; Z96.643 Presence of artificial hip joint, bilateral; Z86.718 Personal history of other venous thrombosis and embolism; Z79.01 Long term (current) use of anticoagulants; Z79.4 Long term (current) use of insulin; Z88.8 Allergy status to other drugs, medicaments and biological substances; Z79.899 Other long term (current) drug therapy; Z79.52 Long term (current) use of systemic steroids

== ENCOUNTER → 2017-01-15 | Outpatient (REF) | payer MEDICARE ==
[~2017-01-15] MED LIST changes: +DOXY100C PO; +FENO200C PO; +LANTINJ4 SC; +LOSA50TA20 PO; +ZYLO300T4 PO
[2017-01-15 19:13] LABS: INR 1.78
[2017-01-15 19:18] LABS: ALBUMIN 3.1 GM/DL (3.2-5.2); ALBUMIN/GLOBULIN RATIO 0.78 (1.00-1.93); BILIRUBIN,TOTAL 0.3 MG/DL (0.2-1.0); CALCIUM LEVEL 11.3 MG/DL (8.8-10.2); CREATININE FOR GFR 1.26 MG/DL (0.55-1.02); GLOMERULAR FILTRATION RATE 45.8 (>45); POTASSIUM SERUM 4.4 MEQ/L (3.5-5.1); TOTAL PROTEIN 7.1 GM/DL (6.4-8.2)
== END ==
LOC: M LAB REF 16:19
PROVIDERS: ATTEND Family Medicine Addiction Medicine
DX: N28.9 Disorder of kidney and ureter, unspecified (principal); Z79.01 Long term (current) use of anticoagulants

== ENCOUNTER → 2017-01-20 | Outpatient (REF) | payer MEDICARE ==
[2017-01-20 18:22] LABS: INR 2.85
[2017-01-20 21:15] LABS: ALBUMIN 3.3 GM/DL (3.2-5.2); ALBUMIN/GLOBULIN RATIO 0.85 (1.00-1.93); BILIRUBIN,TOTAL 0.3 MG/DL (0.2-1.0); CALCIUM LEVEL 10.2 MG/DL (8.8-10.2); CREATININE FOR GFR 1.05 MG/DL (0.55-1.02); GLOMERULAR FILTRATION RATE 56.5 (>45); POTASSIUM SERUM 4.3 MEQ/L (3.5-5.1); TOTAL PROTEIN 7.2 GM/DL (6.4-8.2)
== END ==
LOC: M LAB REF 16:21
PROVIDERS: ATTEND Family Medicine Addiction Medicine
DX: N28.9 Disorder of kidney and ureter, unspecified (principal); Z79.01 Long term (current) use of anticoagulants

== ENCOUNTER → 2017-01-31 | Outpatient (CLI) | payer MEDICARE ==
[2017-01-31 15:25] LABS: INR 3.76
== END ==
LOC: M LAB 14:47
PROVIDERS: ATTEND Family Medicine Addiction Medicine
DX: Z79.01 Long term (current) use of anticoagulants (principal)

== ENCOUNTER → 2017-02-07 | Outpatient (CLI) | payer MEDICARE ==
[2017-02-07 15:05] LABS: INR 1.92
== END ==
LOC: M LAB 13:54
PROVIDERS: ATTEND Family Medicine Addiction Medicine
DX: Z79.01 Long term (current) use of anticoagulants (principal)

== ENCOUNTER 2017-03-07 05:10 | Inpatient (IN) | payer MEDICARE ==
[~2017-03-07] VITALS: Ht 177.8 cm; Wt 140.4 kg
[2017-03-07] VITALS (26 sets, daily range): BP systolic 79–177; BP diastolic 41–79
[2017-03-07] MEDS ORDERED: ACETAMINOPHEN 325 MG TAB PO ONE (05:30)
[2017-03-07] MEDS ORDERED: NS 1,000 ML IV ONE ×2 (05:30→06:30)
[2017-03-07] MEDS ORDERED: METOPROLOL 5 MG/5 ML VIAL IV STA ×3 (05:32→17:05)
[2017-03-07 05:44] LABS: BASO % 0.4 % (0.0-1.0); EOS % 0.2 % (0.0-3.0); IMMATURE GRANULOCYTE % 0.7 % (0-0); LYMPH # 0.6 10^3/uL (1.5-4.5); LYMPH % 6.1 % (24.0-44.0); MEAN CORPUSCULAR HGB CONC 33.1 g/dl (32.0-36.5); MEAN CORPUSCULAR VOLUME 87.6 fl (80.0-96.0); MONO # 0.6 10^3/uL (0.0-0.8); MONO % 6.3 % (0.0-5.0); NEUTROPHILS # 8.7 10^3/uL (1.8-7.7); NEUTROPHILS % 86.3 % (36.0-66.0); PLATELET COUNT, AUTOMATED 235 10^3/uL (150-450); RED CELL DISTRIBUTION WIDTH 14.9 % (11.5-14.5); WHITE BLOOD COUNT 10.1 10^3/uL (4.0-10.0)
[2017-03-07] MEDS ORDERED: LOSA100T36 PO (05:53)
[2017-03-07] MEDS ORDERED: AMLO5TAB2 PO (05:53)
[2017-03-07] MEDS ORDERED: VENTAER INH (05:53)
[2017-03-07 05:58] LABS: INR 1.71
[2017-03-07 06:09] LABS: ALBUMIN 3.1 GM/DL (3.2-5.2); ALBUMIN/GLOBULIN RATIO 0.82 (1.00-1.93); ALKALINE PHOSPHATASE 76 U/L (45-117); ALT/SGPT 29 U/L (12-78); ANION GAP 13 MEQ/L (8-16); AST/SGOT 22 U/L (7-37); BILIRUBIN,DIRECT 0.3 MG/DL (0.0-0.2); BILIRUBIN,TOTAL 0.7 MG/DL (0.2-1.0); BLOOD UREA NITROGEN 12 MG/DL (7-18); CALCIUM LEVEL 10.2 MG/DL (8.8-10.2); CARBON DIOXIDE LEVEL 19 MEQ/L (21-32); CHLORIDE LEVEL 105 MEQ/L (98-107); CREATININE FOR GFR 1.14 MG/DL (0.55-1.02); GLOMERULAR FILTRATION RATE 51.4 (>45); GLUCOSE, FASTING 211 MG/DL (80-110); POTASSIUM SERUM 3.7 MEQ/L (3.5-5.1); SODIUM LEVEL 137 MEQ/L (136-145); T UPTAKE 34 % (30-39); THYROXINE (T4) 9.6 UG/DL (4.5-12.0); TOTAL PROTEIN 6.9 GM/DL (6.4-8.2)
[2017-03-07] MEDS ORDERED: ISOVUE-370 76% 100ML VIAL (Q9967) As Ordered ONE (06:29)
--- NOTE | 2017-03-07 07:20 | REPUSA ---
CLINICAL HISTORY: Abdominal pain. TECHNIQUE: Multiple axial, sagittal and coronal CT images were obtained through the abdomen and pelvi s after administration of oral and intravenous contrast material. Images were obtained before and aft er IV contrast administration. COMMENTS: Comparison to prior exam on 12/24/2016. Mild diffuse thickening of the rectosigmoid colon. The liver is moderately enlarged with decreased attenuation without mass or defect. There is no intra or extrahepatic biliary ductal dilatation. The spleen is normal. The gallbladder is surgically absen t. The pancreas is of normal contour and attenuation characteristics. There is no evidence of adrenal mass. Mild fullness of the right collecting system with the right urothelial thickening. Both kidneys demonstrate prompt and equal nephrograms. The kidneys are normal in size, shape and conf iguration. There is no evidence of renal or ureteral mass. No renal or ureteral calculi are identifie d. There is no hydroureter or hydronephrosis. Appendectomy in the interim. There is no bowel wall thickening. No evidence for small or large bowel obstruction. There is no evidence of abdominal ascites or lymphadenopathy. There is no evidence of intrinsic or extrinsic bladder mass. There is no pelvic ascites or lymphadeno mirza. Images of the lung bases show no evidence of pleural or parenchymal mass. There are no pleural effusi ons. The bony structures are free of lytic or blastic lesions. Multilevel degenerative changes are seen in volving the thoracolumbar spine. Scattered calcifications are seen involving the aorta and major bran ches compatible with atherosclerosis. Bilateral hip arthroplasties. Metallic prostheses are in good position. IMPRESSION: Mild diffuse thickening of the rectosigmoid junction. Underdistention, spasm versus mild colitis. Unchanged hepatomegaly with fatty infiltration. Appendectomy in the interim. Unchanged cholecystectomy. Mild fullness of the right collecting system. Recent passage of a calculus versus an ascending urinar y tract infection. Unchanged, chronic perinephric fat stranding. Thank you for your kind referral of this patient.
[2017-03-07] MEDS ORDERED: LevoFLOXacin IV 750 MG in APPROPRIATE DILUENT 1 EA IV ONE (07:45)
--- NOTE | 2017-03-07 07:48 | ECGEPIP ---
Stationary ECG Study [facility] - ED Test Date: 2017-03-07 Pat Name: SHELBIE PEÑA Department: Room: - Gender: F Home Coordinator: kolby : 1955 Requested By: BULL MILTON Order Number: [id number] Reading MD: Nikita Short Measurements Intervals [place] Rate: 145 P: [place]: 0 QRS: -77 QRSD: 109 T: 80 QT: 318 QTc: 495 Interpretive Statements ATRIAL FIBRILLATION WITH RAPID VENTRICULAR RESPONSE LEFT AXIS DEVIATION PATTERN CONSISTENT WITH PULMONARY DISEASE LEFT ANTERIOR FASCICULAR BLOCK MODERATE ST DEPRESSION RHYTHM CHANGE COMPARED TO 01/04/17 Electronically Signed On 03-07-2017 7:48:41 EST by Nikita Short
--- NOTE | 2017-03-07 07:51 | REP ---
Clinical: Fever. Comparison: 08/12/2016. Findings: Examination is somewhat limited by underpenetration and portable technique. Mediastinum and cardiac silhouette are within normal limits and stable. Lung lagos are relatively clear and without focal consolidation, obvious effusion or pneumothorax. Skeletal structures intact. Impression: Stable portable chest x-ray. No obvious acute cardiopulmonary process. Signed by Jeffrey Olsen MD 03/07/2017 07:43 A
[2017-03-07] MEDS ORDERED: GLUCOSE 4 GM CHEW TABLET PO PRN (08:45)
[2017-03-07] MEDS ORDERED: DEXTROSE 50% 50 ML SYRINGE IV PRN (08:45)
[2017-03-07] MEDS ORDERED: GLUCAGON FOR INJ 1 MG VIAL (J1610) SC PRN (08:45)
[2017-03-07] MEDS ORDERED: LevoFLOXacin IV 750 MG in APPROPRIATE DILUENT 1 EA IV SCH (09:00)
[2017-03-07] MEDS ORDERED: amLODIPine 5 MG TAB PO SCH (09:00)
[2017-03-07] MEDS ORDERED: OMEPRAZOLE 20 MG CAP PO SCH (09:00)
--- NOTE | 2017-03-07 09:22 | HPE ---
DATE OF ADMISSION: 03/07/2017 PRIMARY CARE PHYSICIAN: Dr. Taj Rosen CHIEF COMPLAINT: Fever, palpitations. HISTORY OF PRESENT ILLNESS: This is a 61-year-old female with history of atrial fibrillation on chronic warfarin who presents to the emergency room with a three day history of ongoing fever, 101-102 at home, and complains of dysuria, urgency, and frequency, some malodorous urine with no hematuria. Patient has been taking Tylenol every 4 hours without much relief. She complains of right sided flank pain radiating to the groin, but has had no prior history of kidney stones. No prior episodes of pyelonephritis. The patient also complains of palpitations, dizziness, or lightheadedness, but able to ambulate well with her walker. She has had no near syncopal episodes. No chest pain or shortness of breath. She has had some episodes of nausea and vomiting over the past three days. Has had decrease in oral intake, only had toast this morning, which she was able to keep down. Despite having nausea and four episodes of vomiting at home, the patient was able to take her home medications. She has also noted some diarrhea, about six stools per day, which were watery, nonbloody, non-mucusy without alternating constipation. No prior history of recent antibiotic use. No prior history of C. Difficile. The hospitalist service was called for admission for a urinary tract infection, atrial fibrillation with rapid ventricular rate and sepsis. PAST MEDICAL HISTORY: Atrial fibrillation on chronic anticoagulation with Coumadin. Morbid obesity, body mass index (BMI) of 46.5. Type 2 diabetes, insulin dependent. Obstructive sleep apnea (DREW) on CPAP. Hypertension. Deep vein thrombosis (DVT) on chronic Coumadin. Rheumatoid arthritis. Anklyosing spondylitis. Gout. PAST SURGICAL HISTORY: Cholecystectomy. Bilateral hip replacement. Pilonidal cyst. Tonsillectomy. section. SOCIAL HISTORY: Smokes a half a pack a day for 25 years. No alcohol or illicit drug use. FAMILY HISTORY: Father with lymphoma. Mother with Parkinson's. ALLERGIES: 1. NIACIN. HOME MEDICATIONS: - allopurinol 200 mg at bedtime - albuterol two puffs every 4 hours as needed for wheezing - allopurinol 300 mg daily - amlodipine 5 mg daily - citalopram 40 mg daily - Lantus insulin 30 units subcu at bedtime, 64 units subcu daily - losartan 100 mg daily - metoprolol 50 mg twice a day - omeprazole 40 mg daily - prednisone 5 mg daily - warfarin 6 mg every evening - fenofibrate 200 mg daily - Humira one injectable IM every 2 weeks - Percocet one tablet every 6 hours as needed for pain REVIEW OF SYSTEMS: 12 point system negative aside from positive findings on history of present illness. PHYSICAL EXAMINATION: VITAL SIGNS: Temperature 102.1, pulse 145, respiratory rate 26, blood pressure 120/58, 98% on 3 liters nasal cannula. GENERAL: Patient is in moderate distress. She appears diaphoretic. No use of respiratory accessory muscles. No cyanosis. No tracheal deviation or nasal flaring. Patient is able to speak in full sentences. Pupils round and reactive. Dry mucous membranes. No jugular venous distention (JVD). No thyromegaly. HEART: S1, S2 irregularly irregular. LUNGS: Diminished breath sounds, occasional wheezing. ABDOMEN: Obese, soft, tender, right flank. No rebound or guarding. Positive bowel sounds times four quadrants. EXTREMITIES: No pitting edema. LABORATORY DATA: White count 10.1, hemoglobin 14, hematocrit 43, platelet count 235. Sodium 137, potassium 3.7, chloride 105, bicarb 19, BUN 12, creatinine 1.14, glucose 211. Lactic acid of 3.5. Previous urine culture with E. coli resistant to Levaquin in 2015. IMAGING STUDIES: CT abdomen and pelvis mild diffuse thickening of the rectosigmoid colon, spasm versus mild colitis. Fatty infiltration. Appendectomy. Mild fullness of the right collecting system. Recent passage of a calculus versus ascending UTI. Chronic perinephric fat stranding. ASSESSMENT/PLAN: This is a 61-year-old female history of deep vein thrombosis (DVT) on chronic Coumadin who presented with new onset atrial fibrillation, fever and UTI, prior history of diabetes, right sided diabetic cellulitis, appendicitis, hypertension, obstructive sleep apnea (DREW), rheumatoid arthritis, ankylosis spondylitis, chronic steroid use, reflux, tobacco use, gout, mood disorder, fluid overload, who presented to the emergency room with three day history of ongoing fever 101.6 to 102 at home, dysuria, urgency, frequency and diarrhea. Patient is admitted for the following issues: 1. Atrial fibrillation with RVR secondary to sepsis from UTI and possible colitis. Patient has been given intravenous fluids with improvement. Metoprolol has been given 5 mg intravenously with rate control. Blood pressure is maintained at 110 to 120 systolic. Cardiac markers will be checked. She will be resumed on her home dose of Coumadin. Telemetry monitoring. Titrate metoprolol as needed for better rate control. 2. Urinary tract infection/sepsis with fever of 102.1, pulse of 147, respiratory rate of 26, lactic acidosis. Patient had received intravenous Levaquin from the emergency room, however review of her microbiology shows resistance to Levaquin in a urine culture that was done on 01/01/2015 with E. Coli. Therefore will change to ceftriaxone. 3. Mild colitis. Patient will be given anaerobic coverage with Flagyl. Continue on ceftriaxone for gram negative coverage. Patient has had resistance to quinolones from a UTI sample back in 2014 with E. coli resistance to Levaquin. 4. Metabolic acidosis. Most likely secondary to recent diarrhea. Check a GI panel. Rule out C. Difficile. Bacid one tablet twice a day with meals to prevent C. Difficile. 5. DREW. May resume home CPAP at bedtime. Supplement her oxygen as needed. Resume home nebulizers. 6. Morbid obesity complicating acute medical issues. 7. History of DVT on chronic Coumadin. Recheck INR and adjust to target INR of 2-3. 8. History of rheumatoid arthritis. Will need to hold medications until the patient's infection has resolved. 9. Reflux. Continue on proton pump inhibitor (PPI). 10. Gout. Continue on allopurinol. 11. Tobacco abuse. Tobacco cessation counseling. Nicotine patch as needed.
[2017-03-07] MEDS: LEVEMIR (INSULIN DETEMIR) 1 UNITS/0.01ML SC SCH ×2 (10:01→21:18)
[2017-03-07] MEDS: predniSONE 5 MG TAB PO SCH (10:02)
[2017-03-07] MEDS: LACTOBACILLUS ACIDOPHILUS CAP (BACID) PO SCH ×2 (10:02→17:22)
[2017-03-07] MEDS: CitaloPRAM (CeleXA) 20 MG TAB PO SCH (10:02)
[2017-03-07] MEDS: ALLOPURINOL 300 MG TAB PO SCH (10:03)
[2017-03-07] MEDS: METOPROLOL TART 50 MG TAB PO SCH ×2 (10:03→21:19)
[2017-03-07] MEDS: metroNIDAZOLE 500 MG in APPROPRIATE DILUENT 1 EA IV SCH ×2 (10:04→18:29)
[2017-03-07] MEDS ORDERED: CEFTRIAXONE SOD 2 GM in APPROPRIATE DILUENT 1 EA IV ONE (11:00)
[2017-03-07] MEDS: HumaLOG INSULIN (NovoLOG) PER UNIT SC SCH ×3 (12:17→21:00)
[2017-03-07] MEDS: ACETAMINOPHEN TAB 650MG DOSE (2X325MG) PO PRN ×2 (14:37→22:13)
[2017-03-07] MEDS ORDERED: diltiaZEM 125 MG in NS 100 ML IV SCH (16:00)
[2017-03-07] MEDS ORDERED: FUROSEMIDE 40 MG/4 ML VIAL (J1940) IV ONE (16:00)
[2017-03-07 16:12] LABS: ABG BASE EXCESS -2.5 (-2.0-2.0); ABG HCO3 18.9 MEQ/L (22.0-26.0); ABG PARTIAL PRESSURE CO2 24.4 mmHg (35.0-45.0); ABG PARTIAL PRESSURE O2 70.6 mmHg (75.0-100.0); ABG STANDARD HCO3 22.4 MEQ/L (22.0-26.0); ABG TOTAL CO2 19.7 MEQ/L (23.0-31.0); ABG pH (ARTERIAL) 7.507 UNITS (7.350-7.450)
[2017-03-07 16:39] LABS: ANION GAP 11 MEQ/L (8-16); BLOOD UREA NITROGEN 13 MG/DL (7-18); CALCIUM LEVEL 9.6 MG/DL (8.8-10.2); CARBON DIOXIDE LEVEL 20 MEQ/L (21-32); CHLORIDE LEVEL 107 MEQ/L (98-107); CREATININE FOR GFR 0.98 MG/DL (0.55-1.02); GLOMERULAR FILTRATION RATE > 60.0 (>45); GLUCOSE, FASTING 151 MG/DL (80-110); POTASSIUM SERUM 3.6 MEQ/L (3.5-5.1); SODIUM LEVEL 138 MEQ/L (136-145)
--- NOTE | 2017-03-07 16:42 | REP ---
PORTABLE CHEST: AP portable view of the chest is performed and compared to prior exam of the same day. No acute infiltrate is seen. Cardiomediastinal silhouette appears somewhat magnified and is unchanged. IMPRESSION: No acute pulmonary disease. Signed by Abhishek Huddleston MD 03/07/2017 08:11 P
[2017-03-07] MEDS ORDERED: VANCOMYCIN HCL 1,000 MG, VIAL MATE ADAPTER 1 EACH in D5W 250 ML IV ONE (17:15)
[2017-03-07] MEDS: WARFARIN SOD 3 MG TAB PO SCH (17:22)
[2017-03-07] MEDS ORDERED: NS 1,000 ML IV SCH (17:45)
[2017-03-07] MEDS ORDERED: LACTOBACILLUS ACIDOPHILUS CAP (BACID) PO SCH (18:00)
[2017-03-07] MEDS: ALLOPURINOL 100 MG TAB PO SCH (21:18)
[2017-03-07] MEDS: ONDANSETRON 4MG/2ML VIAL (J2405) IV PRN (22:13)
[2017-03-08] VITALS (7 sets, daily range): BP systolic 116–166; BP diastolic 57–81
[2017-03-08] MEDS: metroNIDAZOLE 500 MG in APPROPRIATE DILUENT 1 EA IV SCH ×3 (02:50→17:06)
[2017-03-08 05:16] LABS: MEAN CORPUSCULAR HEMOGLOBIN 29.4 pg (27.0-33.0); MEAN CORPUSCULAR HGB CONC 33.1 g/dl (32.0-36.5); MEAN CORPUSCULAR VOLUME 88.9 fl (80.0-96.0); PLATELET COUNT, AUTOMATED 195 10^3/uL (150-450); RED CELL DISTRIBUTION WIDTH 14.9 % (11.5-14.5); WHITE BLOOD COUNT 8.6 10^3/uL (4.0-10.0)
[2017-03-08 05:31] LABS: MAGNESIUM LEVEL 1.7 MG/DL (1.8-2.4)
[2017-03-08] MEDS ORDERED: ATENOLOL 50 MG TAB PO ONE (06:45)
[2017-03-08] MEDS ORDERED: MAGNESIUM SULFATE 1 GM/100 ML D5W BAG (10MG/ML) (J3475) As Ordered ONE (06:52)
[2017-03-08] MEDS ORDERED: ATENOLOL 50 MG TAB As Ordered ONE (06:52)
[2017-03-08 07:11] LABS: BLOOD UREA NITROGEN 11 MG/DL (7-18); CALCIUM LEVEL 10.4 MG/DL (8.8-10.2); CHLORIDE LEVEL 111 MEQ/L (98-107); CREATININE FOR GFR 0.86 MG/DL (0.55-1.02); GLUCOSE, FASTING 98 MG/DL (80-110); POTASSIUM SERUM 3.5 MEQ/L (3.5-5.1); SODIUM LEVEL 140 MEQ/L (136-145)
[2017-03-08 07:22] LABS: ANION GAP 11 MEQ/L (8-16); CARBON DIOXIDE LEVEL 18 MEQ/L (21-32)
[2017-03-08] MEDS: ACETAMINOPHEN TAB 650MG DOSE (2X325MG) PO PRN ×2 (07:22→19:41)
[2017-03-08] MEDS: MAG SULF 1GM/100ML (MAG RUN) 1 GM in APPROPRIATE DILUENT 1 EA IV SCH ×2 (07:23→11:06)
[2017-03-08] MEDS: HumaLOG INSULIN (NovoLOG) PER UNIT SC SCH ×4 (08:16→20:53)
[2017-03-08] MEDS: CitaloPRAM (CeleXA) 20 MG TAB PO SCH (08:17)
[2017-03-08] MEDS: POTASSIUM CHLORIDE 10 MEQ SR TABLET PO SCH (08:17)
[2017-03-08] MEDS: LACTOBACILLUS ACIDOPHILUS CAP (BACID) PO SCH ×2 (08:18→17:07)
[2017-03-08] MEDS: predniSONE 5 MG TAB PO SCH (08:18)
[2017-03-08] MEDS: METOPROLOL TART 50 MG TAB PO SCH ×2 (08:19→21:01)
[2017-03-08] MEDS: ALLOPURINOL 300 MG TAB PO SCH (08:19)
[2017-03-08] MEDS: LEVEMIR (INSULIN DETEMIR) 1 UNITS/0.01ML SC SCH ×2 (08:23→21:01)
[2017-03-08] MEDS: ATENOLOL 50 MG TAB PO SCH ×2 (08:23→21:01)
[2017-03-08] MEDS ORDERED: SODIUM BICARBONATE 150 MEQ in STERILE WATER LITER BAG 1,000 ML IV SCH (10:00)
[2017-03-08] MEDS: CEFTRIAXONE SOD 1 GM in APPROPRIATE DILUENT 1 EA IV SCH (11:07)
--- NOTE | 2017-03-08 11:49 | ECGEPIP ---
Stationary ECG Study [facility] Test Date: 2017-03-07 Pat Name: SHELBIE PEÑA Department: Room: [place] [address] Gender: F Kettle Cook: ISMAEL : 1955 Requested By: SUSY Gregg Order Number: [id number] Reading MD: Perlita Ellis Measurements Intervals [place] Rate: 112 P: [place]: 0 QRS: -55 QRSD: 110 T: 98 QT: 370 QTc: 506 Interpretive Statements ATRIAL FLUTTER/TACHYCARDIA WITH RAPID VENTRICULAR RESPONSE PATTERN CONSISTENT WITH PULMONARY DISEASE INCOMPLETE RIGHT BUNDLE BRANCH BLOCK LEFT ANTERIOR FASCICULAR BLOCK NO CHANGE SINCE 5:27 SAME DAY BUT FOR SLOWER HR Electronically Signed On 03-08-2017 11:48:36 EST by Perlita Ellis
[2017-03-08] MEDS: ONDANSETRON 4MG/2ML VIAL (J2405) IV PRN (13:14)
--- NOTE | 2017-03-08 14:58 | IPN ---
DATE OF SERVICE: 03/08/2017 Patient seen and examined at the bedside. Chart has been reviewed. The patient had better control with Cardizem with the heart rate into the 70s. This morning back into the low 100's. Blood pressure is well maintained. She complains of no diarrhea overnight. She does not feel well with generalized malaise and discomfort this morning all over. No cough. No fever. No chills. Vitals: Temperature 97.6, pulse 79, respiratory rate 18, blood pressure 132/64, 92% on 1 liter nasal cannula. Generally, awake, alert, oriented times three. Answering questions appropriately. No use of respiratory accessory muscles. No cyanosis. No icterus. Lungs are clear to auscultation. No wheezes, rales, or rhonchi . Heart: S1, S2. Irregularly irregular. Abdomen: Soft, nontender, nondistended, positive bowel sounds. Extremities: No pitting edema. Laboratory data and imaging studies have been reviewed. ASSESSMENT/PLAN: This is a 61-year-old female with history of morbid obesity, Body Mass Index (BMI) of 46, type 2 diabetes, obstructive sleep apnea, deep vein thrombosis (DVT) on chronic Coumadin, hypertension, rheumatoid arthritis, ankylosing spondylolysis and gout, who presented to the emergency room with complaints of fever, palpitations, and found to have new onset atrial fibrillation with rapid ventricular rate and urinary tract infection (UTI) with sepsis with fever of 102, pulse 147, lactic acidosis and respiratory rate of 26, treated with IV Levaquin in the emergency room. Urine culture is currently pending. Previous urine culture grew out Escherichia (E) coli in 2014, resistant to Levaquin. The patient has been switched to ceftriaxone. 1. Sepsis secondary to urinary tract infection (UTI) present on admission. Currently on ceftriaxone due to prior history of resistant to Levaquin. With E coli she has also been given vancomycin for possible Enterococcus. 2. Atrial fibrillation with rapid ventricular rate. Improved from 147 to about 100, may transition to Atenolol 50 mg twice a day. Continue with IV fluid hydration. On Coumadin, adjust as needed to target INR 2 to 3. 3. Metabolic acidosis, most likely secondary to sepsis from UTI and colitis. The patient has not had any diarrhea episodes during this admission. GI panel is negative. The patient will be given bicarbonate drip times 1 liter. Recheck BMP at 6:00 p.m. 4. Metabolic acidosis secondary to sepsis and diarrhea. 5. Mild colitis, on ceftriaxone and Flagyl. Tolerating her diet well. 6. Obstructive sleep apnea. On home CPAP. 7. Morbid obesity complicating care. 8. Acute medical issues. 9. History of DVT on chronic Coumadin. 10. History of rheumatoid arthritis. Hold medications until the patient's active infection is resolved. 11. Reflux. On proton pump inhibitor. 12. Gout. On allopurinol.
[2017-03-08] MEDS: WARFARIN SOD 3 MG TAB PO SCH (16:45)
[2017-03-08] MEDS: ALLOPURINOL 100 MG TAB PO SCH (21:01)
[2017-03-09] MEDS: metroNIDAZOLE 500 MG in APPROPRIATE DILUENT 1 EA IV SCH ×3 (02:17→17:17)
[2017-03-09] MEDS: ACETAMINOPHEN TAB 650MG DOSE (2X325MG) PO PRN (03:26)
[2017-03-09 04:00] VITALS: BP 161/79
[2017-03-09] MEDS ORDERED: ALBUTEROL 90 MCG/ACT 8GM HFA INHALER INH PRN (04:00)
[2017-03-09 06:08] LABS: MEAN CORPUSCULAR HEMOGLOBIN 28.9 pg (27.0-33.0); MEAN CORPUSCULAR VOLUME 84.9 fl (80.0-96.0); PLATELET COUNT, AUTOMATED 231 10^3/uL (150-450); RED CELL DISTRIBUTION WIDTH 14.6 % (11.5-14.5); WHITE BLOOD COUNT 9.3 10^3/uL (4.0-10.0)
[2017-03-09] MEDS ORDERED: ATENOLOL 25 MG TAB PO ONE (07:00)
[2017-03-09 07:22] LABS: BASO % 0.4 % (0.0-1.0); EOS % 0.4 % (0.0-3.0); IMMATURE GRANULOCYTE % 0.5 % (0-0); LYMPH # 1.3 10^3/uL (1.5-4.5); LYMPH % 13.2 % (24.0-44.0); MONO # 0.8 10^3/uL (0.0-0.8); MONO % 7.9 % (0.0-5.0); NEUTROPHILS # 7.3 10^3/uL (1.8-7.7); NEUTROPHILS % 77.6 % (36.0-66.0)
[2017-03-09 07:44] LABS: ANION GAP 10 MEQ/L (8-16); BLOOD UREA NITROGEN 11 MG/DL (7-18); CALCIUM LEVEL 9.7 MG/DL (8.8-10.2); CARBON DIOXIDE LEVEL 22 MEQ/L (21-32); CHLORIDE LEVEL 106 MEQ/L (98-107); CREATININE FOR GFR 0.76 MG/DL (0.55-1.02); GLOMERULAR FILTRATION RATE > 60.0 (>45); GLUCOSE, FASTING 119 MG/DL (80-110); MAGNESIUM LEVEL 1.6 MG/DL (1.8-2.4); POTASSIUM SERUM 3.3 MEQ/L (3.5-5.1); SODIUM LEVEL 138 MEQ/L (136-145)
[2017-03-09] MEDS: ALLOPURINOL 300 MG TAB PO SCH (08:06)
[2017-03-09] MEDS: LACTOBACILLUS ACIDOPHILUS CAP (BACID) PO SCH ×2 (08:06→17:17)
[2017-03-09] MEDS: predniSONE 5 MG TAB PO SCH (08:06)
[2017-03-09] MEDS: POTASSIUM CHLORIDE 10 MEQ SR TABLET PO SCH (08:06)
[2017-03-09] MEDS: METOPROLOL TART 50 MG TAB PO SCH ×2 (08:07→21:26)
[2017-03-09] MEDS: CitaloPRAM (CeleXA) 20 MG TAB PO SCH (08:07)
[2017-03-09] MEDS: HumaLOG INSULIN (NovoLOG) PER UNIT SC SCH ×4 (08:08→21:00)
[2017-03-09] MEDS: LEVEMIR (INSULIN DETEMIR) 1 UNITS/0.01ML SC SCH ×2 (08:09→21:27)
[2017-03-09 08:15] VITALS: BP 132/62
[2017-03-09] MEDS ORDERED: MAG SULF 1GM/100ML (MAG RUN) 1 GM in APPROPRIATE DILUENT 1 EA IV ONE (08:30)
[2017-03-09 09:36] LABS: DIFF SLIDE NUMBER 39
[2017-03-09] MEDS ORDERED: FUROSEMIDE 40 MG/4 ML VIAL (J1940) IV ONE (10:30)
[2017-03-09] MEDS ORDERED: ENOXAPARIN 100MG/1ML SYRINGE (J1650) SC ONE (10:30)
[2017-03-09] MEDS ORDERED: ISOVUE-370 76% 100ML VIAL (Q9967) As Ordered ONE (10:37)
[2017-03-09] MEDS: CEFTRIAXONE SOD 1 GM in APPROPRIATE DILUENT 1 EA IV SCH (11:38)
[2017-03-09 12:42] VITALS: BP 134/62
--- NOTE | 2017-03-09 13:05 | REP ---
CT ANGIOGRAM OF THE CHEST: TECHNIQUE: Axial contrast enhanced images from the thoracic inlet to the upper abdomen using 100 mL Isovue 370 intravenous contrast material with multiplanar reformations. There is no CT evidence of pulmonary embolism. The study is somewhat limited by patient motion. There is no thoracic aortic aneurysm or dissection. There is mild cardiomegaly. A mildly enlarged subcarinal lymph node measures 1.3 cm in short axis dimension without other significant adenopathy. There are tiny bilateral pleural effusions without pericardial effusion. Diffuse bilateral infiltrates are seen throughout both lungs. In the visualized portions of the upper abdomen there is evidence of prior cholecystectomy. There are degenerative changes of the spine IMPRESSION: No CT evidence of pulmonary embolism. Diffuse bilateral infiltrates. Tiny effusions bilaterally. Mild cardiomegaly. Mildly enlarged subcarinal lymph node 1.3 cm in short axis dimension. There is a 3 cm left thyroid nodule. Recommend thyroid ultrasound to further evaluate. Signed by Abhishek Huddleston MD 03/09/2017 05:36 P
[2017-03-09 16:00] VITALS: BP 155/90
[2017-03-09] MEDS: WARFARIN SOD 3 MG TAB PO SCH (16:41)
--- NOTE | 2017-03-09 17:53 | IPN ---
DATE: 03/09/2017 Patient is seen and examined at the bedside. Chart has been reviewed. Chest x-ray 03/07/2017, showed no acute cardiopulmonary disease. Patient has not had any loose bowel movements, no fever or chills, had a temperature of 101.6 despite being on ceftriaxone for Escherichia (E) coli. Blood culture is negative. Gastrointestinal (GI) panel is negative. VITAL SIGNS: Maximum temperature (T-max) 101.6, current temperature 99, pulse 84, respiratory rate 13, blood pressure 132/62, 91% on 4 liters nasal cannula. GENERALLY: Awake, alert, oriented times three, answering questions appropriately. LUNGS: Diminished breath sounds. Clear to auscultation. No wheezing, rales, or rhonchi. HEART: S1, S2, sinus rhythm. ABDOMEN: Soft, nontender, nondistended. Positive bowel sounds. Obese. EXTREMITIES: No cyanosis or clubbing. Urine culture (E) coli, crenshaw sensitive. Laboratory data reviewed. ASSESSMENT AND PLAN: This is a 61-year-old female with morbid obesity, body mass index (BMI) of 46, diabetes, obstructive sleep apnea (DREW), deep venous thrombosis (DVT) on chronic Coumadin, hypertension, rheumatoid arthritis, ankylosing spondylitis, INR is 1.7, presents to the emergency room with fever, dysuria, and diarrhea, found to have a urinary tract infection (UTI), also complained of shortness of breath. Current issues are as follows: 1. Atrial fibrillation with rapid ventricular response (RVR). Currently improved with atenolol 75 mg. On Coumadin, titrate according to target INR of 2-3. Will give one dose of Lovenox. 2. Urinary tract infection with Escherichia (E) coli. Currently on ceftriaxone. Patient had a fever. Blood cultures and chest x-rays are negative. No signs of skin infection or abscess. Will continue to monitor for recurrent fever. Infectious disease specialist in the morning if persistently febrile. Patient's white count is improved. Will keep to the same management with ceftriaxone. 3. Metabolic acidosis secondary to sepsis, urinary tract infection (UTI), and colitis. Currently improved back to normal. 4. Colitis, on ceftriaxone and Flagyl. 5. Electrolyte abnormalities. Potassium and magnesium have been supplemented. 6. History of obstructive sleep apnea. May resume home bilevel positive airway pressure (BiPAP) at night. 7. Hypoxic respiratory failure. Check a CT chest, rule out pulmonary embolus (PE). No pneumonia and no pulmonary edema. Patient did receive IV fluids yesterday. 8. History of deep venous thrombosis (DVT) on chronic Coumadin. Overlap with Lovenox to target INR of 2-3. Check CT chest, rule out pulmonary embolus (PE) due to hypoxia.
[2017-03-09 20:20] VITALS: BP 132/79
[2017-03-09] MEDS: ALLOPURINOL 100 MG TAB PO SCH (21:26)
[2017-03-09 23:59] VITALS: BP 139/83
[2017-03-10] MEDS: metroNIDAZOLE 500 MG in APPROPRIATE DILUENT 1 EA IV SCH ×3 (02:58→16:56)
[2017-03-10 04:00] VITALS: BP 136/83
[2017-03-10 04:55] LABS: MEAN CORPUSCULAR HEMOGLOBIN 29.2 pg (27.0-33.0); MEAN CORPUSCULAR HGB CONC 33.4 g/dl (32.0-36.5); MEAN CORPUSCULAR VOLUME 87.4 fl (80.0-96.0); PLATELET COUNT, AUTOMATED 260 10^3/uL (150-450); WHITE BLOOD COUNT 7.7 10^3/uL (4.0-10.0)
[2017-03-10 05:18] LABS: INR 2.23
[2017-03-10 05:38] LABS: ANION GAP 7 MEQ/L (8-16); BLOOD UREA NITROGEN 13 MG/DL (7-18); CALCIUM LEVEL 10.1 MG/DL (8.8-10.2); CARBON DIOXIDE LEVEL 25 MEQ/L (21-32); CHLORIDE LEVEL 109 MEQ/L (98-107); CREATININE FOR GFR 0.84 MG/DL (0.55-1.02); GLOMERULAR FILTRATION RATE > 60.0 (>45); GLUCOSE, FASTING 117 MG/DL (80-110); MAGNESIUM LEVEL 1.7 MG/DL (1.8-2.4); POTASSIUM SERUM 3.4 MEQ/L (3.5-5.1); SODIUM LEVEL 141 MEQ/L (136-145)
[2017-03-10] MEDS ORDERED: POTASSIUM CHLORIDE 10 MEQ SR TABLET PO ONE (07:00)
[2017-03-10] MEDS ORDERED: FUROSEMIDE 40 MG/4 ML VIAL (J1940) IV ONE (07:15)
[2017-03-10 07:41] LABS: T UPTAKE 38 % (30-39); THYROXINE (T4) 9.1 UG/DL (4.5-12.0)
[2017-03-10] MEDS: LACTOBACILLUS ACIDOPHILUS CAP (BACID) PO SCH ×2 (07:43→16:57)
[2017-03-10] MEDS: HumaLOG INSULIN (NovoLOG) PER UNIT SC SCH ×4 (07:44→22:34)
[2017-03-10 07:46] VITALS: BP 127/84
[2017-03-10] MEDS ORDERED: MAG SULF 1GM/100ML (MAG RUN) 1 GM in APPROPRIATE DILUENT 1 EA IV ONE (08:00)
--- NOTE | 2017-03-10 08:38 | REP ---
Clinical: Shortness of breath . Comparison: 03/07/2017 at 4:05 p.m. . Findings: The mediastinum and cardiac silhouette are stable and within normal limits for portable technique. The lung lagos are clear without acute consolidation, effusion, or pneumothorax. Skeletal structures are intact. Impression: No acute cardiopulmonary process appreciated. Signed by Jeffrey Olsen MD 03/10/2017 08:29 A
[2017-03-10] MEDS: predniSONE 5 MG TAB PO SCH (09:31)
[2017-03-10] MEDS: POTASSIUM CHLORIDE 10 MEQ SR TABLET PO SCH (09:32)
[2017-03-10] MEDS: METOPROLOL TART 50 MG TAB PO SCH ×2 (09:32→22:36)
[2017-03-10] MEDS: ALLOPURINOL 300 MG TAB PO SCH (09:32)
[2017-03-10] MEDS: CitaloPRAM (CeleXA) 20 MG TAB PO SCH (09:32)
[2017-03-10] MEDS: LEVEMIR (INSULIN DETEMIR) 1 UNITS/0.01ML SC SCH ×2 (09:33→22:35)
--- NOTE | 2017-03-10 10:18 | IPN ---
DATE OF SERVICE: 03/10/2017 Patient is seen and examined at the bedside. Chart has been reviewed. This morning, the patient has no complaints of cough, shortness of breath, palpitations, nausea, vomiting or diarrhea, or dysuria, urgency or frequency. No other issues per nursing. The patient's heart rate has improved from 145 atrial fibrillation with rapid ventricular rate (RVR) to 58-81 with holding parameters on her metoprolol. Temperature 96.1, pulse 58, respiratory rate 22, blood pressure 127/84, 98% on room air. GENERALLY: Awake, alert, oriented times three, answering questions appropriately. LUNGS: Clear to auscultation. No wheezing, rales, or rhonchi. HEART: S1, S2, sinus rhythm. ABDOMEN: Soft, nontender, nondistended. Positive bowel sounds. EXTREMITIES: No cyanosis or clubbing. SKIN: Warm, dry, well perfused, pink in color. LABORATORY DATA: INR 2.23. White count 7.7. Hemoglobin 11. Hematocrit 34. Platelet count 260. Sodium 141. Potassium 34. Chloride 109. Bicarbonate 25. BUN 13. Creatinine 0.8. Glucose 117. Magnesium 1.7. 03/07/2017 - (E) coli, crenshaw sensitive. ASSESSMENT AND PLAN: This is a 61-year-old female with history of morbid obesity, body mass index (BMI) of 46, diabetes, obstructive sleep apnea (DREW), deep venous thrombosis (DVT) on chronic Coumadin, hypertension, rheumatoid arthritis, ankylosing spondylitis, admission INR 1.7, current INR of 2.4, who presents to the emergency room with fever, dysuria, and diarrhea, found to have a urinary tract infection (UTI), and complained of shortness of breath as well. Current issues are as follows: 1. Atrial fibrillation with rapid ventricular response (RVR), resolved. Currently on metoprolol 50 twice a day with holding parameters for heart rate less than 60s an systolic pressure less than 120. Heart rate is 58-81. Blood pressure is maintained at 127-139. Resolving. 2. Urinary tract infection with Escherichia (E) coli. Currently on ceftriaxone. Blood cultures and chest x-ray negative. No other signs of skin infection or abscess. Continue to monitor white count and for recurrent fevers. 3. Metabolic acidosis secondary to sepsis, urinary tract infection (UTI), and colitis. Currently improved back to normal. 4. Colitis, on ceftriaxone and Flagyl. No recurrent diarrhea. 5. Electrolyte abnormalities. Potassium and magnesium have been supplemented. 6. History of obstructive sleep apnea (DREW). May resume home bilevel positive airway pressure (BiPAP) with home settings. 7. Hypoxic respiratory failure. CT of chest showed no pulmonary edema, pneumonia or pulmonary embolism. Did receive IV fluids yesterday. Will discontinue Lasix. 8. History of deep venous thrombosis (DVT) on chronic Coumadin. The patient received Lovenox yesterday. Currently at target INR of 2-3. 9. Morbid obesity complicating acute issues. Body mass index (BMI) of 39.4. 10. Deconditioning Physical therapy (PT) clearance prior to discharge home.
[2017-03-10 12:00] VITALS: BP 123/73
[2017-03-10] MEDS ORDERED: FUROSEMIDE 40 MG/4 ML VIAL (J1940) IV SCH (12:00)
[2017-03-10] MEDS: CEFTRIAXONE SOD 1 GM in APPROPRIATE DILUENT 1 EA IV SCH (12:08)
[2017-03-10 16:00] VITALS: BP 144/76
[2017-03-10] MEDS: WARFARIN SOD 5 MG TAB PO SCH (16:57)
--- NOTE | 2017-03-10 18:06 | REP ---
Clinical: Nodule. Technique: Real time deluna scale and color evaluation using linear high frequency transducer. Findings: Heterogeneous nodular thyroid gland is appreciated. No prior examination is available for comparison. Isthmus measures 2.7 mm in width. The left thyroid lobe is enlarged measuring 6.2 x 3.4 x 3.0 cm and is dominated by a 4.6 x 2.4 x 3.0 cm complex solid nodule. The right thyroid lobe measures 3.7 x 2.0 x 1.5 cm and includes 1.0 x 0.7 x 0.9 cm upper pole hypoechoic nodule, 1.1 x 0.7 x 0.8 cm hypoechoic mid pole nodule, and 0.6 x 0.4 x 0.5 cm hypoechoic lower pole nodule. Impression: Heterogeneous thyroid gland with bilateral nodules (left greater than right). Signed by Jeffrey Olsen MD 03/10/2017 05:57 P
--- NOTE | 2017-03-10 18:21 | ECHO ---
DATE OF PROCEDURE: 03/10/2017 REFERRING PHYSICIAN: Dr. Nam. Study performed on 03/10/2017 for indication of congestive heart failure. The patient measures 178 cm and weighs 125 kg. DIMENSIONS: IVS: 1.3 LV: 4.4 LVPW: 1.3 LA: 4.0 Aorta 3.0 FINDINGS: The study is of fair technical quality corresponding to patient's body habitus. The patient is in atrial fibrillation with controlled rate. Left ventricle is normal size and grossly preserved LV systolic function. Based on limitation of the study, I certainly cannot rule out subtle wall motion abnormalities but overall ejection fraction (EF) is going to be normal or near normal. I estimate left ventricular ejection fraction (LVEF) approximately 60%. Right ventricle does not appear enlarged. Both atria are likely severely enlarged. No pericardial effusion is noted. Aortic, mitral and tricuspid valves appear grossly normal. Pulmonic valve was not well visualized. Inferior vena cava is normal size. Aortic root and aortic arch and visualized segment of abdominal aorta appear normal. Doppler interrogation reveals no significant aortic disease. There is trace mitral insufficiency and trace tricuspid insufficiency. Calculated pulmonary artery pressure is within normal limits, but quality of TR jet was fair and I would not consider this information completely reliable. Evaluation of diastolic function is inconclusive due to underlying atrial fibrillation. CONCLUSIONS: 1. Study is of fair technical quality. 2. Normal left ventricular (LV) size and global systolic function. Mild left ventricular hypertrophy (LVH). 3. No significant valvular disease. 4. Suggestive of normal central venous pressure and pulmonary artery pressure. 5. Severe biatrial enlargement. COMMENT: Subacute bacterial endocarditis (SBE) prophylaxis is not recommended.
[2017-03-10 20:00] VITALS: BP 133/78
[2017-03-10] MEDS: ALLOPURINOL 100 MG TAB PO SCH (22:37)
[2017-03-10 23:59] VITALS: BP 122/82
[2017-03-11] MEDS: metroNIDAZOLE 500 MG in APPROPRIATE DILUENT 1 EA IV SCH ×2 (02:00→09:34)
[2017-03-11 04:00] VITALS: BP 125/74
[2017-03-11 06:11] LABS: MEAN CORPUSCULAR HGB CONC 33.1 g/dl (32.0-36.5); MEAN CORPUSCULAR VOLUME 87.5 fl (80.0-96.0); PLATELET COUNT, AUTOMATED 374 10^3/uL (150-450); RED CELL DISTRIBUTION WIDTH 14.7 % (11.5-14.5); WHITE BLOOD COUNT 8.8 10^3/uL (4.0-10.0)
[2017-03-11 06:15] LABS: INR 2.5
[2017-03-11] MEDS ORDERED: POTASSIUM CHLORIDE 10 MEQ SR TABLET PO ONE (07:30)
[2017-03-11 08:00] VITALS: BP 118/61
[2017-03-11] MEDS ORDERED: MAG SULF 1GM/100ML (MAG RUN) 1 GM in APPROPRIATE DILUENT 1 EA IV ONE (08:00)
[2017-03-11] MEDS: HumaLOG INSULIN (NovoLOG) PER UNIT SC SCH ×4 (08:32→21:00)
[2017-03-11] MEDS: LEVEMIR (INSULIN DETEMIR) 1 UNITS/0.01ML SC SCH ×2 (08:33→22:11)
[2017-03-11] MEDS: POTASSIUM CHLORIDE 10 MEQ SR TABLET PO SCH (08:33)
[2017-03-11] MEDS: CitaloPRAM (CeleXA) 20 MG TAB PO SCH (08:34)
[2017-03-11] MEDS: METOPROLOL TART 50 MG TAB PO SCH ×2 (08:34→22:12)
[2017-03-11] MEDS: ALLOPURINOL 300 MG TAB PO SCH (08:34)
[2017-03-11] MEDS: LACTOBACILLUS ACIDOPHILUS CAP (BACID) PO SCH ×2 (08:34→17:30)
[2017-03-11] MEDS: predniSONE 5 MG TAB PO SCH (08:34)
[2017-03-11] MEDS: AUGMENTIN 500 MG TAB PO SCH ×2 (10:52→22:11)
[2017-03-11 12:00] VITALS: BP 128/64
--- NOTE | 2017-03-11 12:49 | IPNPDOC ---
Text Note Date of Service The patient was seen on 03/11/17. NOTE Subjective: Patient is a 61 year old female with a PMHx of A. fib (on Coumadin), Hx of DVT, HTN, DREW on CPAP, RA, Ankylosing spondylitis, Morbid obesity, who presented to the ER with complaint of fever, dysuria and frequency. She was found to have a UTI and was in a. fib with RVR in the ER. She has since been rate controlled and has been on a course of ceftriaxone. Patient was seen and examined at the bedside. Currently she denies any new problems and notes that her dysuria has resolved. Objective: Vitals (See below) General: Lying in bed, no acute distress, comfortable, AAOx3 HEENT: NC, AT CVS: RRR, +S1S2 Lungs: Fair air entry b/l, -w/r/r Abdomen: Soft, ND, NT Extremities: - Edema, - Calf tenderness Assessment and plan: s/p Atrial fibrillation with RVR - Patient is currently rate controlled and remains asymptomatic - Heart rate has remained within the 60s to 80s range - Continue with metoprolol tartrate for rate control - INR of 2.50, will continue with Coumadin 5 mg daily Urinary tract infection - likely 2/2 E. Coli - Clinically has improvement in her symptoms; denies any dysuria or frequency - Physical without any abdominal tenderness or flank tenderness; remains afebrile - Leukocytosis and lactic acidosis have resolved - Urine culture 03/07: Positive for Escherichia coli - pansensitive - Status post ceftriaxone and metronidazole IV; Will start Augmentin PO ( Antibiotic day#4) s/p Metabolic acidosis likely secondary to lactic acidosis and diarrhea s/p Diarrhea Left thyroid nodule - Ultrasound thyroid 03/10: Heterogenous thyroid gland with bilateral nodules, left greater than right - Thyroid function test noted within normal limits - We will have outpatient follow-up and thyroid uptake scan Electrolyte abnormalities; hypokalemia and hypomagnesemia - Will supplement HTN - Pressure remains well-controlled - Continue with metoprolol IDDM2 - Continue with insulin sliding scale and Levemir DREW on BiPAP - Allow home BiPAP use Ankylosing spondylitis - Continue with prednisone Morbid obesity - Complicating medical care History of DVT / DVT prophylaxis - On full anticoagulation with Coumadin Disposition: - Awaiting physical therapy clearance VS,Bipin, I+O VS, Bipin, I+O Laboratory Tests 03/11/17 05:16 Red Blood Count 4.07, Mean Corpuscular Volume 87.5, Mean Corpuscular Hemoglobin 29.0, Mean Corpuscular Hemoglobin Concent 33.1, Red Cell Distribution Width 14.7 H Vital Signs Date Time Temp Pulse Resp B/P (MAP) Pulse Ox O2 Delivery O2 Flow Rate FiO2 03/11/17 11:54 BIPAP/CPAP 03/11/17 08:34 68 125/74 03/11/17 08:00 97.0 20 96 03/10/17 23:51 2.0 I&O- Last 24 Hours up to 6 AM 03/12/17 06:00 Intake Total 480 ml Output Total 300 ml Balance 180 ml JAKUB LUIS MD Mar 11, 2017 12:49
[2017-03-11 16:00] VITALS: BP 118/69
[2017-03-11] MEDS: WARFARIN SOD 5 MG TAB PO SCH (17:30)
[2017-03-11 18:30] VITALS: BP 148/88
[2017-03-11 22:00] VITALS: BP 152/70
[2017-03-11] MEDS: ALLOPURINOL 100 MG TAB PO SCH (22:11)
[2017-03-12 06:00] VITALS: BP 136/79
[2017-03-12 06:19] LABS: MEAN CORPUSCULAR HEMOGLOBIN 28.8 pg (27.0-33.0); MEAN CORPUSCULAR HGB CONC 32.7 g/dl (32.0-36.5); PLATELET COUNT, AUTOMATED 415 10^3/uL (150-450); WHITE BLOOD COUNT 11.9 10^3/uL (4.0-10.0)
[2017-03-12 06:27] LABS: INR 2.91
[2017-03-12] MEDS: HumaLOG INSULIN (NovoLOG) PER UNIT SC SCH ×2 (07:39→12:16)
[2017-03-12] MEDS: LACTOBACILLUS ACIDOPHILUS CAP (BACID) PO SCH (07:40)
[2017-03-12 07:49] LABS: BASO # 0.1 10^3/uL (0.0-0.2); BASO % 1.1 % (0.0-1.0); EOS # 0.2 10^3/uL (0.0-0.50); EOS % 1.7 % (0.0-3.0); IMMATURE GRANULOCYTE % 4.3 % (0-0); LYMPH # 4.3 10^3/uL (1.5-4.5); LYMPH % 35.4 % (24.0-44.0); MONO # 0.7 10^3/uL (0.0-0.8); MONO % 5.8 % (0.0-5.0); NEUTROPHILS # 6.3 10^3/uL (1.8-7.7); NEUTROPHILS % 51.7 % (36.0-66.0)
[2017-03-12 08:05] LABS: ALBUMIN 2.5 GM/DL (3.2-5.2); ALBUMIN/GLOBULIN RATIO 0.78 (1.00-1.93); ALKALINE PHOSPHATASE 55 U/L (45-117); ALT/SGPT 21 U/L (12-78); ANION GAP 5 MEQ/L (8-16); AST/SGOT 16 U/L (7-37); BILIRUBIN,TOTAL 0.2 MG/DL (0.2-1.0); BLOOD UREA NITROGEN 17 MG/DL (7-18); CALCIUM LEVEL 10.1 MG/DL (8.8-10.2); CARBON DIOXIDE LEVEL 27 MEQ/L (21-32); CHLORIDE LEVEL 112 MEQ/L (98-107); CREATININE FOR GFR 0.81 MG/DL (0.55-1.02); GLOMERULAR FILTRATION RATE > 60.0 (>45); GLUCOSE, FASTING 109 MG/DL (80-110); MAGNESIUM LEVEL 1.8 MG/DL (1.8-2.4); POTASSIUM SERUM 4.5 MEQ/L (3.5-5.1); SODIUM LEVEL 144 MEQ/L (136-145); TOTAL PROTEIN 5.7 GM/DL (6.4-8.2)
[2017-03-12] MEDS ORDERED: AMOX500T2 PO (08:35)
[2017-03-12] MEDS ORDERED: COUM1TAB17 PO (08:35)
[2017-03-12] MEDS: AUGMENTIN 500 MG TAB PO SCH (08:39)
[2017-03-12] MEDS: ALLOPURINOL 300 MG TAB PO SCH (08:40)
[2017-03-12] MEDS: predniSONE 5 MG TAB PO SCH (08:40)
[2017-03-12] MEDS: CitaloPRAM (CeleXA) 20 MG TAB PO SCH (08:40)
[2017-03-12] MEDS: POTASSIUM CHLORIDE 10 MEQ SR TABLET PO SCH (08:40)
[2017-03-12 08:43] VITALS: BP 134/83
[2017-03-12] MEDS: METOPROLOL TART 50 MG TAB PO SCH (08:43)
[2017-03-12] MEDS: LEVEMIR (INSULIN DETEMIR) 1 UNITS/0.01ML SC SCH (09:28)
--- NOTE | 2017-03-12 15:56 | DSES ---
DATE OF ADMISSION: 03/07/2017 DATE OF DISCHARGE: 03/12/2017 ATTENDING PHYSICIAN: Dr. Deuce Chaidez, Dr. Shanti Peterson PRIMARY CARE PHYSICIAN: Dr. Taj Rosen REFERRING PHYSICIAN: None. CONSULTING PHYSICIAN: None. CONDITION ON DISCHARGE: Stable. FINAL DIAGNOSES: Atrial fibrillation with rapid ventricular response and urinary tract infection. PROCEDURES: None. HISTORY OF PRESENT ILLNESS: Patient is a 61-year-old female with a past medical history of atrial fibrillation, on Coumadin, history of deep vein thrombosis (DVT), hypertension, obstructive sleep apnea, on continuous positive airway pressure (CPAP), rheumatoid arthritis, ankylosing spondylitis, morbid obesity, who presented to the emergency room (ER) with complaints of fever, dysuria, and frequency. She was found to have a urinary tract infection and was in atrial fibrillation with rapid ventricular response (RVR) in the emergency room. She has since been rate controlled and has been on a course of ceftriaxone. HOSPITAL COURSE: 1. Atrial fibrillation with RVR. Has resolved. Patient is currently rate controlled and remains asymptomatic. Heart rate remains within 60s to 80s range. Continue with metoprolol tartrate for rate control. INR of 2.50. Will continue with Coumadin at home dose. 2. Urinary tract infection, likely secondary to Escherichia (E) coli. Clinically has resolution of her symptoms. Denies any dysuria or frequency. Physical without any abdominal tenderness or flank tenderness. Remains afebrile. Leukocytosis and lactic acidosis have resolved. Urine culture on March 07 was positive for E. coli. Patient is status post ceftriaxone and metronidazole and has been switched to Augmentin on March 11. She will be continued on Augmentin as an outpatient to complete antibiotic course. 3. Status post metabolic acidosis likely secondary to lactic acidosis and diarrhea. 4. Status post diarrhea. 5. Left thyroid nodule. Ultrasound thyroid on March 10 revealed a heterogeneous thyroid gland with bilateral nodules, left greater than right. Thyroid function test was noted within normal limits. We will have outpatient followup for thyroid uptake scan. 6. Electrolyte abnormalities. Hypokalemia and hypomagnesemia. Will supplement. 7. Hypertension. Blood pressure remains well controlled. Continue with metoprolol. 8. Insulin-dependent diabetes mellitus, type 2. Continue with insulin sliding scale and Levemir. 9. Obstructive sleep apnea, on bilevel positive airway pressure (BiPAP). Allow home BiPAP use. 10. Ankylosing spondylitis. Continue on prednisone. 11. Morbid obesity complicating medical care. 12. History of deep vein thrombosis (DVT)/DVT prophylaxis. Is on full anticoagulation with Coumadin. DISCHARGE MEDICATIONS: Patient being discharged home with the following medication list: - albuterol two puffs inhaled every 4 hours as needed for shortness of breath - allopurinol 200 mg by mouth at bedtime - allopurinol 300 mg by mouth daily - amlodipine 5 mg by mouth daily - citalopram 40 mg by mouth daily - fenofibrate 200 mg by mouth daily - Humira pen one injection intramuscular (IM) every 2 weeks - insulin glargine 64 units subcutaneous daily - insulin glargine 30 units subcutaneous every evening - losartan 100 mg by mouth daily - metoprolol 50 mg by mouth twice a day - omeprazole 40 mg by mouth daily - Percocet one tablet by mouth every 6 hours as needed for pain - prednisone 5 mg by mouth daily New medications prescribed include: Warfarin 5 mg by mouth daily, which is replacement of her home dose warfarin of 6 mg daily, amoxicillin/clavulanic one tablet by mouth twice a day for completion of antibiotic course. DISCHARGE INSTRUCTIONS: Patient has been advised to followup with her primary care provider, Dr. Taj Rosen, within the next 7 days. She has been advised to remain compliant with treatment plan and medications and return to the emergency room if she experiences any problems. TIME SPENT ON DISCHARGE: Greater than 35 minutes. MTDD
== END 2017-03-12 14:29 | disposition home or self-care (01) | DRG 872 ==
LOC: M ED 05:10 → M ED INP 07:40 → M PCU 09:07 → M MSPAV 03-11 18:24
PROVIDERS: ADMIT General Practice; ATTEND Internal Medicine
DX: A41.9 Sepsis, unspecified organism (principal); Z68.42 Body mass index [BMI] 45.0-49.9, adult; N39.0 Urinary tract infection, site not specified; E87.2 Acidosis; I48.91 Unspecified atrial fibrillation; E66.01 Morbid (severe) obesity due to excess calories; E11.9 Type 2 diabetes mellitus without complications; F17.210 Nicotine dependence, cigarettes, uncomplicated; G47.33 Obstructive sleep apnea (adult) (pediatric); I10 Essential (primary) hypertension; M06.9 Rheumatoid arthritis, unspecified; K52.9 Noninfective gastroenteritis and colitis, unspecified; E04.2 Nontoxic multinodular goiter; B96.20 Unspecified Escherichia coli [E. coli] as the cause of diseases classified elsewhere; M45.9 Ankylosing spondylitis of unspecified sites in spine; M10.9 Gout, unspecified; Z96.643 Presence of artificial hip joint, bilateral; Z88.8 Allergy status to other drugs, medicaments and biological substances; Z79.01 Long term (current) use of anticoagulants; Z79.52 Long term (current) use of systemic steroids; Z79.899 Other long term (current) drug therapy; Z79.4 Long term (current) use of insulin; Z79.891 Long term (current) use of opiate analgesic; Z86.718 Personal history of other venous thrombosis and embolism

== ENCOUNTER 2017-04-05 16:04 | Emergency (ER) | payer MEDICARE ==
[~2017-04-05] VITALS: Ht 177.8 cm; Wt 133.2 kg
[~2017-04-05 16:04] MED LIST changes: +AMLO5TAB2 PO; +AMOX500T2 PO; +COUM1TAB17 PO; +LOSA100T36 PO; +VENTAER INH
[2017-04-05] MEDS ORDERED: NS 500 ML IV ONE (17:00)
[2017-04-05 17:22] LABS: BASO # 0.1 10^3/uL (0.0-0.2); BASO % 0.9 % (0.0-1.0); EOS # 0.2 10^3/uL (0.0-0.50); EOS % 2.5 % (0.0-3.0); IMMATURE GRANULOCYTE % 0.7 % (0-0); LYMPH % 29.1 % (24.0-44.0); MEAN CORPUSCULAR HEMOGLOBIN 29.3 pg (27.0-33.0); MEAN CORPUSCULAR HGB CONC 32.9 g/dl (32.0-36.5); MEAN CORPUSCULAR VOLUME 88.9 fl (80.0-96.0); MONO # 0.5 10^3/uL (0.0-0.8); MONO % 6.5 % (0.0-5.0); NEUTROPHILS # 4.2 10^3/uL (1.8-7.7); NEUTROPHILS % 60.3 % (36.0-66.0); PLATELET COUNT, AUTOMATED 303 10^3/uL (150-450); RED CELL DISTRIBUTION WIDTH 16.1 % (11.5-14.5); WHITE BLOOD COUNT 6.9 10^3/uL (4.0-10.0)
[2017-04-05 17:28] LABS: INR 2.76
[2017-04-05 17:36] LABS: ALBUMIN 3.2 GM/DL (3.2-5.2); ALBUMIN/GLOBULIN RATIO 0.91 (1.00-1.93); ALKALINE PHOSPHATASE 73 U/L (45-117); ALT/SGPT 23 U/L (12-78); ANION GAP 10 MEQ/L (8-16); AST/SGOT 17 U/L (7-37); BILIRUBIN,DIRECT < 0.1 MG/DL (0.0-0.2); BILIRUBIN,TOTAL 0.2 MG/DL (0.2-1.0); BLOOD UREA NITROGEN 11 MG/DL (7-18); CALCIUM LEVEL 9.4 MG/DL (8.8-10.2); CARBON DIOXIDE LEVEL 22 MEQ/L (21-32); CHLORIDE LEVEL 108 MEQ/L (98-107); CREATININE FOR GFR 0.85 MG/DL (0.55-1.02); FREE T4 0.93 NG/DL (0.76-1.46); GLOMERULAR FILTRATION RATE > 60.0 (>45); GLUCOSE, FASTING 255 MG/DL (80-110); SODIUM LEVEL 140 MEQ/L (136-145); TOTAL PROTEIN 6.7 GM/DL (6.4-8.2)
--- NOTE | 2017-04-05 18:04 | REP ---
PA and lateral chest: Comparisons 03/02/2015. The lung lagos are clear. The cardiac size is normal The ann, mediastinum, and bony thorax are unremarkable. Impression: Negative PA and lateral chest. There is no interval change. Signed by Abhishek Mendoza MD 04/05/2017 05:56 P
[2017-04-05] MEDS ORDERED: METOPROLOL 5 MG/5 ML VIAL IV STA (18:42)
[2017-04-05] MEDS ORDERED: METOPROLOL TART 50 MG TAB PO ONE (18:45)
[2017-04-05 18:49] VITALS: BP 135/84
[2017-04-05 19:07] VITALS: BP 144/94
[2017-04-05] MEDS ORDERED: METO50TA7 PO (19:18)
--- NOTE | 2017-04-05 19:45 | ECGEPIP ---
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
== END 2017-04-05 19:30 | disposition home or self-care (01) ==
LOC: M ED 16:04
DX: I48.91 Unspecified atrial fibrillation (principal); E11.9 Type 2 diabetes mellitus without complications; G47.30 Sleep apnea, unspecified; M06.9 Rheumatoid arthritis, unspecified; F17.210 Nicotine dependence, cigarettes, uncomplicated; Z79.52 Long term (current) use of systemic steroids; Z79.899 Other long term (current) drug therapy; Z79.84 Long term (current) use of oral hypoglycemic drugs; Z88.8 Allergy status to other drugs, medicaments and biological substances; Z86.718 Personal history of other venous thrombosis and embolism

== ENCOUNTER 2017-04-21 15:55 | Emergency (ER) | payer MEDICARE ==
[2017-04-21 19:25] LABS: BEDSIDE GLUCOSE 138 MG/DL (80-115)
[2017-04-21] MEDS: IPRATROPIUM 0.5MG/ALBUTEROL 2.5MG INH SOL UD 3ML (DUONEB)(J7620) NEB ×2 (19:32→20:05)
[2017-04-21 19:46] LABS: BASO # 0.1 10^3/uL (0.0-0.2); BASO % 0.5 % (0.0-1.0); EOS # 0.1 10^3/uL (0.0-0.50); HEMATOCRIT 41.1 % (36.0-47.0); IMMATURE GRANULOCYTE # 0.1 10^3/uL (0-0); IMMATURE GRANULOCYTE % 0.6 % (0-0); LYMPH # 2.9 10^3/uL (1.5-4.5); LYMPH % 24.9 % (24.0-44.0); MEAN CORPUSCULAR HEMOGLOBIN 29.4 pg (27.0-33.0); MEAN CORPUSCULAR HGB CONC 34.1 g/dl (32.0-36.5); MEAN CORPUSCULAR VOLUME 86.3 fl (80.0-96.0); MONO # 0.5 10^3/uL (0.0-0.8); MONO % 4.3 % (0.0-5.0); NEUTROPHILS # 8.1 10^3/uL (1.8-7.7); NEUTROPHILS % 68.7 % (36.0-66.0); PLATELET COUNT, AUTOMATED 367 10^3/uL (150-450); RED BLOOD COUNT 4.76 10^6/uL (4.00-5.40); RED CELL DISTRIBUTION WIDTH 15.2 % (11.5-14.5); WHITE BLOOD COUNT 11.8 10^3/uL (4.0-10.0)
[2017-04-21 19:54] LABS: INR 3.01; PROTHROMBIN TIME 32.6 SECONDS (12.4-14.5)
[2017-04-21 20:16] LABS: ANION GAP 8 MEQ/L (8-16); BLOOD UREA NITROGEN 12 MG/DL (7-18); CALCIUM LEVEL 10.3 MG/DL (8.8-10.2); CARBON DIOXIDE LEVEL 27 MEQ/L (21-32); CHLORIDE LEVEL 107 MEQ/L (98-107); CREATININE FOR GFR 0.69 MG/DL (0.55-1.02); GLOMERULAR FILTRATION RATE > 60.0 (>45); GLUCOSE, FASTING 148 MG/DL (80-110); POTASSIUM SERUM 4.1 MEQ/L (3.5-5.1); SODIUM LEVEL 142 MEQ/L (136-145)
[2017-04-21] MEDS: DOXYCYCLINE HYCLATE 100 MG TAB PO (21:45)
[2017-04-21] MEDS: predniSONE 20 MG TAB PO (21:45)
== END 2017-04-21 21:50 | disposition home or self-care (01) ==
LOC: M ED 15:55
DX: J44.1 Chronic obstructive pulmonary disease with (acute) exacerbation (principal); J18.1 Lobar pneumonia, unspecified organism; E11.9 Type 2 diabetes mellitus without complications; F17.210 Nicotine dependence, cigarettes, uncomplicated; Z79.52 Long term (current) use of systemic steroids; Z79.899 Other long term (current) drug therapy; Z79.2 Long term (current) use of antibiotics; Z79.01 Long term (current) use of anticoagulants; Z88.8 Allergy status to other drugs, medicaments and biological substances
CPT/HCPCS: 71046

== ENCOUNTER → 2017-08-06 | Outpatient (REF) | payer MEDICARE ==
[2017-08-06 16:59] LABS: INR 2.51; PROTHROMBIN TIME 28.1 SECONDS (12.4-14.5)
== END ==
LOC: M LAB REF 16:39
DX: I48.2 Chronic atrial fibrillation (principal)
CPT/HCPCS: 85610

== ENCOUNTER → 2017-12-03 | Outpatient (REF) | payer MEDICARE ==
[2017-12-03 19:21] LABS: INR 1.62; PROTHROMBIN TIME 19.5 SECONDS (12.1-14.4)
== END ==
LOC: M LAB REF 16:38
DX: I48.2 Chronic atrial fibrillation (principal)
CPT/HCPCS: 85610

== ENCOUNTER 2017-12-15 20:17 | Inpatient (IN) | payer MEDICARE ==
[2017-12-15 20:46] LABS: BASO # 0.1 10^3/uL (0.0-0.2); BASO % 0.4 % (0.0-1.0); EOS # 0.1 10^3/uL (0.0-0.50); EOS % 0.3 % (0.0-3.0); HEMATOCRIT 45.9 % (36.0-47.0); IMMATURE GRANULOCYTE % 0.6 % (0-3.0); LYMPH # 1.2 10^3/uL (1.5-4.5); LYMPH % 6.7 % (24.0-44.0); MEAN CORPUSCULAR HEMOGLOBIN 30.9 pg (27.0-33.0); MEAN CORPUSCULAR HGB CONC 34.9 g/dl (32.0-36.5); MEAN CORPUSCULAR VOLUME 88.8 fl (80.0-96.0); MONO # 0.4 10^3/uL (0.0-0.8); MONO % 2.3 % (0.0-5.0); NEUTROPHILS # 16.3 10^3/uL (1.8-7.7); NEUTROPHILS % 89.7 % (36.0-66.0); PLATELET COUNT, AUTOMATED 248 10^3/uL (150-450); RED BLOOD COUNT 5.17 10^6/uL (4.00-5.40); RED CELL DISTRIBUTION WIDTH 13.7 % (11.5-14.5); WHITE BLOOD COUNT 18.2 10^3/uL (4.0-10.0)
[2017-12-15] MEDS: METOCLOPRAMIDE INJ 10MG/2ML VIAL (J2765) IV (20:59)
[2017-12-15 21:00] LABS: ALBUMIN 3.4 GM/DL (3.2-5.2); ALBUMIN/GLOBULIN RATIO 0.89 (1.00-1.93); ALKALINE PHOSPHATASE 104 U/L (45-117); ALT/SGPT 41 U/L (12-78); ANION GAP 11 MEQ/L (8-16); AST/SGOT 25 U/L (7-37); BILIRUBIN,DIRECT < 0.1 MG/DL (0.0-0.2); BILIRUBIN,TOTAL 0.4 MG/DL (0.2-1.0); BLOOD UREA NITROGEN 17 MG/DL (7-18); CALCIUM LEVEL 10.5 MG/DL (8.8-10.2); CARBON DIOXIDE LEVEL 23 MEQ/L (21-32); CHLORIDE LEVEL 103 MEQ/L (98-107); CREATININE FOR GFR 1.06 MG/DL (0.55-1.30); GLOMERULAR FILTRATION RATE 55.7 (>45); GLUCOSE, FASTING 264 MG/DL (70-100); LIPASE 224 U/L (73-393); POTASSIUM SERUM 4.2 MEQ/L (3.5-5.1); SODIUM LEVEL 137 MEQ/L (136-145); TOTAL PROTEIN 7.2 GM/DL (6.4-8.2)
[2017-12-15] MEDS: NS 1,000 ML IV (21:03)
[2017-12-15 21:10] LABS: INR 1.12; PROTHROMBIN TIME 14.6 SECONDS (12.1-14.4)
[2017-12-15 21:36] LABS: KETONE, URINE AUTO RFX TRACE mg/dL (NEGATIVE); LEUKOCYTE ESTERASE UR AUTO RFX NEGATIVE (NEGATIVE); NITRITE, URINE AUTO RFX NEGATIVE (NEGATIVE); RBC, URINE AUTO RFX 1 /HPF (0-3); SPECIFIC GRAVITY UR AUTO RFX 1.016 (1.002-1.035); SQUAM EPITHELIAL CELL UR AURFX 0 /HPF (0-6); WBC, URINE AUTO RFX 3 /HPF (0-3)
[2017-12-15] MEDS: CEFEPIME HCL 1 GM in D5W MINI-BAG PLUS 50 ML IV (22:24)
[2017-12-15] MEDS: ACETAMINOPHEN 325 MG TAB PO (22:24)
[2017-12-15 22:55] LABS: LACTIC ACID SEPSIS PROTOCOL 3.7 MMOL/L (0.4-2.0)
[2017-12-15] MEDS: VANCOMYCIN 1000 MG/20 ML VIAL (J3370) IP (23:46)
[2017-12-16] MEDS ORDERED: NS 1,000 ML IV
[2017-12-16] MEDS ORDERED: IPRATROPIUM 0.5MG/ALBUTEROL 2.5MG INH SOL UD 3ML (DUONEB)(J7620) NEB
[2017-12-16 00:07] LABS: CPK CREATINE PHOSPHOKINASE 38 U/L (26-192); MB/CK RELATIVE INDEX 2.63 (< OR =4); TROPONIN I < 0.02 NG/ML (< 0.10)
[2017-12-16] MEDS: NS 1,000 ML IV ×3 (00:10→04:33)
[2017-12-16] MEDS: WARFARIN SOD 3 MG TAB PO ×4 (00:13→04:39)
[2017-12-16] MEDS ORDERED: DEXTROSE 50% 50 ML SYRINGE IV (00:15)
[2017-12-16] MEDS ORDERED: GLUCOSE 4 GM CHEW TABLET PO (00:15)
[2017-12-16] MEDS ORDERED: GLUCAGON FOR INJ 1 MG VIAL (J1610) SC (00:15)
[2017-12-16] MEDS: DOCUSATE SODIUM 100 MG CAP PO ×3 (00:36→20:26)
[2017-12-16 00:53] LABS: BEDSIDE GLUCOSE 275 MG/DL (80-115)
[2017-12-16] MEDS: diltiaZEM 125 MG in NS 100 ML IV (01:30)
[2017-12-16] MEDS: HumaLOG INSULIN (NovoLOG) PER UNIT SC ×5 (01:31→20:34)
[2017-12-16] MEDS: NS 250 ML IV (03:00)
[2017-12-16] MEDS: VANCOMYCIN HCL 1,000 MG, VIAL MATE ADAPTER 1 EACH in D5W 250 ML IV ×4 (03:05→23:55)
[2017-12-16] MEDS: ENOXAPARIN 40 MG/0.4 ML SYRINGE (J1650) SC (03:07)
[2017-12-16 03:24] LABS: BASO % 0.2 % (0.0-1.0); IMMATURE GRANULOCYTE % 3.9 % (0-3.0); LYMPH # 0.6 10^3/uL (1.5-4.5); LYMPH % 3.4 % (24.0-44.0); MEAN CORPUSCULAR HEMOGLOBIN 30.9 pg (27.0-33.0); MEAN CORPUSCULAR HGB CONC 33.9 g/dl (32.0-36.5); MEAN CORPUSCULAR VOLUME 91.1 fl (80.0-96.0); MONO # 0.8 10^3/uL (0.0-0.8); MONO % 4.4 % (0.0-5.0); NEUTROPHILS # 15.7 10^3/uL (1.8-7.7); NEUTROPHILS % 88.1 % (36.0-66.0); PLATELET COUNT, AUTOMATED 203 10^3/uL (150-450); RED CELL DISTRIBUTION WIDTH 13.8 % (11.5-14.5); WHITE BLOOD COUNT 17.8 10^3/uL (4.0-10.0)
[2017-12-16 03:32] LABS: HEMOGLOBIN 13.9 g/dl (12.0-15.5)
[2017-12-16 03:36] LABS: PROTHROMBIN TIME 15.4 SECONDS (12.1-14.4)
[2017-12-16 03:53] LABS: ABG HCO3 13.7 MEQ/L (22.0-26.0); ABG O2 SATURATION 98.7 % (95.0-99.0); ABG PARTIAL PRESSURE CO2 20.9 mmHg (35.0-45.0); ABG PARTIAL PRESSURE O2 114.1 mmHg (75.0-100.0); ABG STANDARD HCO3 18.1 MEQ/L (22.0-26.0); ABG TOTAL CO2 14.4 MEQ/L (23.0-31.0); ABG pH (ARTERIAL) 7.436 UNITS (7.350-7.450)
[2017-12-16 03:56] LABS: ALBUMIN 2.5 GM/DL (3.2-5.2); ALBUMIN/GLOBULIN RATIO 0.76 (1.00-1.93); ALKALINE PHOSPHATASE 71 U/L (45-117); ALT/SGPT 28 U/L (12-78); ANION GAP 12 MEQ/L (8-16); AST/SGOT 22 U/L (7-37); BILIRUBIN,TOTAL 0.5 MG/DL (0.2-1.0); BLOOD UREA NITROGEN 19 MG/DL (7-18); CALCIUM LEVEL 9.2 MG/DL (8.8-10.2); CARBON DIOXIDE LEVEL 18 MEQ/L (21-32); CHLORIDE LEVEL 109 MEQ/L (98-107); CK-MB VALUE MASS < 1.0 NG/ML (<3.6); CPK CREATINE PHOSPHOKINASE 416 U/L (26-192); CREATININE FOR GFR 1.33 MG/DL (0.55-1.30); GLOMERULAR FILTRATION RATE 42.9 (>45); GLUCOSE, FASTING 218 MG/DL (70-100); MB/CK RELATIVE INDEX 0.24 (< OR =4); NT-PRO BNP 2019 PG/ML (<125); POTASSIUM SERUM 3.5 MEQ/L (3.5-5.1); SODIUM LEVEL 139 MEQ/L (136-145); TOTAL PROTEIN 5.8 GM/DL (6.4-8.2); TROPONIN I < 0.02 NG/ML (< 0.10)
[2017-12-16 04:04] LABS: LACTIC ACID SEPSIS PROTOCOL 5.7 MMOL/L (0.4-2.0)
[2017-12-16] MEDS: POTASSIUM CHLORIDE 10% LIQ 20 MEQ/15 ML UDC PO (04:33)
[2017-12-16] MEDS: MAG SULF 1GM/100ML (MAG RUN) 1 GM in APPROPRIATE DILUENT 1 EA IV ×2 (04:33→05:30)
[2017-12-16] MEDS: DIGOXIN INJ 0.5 MG/2 ML AMP (J1160) IV ×2 (04:33→08:28)
[2017-12-16 05:42] LABS: ESTIMATED AVERAGE GLUCOSE 235 MG/DL (60-110); HEMOGLOBIN A1c 9.8 %
[2017-12-16] MEDS ORDERED: HEPARIN SOD (PORCINE) 5000 UNITS/ML VIAL SC (06:00)
[2017-12-16] MEDS: OMEPRAZOLE 20 MG CAP PO (08:28)
[2017-12-16] MEDS: SPIRONOLACTONE 25 MG TAB PO (08:28)
[2017-12-16] MEDS: CitaloPRAM (CeleXA) 20 MG TAB PO (08:28)
[2017-12-16] MEDS: IPRATROPIUM 0.5MG/ALBUTEROL 2.5MG INH SOL UD 3ML (DUONEB)(J7620) NEB ×2 (08:36→19:37)
[2017-12-16 08:44] LABS: ERYTHROCYTE SEDIMENTATION RATE 1 mm/hr (0-30)
[2017-12-16 08:45] LABS: MAGNESIUM LEVEL 1.5 MG/DL (1.8-2.4)
[2017-12-16] MEDS ORDERED: PANTOPRAZOLE 40MG TAB (PROTONIX) PO (09:00)
[2017-12-16] MEDS ORDERED: diltiaZEM **CD** 180 MG CAP PO (09:00)
[2017-12-16] MEDS ORDERED: CHLORTHALIDONE 12.5MG PER 1/2 TABLET PO (09:00)
[2017-12-16] MEDS: KCL 20MEQ in NS 1000ML 1,000 ML IV (09:09)
[2017-12-16 11:29] LABS: BEDSIDE GLUCOSE 297 MG/DL (80-115)
[2017-12-16] MEDS: LACTOBACILLUS ACIDOPHILUS CAP (BACID) PO ×2 (11:53→18:11)
[2017-12-16] MEDS: METOPROLOL TART 25 MG TABLET PO ×3 (11:54→23:53)
[2017-12-16 13:11] LABS: TROPONIN I < 0.02 NG/ML (< 0.10)
[2017-12-16 13:22] LABS: CK-MB VALUE MASS 5.5 NG/ML (<3.6); CPK CREATINE PHOSPHOKINASE 1565 U/L (26-192); MB/CK RELATIVE INDEX 0.35 (< OR =4)
[2017-12-16] MEDS: ACETAMINOPHEN TAB 650MG DOSE (2X325MG) PO (14:18)
[2017-12-16 17:17] LABS: BEDSIDE GLUCOSE 202 MG/DL (80-115)
[2017-12-16 17:39] LABS: VANCOMYCIN LEVEL TROUGH 9.8 UG/ML (10.0-20.0)
[2017-12-16] MEDS: WARFARIN SOD 5 MG TAB PO (18:11)
[2017-12-16] MEDS: ENOXAPARIN 100MG/1ML SYRINGE (J1650) SC (18:11)
[2017-12-16] MEDS: VANCOMYCIN HCL 500 MG in D5W MINI-BAG PLUS 100 ML IV (19:51)
[2017-12-16 20:26] LABS: BEDSIDE GLUCOSE 294 MG/DL (80-115)
[2017-12-16] MEDS: LEVEMIR (INSULIN DETEMIR) 1 UNITS/0.01ML SC (20:34)
[2017-12-16] MEDS ORDERED: WARFARIN SOD 4 MG TAB PO (21:00)
[2017-12-16] MEDS: CEFEPIME HCL 1 GM in D5W MINI-BAG PLUS 50 ML IV (23:16)
[2017-12-17] MEDS: ACETAMINOPHEN TAB 650MG DOSE (2X325MG) PO ×4 (03:58→23:24)
[2017-12-17 05:08] LABS: BASO # 0.1 10^3/uL (0.0-0.2); BASO % 0.3 % (0.0-1.0); EOS # 0.1 10^3/uL (0.0-0.50); EOS % 0.4 % (0.0-3.0); HEMOGLOBIN 12.9 g/dl (12.0-15.5); IMMATURE GRANULOCYTE % 1.7 % (0-3.0); LYMPH # 1.3 10^3/uL (1.5-4.5); LYMPH % 7.5 % (24.0-44.0); MEAN CORPUSCULAR HEMOGLOBIN 30.9 pg (27.0-33.0); MEAN CORPUSCULAR HGB CONC 34.9 g/dl (32.0-36.5); MEAN CORPUSCULAR VOLUME 88.7 fl (80.0-96.0); MONO # 0.4 10^3/uL (0.0-0.8); MONO % 2.5 % (0.0-5.0); NEUTROPHILS # 15.6 10^3/uL (1.8-7.7); NEUTROPHILS % 87.6 % (36.0-66.0); PLATELET COUNT, AUTOMATED 178 10^3/uL (150-450); RED BLOOD COUNT 4.17 10^6/uL (4.00-5.40); RED CELL DISTRIBUTION WIDTH 14.1 % (11.5-14.5); WHITE BLOOD COUNT 17.8 10^3/uL (4.0-10.0)
[2017-12-17 05:32] LABS: ALBUMIN 2.3 GM/DL (3.2-5.2); ALBUMIN/GLOBULIN RATIO 0.59 (1.00-1.93); ALKALINE PHOSPHATASE 69 U/L (45-117); ALT/SGPT 26 U/L (12-78); ANION GAP 9 MEQ/L (8-16); AST/SGOT 64 U/L (7-37); BILIRUBIN,TOTAL 0.4 MG/DL (0.2-1.0); BLOOD UREA NITROGEN 13 MG/DL (7-18); CARBON DIOXIDE LEVEL 20 MEQ/L (21-32); CHLORIDE LEVEL 110 MEQ/L (98-107); GLOMERULAR FILTRATION RATE > 60.0 (>45); GLUCOSE, FASTING 192 MG/DL (70-100); POTASSIUM SERUM 3.9 MEQ/L (3.5-5.1); SODIUM LEVEL 139 MEQ/L (136-145); TOTAL PROTEIN 6.2 GM/DL (6.4-8.2)
[2017-12-17 05:43] LABS: INR 1.41; PROTHROMBIN TIME 17.5 SECONDS (12.1-14.4)
[2017-12-17] MEDS: VANCOMYCIN HCL 1,000 MG, VIAL MATE ADAPTER 1 EACH in D5W 250 ML IV ×3 (05:46→18:43)
[2017-12-17] MEDS: METOPROLOL TART 25 MG TABLET PO ×4 (05:47→23:17)
[2017-12-17] MEDS: ENOXAPARIN 100MG/1ML SYRINGE (J1650) SC ×2 (05:47→18:02)
[2017-12-17 07:58] LABS: MAGNESIUM LEVEL 1.6 MG/DL (1.8-2.4)
[2017-12-17] MEDS: IPRATROPIUM 0.5MG/ALBUTEROL 2.5MG INH SOL UD 3ML (DUONEB)(J7620) NEB ×2 (08:09→20:02)
[2017-12-17] MEDS: OMEPRAZOLE 20 MG CAP PO (08:55)
[2017-12-17] MEDS: LACTOBACILLUS ACIDOPHILUS CAP (BACID) PO ×3 (08:55→18:03)
[2017-12-17] MEDS: CitaloPRAM (CeleXA) 20 MG TAB PO (08:55)
[2017-12-17] MEDS: DIGOXIN 0.25 MG TAB PO (08:55)
[2017-12-17] MEDS: HumaLOG INSULIN (NovoLOG) PER UNIT SC ×4 (08:55→20:31)
[2017-12-17] MEDS: DOCUSATE SODIUM 100 MG CAP PO ×2 (09:00→20:23)
[2017-12-17] MEDS ORDERED: GENTAMICIN SULFATE 0.1% OINT 15 GM TOP (09:00)
[2017-12-17 12:23] LABS: BEDSIDE GLUCOSE 239 MG/DL (80-115)
[2017-12-17] MEDS: GENTAMICIN SULFATE 0.1% OINT 15 GM TOP ×2 (13:24→20:32)
[2017-12-17 17:40] LABS: BEDSIDE GLUCOSE 225 MG/DL (80-115)
[2017-12-17] MEDS: WARFARIN SOD 3 MG TAB PO (18:03)
[2017-12-17] MEDS: ALLOPURINOL 100 MG TAB PO (18:07)
[2017-12-17] MEDS: LEVEMIR (INSULIN DETEMIR) 1 UNITS/0.01ML SC (20:30)
[2017-12-17 20:32] LABS: BEDSIDE GLUCOSE 276 MG/DL (80-115)
[2017-12-17] MEDS: CEFEPIME HCL 1 GM in D5W MINI-BAG PLUS 50 ML IV (23:18)
[2017-12-18] MEDS: traMADol 50 MG TAB PO (00:57)
[2017-12-18] MEDS: ONDANSETRON 4MG/2ML VIAL (J2405) IV (00:57)
[2017-12-18] MEDS: METOPROLOL TART 25 MG TABLET PO ×3 (05:21→17:38)
[2017-12-18] MEDS: ENOXAPARIN 100MG/1ML SYRINGE (J1650) SC ×2 (05:21→17:37)
[2017-12-18 05:38] LABS: BASO # 0.1 10^3/uL (0.0-0.2); BASO % 0.4 % (0.0-1.0); EOS # 0.2 10^3/uL (0.0-0.50); EOS % 1.2 % (0.0-3.0); HEMATOCRIT 35.9 % (36.0-47.0); HEMOGLOBIN 12.3 g/dl (12.0-15.5); IMMATURE GRANULOCYTE % 1.1 % (0-3.0); LYMPH # 1.7 10^3/uL (1.5-4.5); LYMPH % 14.2 % (24.0-44.0); MEAN CORPUSCULAR HEMOGLOBIN 30.8 pg (27.0-33.0); MEAN CORPUSCULAR HGB CONC 34.3 g/dl (32.0-36.5); MONO # 0.4 10^3/uL (0.0-0.8); MONO % 3.2 % (0.0-5.0); NEUTROPHILS # 9.6 10^3/uL (1.8-7.7); NEUTROPHILS % 79.9 % (36.0-66.0); PLATELET COUNT, AUTOMATED 164 10^3/uL (150-450); RED BLOOD COUNT 3.99 10^6/uL (4.00-5.40); RED CELL DISTRIBUTION WIDTH 13.7 % (11.5-14.5); WHITE BLOOD COUNT 12.1 10^3/uL (4.0-10.0)
[2017-12-18 05:48] LABS: INR 1.57
[2017-12-18 05:52] LABS: ALBUMIN 2.2 GM/DL (3.2-5.2); ALBUMIN/GLOBULIN RATIO 0.54 (1.00-1.93); ALKALINE PHOSPHATASE 67 U/L (45-117); ALT/SGPT 21 U/L (12-78); ANION GAP 11 MEQ/L (8-16); AST/SGOT 33 U/L (7-37); BILIRUBIN,TOTAL 0.3 MG/DL (0.2-1.0); BLOOD UREA NITROGEN 9 MG/DL (7-18); CARBON DIOXIDE LEVEL 21 MEQ/L (21-32); CHLORIDE LEVEL 109 MEQ/L (98-107); CREATININE FOR GFR 0.73 MG/DL (0.55-1.30); GLOMERULAR FILTRATION RATE > 60.0 (>45); GLUCOSE, FASTING 212 MG/DL (70-100); POTASSIUM SERUM 4.2 MEQ/L (3.5-5.1); SODIUM LEVEL 141 MEQ/L (136-145); TOTAL PROTEIN 6.3 GM/DL (6.4-8.2)
[2017-12-18 05:59] LABS: CK-MB VALUE MASS < 1.0 NG/ML (<3.6); CPK CREATINE PHOSPHOKINASE 585 U/L (26-192); MB/CK RELATIVE INDEX 0.17 (< OR =4); TROPONIN I < 0.02 NG/ML (< 0.10)
[2017-12-18] MEDS: HumaLOG INSULIN (NovoLOG) PER UNIT SC ×4 (07:36→21:18)
[2017-12-18] MEDS: IPRATROPIUM 0.5MG/ALBUTEROL 2.5MG INH SOL UD 3ML (DUONEB)(J7620) NEB ×2 (07:42→20:37)
[2017-12-18] MEDS: DOCUSATE SODIUM 100 MG CAP PO ×2 (09:00→21:18)
[2017-12-18] MEDS: LACTOBACILLUS ACIDOPHILUS CAP (BACID) PO ×3 (09:31→17:37)
[2017-12-18] MEDS: DIGOXIN 0.25 MG TAB PO (09:31)
[2017-12-18] MEDS: OMEPRAZOLE 20 MG CAP PO (09:32)
[2017-12-18] MEDS: CitaloPRAM (CeleXA) 20 MG TAB PO (09:32)
[2017-12-18] MEDS: ALLOPURINOL 100 MG TAB PO (09:33)
[2017-12-18] MEDS: GENTAMICIN SULFATE 0.1% OINT 15 GM TOP ×2 (09:35→21:00)
[2017-12-18 11:49] LABS: BEDSIDE GLUCOSE 245 MG/DL (80-115)
[2017-12-18] MEDS: NYSTATIN 100,000 UNITS/GM TOPICAL PWD 15 GM TOP ×2 (14:11→21:17)
[2017-12-18 16:44] LABS: BEDSIDE GLUCOSE 224 MG/DL (80-115)
[2017-12-18] MEDS: WARFARIN SOD 3 MG TAB PO (17:38)
[2017-12-18 19:43] LABS: BEDSIDE GLUCOSE 255 MG/DL (80-115)
[2017-12-18] MEDS: METOPROLOL TART 50 MG TAB PO (21:00)
[2017-12-18] MEDS ORDERED: NYSTATIN 100,000 UNITS/GM TOPICAL PWD 15 GM TOP (21:00)
[2017-12-18] MEDS: LEVEMIR (INSULIN DETEMIR) 1 UNITS/0.01ML SC (21:18)
[2017-12-18] MEDS: cefTRIAXone SOD 2 GM in D5W MINI-BAG PLUS 50 ML IV (23:17)
[2017-12-19] MEDS: ENOXAPARIN 100MG/1ML SYRINGE (J1650) SC ×2 (05:33→17:21)
[2017-12-19 05:55] LABS: BASO # 0.1 10^3/uL (0.0-0.2); BASO % 0.5 % (0.0-1.0); EOS # 0.2 10^3/uL (0.0-0.50); HEMATOCRIT 37.2 % (36.0-47.0); HEMOGLOBIN 12.7 g/dl (12.0-15.5); IMMATURE GRANULOCYTE % 1.5 % (0-3.0); LYMPH # 2.4 10^3/uL (1.5-4.5); LYMPH % 24.5 % (24.0-44.0); MEAN CORPUSCULAR HEMOGLOBIN 30.6 pg (27.0-33.0); MEAN CORPUSCULAR HGB CONC 34.1 g/dl (32.0-36.5); MEAN CORPUSCULAR VOLUME 89.6 fl (80.0-96.0); MONO # 0.6 10^3/uL (0.0-0.8); MONO % 5.7 % (0.0-5.0); NEUTROPHILS # 6.3 10^3/uL (1.8-7.7); NEUTROPHILS % 65.8 % (36.0-66.0); PLATELET COUNT, AUTOMATED 178 10^3/uL (150-450); RED BLOOD COUNT 4.15 10^6/uL (4.00-5.40); RED CELL DISTRIBUTION WIDTH 13.6 % (11.5-14.5); WHITE BLOOD COUNT 9.6 10^3/uL (4.0-10.0)
[2017-12-19 06:07] LABS: INR 1.78
[2017-12-19 06:23] LABS: ALBUMIN 2.2 GM/DL (3.2-5.2); ALKALINE PHOSPHATASE 72 U/L (45-117); ALT/SGPT 18 U/L (12-78); ANION GAP 9 MEQ/L (8-16); AST/SGOT 24 U/L (7-37); BILIRUBIN,TOTAL 0.2 MG/DL (0.2-1.0); BLOOD UREA NITROGEN 8 MG/DL (7-18); CALCIUM LEVEL 10.3 MG/DL (8.8-10.2); CARBON DIOXIDE LEVEL 23 MEQ/L (21-32); CHLORIDE LEVEL 109 MEQ/L (98-107); CK-MB VALUE MASS < 1.0 NG/ML (<3.6); CPK CREATINE PHOSPHOKINASE 232 U/L (26-192); CREATININE FOR GFR 0.64 MG/DL (0.55-1.30); GLOMERULAR FILTRATION RATE > 60.0 (>45); GLUCOSE, FASTING 171 MG/DL (70-100); MAGNESIUM LEVEL 1.3 MG/DL (1.8-2.4); MB/CK RELATIVE INDEX 0.43 (< OR =4); POTASSIUM SERUM 4.3 MEQ/L (3.5-5.1); SODIUM LEVEL 141 MEQ/L (136-145); TOTAL PROTEIN 6.6 GM/DL (6.4-8.2); TROPONIN I < 0.02 NG/ML (< 0.10)
[2017-12-19] MEDS: IPRATROPIUM 0.5MG/ALBUTEROL 2.5MG INH SOL UD 3ML (DUONEB)(J7620) NEB ×2 (07:23→20:26)
[2017-12-19] MEDS: NYSTATIN 100,000 UNITS/GM TOPICAL PWD 15 GM TOP ×2 (08:32→20:54)
[2017-12-19] MEDS: HumaLOG INSULIN (NovoLOG) PER UNIT SC ×4 (08:32→20:55)
[2017-12-19] MEDS: CHLORTHALIDONE 12.5MG PER 1/2 TABLET PO (08:33)
[2017-12-19] MEDS: METOPROLOL TART 50 MG TAB PO ×2 (08:34→21:00)
[2017-12-19] MEDS: CitaloPRAM (CeleXA) 20 MG TAB PO (08:35)
[2017-12-19] MEDS: SPIRONOLACTONE 12.5MG PER 1/2 TABLET PO (08:35)
[2017-12-19] MEDS: MAGNESIUM OXIDE 400 MG TAB (MAG-OX) PO ×2 (08:35→21:29)
[2017-12-19] MEDS: LACTOBACILLUS ACIDOPHILUS CAP (BACID) PO ×3 (08:35→17:22)
[2017-12-19] MEDS: OMEPRAZOLE 20 MG CAP PO (08:35)
[2017-12-19] MEDS: DIGOXIN 0.25 MG TAB PO (08:36)
[2017-12-19] MEDS: ALLOPURINOL 100 MG TAB PO (08:36)
[2017-12-19] MEDS: DOCUSATE SODIUM 100 MG CAP PO ×2 (08:36→20:56)
[2017-12-19] MEDS: GENTAMICIN SULFATE 0.1% OINT 15 GM TOP ×2 (08:37→23:43)
[2017-12-19 11:32] LABS: BEDSIDE GLUCOSE 275 MG/DL (80-115)
[2017-12-19] MEDS: MAG SULF 1GM/100ML (MAG RUN) 1 GM in APPROPRIATE DILUENT 1 EA IV ×3 (12:26→20:23)
[2017-12-19 16:49] LABS: BEDSIDE GLUCOSE 208 MG/DL (80-115)
[2017-12-19] MEDS: WARFARIN SOD 3 MG TAB PO (17:22)
[2017-12-19 20:27] LABS: BEDSIDE GLUCOSE 229 MG/DL (80-115)
[2017-12-19] MEDS: LEVEMIR (INSULIN DETEMIR) 1 UNITS/0.01ML SC (20:55)
[2017-12-19] MEDS: cefTRIAXone SOD 2 GM in D5W MINI-BAG PLUS 50 ML IV (23:42)
[2017-12-20 05:27] LABS: BASO # 0.1 10^3/uL (0.0-0.2); BASO % 0.9 % (0.0-1.0); EOS # 0.2 10^3/uL (0.0-0.50); EOS % 2.6 % (0.0-3.0); IMMATURE GRANULOCYTE % 4.1 % (0-3.0); LYMPH # 2.6 10^3/uL (1.5-4.5); LYMPH % 31.7 % (24.0-44.0); MEAN CORPUSCULAR HEMOGLOBIN 30.3 pg (27.0-33.0); MEAN CORPUSCULAR HGB CONC 34.2 g/dl (32.0-36.5); MEAN CORPUSCULAR VOLUME 88.6 fl (80.0-96.0); MONO # 0.5 10^3/uL (0.0-0.8); MONO % 5.8 % (0.0-5.0); NEUTROPHILS # 4.5 10^3/uL (1.8-7.7); NEUTROPHILS % 54.9 % (36.0-66.0); PLATELET COUNT, AUTOMATED 233 10^3/uL (150-450); RED BLOOD COUNT 4.29 10^6/uL (4.00-5.40); RED CELL DISTRIBUTION WIDTH 13.3 % (11.5-14.5); WHITE BLOOD COUNT 8.2 10^3/uL (4.0-10.0)
[2017-12-20 05:37] LABS: INR 1.98; PROTHROMBIN TIME 22.9 SECONDS (12.1-14.4)
[2017-12-20 05:40] LABS: ALBUMIN 2.2 GM/DL (3.2-5.2); ALBUMIN/GLOBULIN RATIO 0.51 (1.00-1.93); ALKALINE PHOSPHATASE 71 U/L (45-117); ALT/SGPT 21 U/L (12-78); ANION GAP 11 MEQ/L (8-16); AST/SGOT 19 U/L (7-37); BILIRUBIN,TOTAL 0.2 MG/DL (0.2-1.0); BLOOD UREA NITROGEN 9 MG/DL (7-18); CALCIUM LEVEL 10.1 MG/DL (8.8-10.2); CARBON DIOXIDE LEVEL 22 MEQ/L (21-32); CHLORIDE LEVEL 107 MEQ/L (98-107); CK-MB VALUE MASS < 1.0 NG/ML (<3.6); CPK CREATINE PHOSPHOKINASE 95 U/L (26-192); CREATININE FOR GFR 0.62 MG/DL (0.55-1.30); GLOMERULAR FILTRATION RATE > 60.0 (>45); GLUCOSE, FASTING 178 MG/DL (70-100); MAGNESIUM LEVEL 1.5 MG/DL (1.8-2.4); MB/CK RELATIVE INDEX 1.05 (< OR =4); POTASSIUM SERUM 3.7 MEQ/L (3.5-5.1); SODIUM LEVEL 140 MEQ/L (136-145); TOTAL PROTEIN 6.5 GM/DL (6.4-8.2); TROPONIN I < 0.02 NG/ML (< 0.10)
[2017-12-20] MEDS: IPRATROPIUM 0.5MG/ALBUTEROL 2.5MG INH SOL UD 3ML (DUONEB)(J7620) NEB ×2 (08:32→20:23)
[2017-12-20] MEDS: LACTOBACILLUS ACIDOPHILUS CAP (BACID) PO ×3 (08:49→17:24)
[2017-12-20] MEDS: SPIRONOLACTONE 12.5MG PER 1/2 TABLET PO (08:49)
[2017-12-20] MEDS: CHLORTHALIDONE 12.5MG PER 1/2 TABLET PO (08:50)
[2017-12-20] MEDS: CitaloPRAM (CeleXA) 20 MG TAB PO (08:51)
[2017-12-20] MEDS: DOCUSATE SODIUM 100 MG CAP PO ×2 (08:52→20:26)
[2017-12-20] MEDS: METOPROLOL TART 50 MG TAB PO ×2 (08:52→20:27)
[2017-12-20] MEDS: DIGOXIN 0.25 MG TAB PO (08:52)
[2017-12-20] MEDS: FAMOTIDINE 20 MG TAB PO (08:52)
[2017-12-20] MEDS: ALLOPURINOL 100 MG TAB PO (08:52)
[2017-12-20] MEDS: NYSTATIN 100,000 UNITS/GM TOPICAL PWD 15 GM TOP ×2 (08:53→20:28)
[2017-12-20] MEDS: GENTAMICIN SULFATE 0.1% OINT 15 GM TOP ×2 (08:54→20:28)
[2017-12-20] MEDS: HumaLOG INSULIN (NovoLOG) PER UNIT SC ×4 (08:55→20:27)
[2017-12-20] MEDS: MAGNESIUM OXIDE 400 MG TAB (MAG-OX) PO (09:05)
[2017-12-20 11:44] LABS: BEDSIDE GLUCOSE 250 MG/DL (80-115)
[2017-12-20] MEDS: TORSEMIDE 20 MG TAB PO (12:00)
[2017-12-20] MEDS: SPIRONOLACTONE 25 MG TAB PO (12:54)
[2017-12-20] MEDS: MAG SULF 1GM/100ML (MAG RUN) 1 GM in APPROPRIATE DILUENT 1 EA IV (12:55)
[2017-12-20 17:07] LABS: BEDSIDE GLUCOSE 259 MG/DL (80-115)
[2017-12-20] MEDS: WARFARIN SOD 3 MG TAB PO (17:24)
[2017-12-20 19:58] LABS: BEDSIDE GLUCOSE 271 MG/DL (80-115)
[2017-12-20] MEDS: MAGNESIUM CHLORIDE 64 MG TABCR (SLO MAG) PO (20:26)
[2017-12-20] MEDS: LEVEMIR (INSULIN DETEMIR) 1 UNITS/0.01ML SC (20:27)
[2017-12-20] MEDS: ACETAMINOPHEN TAB 650MG DOSE (2X325MG) PO (20:29)
[2017-12-20] MEDS: cefTRIAXone SOD 2 GM in D5W MINI-BAG PLUS 50 ML IV (22:14)
[2017-12-21 05:09] LABS: INR 1.95; PROTHROMBIN TIME 22.6 SECONDS (12.1-14.4)
[2017-12-21 05:21] LABS: CK-MB VALUE MASS < 1.0 NG/ML (<3.6); CPK CREATINE PHOSPHOKINASE 62 U/L (26-192); MB/CK RELATIVE INDEX 1.61 (< OR =4); TROPONIN I < 0.02 NG/ML (< 0.10)
[2017-12-21 06:52] LABS: ALBUMIN 2.3 GM/DL (3.2-5.2); ALBUMIN/GLOBULIN RATIO 0.52 (1.00-1.93); AST/SGOT 21 U/L (7-37); BILIRUBIN,TOTAL 0.2 MG/DL (0.2-1.0); BLOOD UREA NITROGEN 15 MG/DL (7-18); CALCIUM LEVEL 10.6 MG/DL (8.8-10.2); CHLORIDE LEVEL 107 MEQ/L (98-107); CREATININE FOR GFR 0.79 MG/DL (0.55-1.30); GLOMERULAR FILTRATION RATE > 60.0 (>45); GLUCOSE, FASTING 254 MG/DL (70-100); MAGNESIUM LEVEL 1.4 MG/DL (1.8-2.4); POTASSIUM SERUM 3.9 MEQ/L (3.5-5.1); SODIUM LEVEL 139 MEQ/L (136-145); TOTAL PROTEIN 6.7 GM/DL (6.4-8.2)
[2017-12-21 07:07] LABS: ALKALINE PHOSPHATASE 71 U/L (45-117); ALT/SGPT 24 U/L (12-78); ANION GAP 9 MEQ/L (8-16); CARBON DIOXIDE LEVEL 23 MEQ/L (21-32)
[2017-12-21 07:29] LABS: HEMATOCRIT 40.3 % (36.0-47.0); HEMOGLOBIN 13.8 g/dl (12.0-15.5); MEAN CORPUSCULAR HEMOGLOBIN 30.4 pg (27.0-33.0); MEAN CORPUSCULAR HGB CONC 34.2 g/dl (32.0-36.5); MEAN CORPUSCULAR VOLUME 88.8 fl (80.0-96.0); PLATELET COUNT, AUTOMATED 292 10^3/uL (150-450); RED BLOOD COUNT 4.54 10^6/uL (4.00-5.40); RED CELL DISTRIBUTION WIDTH 13.3 % (11.5-14.5)
[2017-12-21] MEDS: IPRATROPIUM 0.5MG/ALBUTEROL 2.5MG INH SOL UD 3ML (DUONEB)(J7620) NEB ×2 (08:03→20:01)
[2017-12-21] MEDS: MAGNESIUM CHLORIDE 64 MG TABCR (SLO MAG) PO ×2 (08:20→21:37)
[2017-12-21] MEDS: ALLOPURINOL 100 MG TAB PO (08:20)
[2017-12-21] MEDS: SPIRONOLACTONE 25 MG TAB PO (08:20)
[2017-12-21] MEDS: LACTOBACILLUS ACIDOPHILUS CAP (BACID) PO ×3 (08:20→18:07)
[2017-12-21] MEDS: DIGOXIN 0.25 MG TAB PO (08:21)
[2017-12-21] MEDS: FAMOTIDINE 20 MG TAB PO (08:21)
[2017-12-21] MEDS: DOCUSATE SODIUM 100 MG CAP PO ×2 (08:22→21:00)
[2017-12-21] MEDS: TORSEMIDE 20 MG TAB PO (08:22)
[2017-12-21] MEDS: CitaloPRAM (CeleXA) 20 MG TAB PO (08:23)
[2017-12-21] MEDS: HumaLOG INSULIN (NovoLOG) PER UNIT SC ×4 (08:23→21:00)
[2017-12-21] MEDS: NYSTATIN 100,000 UNITS/GM TOPICAL PWD 15 GM TOP ×2 (09:00→21:39)
[2017-12-21] MEDS: METOPROLOL TART 50 MG TAB PO (09:00)
[2017-12-21] MEDS: GENTAMICIN SULFATE 0.1% OINT 15 GM TOP ×2 (09:00→21:38)
[2017-12-21 12:07] LABS: BEDSIDE GLUCOSE 259 MG/DL (80-115)
[2017-12-21] MEDS: CARVedilol 6.25 MG TAB PO ×2 (12:43→21:37)
[2017-12-21] MEDS: MAG SULF 1GM/100ML (MAG RUN) 1 GM in APPROPRIATE DILUENT 1 EA IV ×2 (12:44→16:13)
[2017-12-21] MEDS: WARFARIN SOD 3 MG TAB PO (16:14)
[2017-12-21 16:54] LABS: BEDSIDE GLUCOSE 282 MG/DL (80-115)
[2017-12-21] MEDS: ACETAMINOPHEN TAB 650MG DOSE (2X325MG) PO (18:50)
[2017-12-21 20:38] LABS: BEDSIDE GLUCOSE 237 MG/DL (80-115)
[2017-12-21] MEDS: LEVEMIR (INSULIN DETEMIR) 1 UNITS/0.01ML SC (21:38)
[2017-12-21] MEDS: cefTRIAXone SOD 2 GM in D5W MINI-BAG PLUS 50 ML IV (22:21)
[2017-12-22 06:13] LABS: HEMATOCRIT 40.1 % (36.0-47.0); HEMOGLOBIN 13.9 g/dl (12.0-15.5); MEAN CORPUSCULAR HEMOGLOBIN 30.3 pg (27.0-33.0); MEAN CORPUSCULAR HGB CONC 34.7 g/dl (32.0-36.5); MEAN CORPUSCULAR VOLUME 87.4 fl (80.0-96.0); PLATELET COUNT, AUTOMATED 307 10^3/uL (150-450); RED BLOOD COUNT 4.59 10^6/uL (4.00-5.40); RED CELL DISTRIBUTION WIDTH 13.4 % (11.5-14.5); WHITE BLOOD COUNT 8.8 10^3/uL (4.0-10.0)
[2017-12-22 06:17] LABS: PROTHROMBIN TIME 23.1 SECONDS (12.1-14.4)
[2017-12-22 06:33] LABS: ANION GAP 9 MEQ/L (8-16); BLOOD UREA NITROGEN 17 MG/DL (7-18); CALCIUM LEVEL 10.3 MG/DL (8.8-10.2); CARBON DIOXIDE LEVEL 22 MEQ/L (21-32); CHLORIDE LEVEL 106 MEQ/L (98-107); CK-MB VALUE MASS < 1.0 NG/ML (<3.6); CPK CREATINE PHOSPHOKINASE 36 U/L (26-192); CREATININE FOR GFR 0.79 MG/DL (0.55-1.30); GLOMERULAR FILTRATION RATE > 60.0 (>45); GLUCOSE, FASTING 267 MG/DL (70-100); MAGNESIUM LEVEL 1.6 MG/DL (1.8-2.4); MB/CK RELATIVE INDEX 2.77 (< OR =4); POTASSIUM SERUM 3.8 MEQ/L (3.5-5.1); SODIUM LEVEL 137 MEQ/L (136-145); TROPONIN I < 0.02 NG/ML (< 0.10)
[2017-12-22] MEDS: IPRATROPIUM 0.5MG/ALBUTEROL 2.5MG INH SOL UD 3ML (DUONEB)(J7620) NEB (08:22)
[2017-12-22] MEDS ORDERED: SLF 3 ML SYR IV ×2 (09:00→14:00)
[2017-12-22] MEDS: HumaLOG INSULIN (NovoLOG) PER UNIT SC (09:33)
[2017-12-22] MEDS: SPIRONOLACTONE 25 MG TAB PO (09:33)
[2017-12-22] MEDS: DOCUSATE SODIUM 100 MG CAP PO (09:33)
[2017-12-22] MEDS: FAMOTIDINE 20 MG TAB PO (09:33)
[2017-12-22] MEDS: TORSEMIDE 20 MG TAB PO (09:34)
[2017-12-22] MEDS: LACTOBACILLUS ACIDOPHILUS CAP (BACID) PO (09:34)
[2017-12-22] MEDS: CARVedilol 6.25 MG TAB PO (09:36)
[2017-12-22] MEDS: NYSTATIN 100,000 UNITS/GM TOPICAL PWD 15 GM TOP (09:37)
[2017-12-22] MEDS: ALLOPURINOL 100 MG TAB PO (10:01)
[2017-12-22] MEDS: DIGOXIN 0.25 MG TAB PO (10:02)
[2017-12-22] MEDS: CitaloPRAM (CeleXA) 20 MG TAB PO (10:02)
[2017-12-22] MEDS: MAGNESIUM CHLORIDE 64 MG TABCR (SLO MAG) PO (11:36)
[2017-12-22] MEDS: GENTAMICIN SULFATE 0.1% OINT 15 GM TOP (11:36)
== END 2017-12-22 12:45 | disposition home or self-care (01) | DRG 853 ==
LOC: M ED 20:17 → M PCU 12-18 19:46 → M ED INP 23:27 → M PCU 12-17 23:04 → M ICU 12-16 02:34
PROC: 0JDR0ZZ Extraction of Left Foot Subcutaneous Tissue and Fascia, Open Approach (ICD-10-PCS; principal; 2017-12-17)
DX: A40.1 Sepsis due to streptococcus, group B (principal); I50.33 Acute on chronic diastolic (congestive) heart failure; Z68.42 Body mass index [BMI] 45.0-49.9, adult; M62.82 Rhabdomyolysis; I48.2 Chronic atrial fibrillation; E11.42 Type 2 diabetes mellitus with diabetic polyneuropathy; G47.33 Obstructive sleep apnea (adult) (pediatric); I11.0 Hypertensive heart disease with heart failure; L03.032 Cellulitis of left toe; J44.9 Chronic obstructive pulmonary disease, unspecified; E66.01 Morbid (severe) obesity due to excess calories; L97.521 Non-pressure chronic ulcer of other part of left foot limited to breakdown of skin; M06.9 Rheumatoid arthritis, unspecified; M10.9 Gout, unspecified; E11.621 Type 2 diabetes mellitus with foot ulcer; K21.9 Gastro-esophageal reflux disease without esophagitis; F41.9 Anxiety disorder, unspecified; M45.9 Ankylosing spondylitis of unspecified sites in spine; F32.9 Major depressive disorder, single episode, unspecified; E83.42 Hypomagnesemia; F17.210 Nicotine dependence, cigarettes, uncomplicated; Z96.643 Presence of artificial hip joint, bilateral; Z79.01 Long term (current) use of anticoagulants; Z79.899 Other long term (current) drug therapy; Z79.52 Long term (current) use of systemic steroids; Z79.4 Long term (current) use of insulin; Z88.8 Allergy status to other drugs, medicaments and biological substances; Z86.718 Personal history of other venous thrombosis and embolism

== ENCOUNTER 2018-01-26 20:06 | Emergency (ER) | payer MEDICARE ==
[2018-01-26 20:55] LABS: BASO # 0.1 10^3/uL (0.0-0.2); BASO % 0.8 % (0.0-1.0); EOS # 0.2 10^3/uL (0.0-0.50); HEMOGLOBIN 15.6 g/dl (12.0-15.5); IMMATURE GRANULOCYTE % 0.3 % (0-3.0); LYMPH # 2.5 10^3/uL (1.5-4.5); LYMPH % 27.4 % (24.0-44.0); MEAN CORPUSCULAR HEMOGLOBIN 30.6 pg (27.0-33.0); MEAN CORPUSCULAR HGB CONC 34.7 g/dl (32.0-36.5); MEAN CORPUSCULAR VOLUME 88.4 fl (80.0-96.0); MONO # 0.5 10^3/uL (0.0-0.8); MONO % 5.4 % (0.0-5.0); NEUTROPHILS # 5.7 10^3/uL (1.8-7.7); NEUTROPHILS % 64.1 % (36.0-66.0); PLATELET COUNT, AUTOMATED 266 10^3/uL (150-450); RED BLOOD COUNT 5.09 10^6/uL (4.00-5.40); RED CELL DISTRIBUTION WIDTH 13.8 % (11.5-14.5); WHITE BLOOD COUNT 8.9 10^3/uL (4.0-10.0)
[2018-01-26 21:05] LABS: INR 2.47; PROTHROMBIN TIME 27.3 SECONDS (12.1-14.4)
[2018-01-26 21:06] LABS: PARTIAL THROMBOPLASTIN TIME 36.6 SECONDS (25.4-37.6)
[2018-01-26 21:52] LABS: ALBUMIN 3.4 GM/DL (3.2-5.2); ALBUMIN/GLOBULIN RATIO 0.92 (1.00-1.93); ALKALINE PHOSPHATASE 105 U/L (45-117); ANION GAP 10 MEQ/L (8-16); BILIRUBIN,TOTAL 0.3 MG/DL (0.2-1.0); BLOOD UREA NITROGEN 16 MG/DL (7-18); CALCIUM LEVEL 9.9 MG/DL (8.8-10.2); CARBON DIOXIDE LEVEL 24 MEQ/L (21-32); CHLORIDE LEVEL 101 MEQ/L (98-107); CREATININE FOR GFR 0.98 MG/DL (0.55-1.30); GLOMERULAR FILTRATION RATE > 60.0 (>45); LIPASE 190 U/L (73-393); NT-PRO BNP 457 PG/ML (<125); SODIUM LEVEL 135 MEQ/L (136-145); TOTAL PROTEIN 7.1 GM/DL (6.4-8.2); TROPONIN I < 0.02 NG/ML (< 0.10)
[2018-01-26 21:53] LABS: ALT/SGPT 23 U/L (12-78); AST/SGOT 24 U/L (7-37); BILIRUBIN,DIRECT < 0.1 MG/DL (0.0-0.2); CPK CREATINE PHOSPHOKINASE 55 U/L (26-192); GLUCOSE, FASTING 402 MG/DL (70-100); MB/CK RELATIVE INDEX 3.09 (< OR =4); POTASSIUM SERUM 4.3 MEQ/L (3.5-5.1)
[2018-01-26] MEDS ORDERED: HALOPERIDOL 5 MG/ML VIAL (J1630) IM (22:24)
[2018-01-26] MEDS: MORPHINE 4 MG/ML 1ML VIAL/SYRINGE (J2270) IV (22:30)
[2018-01-26] MEDS: HumuLIN R (REGULAR) INSULIN (NovoLIN R) **100U/ML** PER UNIT IV (23:25)
[2018-01-26 23:28] LABS: BEDSIDE GLUCOSE 378 MG/DL (80-115)
[2018-01-26] MEDS: NS 1,000 ML IV (23:28)
[2018-01-27 00:03] LABS: BEDSIDE GLUCOSE 280 MG/DL (80-115)
[2018-01-27] MEDS ORDERED: ISOVUE-370 76% 100ML VIAL (Q9967) As Ordered (00:11)
== END 2018-01-27 05:35 | disposition home or self-care (01) ==
LOC: M ED 01-27 05:35
DX: E11.649 Type 2 diabetes mellitus with hypoglycemia without coma (principal); R19.7 Diarrhea, unspecified; I48.91 Unspecified atrial fibrillation; K21.9 Gastro-esophageal reflux disease without esophagitis; M06.9 Rheumatoid arthritis, unspecified; E66.01 Morbid (severe) obesity due to excess calories; Z68.41 Body mass index [BMI] 40.0-44.9, adult; Z86.19 Personal history of other infectious and parasitic diseases; Z88.8 Allergy status to other drugs, medicaments and biological substances; Z79.899 Other long term (current) drug therapy; Z79.01 Long term (current) use of anticoagulants
CPT/HCPCS: J2270

== ENCOUNTER 2018-02-02 00:10 | Emergency (ER) | payer MEDICARE ==
[2018-02-02] MEDS: ONDANSETRON 4MG/2ML VIAL (J2405) IV (01:27)
[2018-02-02] MEDS: NS 1,000 ML IV (01:27)
[2018-02-02] MEDS: MORPHINE 4 MG/ML 1ML VIAL/SYRINGE (J2270) IV (01:28)
[2018-02-02 01:34] LABS: BASO # 0.1 10^3/uL (0.0-0.2); BASO % 0.7 % (0.0-1.0); EOS # 0.2 10^3/uL (0.0-0.50); EOS % 2.2 % (0.0-3.0); HEMATOCRIT 44.5 % (36.0-47.0); HEMOGLOBIN 15.6 g/dl (12.0-15.5); IMMATURE GRANULOCYTE % 0.3 % (0-3.0); LYMPH % 31.6 % (24.0-44.0); MEAN CORPUSCULAR HEMOGLOBIN 30.5 pg (27.0-33.0); MEAN CORPUSCULAR HGB CONC 35.1 g/dl (32.0-36.5); MEAN CORPUSCULAR VOLUME 87.1 fl (80.0-96.0); MONO # 0.6 10^3/uL (0.0-0.8); MONO % 6.3 % (0.0-5.0); NEUTROPHILS # 5.6 10^3/uL (1.8-7.7); NEUTROPHILS % 58.9 % (36.0-66.0); PLATELET COUNT, AUTOMATED 273 10^3/uL (150-450); RED BLOOD COUNT 5.11 10^6/uL (4.00-5.40); RED CELL DISTRIBUTION WIDTH 13.7 % (11.5-14.5); WHITE BLOOD COUNT 9.6 10^3/uL (4.0-10.0)
[2018-02-02 01:45] LABS: ALBUMIN 3.1 GM/DL (3.2-5.2); ALBUMIN/GLOBULIN RATIO 0.76 (1.00-1.93); ALKALINE PHOSPHATASE 105 U/L (45-117); ALT/SGPT 25 U/L (12-78); ANION GAP 9 MEQ/L (8-16); AST/SGOT 20 U/L (7-37); BILIRUBIN,DIRECT < 0.1 MG/DL (0.0-0.2); BILIRUBIN,TOTAL 0.4 MG/DL (0.2-1.0); BLOOD UREA NITROGEN 13 MG/DL (7-18); CALCIUM LEVEL 9.6 MG/DL (8.8-10.2); CARBON DIOXIDE LEVEL 22 MEQ/L (21-32); CHLORIDE LEVEL 102 MEQ/L (98-107); GLOMERULAR FILTRATION RATE > 60.0 (>45); GLUCOSE, FASTING 250 MG/DL (70-100); LIPASE 107 U/L (73-393); POTASSIUM SERUM 4.1 MEQ/L (3.5-5.1); SODIUM LEVEL 133 MEQ/L (136-145); TOTAL PROTEIN 7.2 GM/DL (6.4-8.2)
[2018-02-02 01:56] LABS: KETONE, URINE AUTO RFX NEGATIVE (NEGATIVE); LEUKOCYTE ESTERASE UR AUTO RFX NEGATIVE (NEGATIVE); NITRITE, URINE AUTO RFX NEGATIVE (NEGATIVE); RBC, URINE AUTO RFX 2 /HPF (0-3); SPECIFIC GRAVITY UR AUTO RFX 1.002 (1.002-1.035); SQUAM EPITHELIAL CELL UR AURFX 0 /HPF (0-6); WBC, URINE AUTO RFX 0 /HPF (0-3)
[2018-02-02 02:19] LABS: LACTIC ACID SEPSIS PROTOCOL 2.2 MMOL/L (0.4-2.0)
[2018-02-02] MEDS ORDERED: ISOVUE-370 76% 100ML VIAL (Q9967) As Ordered (02:40)
[2018-02-02] MEDS: OXYCODONE/APAP 5MG/325MG(BULK FOR ED) 1 TABLET PO (06:00)
== END 2018-02-02 06:11 | disposition home or self-care (01) ==
LOC: M ED 00:10
DX: R10.9 Unspecified abdominal pain (principal); R19.7 Diarrhea, unspecified; I25.10 Atherosclerotic heart disease of native coronary artery without angina pectoris; I48.91 Unspecified atrial fibrillation; Z79.899 Other long term (current) drug therapy; Z79.01 Long term (current) use of anticoagulants; Z88.8 Allergy status to other drugs, medicaments and biological substances
CPT/HCPCS: J2270

== ENCOUNTER → 2018-02-03 | Outpatient (REF) | payer MEDICARE | LOC: M LAB REF 15:50 | DX: R19.7 Diarrhea, unspecified (principal) | CPT/HCPCS: 87507 ==

== ENCOUNTER 2018-03-20 15:14 | Emergency (ER) | payer MEDICARE ==
[2018-03-20 16:03] LABS: BASO # 0.1 10^3/uL (0.0-0.2); BASO % 0.6 % (0.0-1.0); EOS # 0.1 10^3/uL (0.0-0.50); EOS % 1.4 % (0.0-3.0); HEMATOCRIT 42.1 % (36.0-47.0); HEMOGLOBIN 14.6 g/dl (12.0-15.5); IMMATURE GRANULOCYTE % 0.4 % (0-3.0); LYMPH # 2.8 10^3/uL (1.5-4.5); LYMPH % 28.1 % (24.0-44.0); MEAN CORPUSCULAR HEMOGLOBIN 29.8 pg (27.0-33.0); MEAN CORPUSCULAR HGB CONC 34.7 g/dl (32.0-36.5); MEAN CORPUSCULAR VOLUME 85.9 fl (80.0-96.0); MONO # 0.4 10^3/uL (0.0-0.8); MONO % 4.3 % (0.0-5.0); NEUTROPHILS # 6.5 10^3/uL (1.8-7.7); NEUTROPHILS % 65.2 % (36.0-66.0); PLATELET COUNT, AUTOMATED 352 10^3/uL (150-450); WHITE BLOOD COUNT 9.9 10^3/uL (4.0-10.0)
[2018-03-20 16:14] LABS: PARTIAL THROMBOPLASTIN TIME 29.6 SECONDS (25.4-37.6)
[2018-03-20 16:47] LABS: ALBUMIN 3.2 GM/DL (3.2-5.2); ALBUMIN/GLOBULIN RATIO 0.82 (1.00-1.93); ALKALINE PHOSPHATASE 85 U/L (45-117); ALT/SGPT 23 U/L (12-78); ANION GAP 11 MEQ/L (8-16); AST/SGOT 19 U/L (7-37); BILIRUBIN,DIRECT < 0.1 MG/DL (0.0-0.2); BILIRUBIN,TOTAL 0.4 MG/DL (0.2-1.0); BLOOD UREA NITROGEN 19 MG/DL (7-18); CALCIUM LEVEL 10.5 MG/DL (8.8-10.2); CARBON DIOXIDE LEVEL 23 MEQ/L (21-32); CHLORIDE LEVEL 102 MEQ/L (98-107); CPK CREATINE PHOSPHOKINASE 62 U/L (26-192); CREATININE FOR GFR 1.01 MG/DL (0.55-1.30); DIGOXIN LEVEL 0.6 NG/ML (0.5-2.0); GLOMERULAR FILTRATION RATE 58.9 (>45); GLUCOSE, FASTING 267 MG/DL (70-100); LIPASE 142 U/L (73-393); MAGNESIUM LEVEL 1.3 MG/DL (1.8-2.4); MB/CK RELATIVE INDEX 3.23 (< OR =4); NT-PRO BNP 457 PG/ML (<125); POTASSIUM SERUM 4.4 MEQ/L (3.5-5.1); SODIUM LEVEL 136 MEQ/L (136-145); TOTAL PROTEIN 7.1 GM/DL (6.4-8.2); TROPONIN I < 0.02 NG/ML (< 0.10)
[2018-03-20] MEDS: MAG SULF 1GM/100ML (MAG RUN) 1 GM in APPROPRIATE DILUENT 1 EA IV ×2 (17:31→18:46)
[2018-03-20] MEDS: ONDANSETRON 4MG/2ML VIAL (J2405) IV (17:37)
[2018-03-20] MEDS: ASPIRIN 81 MG CHEW TABLET PO (17:37)
[2018-03-20] MEDS: MORPHINE 2 MG/ML 1ML SYRINGE (J2270) IV (17:38)
[2018-03-20 18:31] LABS: D-DIMER QUANT < 270 ng/ml (<500)
[2018-03-20 21:48] LABS: CPK CREATINE PHOSPHOKINASE 59 U/L (26-192); MB/CK RELATIVE INDEX 3.05 (< OR =4); TROPONIN I < 0.02 NG/ML (< 0.10)
== END 2018-03-21 00:15 | disposition left against medical advice (07) ==
LOC: M ED 03-21 00:15
DX: R07.9 Chest pain, unspecified (principal); I48.91 Unspecified atrial fibrillation; E11.9 Type 2 diabetes mellitus without complications; I11.0 Hypertensive heart disease with heart failure; I50.9 Heart failure, unspecified
CPT/HCPCS: J2405

== ENCOUNTER 2018-04-17 13:51 | Emergency (ER) | payer MEDICARE ==
[~2018-04-17] VITALS: Ht 177.8 cm; Wt 131.8 kg
[~2018-04-17 13:51] MED LIST changes: +ALLO10TA PO; -AMLO5TAB2 PO; +AMLO5TAB6 PO; +ARTI99.0 OU; +BACITAB PO; +BASA100I SC; +CARV6.25 PO; +CEFD300CAP PO; +CEFT500T3 PO; +CHLO25TA PO; +COMBAER6 INH; +COUM2.5T17 PO; +DEMA20TA6 PO; +DIGO0.127 PO; +DIGO0.25 PO; +DILT1CAP46 PO; +DOXY100C37 PO; +FAMO20TA PO; +GENT1OI TOP; -LOSA100T36 PO; +LOSA100T50 PO; -LOSA50TA20 PO; +LOSA50TA88 PO; +MAGN64TASA PO; +PERC5TAB12 PO; +PRED10TA2 PO; +SALI0.6528; +SPIR-10 PO; +TORS20TA2 PO; +VERA300C PO; +WARF-20 PO; +WARF4TAB51 PO; -ZYLO300T4 PO; +ZYLO300T6 PO
[2018-04-17 14:02] VITALS: BP 175/117
[2018-04-17] MEDS ORDERED: ASPIRIN 81 MG CHEW TABLET PO ONE (14:30)
[2018-04-17] MEDS: IPRATROPIUM 0.5MG/ALBUTEROL 2.5MG INH SOL UD 3ML (DUONEB)(J7620) NEB PRN ×2 (14:53→15:33)
[2018-04-17 14:54] LABS: BASO # 0.1 10^3/uL (0.0-0.2); BASO % 0.8 % (0.0-1.0); EOS # 0.2 10^3/uL (0.0-0.50); EOS % 2.2 % (0.0-3.0); HEMATOCRIT 43.7 % (36.0-47.0); HEMOGLOBIN 15.6 g/dl (12.0-15.5); LYMPH # 2.9 10^3/uL (1.5-4.5); LYMPH % 28.7 % (24.0-44.0); MEAN CORPUSCULAR HEMOGLOBIN 30.8 pg (27.0-33.0); MEAN CORPUSCULAR HGB CONC 35.7 g/dl (32.0-36.5); MEAN CORPUSCULAR VOLUME 86.4 fl (80.0-96.0); MONO # 0.5 10^3/uL (0.0-0.8); MONO % 4.6 % (0.0-5.0); NEUTROPHILS # 6.4 10^3/uL (1.8-7.7); NEUTROPHILS % 63.1 % (36.0-66.0); PLATELET COUNT, AUTOMATED 287 10^3/uL (150-450); RED BLOOD COUNT 5.06 10^6/uL (4.00-5.40); WHITE BLOOD COUNT 10.1 10^3/uL (4.0-10.0)
[2018-04-17 15:04] LABS: INR 1.75; PROTHROMBIN TIME 20.7 SECONDS (12.1-14.4)
--- NOTE | 2018-04-17 15:15 | REP ---
CHEST X-RAY: Two views. HISTORY: Dyspnea and cough. COMPARISON STUDY: March 20, 2018. FINDINGS: The lungs are symmetrically aerated and clear. Pleural angles are sharp. Heart is not enlarged. There are degenerative changes in the thoracic spine. Pulmonary vasculature is not increased. Osteoarthritic changes are noted at the shoulders. IMPRESSION: No active cardiopulmonary disease. Electronically Signed by Adam Lisa MD 04/17/2018 04:18 P
[2018-04-17 15:47] LABS: BLOOD UREA NITROGEN 12 MG/DL (7-18); CALCIUM LEVEL 10.4 MG/DL (8.8-10.2); CARBON DIOXIDE LEVEL 22 MEQ/L (21-32); CHLORIDE LEVEL 106 MEQ/L (98-107); CREATININE FOR GFR 0.78 MG/DL (0.55-1.30); DIGOXIN LEVEL 0.9 NG/ML (0.5-2.0); GLOMERULAR FILTRATION RATE > 60.0 (>45); GLUCOSE, FASTING 198 MG/DL (70-100); POTASSIUM SERUM 4.4 MEQ/L (3.5-5.1); SODIUM LEVEL 137 MEQ/L (136-145)
[2018-04-17] MEDS ORDERED: VENTAER INH (16:36)
[2018-04-17] MEDS ORDERED: CELE100C PO (16:46)
== END 2018-04-17 17:03 | disposition home or self-care (01) ==
LOC: M ED 13:51
DX: J44.1 Chronic obstructive pulmonary disease with (acute) exacerbation (principal); R09.02 Hypoxemia; I10 Essential (primary) hypertension; E11.9 Type 2 diabetes mellitus without complications; I48.91 Unspecified atrial fibrillation; I25.10 Atherosclerotic heart disease of native coronary artery without angina pectoris; Z79.899 Other long term (current) drug therapy; Z79.01 Long term (current) use of anticoagulants; Z88.8 Allergy status to other drugs, medicaments and biological substances; F17.210 Nicotine dependence, cigarettes, uncomplicated

== ENCOUNTER 2018-05-05 14:34 | Emergency (ER) | payer MEDICARE ==
[~2018-05-05] VITALS: Ht 177.8 cm; Wt 127.3 kg
[~2018-05-05 14:34] MED LIST changes: -AVEL1TAB3 PO; -TRAM50TA2 PO
[2018-05-05] MEDS ORDERED: IPRATROPIUM 0.5MG/ALBUTEROL 2.5MG INH SOL UD 3ML (DUONEB)(J7620) NEB ONE (15:15)
[2018-05-05] MEDS ORDERED: NS 1,000 ML IV ONE (15:15)
[2018-05-05 15:30] LABS: VENOUS BASE EXCESS -3.3 (-2.0-2.0); VENOUS HCO3 19.9 MEQ/L (23.0-27.0); VENOUS PARTIAL PRESSURE CO2 31.5 mmHg (38.0-50.0); VENOUS PARTIAL PRESSURE O2 54.4 mmHg (30.0-50.0); VENOUS PH 7.418 UNITS (7.330-7.430); VENOUS STANDARD HCO3 21.5 MEQ/L; VENOUS TOTAL CO2 20.8 MEQ/L (24.0-28.0)
[2018-05-05 15:33] LABS: BASO # 0.1 10^3/uL (0.0-0.2); BASO % 0.8 % (0.0-1.0); EOS # 0.2 10^3/uL (0.0-0.50); EOS % 1.6 % (0.0-3.0); HEMATOCRIT 45.1 % (36.0-47.0); HEMOGLOBIN 15.8 g/dl (12.0-15.5); LYMPH # 2.4 10^3/uL (1.5-4.5); LYMPH % 21.6 % (24.0-44.0); MEAN CORPUSCULAR HEMOGLOBIN 30.4 pg (27.0-33.0); MEAN CORPUSCULAR VOLUME 86.9 fl (80.0-96.0); MONO # 0.5 10^3/uL (0.0-0.8); MONO % 4.8 % (0.0-5.0); NEUTROPHILS # 7.7 10^3/uL (1.8-7.7); NEUTROPHILS % 70.7 % (36.0-66.0); PLATELET COUNT, AUTOMATED 294 10^3/uL (150-450); RED BLOOD COUNT 5.19 10^6/uL (4.00-5.40); WHITE BLOOD COUNT 10.9 10^3/uL (4.0-10.0)
[2018-05-05 15:54] LABS: INR 1.79; PROTHROMBIN TIME 21.1 SECONDS (12.1-14.4)
[2018-05-05 16:09] LABS: INFLUENZA A AMPLIFICATION NEGATIVE (NEGATIVE); INFLUENZA B AMPLIFICATION NEGATIVE (NEGATIVE)
[2018-05-05 16:14] LABS: BLOOD UREA NITROGEN 14 MG/DL (7-18); CARBON DIOXIDE LEVEL 20 MEQ/L (21-32); CHLORIDE LEVEL 103 MEQ/L (98-107); CREATININE FOR GFR 0.96 MG/DL (0.55-1.30); DIGOXIN LEVEL 0.9 NG/ML (0.5-2.0); GLOMERULAR FILTRATION RATE > 60.0 (>45); GLUCOSE, FASTING 230 MG/DL (70-100); POTASSIUM SERUM 4.2 MEQ/L (3.5-5.1); SODIUM LEVEL 136 MEQ/L (136-145)
--- NOTE | 2018-05-05 16:17 | REP ---
Chest two views HISTORY: Cough Comparison: 04/09/2018 The lungs are clear. The heart is normal in size. The pulmonary vasculature is normal in appearance. Degenerative change is present in the thoracic spine. IMPRESSION: No acute disease. Electronically Signed by Gene Gloria MD 05/05/2018 04:10 P
[2018-05-05] MEDS ORDERED: AVEL1TAB3 PO (16:43)
[2018-05-05] MEDS ORDERED: TRAM50TA2 PO (16:43)
[2018-05-05] MEDS ORDERED: KETOROLAC 30 MG/ML VIAL (J1885) IV ONE (16:45)
[2018-05-05 17:09] VITALS: BP 152/90
--- NOTE | 2018-05-07 19:58 | ECGEPIP ---
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
[2018-05-29] MEDS ORDERED: DIGO0.12 PO (13:45)
== END 2018-05-05 17:19 | disposition home or self-care (01) ==
LOC: M ED 14:34
DX: J40 Bronchitis, not specified as acute or chronic (principal); J44.1 Chronic obstructive pulmonary disease with (acute) exacerbation; I10 Essential (primary) hypertension; G47.30 Sleep apnea, unspecified; Z87.891 Personal history of nicotine dependence; Z79.899 Other long term (current) drug therapy; I48.1 Persistent atrial fibrillation; Z51.81 Encounter for therapeutic drug level monitoring; Z79.01 Long term (current) use of anticoagulants; Z88.8 Allergy status to other drugs, medicaments and biological substances
CPT/HCPCS: 36415; 71046; 80048; 80162; 82803; 85025; 85610; 87040; 87502; 93005; 93041; 94640; 99284; J1885

== ENCOUNTER → 2018-05-05 | Outpatient (CLI) | payer MEDICARE ==
[~2018-05-05] MED LIST changes: +AVEL1TAB3 PO; +CELE100C PO; +TRAM50TA2 PO
[2018-05-05 17:29] LABS: INR 1.76; PROTHROMBIN TIME 20.8 SECONDS (12.1-14.4)
== END ==
LOC: M WUC 13:57
PROVIDERS: ATTEND Physician Assistant
DX: I48.1 Persistent atrial fibrillation (principal); Z51.81 Encounter for therapeutic drug level monitoring; Z79.01 Long term (current) use of anticoagulants

== ENCOUNTER 2018-05-14 14:49 | Emergency (ER) | payer MEDICARE ==
[~2018-05-14] VITALS: Ht 177.8 cm; Wt 122.7 kg
[~2018-05-14 14:49] MED LIST changes: +AVEL1TAB3 PO; +TRAM50TA2 PO
[2018-05-14 16:14] VITALS: BP 170/83
== END 2018-05-14 17:42 | disposition left against medical advice (07) ==
LOC: M ED 14:49
DX: Z53.29 Procedure and treatment not carried out because of patient's decision for other reasons (principal)

== ENCOUNTER → 2018-05-19 | Outpatient (CLI) | payer MEDICARE ==
[2018-05-19 16:52] LABS: INR 2.23; PROTHROMBIN TIME 25.1 SECONDS (12.1-14.4)
== END ==
LOC: M WUC 15:03
PROVIDERS: ATTEND Physician Assistant
DX: Z79.01 Long term (current) use of anticoagulants (principal); I48.1 Persistent atrial fibrillation

== ENCOUNTER → 2018-07-08 | Outpatient (CLI) | payer MEDICARE ==
[~2018-07-08] MED LIST changes: +DIGO0.12 PO; +PRED20TA PO
[2018-07-08 17:53] LABS: INR 1.95; PROTHROMBIN TIME 22.6 SECONDS (12.1-14.4)
== END ==
LOC: M WUC 13:54
PROVIDERS: ATTEND Physician Assistant
DX: I48.1 Persistent atrial fibrillation (principal)

== ENCOUNTER 2018-07-10 12:24 | Emergency (ER) | payer MEDICARE ==
[~2018-07-10] VITALS: Ht 177.8 cm; Wt 124.5 kg
[~2018-07-10 12:24] MED LIST changes: -PRED20TA PO
[2018-07-10] MEDS ORDERED: LISINOPRIL 20 MG TAB PO ONE (14:00)
[2018-07-10] MEDS ORDERED: FUROSEMIDE 20 MG TAB PO ONE (14:00)
[2018-07-10] MEDS ORDERED: VERAPAMIL 120 MG SR TAB PO ONE (14:00)
[2018-07-10 14:36] LABS: HEMATOCRIT 42.8 % (36.0-47.0); MEAN CORPUSCULAR HEMOGLOBIN 30.5 pg (27.0-33.0); PLATELET COUNT, AUTOMATED 308 10^3/uL (150-450); RED BLOOD COUNT 4.92 10^6/uL (4.00-5.40); WHITE BLOOD COUNT 10.3 10^3/uL (4.0-10.0)
[2018-07-10 14:37] VITALS: BP 139/66
[2018-07-10 14:45] LABS: INR 1.93; PROTHROMBIN TIME 22.4 SECONDS (12.1-14.4)
[2018-07-10 14:58] LABS: BLOOD UREA NITROGEN 11 MG/DL (7-18); CALCIUM LEVEL 10.2 MG/DL (8.8-10.2); CARBON DIOXIDE LEVEL 23 MEQ/L (21-32); CHLORIDE LEVEL 102 MEQ/L (98-107); CREATININE FOR GFR 0.97 MG/DL (0.55-1.30); GLOMERULAR FILTRATION RATE > 60.0 (>45); GLUCOSE, FASTING 227 MG/DL (70-100); POTASSIUM SERUM 4.9 MEQ/L (3.5-5.1); SODIUM LEVEL 136 MEQ/L (136-145)
[2018-07-10 15:04] LABS: ERYTHROCYTE SEDIMENTATION RATE 46 mm/hr (0-30)
[2018-07-10] MEDS ORDERED: PRED20TA PO (15:19)
[2018-07-10 15:33] VITALS: BP 162/74
--- NOTE | 2018-07-10 16:08 | REP ---
LEFT SHOULDER, THREE VIEWS: Three views of the left shoulder are performed. There is no acute fracture or dislocation. There is moderate narrowing with subchondral sclerosis and spurring at the glenohumeral joint. There is moderate narrowing of the acromioclavicular joint with mild spurring. IMPRESSION: Degenerative changes without evidence of fracture or dislocation. Electronically Signed by Abhishek Huddleston MD 07/10/2018 07:59 P
--- NOTE | 2018-07-10 16:09 | REP ---
CHEST, TWO VIEWS: Two views of the chest are performed and compared to prior study of 05/05/2018. There is no evidence of acute infiltrate or pulmonary edema. The heart and mediastinum are within normal limits and unchanged. There are degenerative changes of the spine. IMPRESSION: No acute pulmonary disease. Electronically Signed by Abhishek Huddleston MD 07/10/2018 07:59 P
== END 2018-07-10 15:42 | disposition home or self-care (01) ==
LOC: M ED 12:24
DX: E11.9 Type 2 diabetes mellitus without complications (principal); M19.90 Unspecified osteoarthritis, unspecified site; I51.9 Heart disease, unspecified; I10 Essential (primary) hypertension; Z72.0 Tobacco use; Z79.01 Long term (current) use of anticoagulants; Z79.899 Other long term (current) drug therapy; Z88.8 Allergy status to other drugs, medicaments and biological substances

== ENCOUNTER 2018-07-15 16:01 | Emergency (ER) | payer MEDICARE ==
[~2018-07-15] VITALS: Ht 177.8 cm; Wt 135.0 kg
[~2018-07-15 16:01] MED LIST changes: -ALLO15TA; +ALLO300T2; +PRED20TA PO
[2018-07-15 17:02] LABS: HEMATOCRIT 40.4 % (36.0-47.0); HEMOGLOBIN 14.5 g/dl (12.0-15.5); MEAN CORPUSCULAR HGB CONC 35.9 g/dl (32.0-36.5); MEAN CORPUSCULAR VOLUME 86.3 fl (80.0-96.0); PLATELET COUNT, AUTOMATED 305 10^3/uL (150-450); RED BLOOD COUNT 4.68 10^6/uL (4.00-5.40); WHITE BLOOD COUNT 14.3 10^3/uL (4.0-10.0)
--- NOTE | 2018-07-15 17:05 | REP ---
Clinical: Chest pain . Comparison: 07/10/2018 . Findings: The mediastinum and cardiac silhouette are stable and within normal limits for portable technique. The lung lagos are clear without acute consolidation, effusion, or pneumothorax. Skeletal structures are intact. Impression: No acute cardiopulmonary process appreciated. Electronically Signed by Jeffrey Olsen MD 07/15/2018 04:57 P
[2018-07-15 17:10] LABS: INR 2.49; PROTHROMBIN TIME 27.4 SECONDS (12.1-14.4)
[2018-07-15 17:30] LABS: BLOOD UREA NITROGEN 23 MG/DL (7-18); CALCIUM LEVEL 10.2 MG/DL (8.8-10.2); CARBON DIOXIDE LEVEL 23 MEQ/L (21-32); CHLORIDE LEVEL 103 MEQ/L (98-107); CPK CREATINE PHOSPHOKINASE 32 U/L (26-192); CREATININE FOR GFR 0.98 MG/DL (0.55-1.30); DIGOXIN LEVEL 0.7 NG/ML (0.5-2.0); GLOMERULAR FILTRATION RATE > 60.0 (>45); GLUCOSE, FASTING 254 MG/DL (70-100); MAGNESIUM LEVEL 1.7 MG/DL (1.8-2.4); MB/CK RELATIVE INDEX 4.38 (< OR =4); NT-PRO BNP 1253 PG/ML (<125); POTASSIUM SERUM 3.8 MEQ/L (3.5-5.1); SODIUM LEVEL 136 MEQ/L (136-145); TROPONIN I < 0.02 NG/ML (< 0.10)
[2018-07-15 17:46] LABS: ATYPICAL LYMPH 1 % (0-5); LYMPHOCYTES 31 % (16-52); MONOCYTES 4 % (0-8); NEUTROPHILS 64 % (35-75); PLATELET ESTIMATE NORMAL (NORMAL); SMUDGE CELLS 1+
[2018-07-15 18:36] VITALS: BP 112/56
--- NOTE | 2018-07-16 10:19 | ECGEPIP ---
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
== END 2018-07-15 18:43 | disposition home or self-care (01) ==
LOC: EDBD 16:01 → M ED 16:01
DX: I48.91 Unspecified atrial fibrillation (principal); E83.42 Hypomagnesemia; E11.9 Type 2 diabetes mellitus without complications; I10 Essential (primary) hypertension; J44.9 Chronic obstructive pulmonary disease, unspecified; F33.9 Major depressive disorder, recurrent, unspecified; M06.9 Rheumatoid arthritis, unspecified; K21.9 Gastro-esophageal reflux disease without esophagitis; M10.9 Gout, unspecified; E66.9 Obesity, unspecified; Z79.899 Other long term (current) drug therapy; Z79.01 Long term (current) use of anticoagulants; Z88.8 Allergy status to other drugs, medicaments and biological substances; F17.210 Nicotine dependence, cigarettes, uncomplicated

== ENCOUNTER → 2018-09-10 | Outpatient (CLI) | payer MEDICARE ==
[~2018-09-10] MED LIST changes: +NOVOINJ3
[2018-09-10 17:22] LABS: CHOLESTEROL LEVEL 321 MG/DL (<200); CHOLESTEROL RISK RATIO 9.441 (<5); HDL CHOLESTEROL 34 MG/DL (>40); MAGNESIUM LEVEL 1.5 MG/DL (1.8-2.4); NON-HDL-C 287 MG/DL; TRIGLYCERIDES LEVEL 1596 MG/DL (<150)
[2018-09-10 17:27] LABS: INR 1.85; PROTHROMBIN TIME 21.7 SECONDS (12.1-14.4)
== END ==
LOC: M WUC 14:02
PROVIDERS: ATTEND Internal Medicine Cardiovascular Disease
DX: I48.1 Persistent atrial fibrillation (principal); E78.1 Pure hyperglyceridemia; R60.0 Localized edema

== ENCOUNTER 2018-09-21 22:28 | Emergency (ER) | payer MEDICARE ==
[~2018-09-21] VITALS: Ht 177.8 cm; Wt 120.5 kg
[~2018-09-21 22:28] MED LIST changes: -NOVOINJ3
[2018-09-21] MEDS ORDERED: NOVOINJ3 (22:42)
[2018-09-21 23:21] LABS: BASO # 0.1 10^3/uL (0.0-0.2); BASO % 0.7 % (0.0-1.0); EOS # 0.2 10^3/uL (0.0-0.50); EOS % 1.3 % (0.0-3.0); HEMATOCRIT 43.2 % (36.0-47.0); HEMOGLOBIN 15.4 g/dl (12.0-15.5); LYMPH # 3.9 10^3/uL (1.5-4.5); LYMPH % 34.9 % (24.0-44.0); MEAN CORPUSCULAR HEMOGLOBIN 31.3 pg (27.0-33.0); MEAN CORPUSCULAR HGB CONC 35.6 g/dl (32.0-36.5); MEAN CORPUSCULAR VOLUME 87.8 fl (80.0-96.0); MONO # 0.6 10^3/uL (0.0-0.8); MONO % 5.5 % (0.0-5.0); NEUTROPHILS # 6.4 10^3/uL (1.8-7.7); NEUTROPHILS % 57.2 % (36.0-66.0); PLATELET COUNT, AUTOMATED 303 10^3/uL (150-450); RED BLOOD COUNT 4.92 10^6/uL (4.00-5.40); WHITE BLOOD COUNT 11.1 10^3/uL (4.0-10.0)
[2018-09-21] MEDS ORDERED: methylPREDNISolone INJ 125 MG/2 ML VIAL (J2930) IV ONE (23:30)
[2018-09-21] MEDS ORDERED: ONDANSETRON 4MG/2ML VIAL (J2405) IV ONE (23:30)
[2018-09-21] MEDS ORDERED: ISOVUE-370 76% 100ML VIAL (Q9967) As Ordered ONE (23:34)
[2018-09-21] MEDS: MORPHINE 4 MG/ML 1ML VIAL/SYRINGE (J2270) IV PRN (23:54)
[2018-09-21 23:58] LABS: ERYTHROCYTE SEDIMENTATION RATE 36 mm/hr (0-30)
[2018-09-22 00:57] LABS: ALBUMIN 3.2 GM/DL (3.2-5.2); ALT/SGPT 31 U/L (12-78); BILIRUBIN,DIRECT < 0.1 MG/DL (0.0-0.2); BILIRUBIN,TOTAL 0.3 MG/DL (0.2-1.0); BLOOD UREA NITROGEN 16 MG/DL (7-18); C REACTIVE PROTEIN QUANTITATIV 0.76 MG/DL (0.00-0.30); CARBON DIOXIDE LEVEL 24 MEQ/L (21-32); CHLORIDE LEVEL 103 MEQ/L (98-107); CPK CREATINE PHOSPHOKINASE 63 U/L (26-192); CREATININE FOR GFR 1.36 MG/DL (0.55-1.30); GLOMERULAR FILTRATION RATE 41.8 (>45); GLUCOSE, FASTING 211 MG/DL (70-100); LIPASE 115 U/L (73-393); POTASSIUM SERUM 4.4 MEQ/L (3.5-5.1); SODIUM LEVEL 136 MEQ/L (136-145); TOTAL PROTEIN 7.1 GM/DL (6.4-8.2); TROPONIN I < 0.02 NG/ML (< 0.10)
[2018-09-22 01:15] LABS: INR 1.42; PROTHROMBIN TIME 17.6 SECONDS (12.1-14.4)
[2018-09-22 01:18] LABS: PARTIAL THROMBOPLASTIN TIME 29.9 SECONDS (25.4-37.6)
[2018-09-22] MEDS: MORPHINE 4 MG/ML 1ML VIAL/SYRINGE (J2270) IV PRN (02:30)
[2018-09-22 02:45] VITALS: BP 108/57
--- NOTE | 2018-09-22 03:41 | REPVR ---
EXAM: CT Angiography Chest With Contrast EXAM DATE/TIME: 09/21/2018 11:29 PM CLINICAL HISTORY: 62 years old, female; Chest pain; Type not specified; Additional info: Headache, chest pain TECHNIQUE: Imaging protocol: Axial computed tomographic angiography images of the chest with intravenous contrast using CT angiography protocol. Coronal and sagittal reformatted images were created and reviewed. 3D rendering: MIP reconstructed images were created and reviewed. Radiation optimization: All CT scans at this facility use at least one of these dose optimization techniques: automated exposure control; mA and/or kV adjustment per patient size (includes targeted exams where dose is matched to clinical indication); or iterative reconstruction. Contrast material: ISO; Contrast volume: 75 ml; Contrast route: AC; COMPARISON: CT ANGIO CHEST 03/09/2017 10:56 AM FINDINGS: Pulmonary arteries: Normal. No pulmonary emboli. Aorta: Normal. No aortic aneurysm. No aortic dissection. Thyroid: Nodule in the left lobe of the thyroid measuring 2.8 x 2.7 cm. Lungs: No consolidation. 3 mm lung nodule in the left upper lobe. Series 601 image 69. Pleural space: Normal. No pneumothorax. No pleural effusion. Heart: Normal. No cardiomegaly. No pericardial effusion. Gallbladder and bile ducts: Status post cholecystectomy. Lymph nodes: Unremarkable. No enlarged lymph nodes. Bones/joints: Degenerative changes of the shoulders bilaterally. No acute fracture. Moderate degenerative spine. Soft tissues: Unremarkable. IMPRESSION: 1. Negative for pulmonary embolism. 2. Small nodule in the left upper lobe. For patients at low risk (minimal or absent history of smoking and of other known risk factors), no routine follow-up is indicated. For patients at high risk (history of smoking or of other known risk factors), consider optional CT at 12 months. (Kylee et al., Fleischner Society, 2017) 3. Nodule in the left lobe of the thyroid. Unchanged from prior. Correlate with history. COMMENT: Consistent with the [employer]'s Incidental Findings Committee Report (J Am Karmen Radiol 2015): Thyroid nodules greater than or equal to 1 cm in patients under 35 years old, or greater than or equal to 1.5 cm in patients over 35 years old, should undergo ultrasound. Patients with limited life expectancy and/or comorbidities do not require follow up imaging or biopsy for nodules of any size. Electronically signed by: Momo Franco On 09/22/2018 03:40:35 AM
--- NOTE | 2018-09-22 03:46 | REPVR ---
EXAM: CT Head Without Contrast EXAM DATE/TIME: 09/21/2018 11:29 PM CLINICAL HISTORY: 62 years old, female; Pain; Headache not specified; Additional info: Headache, chest pain TECHNIQUE: Imaging protocol: Axial computed tomography images of the head without contrast. Radiation optimization: All CT scans at this facility use at least one of these dose optimization techniques: automated exposure control; mA and/or kV adjustment per patient size (includes targeted exams where dose is matched to clinical indication); or iterative reconstruction. COMPARISON: Thyroid, ST head+neck US 03/10/2017 5:33 PM FINDINGS: Brain: Ill-defined hypodense lesion in the medial right temporal lobe measuring 16 x 9 mm. No acute mass effect. No acute intracranial hemorrhage. There are no abnormal deep white matter changes. Ventricles: Normal. No ventriculomegaly. Bones/joints: Unremarkable. No acute fracture. Sinuses: Mucosal thickening in the left maxillary sinus. Mastoid air cells: Visualized mastoid air cells are well aerated. No mastoid effusion. Soft tissues: Unremarkable. IMPRESSION: Ill-defined hypodense lesion in the medial right temporal lobe. Possible chronic infarct. Consider routine followup MRI. Electronically signed by: Momo Franco On 09/22/2018 03:46:15 AM
[2018-09-22] MEDS ORDERED: PRED20TA PO (04:10)
[2018-09-22] MEDS ORDERED: OXYCODONE/APAP 5MG/325MG(BULK FOR ED) 1 TABLET PO ONE (04:15)
--- NOTE | 2018-09-22 08:57 | REP ---
CHEST: Single view. There is no evidence of acute infiltrate. No pleural effusion is seen. The heart is normal in size. The mediastinal silhouette is unremarkable. The visualized osseous structures are intact. IMPRESSION: No acute pulmonary disease. Electronically Signed by Abhishek Huddleston MD 09/22/2018 12:31 P
--- NOTE | 2018-09-22 12:59 | ED PDOC ---
Post-Departure Follow-Up carlos dias and colleen faxed formal report of ct head for Linda Londono MD Sep 22, 2018 12:59
--- NOTE | 2018-09-22 13:00 | ED PDOC ---
Post-Departure Follow-Up dr yun faxed formall report of cta chest for Linda Londono MD Sep 22, 2018 13:00
--- NOTE | 2018-09-23 07:36 | ECGEPIP ---
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
== END 2018-09-22 04:54 | disposition home or self-care (01) ==
LOC: M ED 22:28
DX: R51 Headache (principal); R07.89 Other chest pain; I48.91 Unspecified atrial fibrillation; R91.1 Solitary pulmonary nodule; E04.1 Nontoxic single thyroid nodule; E11.9 Type 2 diabetes mellitus without complications; M31.6 Other giant cell arteritis; Z72.0 Tobacco use; Z79.4 Long term (current) use of insulin; Z79.01 Long term (current) use of anticoagulants; Z79.899 Other long term (current) drug therapy; Z88.8 Allergy status to other drugs, medicaments and biological substances
CPT/HCPCS: 70450; 71045; 71275; 80048; 80076; 82550; 82553; 83690; 84484; 85025; 85610; 85652; 85730; 86140; 93005; 93041; 94760; 96374; 96375; 96376; 99285; J2270; J2405; J2930; Q9967

== ENCOUNTER → 2018-09-24 | Outpatient (CLI) | payer MEDICARE ==
[~2018-09-24] MED LIST changes: +NOVOINJ3
[2018-09-24 19:26] LABS: INR 1.92; PROTHROMBIN TIME 22.3 SECONDS (12.1-14.4)
== END ==
LOC: M WUC 14:51
PROVIDERS: ATTEND Physician Assistant
DX: I48.1 Persistent atrial fibrillation (principal)

== ENCOUNTER → 2018-10-08 | Outpatient (CLI) | payer MEDICARE ==
[2018-10-08 17:06] LABS: INR 2.78; PROTHROMBIN TIME 29.2 SECONDS (11.8-14.0)
== END ==
LOC: M WUC 13:29
PROVIDERS: ATTEND Physician Assistant
DX: I48.1 Persistent atrial fibrillation (principal)

== ENCOUNTER → 2018-10-16 | Outpatient (REF) | payer MEDICARE ==
[2018-10-16 18:23] LABS: HEMOGLOBIN A1c 8.6 %
== END ==
LOC: M LAB REF 16:41
PROVIDERS: ATTEND Family Medicine Addiction Medicine
DX: E11.9 Type 2 diabetes mellitus without complications (principal)

== ENCOUNTER → 2019-01-01 | Outpatient (CLI) | payer MEDICARE ==
[~2019-01-01] MED LIST changes: -ARTI99.0 OU; +ARTIDRO2 OU
[2019-01-01 16:49] LABS: INR 1.92; PROTHROMBIN TIME 21.7 SECONDS (11.8-14.0)
== END ==
LOC: M WUC 11:51
PROVIDERS: ATTEND Physician Assistant
DX: I48.1 Persistent atrial fibrillation (principal)

== ENCOUNTER → 2019-01-22 | Outpatient (CLI) | payer MEDICARE ==
[2019-01-22 17:35] LABS: BLOOD UREA NITROGEN 14 MG/DL (7-18); CREATININE FOR GFR 0.99 MG/DL (0.55-1.30); GLOMERULAR FILTRATION RATE > 60.0 (>45)
== END ==
LOC: M WUC 15:13
PROVIDERS: ATTEND Psychiatry & Neurology Neurology
DX: I10 Essential (primary) hypertension (principal); I48.19 Other persistent atrial fibrillation

== ENCOUNTER → 2019-01-22 | Outpatient (CLI) | payer MEDICARE ==
[2019-01-22 17:50] LABS: INR 2.19; PROTHROMBIN TIME 24.1 SECONDS (11.8-14.0)
== END ==
LOC: M WUC 15:16
PROVIDERS: ATTEND Physician Assistant
DX: I48.19 Other persistent atrial fibrillation (principal)

== ENCOUNTER → 2019-03-24 | Outpatient (CLI) | payer MEDICARE ==
[~2019-03-24] MED LIST changes: +FENO48TA13 PO; -FENO48TA2 PO; -OMEP40CA2 PO; +OMEP40CA97 PO; -VERA300C PO; +VERA300C6 PO
[2019-03-24 18:18] LABS: INR 2.53; PROTHROMBIN TIME 27.1 SECONDS (11.8-14.0)
== END ==
LOC: M WUC 14:47
PROVIDERS: ATTEND Physician Assistant
DX: I48.11 Longstanding persistent atrial fibrillation (principal)

== ENCOUNTER → 2019-07-01 | Outpatient (REF) | payer MEDICARE ==
[~2019-07-01] MED LIST changes: -ARTIDRO2 OU; -DIGO0.12 PO; +DIGO0.123 PO; -DIGO0.25 PO; +DIGO0.253 PO; -FENO48TA13 PO; +FENO48TA7 PO; +POLYOPD OU
[2019-07-01 19:47] LABS: BASO # 0.1 10^3/uL (0.0-0.2); BASO % 0.8 % (0.0-1.0); EOS # 0.2 10^3/uL (0.0-0.5); EOS % 1.8 % (0.0-3.0); HEMOGLOBIN 16.1 g/dl (12.0-15.5); LYMPH # 2.9 10^3/uL (1.5-5.0); LYMPH % 26.9 % (24.0-44.0); MEAN CORPUSCULAR HEMOGLOBIN 30.7 pg (27.0-33.0); MEAN CORPUSCULAR HGB CONC 34.3 g/dl (32.0-36.5); MEAN CORPUSCULAR VOLUME 89.7 fl (80.0-96.0); MONO # 0.6 10^3/uL (0.0-0.8); MONO % 5.2 % (0.0-5.0); NEUTROPHILS % 64.6 % (36.0-66.0); PLATELET COUNT, AUTOMATED 309 10^3/uL (150-450); RED BLOOD COUNT 5.24 10^6/uL (4.00-5.40); WHITE BLOOD COUNT 10.8 10^3/uL (4.0-10.0)
[2019-07-01 20:00] LABS: HEMOGLOBIN A1c 8.8 %
[2019-07-01 20:07] LABS: ALBUMIN 3.8 GM/DL (3.2-5.2); ALT/SGPT 24 U/L (12-78); BILIRUBIN,TOTAL 0.4 MG/DL (0.2-1.0); BLOOD UREA NITROGEN 14 MG/DL (7-18); CALCIUM LEVEL 10.5 MG/DL (8.8-10.2); CARBON DIOXIDE LEVEL 24 MEQ/L (21-32); CHLORIDE LEVEL 103 MEQ/L (98-107); CHOLESTEROL LEVEL 332 MG/DL (<200); CHOLESTEROL RISK RATIO 10.709 (<5); CREATININE FOR GFR 0.92 MG/DL (0.55-1.30); FREE T4 1.09 NG/DL (0.76-1.46); GLOMERULAR FILTRATION RATE > 60.0 (>45); GLUCOSE, FASTING 140 MG/DL (70-100); HDL CHOLESTEROL 31 MG/DL (>40); NON-HDL-C 301 MG/DL; POTASSIUM SERUM 4.4 MEQ/L (3.5-5.1); SODIUM LEVEL 136 MEQ/L (136-145); TOTAL 25(OH) VITAMIN D 6.7 NG/ML (30.0-100.0); TOTAL PROTEIN 7.7 GM/DL (6.4-8.2); TRIGLYCERIDES LEVEL 1373 MG/DL (<150)
== END ==
LOC: M LAB REF 19:00
PROVIDERS: ATTEND Nurse Practitioner Family
DX: M25.50 Pain in unspecified joint (principal); M06.09 Rheumatoid arthritis without rheumatoid factor, multiple sites; Z72.0 Tobacco use; I10 Essential (primary) hypertension; E78.5 Hyperlipidemia, unspecified; E11.9 Type 2 diabetes mellitus without complications

== ENCOUNTER → 2019-07-20 | Outpatient (CLI) | payer MEDICARE ==
[2019-07-20 20:30] LABS: INR 1.03; PROTHROMBIN TIME 13.2 SECONDS (11.8-14.0)
== END ==
LOC: M WUC 15:34
PROVIDERS: ATTEND Physician Assistant
DX: Z79.01 Long term (current) use of anticoagulants (principal)

== ENCOUNTER 2019-09-24 17:26 | Inpatient (IN) | payer MEDICARE ==
[~2019-09-24] VITALS: Ht 177.8 cm; Wt 119.5 kg
[~2019-09-24 17:26] MED LIST changes: -COUM6TAB PO; +COUM6TAB10 PO; +CYCL-707 PO; -CYCL10TA PO; -NOVOINJ3; +NOVOINJ3 INJ
[2019-09-24] MEDS ORDERED: CITA20TA6 PO (17:42)
[2019-09-24] MEDS ORDERED: ELIQ5TAB PO (17:42)
[2019-09-24] MEDS ORDERED: ATOR1TAB21 PO (17:42)
[2019-09-24] MEDS ORDERED: AMIT50TA PO (17:42)
[2019-09-24 18:35] LABS: BASO # 0.1 10^3/uL (0.0-0.2); BASO % 0.8 % (0.0-1.0); EOS # 0.1 10^3/uL (0.0-0.5); HEMATOCRIT 42.7 % (36.0-47.0); HEMOGLOBIN 15.2 g/dl (12.0-15.5); LYMPH # 3.2 10^3/uL (1.5-5.0); LYMPH % 25.4 % (24.0-44.0); MEAN CORPUSCULAR HEMOGLOBIN 31.6 pg (27.0-33.0); MEAN CORPUSCULAR HGB CONC 35.6 g/dl (32.0-36.5); MEAN CORPUSCULAR VOLUME 88.8 fl (80.0-96.0); MONO # 0.6 10^3/uL (0.0-0.8); MONO % 4.4 % (0.0-5.0); NEUTROPHILS # 8.5 10^3/uL (1.5-8.5); NEUTROPHILS % 67.8 % (36.0-66.0); PLATELET COUNT, AUTOMATED 270 10^3/uL (150-450); RED BLOOD COUNT 4.81 10^6/uL (4.00-5.40); WHITE BLOOD COUNT 12.6 10^3/uL (4.0-10.0)
[2019-09-24] MEDS ORDERED: NS 1,000 ML IV ONE (18:45)
--- NOTE | 2019-09-24 19:34 | REPVR ---
PROCEDURE INFORMATION: Exam: CT Abdomen And Pelvis Without Contrast Exam date and time: 09/24/2019 7:13 PM Age: 63 years old Clinical indication: Abdominal pain; Generalized; Additional info: R/O obstructive pyelonephritis TECHNIQUE: Imaging protocol: Computed tomography of the abdomen and pelvis without contrast. Radiation optimization: All CT scans at this facility use at least one of these dose optimization techniques: automated exposure control; mA and/or kV adjustment per patient size (includes targeted exams where dose is matched to clinical indication); or iterative reconstruction. COMPARISON: CT ABD/PEL W/IV CONTRAST ONLY 02/02/2018 2:40 AM FINDINGS: Liver: Normal. No mass. Gallbladder and bile ducts: Cholecystectomy clips. Pancreas: Normal. No ductal dilation. Spleen: Normal. No splenomegaly. Adrenals: Normal. No mass. Kidneys and ureters: Normal. No hydronephrosis. Stomach and bowel: Unremarkable. No obstruction. No mucosal thickening. Appendix: No evidence of appendicitis. Intraperitoneal space: Unremarkable. No free air. No significant fluid collection. Vasculature: Unremarkable. No abdominal aortic aneurysm. Lymph nodes: Unremarkable. No enlarged lymph nodes. Bladder: Unremarkable as visualized. Reproductive: Unremarkable as visualized. Bones/joints: Artifact from bilateral hip prosthesis overlie the lower pelvis. Bilateral hip arthroplasty. Soft tissues: Small umbilical hernia containing fat. IMPRESSION: No acute abdominal or pelvic abnormality. Electronically signed by: Raheem Arrington On 09/24/2019 19:34:03 PM
[2019-09-24] MEDS ORDERED: BACTRIM 160MG/800MG DS TAB PO ONE (20:45)
[2019-09-24] MEDS ORDERED: HumuLIN R (REGULAR) INSULIN (NovoLIN R) **100U/ML** PER UNIT IV ONE (20:45)
[2019-09-24] MEDS: APIXABAN 5 MG TAB (ELIQUIS) PO SCH (21:00)
--- NOTE | 2019-09-24 21:20 | ECGEPIP ---
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
[2019-09-24] MEDS ORDERED: cefTRIAXone SOD 1 GM in D5W MINI-BAG PLUS 50 ML IV ONE (22:30)
--- NOTE | 2019-09-24 22:56 | HPEPDOC ---
General Date of Admission Date of Service: Sep 24, 2019 Chief Complaint The patient is a 63-year-old female admitted with a reason for visit of Cardiac Prob. Source: Patient Exam Limitations: No limitations Timing/Duration: Other (transferred from primary care physician's office with possible UTI/pyelonephritis/history of proximal atrial fibrillation) Associated Symptoms: Other (, right flank pain, dysuria, frequent UTIs, dizzine ss, weakness, intermittent A. fib) History of Present Illness This is a very pleasant 63 years old, obese, white female with past medical history of A. fib on chronic anticoagulation with APAXIBAN, morbid obesity, insulin-dependent diabetes type 2, obstructive sleep apnea, hypertension, rheumatoid arthritis, ankylosing spondylitis, gout, GERD, anxiety, depression, COPD, had developed frequent UTIs. She is was seen by her primary care physician, Dr. Rosen and treated with by mouth antibiotics, 2 times without any symptom relief and today she went to see him again and patient was transferred to the emergency room for possible IV antibiotics and control of her blood suga r. Patient major complaints are right flank pain, dysuria, burning, frequency, dizziness, weakness, but no chest pain or shortness of breath Home Medications Scheduled Amitriptyline HCl (Amitriptyline HCl) 50 Mg Tablet, 50 MG PO QHS, (Reported) Apixaban (Eliquis) 5 Mg Tablet, 5 MG PO BID, (Reported) Atorvastatin Calcium (Atorvastatin Calcium) 20 Mg Tablet, 20 MG PO QHS, (Reporte d) Citalopram Hydrobromide (Citalopram HBr) 20 Mg Tablet, 20 MG PO DAILY, (Reported) Digoxin (Digoxin) 125 Mcg Tab, 125 MCG PO DAILY, (Reported) Insulin Aspart (Novolog Flexpen) 100 Unit/1 Ml Insuln.pen, 1 DOSE INJ ASDIRECTED, (Reported) sliding scale Insulin Glargine,Hum.rec.anlog (Basaglar Kwikpen U-100) 100 Unit/Ml Inj, 60 UNIT SC DAILY, (Reported) Sodium Chloride (Saline Nasal [place]) 44 Ml [place], 1 SPRAY NARES DAILY, (Reported) Spironolactone (Spironolactone) 25 Mg Tab, 25 MG PO DAILY, (Reported) Torsemide (Torsemide) 20 Mg Tab, 10 MG PO DAILY, (Reported) Verapamil Hcl (Verapamil ER Pm) 300 Mg Cap, 300 MG PO DAILY, (Reported) Scheduled PRN Albuterol Sulfate (Ventolin Hfa) 108 Mcg/Act Aer, 216 MCG INH Q4H PRN for SHORTNESS OF BREATH, (Reported) Famotidine (Famotidine) 20 Mg Tablet, 40 MG PO DAILY PRN for GAS PAIN, (Reported) Polyvinyl Alcohol (Artificial Tears) 1.4 % Preethi, 1 DROP OU QID PRN for DRY EYES, (Reported) Allergies Coded Allergies: niacin (Verified Allergy, Intermediate, facial swelling, 09/24/19) Past Medical History Medical History A. fib on chronic anticoagulation with Apaxiban. Morbid obesity, insulin dependent diabetes mellitus, obstructive sleep apnea, hypertension, rheumatoid arthritis, ankylosing spondylitis, gout, GERD, anxiety, depression, chronic obstructive lung disease Surgical History Cholecystectomy, bilateral hip replacement, pilonidal cyst removal, tonsillectomy, Family History Family history reviewed. Father had lymphoma and mother had Parkinson's disease Social History * Smoker: former Smoker Alcohol: Denies Drugs: denies A-FIB/CHADSVASC A-FIB History Current/History of A-Fib/PAF?: Yes Current PO Anticoag Therapy: Yes Review of Systems Constitutional: Reports: Malaise, Weakness Eyes: Denies: Pain, Vision change, Conjunctivae inflammation, Eyelid inflammation, Redness, Other ENT: Denies: Head Aches, Ear Pain, Dysphagia, Sinus Congestion, Post Nasal Drip, Sore Throat, Epistaxis, Other Symptoms Skin: Denies: Rash, Lesions, Jaundice, Bruising, Itching, Dry, Breakdown, Nail Changes, Other Pulmonary: Denies: Dyspnea, Cough, Pleuritic Chest Pain, Other Symptoms Cardiovascular: Denies: Chest Pain, Palpitations, Orthopnea, Paroxysmal Noc. Dyspnea, Edema, Lt Headedness, Other Symptoms Gastrointestinal: Denies: Nausea, Vomiting, Abdominal Pain, Diarrhea, Constipation, Melena, Hematochezia, Other Symptoms Genitourinary: Reports: Dysuria, Frequency, Other Symptoms Hematologic: Denies: Bruising, Bleeding Excessively, Petecchia, Purpura, Enlarged Lymph Nodes, Other Hematologic Endocrine: Denies: Polydipsia, Polyphagia, Polyuria, Heat Intolerance, Cold Intolerance, Other Endocrine Sx Musculoskeletal: Denies: Neck Pain, Back Pain, Shoulder Pain, Arm Pain, Hand Pain, Leg Pain, Foot Pain, Joint Pain, Muscle Pain, Spasms, Other Symptoms Neurological: Denies: Weakness, Numbness, Incoordination, Change in speech, Confusion, Seizures, Other Symptoms Psych: Denies: Mood Normal, Anxiety, Depression, Memory Issues, Thoughts of Self Harm, Anger, Thoughts of Harming Other, Other Psych Physical Examination General Exam: Positive: Alert, Cooperative Eye Exam: Positive: PERRLA, Conjunctiva & lids normal ENT Exam: Positive: Atraumatic Neck Exam: Positive: Supple Chest Exam: Positive: Clear to auscultation Heart Exam: Positive: Rate Normal, Normal S1, Normal S2 Telemetry: Positive: Atrial fibrillation Abdomen Exam: Positive: Normal bowel sounds, Soft Extremity Exam: Positive: Normal pulses Skin Exam: Positive: Nl turgor and temperature Neuro Exam: Positive: Strength at 5/5 X4 ext, Sensation Intact, Cranial Nerves 3-12 NL Psych Exam: Positive: Anxiety, Oriented x 3 Vital Signs Vital Signs Date Time Temp Pulse Resp B/P (MAP) Pulse Ox O2 Delivery O2 Flow Rate FiO2 09/24/19 18:41 99 09/24/19 18:30 156/73 (100) 09/24/19 18:26 86 09/24/19 17:38 98.8 18 Room Air Laboratory Data Labs 24H Laboratory Tests 2 09/24/19 17:53: Immature Granulocyte % (Auto) 0.6, Neutrophils (%) (Auto) 67.8H, Lymphocytes (%) (Auto) 25.4, Monocytes (%) (Auto) 4.4, Eosinophils (%) (Auto) 1.0, Basophils (%) (Auto) 0.8, Neutrophils # (Auto) 8.5, Lymphocytes # (Auto) 3.2, Monocytes # (Auto) 0.6, Eosinophils # (Auto) 0.1, Basophils # (Auto) 0.1, Nucleated Red Blood Cells % (auto) 0.0 09/24/19 18:07: Digoxin Level 1.0 09/24/19 18:15: Urine Color YELLOW, Urine Appearance HAZY, Urine pH 5.0, Urine Specific [place] 1.014, Urine Protein NEGATIVE, Urine Glucose (UA) 3+H, Urine Ketones TRACEH, Urine Blood NEGATIVE, Urine Nitrite POSITIVEH, Urine Bilirubin NEGATIVE, Urine Urobilinogen 0.2, Urine Leukocyte Esterase 1+H, Urine WBC (Auto) 25H, Urine RBC (Auto) 1, Urine Hyaline Casts (Auto) 0, Urine Bacteria (Auto) 2+H, Urine Squamous Epithelial Cells 0, Urine Mucus (Auto) SMALL, Urine Sperm (Auto) 09/24/19 18:22: POC Lactate (Misc Panel) 3.51*H 09/24/19 18:27: POC Glucose (Misc Panel) 418H, POC Sodium (Misc Panel) 132L, POC Potassium (Misc Panel) 4.8, POC Chloride (Misc Panel) 99, POC Total CO2 (Misc Panel) 21.0L, POC Blood Urea Nitrogen (Misc Panel 18, POC Ionized Calcium (Misc Panel) 5.5H, POC Creatinine (Misc Panel) 1.0, POC Hematocrit (Misc Panel) 43.0 09/24/19 20:22: Bedside Glucose (Misc Panel) 358H 09/24/19 20:35: Lactic Acid Level 3.1*H CBC/BMP Laboratory Tests 09/24/19 17:53 Microbiology Microbiology 09/24/19 Urine Culture, Received Pending Problems (1) Pyelonephritis Status: Acute Problem Text: This is a 63 years old white female with past medical history of multiple medical problems including his diabetes mellitus, atrial fibrillation, morbid obesity, obstructive sleep apnea, hypertension, gout, rheumatoid arthritis, ankylosing spondylitis, GERD, anxiety, depression, COPD, had developed recurrent UTI, which is not being resolved with outpatient antibiotic therapy, hence was admitted with recurrent UTI and possible acute pyelonephritis Patient's CT of the abdomen and pelvis does not show any pathology, but UA is a positive for nitrates and 25 WBCs. WBC count is 12.6, lactic acid 3.1 Admit patient to MedSurg floor with telemetry IV fluids normal saline 70 mL per hour Rocephin 1 g IV daily for stool. She received in ED Urine cultures, follow once available Intake and output Continue all home meds Diet is consistent carbohydrate diet Activity as tolerated DVT prophylaxis, patient is already on Apaxiban (2) Ankylosing spondylitis Status: Chronic Problem Text: Continue home meds (3) Rheumatoid aortitis Status: Chronic Problem Text: Continue home meds (4) Atrial fibrillation, chronic Status: Acute Problem Text: Patient had slightly rapid, rest, but it's under 100, now , Will increase patient's verapamil 2, as are 360 mg by mouth daily instead of 300 mg as patient was taken at home Telemetry monitoring Continue home meds and Apaxiban (5) Essential hypertension Status: Chronic Problem Text: Continue home meds and adjust meds accordingly (6) DM type 2 (diabetes mellitus, type 2) Status: Chronic Problem Text: Fingerstick blood sugar sugar every before meals and at bedtime Blood sugar most likely is not under well control secondary to persistent infection Continue IV fluids and IV antibiotics Continue patient's home antidiabetic meds Plan / VTE VTE Prophylaxis Ordered?: Yes JEB ESTRELLA MD Sep 24, 2019 22:56
[2019-09-24] MEDS ORDERED: FAMO20TA PO (22:59)
[2019-09-24] MEDS ORDERED: HM S0.65 NARES (22:59)
[2019-09-24] MEDS ORDERED: MAALOX 30 ML SUSP *UDC PO PRN (23:00)
[2019-09-24] MEDS ORDERED: GLUCOSE 4GM CHEW TABLET PO PRN (23:00)
[2019-09-24] MEDS ORDERED: DEXTROSE 50% 50 ML SYRINGE IV PRN (23:00)
[2019-09-24] MEDS ORDERED: MOM 30ML SUSPENSION UDC PO PRN (23:00)
[2019-09-24] MEDS ORDERED: ACETAMINOPHEN TAB 650MG DOSE (2X325MG) PO PRN (23:00)
[2019-09-24] MEDS ORDERED: GLUCAGON INJ 1MG VIAL SC PRN (23:00)
[2019-09-24] MEDS: NS 1,000 ML IV SCH (23:06)
[2019-09-24] MEDS ORDERED: POLYVINYL ALCOHOL OPHTH SOLN 15 ML(LIQUITEARS) OU PRN (23:15)
[2019-09-24] MEDS ORDERED: ALBUTEROL 90 MCG/ACT 8GM HFA INHALER INH PRN (23:15)
[2019-09-24] MEDS ORDERED: FAMOTIDINE 20 MG TAB PO PRN (23:15)
[2019-09-24 23:52] VITALS: BP 155/51
[2019-09-25 01:44] VITALS: BP 155/51
[2019-09-25] MEDS: AMITRIPTYLINE 50 MG TAB PO SCH ×2 (01:44→20:30)
[2019-09-25] MEDS: ATORVASTATIN 20 MG TAB PO SCH ×2 (01:44→20:30)
[2019-09-25] MEDS: VERAPAMIL 180MG EXTENDED RELEASE TABLET PO SCH ×2 (01:44→09:03)
[2019-09-25] MEDS: LEVEMIR (INSULIN DETEMIR) 1 UNITS/0.01ML SC SCH ×2 (01:45→20:29)
[2019-09-25] MEDS: HumaLOG INSULIN (NovoLOG) PER UNIT SC SCH ×5 (01:45→20:29)
[2019-09-25 04:00] VITALS: BP 121/65
[2019-09-25 05:26] LABS: HEMATOCRIT 41.6 % (36.0-47.0); HEMOGLOBIN 14.2 g/dl (12.0-15.5); MEAN CORPUSCULAR HEMOGLOBIN 30.7 pg (27.0-33.0); MEAN CORPUSCULAR HGB CONC 34.1 g/dl (32.0-36.5); PLATELET COUNT, AUTOMATED 289 10^3/uL (150-450); RED BLOOD COUNT 4.62 10^6/uL (4.00-5.40); WHITE BLOOD COUNT 13.9 10^3/uL (4.0-10.0)
[2019-09-25 05:58] LABS: ALBUMIN 3.2 GM/DL (3.2-5.2); BILIRUBIN,TOTAL 0.4 MG/DL (0.2-1.0); CALCIUM LEVEL 9.9 MG/DL (8.8-10.2); CREATININE FOR GFR 1.04 MG/DL (0.55-1.30); GLOMERULAR FILTRATION RATE 56.8 (>45); MAGNESIUM LEVEL 1.8 MG/DL (1.8-2.4); POTASSIUM SERUM 3.7 MEQ/L (3.5-5.1); TOTAL PROTEIN 6.5 GM/DL (6.4-8.2)
[2019-09-25 07:38] VITALS: BP 112/60
[2019-09-25] MEDS ORDERED: TORSEMIDE 20 MG TAB PO SCH (09:00)
[2019-09-25] MEDS ORDERED: HEPARIN SOD (PORCINE) 5000UNITS/ML VIAL (J1644 PER 1000UNITS) SC SCH (09:00)
[2019-09-25] MEDS: SPIRONOLACTONE 25 MG TAB PO SCH (09:03)
[2019-09-25] MEDS: APIXABAN 5 MG TAB (ELIQUIS) PO SCH ×2 (09:04→20:30)
[2019-09-25] MEDS: SODIUM CHLORIDE NASAL 0.65% SPRAY BTL (OCEAN) SCH (09:04)
[2019-09-25] MEDS: CitaloPRAM (CeleXA) 20 MG TAB PO SCH (09:04)
[2019-09-25] MEDS: DIGOXIN 0.125 MG TAB PO SCH (09:04)
[2019-09-25] MEDS: NS 1,000 ML IV SCH (12:29)
[2019-09-25 15:57] VITALS: BP 127/70
--- NOTE | 2019-09-25 17:50 | IPNPDOC ---
Date Seen The patient was seen on 09/25/19. Progress Note SUBJECTIVE: No acute complaints overnight. BS uncontrolled, added day levemir in addition to HS dosing. WBC slightly increased despite abx, f/u UCx. Denies chest pain n/v/d, fevers or chills. OBJECTIVE: VITAL SIGNS: Please see below PHYSICAL EXAMINATION: CONSTITUTIONAL: No acute distress, resting comfortably, AAO x 3 EYES: PERRLA, EOM intact HENT, MOUTH: Normocephalic, atraumatic, moist mucous membranes NECK: SUPPLE, no JVD, no lymphadenopathy, no carotid bruit CV: Regular rate and rhythm, S1S2 normal, no murmurs/rubs/gallops RESPIRATORY: Clear to auscultation bilaterally, no rales/rhonchi/wheezes GI: obese abd, BS positive in 4 quadrants, soft, nontender, nondistended, no rebound or guarding, no organomegaly : Deferred MUSCULOSKELETAL: Normal ROM. No cyanosis, clubbing, swelling, joint deformity, extremity edema INTEGUMENTARY: Intact, no rashes, no lesions, no erythema NEUROLOGIC: Cranial Nerves II-XII are intact, no focal deficits PSYCHIATRIC: Mood and affect are normal CURRENT MEDICATIONS: Please see below LABORATORY DATA: Please see below IMAGING: Renal US ordered ASSESSMENT: 63 y/o F admitted for recurrent UTI, pyelonephritis. PLAN: 1. Acute pyelonephritis. Hx of recurrent UTIs. WBC slightly worsened despite Ceftriaxone at 13.9. UCx pending. F/u UCx, daily CBC. C/w ceftriaxone, tylenol PRN. 2. Recurrent UTI. Renal US ordered to r/o structural abnormality. C/w plan and treatment above. Please see above. 3. Diabetes Mellitus. BS uncontrolled here as high as 358, likely infection driven. Started on levemir 12 U QAM, to get HS dose as well. C/w ISS, AC/HS blood sugar checks, consistent carb diet. F/u HbA1c, lipid panel. 4. Ankylosing spondylitis, chronic. C/w home meds. 5. Rheumatoid aortitis, chronic. C/w home meds. 6. Atrial fibrillation, chronic and controlled. C/w home meds. Problem Text: Continue home meds 7. Essential hypertension, chronic. C/w home meds and adjust meds accordingly 8. DVT px. Eliquis. DISPOSITION: Currently under inpatient status. Plan is discharge home when medically stable. VS[facility]&O[facility] V[facility] Signs/I&O Vital Signs Date Time Temp Pulse Resp B/P (MAP) Pulse Ox O2 Delivery O2 Flow Rate FiO2 09/25/19 15:57 96.8 77 18 127/70 (89) 95 Room Air I&O- Last 24 Hours up to 6 AM 09/25/19 06:00 Intake Total 1000 ml Output Total 850 ml Balance 150 ml Laboratory Data 24H LABS Laboratory Tests 2 09/24/19 17:53: Immature Granulocyte % (Auto) 0.6, Neutrophils (%) (Auto) 67.8H, Lymphocytes (%) (Auto) 25.4, Monocytes (%) (Auto) 4.4, Eosinophils (%) (Auto) 1.0, Basophils (%) (Auto) 0.8, Neutrophils # (Auto) 8.5, Lymphocytes # (Auto) 3.2, Monocytes # (Auto) 0.6, Eosinophils # (Auto) 0.1, Basophils # (Auto) 0.1, Nucleated Red Blood Cells % (auto) 0.0 09/24/19 18:07: Digoxin Level 1.0 09/24/19 18:15: Urine Color YELLOW, Urine Appearance HAZY, Urine pH 5.0, Urine Specific [place] 1.014, Urine Protein NEGATIVE, Urine Glucose (UA) 3+H, Urine Ketones TRACEH, Urine Blood NEGATIVE, Urine Nitrite POSITIVEH, Urine Bilirubin NEGATIVE, Urine Urobilinogen 0.2, Urine Leukocyte Esterase 1+H, Urine WBC (Auto) 25H, Urine RBC (Auto) 1, Urine Hyaline Casts (Auto) 0, Urine Bacteria (Auto) 2+H, Urine Squamous Epithelial Cells 0, Urine Mucus (Auto) SMALL, Urine Sperm (Auto) 09/24/19 18:22: POC Lactate (Misc Panel) 3.51*H 09/24/19 18:27: POC Glucose (Misc Panel) 418H, POC Sodium (Misc Panel) 132L, POC Potassium (Misc Panel) 4.8, POC Chloride (Misc Panel) 99, POC Total CO2 (Misc Panel) 21.0L, POC Blood Urea Nitrogen (Misc Panel 18, POC Ionized Calcium (Misc Panel) 5.5H, POC Creatinine (Misc Panel) 1.0, POC Hematocrit (Misc Panel) 43.0 09/24/19 20:22: Bedside Glucose (Misc Panel) 358H 09/24/19 20:35: Lactic Acid Level 3.1*H 09/24/19 23:20: Bedside Glucose (Misc Panel) 311H 09/25/19 00:22: Bedside Glucose (Misc Panel) 290H 09/25/19 00:50: Lactic Acid Followup at 4 Hours 2.1*H 09/25/19 04:53: Nucleated Red Blood Cells % (auto) 0.0, Anion Gap 6L, Glomerular Filtration Rate 56.8, Calcium Level 9.9, Magnesium Level 1.8, Total Bilirubin 0.4, Aspartate Amino Transf (AST/SGOT) 11, Alanine Aminotransferase (ALT/SGPT) 22, Alkaline Phosphatase 83, Total Protein 6.5, Albumin 3.2, Albumin/Globulin Ratio 1.0L 09/25/19 09:02: Lactic Acid Level 1.5 09/25/19 11:53: Bedside Glucose (Misc Panel) 261H 09/25/19 16:32: Bedside Glucose (Misc Panel) 271H CBC/BMP Laboratory Tests 09/24/19 17:53 09/25/19 04:53 Microbiology Microbiology 09/24/19 Urine Culture, Received Pending Current Medications Current Medications Medications (Trade) Dose Ordered Sig/Elisabeth Route PRN Reason Start Time Stop Time Status Last Admin Dose Admin Acetaminophen (Tylenol Tab) 650 mg Q4H PRN PO PAIN OR FEVER 09/24/19 23:00 09/25/19 17:06 Al Hydrox/Mg Hydrox/Simethicone (Mylanta) 30 ml DAILY PRN PO DYSPEPSIA 09/24/19 23:00 Albuterol Sulfate (Proventil, Ventolin Hfa) 2 puff Q4H PRN INH SHORTNESS OF BREATH 09/24/19 23:15 Amitriptyline HCl (Elavil) 50 mg QHS PO 09/24/19 21:00 09/25/19 01:44 Apixaban (Eliquis) 5 mg BID PO 09/24/19 21:00 09/25/19 09:04 Artificial Tears (Akwa Tears) 1 drop QID PRN OU DRY EYES 09/24/19 23:15 Atorvastatin Calcium (Lipitor) 20 mg QHS PO 09/24/19 21:00 09/25/19 01:44 Ceftriaxone Sodium 1 gm/ Dextrose 50 ml @ 100 mls/hr Q24H IV 09/25/19 23:00 Citalopram Hydrobromide (CeleXA) 20 mg DAILY PO 09/25/19 09:00 09/25/19 09:04 Dextrose (Dextrose 50%) 25 ml ASDIRECTED PRN IV SEE LABEL COMMENTS 09/24/19 23:00 Digoxin (Lanoxin) 0.125 mg DAILY PO 09/25/19 09:00 09/25/19 09:04 Famotidine (Pepcid) 40 mg DAILY PRN PO GAS PAIN 09/24/19 23:15 Glucagon (Glucagon) 1 mg ASDIRECTED PRN SC SEE LABEL COMMENTS 09/24/19 23:00 Glucose (Glucose) 16 GM ASDIRECTED PRN PO SEE LABEL COMMENTS 09/24/19 23:00 Heparin Sodium (Porcine) (Heparin) 5,000 units Q12H SC 09/25/19 09:00 09/24/19 23:08 DC Home Med (Med Rec Complete!) ASDIRECTED XX 09/24/19 23:15 09/24/19 23:04 DC Insulin Detemir (Levemir Insulin) 60 units QHS SC 09/24/19 23:15 09/25/19 01:45 Insulin Human Lispro (HumaLOG INSULIN) SEE PROTOCOL TABLE AC SC 09/25/19 07:30 09/25/19 17:05 Insulin Human Lispro (HumaLOG INSULIN) SEE PROTOCOL TABLE QHS SC 09/24/19 21:00 09/25/19 01:45 Magnesium Hydroxide (Milk Of Magnesia) 30 ml DAILY PRN PO CONSTIPATION 09/24/19 23:00 Sodium Chloride 1,000 ml @ 75 mls/hr [id number] IV 09/24/19 23:00 09/25/19 12:29 Sodium Chloride ([place] Nasal [place]) 1 spray DAILY NA 09/25/19 09:00 09/25/19 09:04 Spironolactone (Aldactone) 25 mg DAILY PO 09/25/19 09:00 09/25/19 09:03 Torsemide (Demadex) 10 mg DAILY PO 09/25/19 09:00 09/25/19 09:04 Verapamil HCl (Calan Sr) 360 mg DAILY PO 09/24/19 21:00 09/25/19 09:03 Allergies Coded Allergies: niacin (Verified Allergy, Intermediate, facial swelling, 09/24/19) Opal Arauz MD Sep 25, 2019 17:50
--- NOTE | 2019-09-25 18:34 | REPVR ---
PROCEDURE INFORMATION: Exam: US Retroperitoneal Limited, Kidneys Exam date and time: 09/25/2019 6:11 PM Age: 63 years old Clinical indication: Other: UTI; Additional info: Recurrent uti's, R/O structural abnor TECHNIQUE: Imaging protocol: Real-time ultrasound of the retroperitoneum with image documentation. Examination was focused on the kidneys. COMPARISON: CT ABD PELVIS W/O CONTRAST 09/24/2019 7:09 PM FINDINGS: Right kidney: No stones. No hydronephrosis. Left kidney: The left kidney measures 10.2 x 5.8x 5.6 cm.No hydronephrosis. The left kidney measures 11 x 5.2 x 5.4 cm. No hydronephrosis. The bladder is empty. Other findings: Limited study secondary to patient's body habitus. IMPRESSION: Limited study. No hydronephrosis. Electronically signed by: Raheem Arrington On 09/25/2019 18:34:00 PM
[2019-09-25 20:00] VITALS: BP 118/70
[2019-09-25] MEDS ORDERED: cefTRIAXone SOD 1 GM in D5W MINI-BAG PLUS 50 ML IV SCH (23:00)
[2019-09-26] MEDS: NS 1,000 ML IV SCH (01:12)
[2019-09-26 04:00] VITALS: BP 118/61
[2019-09-26 05:05] LABS: HEMATOCRIT 39.2 % (36.0-47.0); HEMOGLOBIN 13.2 g/dl (12.0-15.5); MEAN CORPUSCULAR HEMOGLOBIN 30.9 pg (27.0-33.0); MEAN CORPUSCULAR HGB CONC 33.7 g/dl (32.0-36.5); MEAN CORPUSCULAR VOLUME 91.8 fl (80.0-96.0); PLATELET COUNT, AUTOMATED 220 10^3/uL (150-450); RED BLOOD COUNT 4.27 10^6/uL (4.00-5.40); WHITE BLOOD COUNT 9.8 10^3/uL (4.0-10.0)
[2019-09-26 05:22] LABS: HEMOGLOBIN A1c 11.4 %
[2019-09-26 05:45] LABS: ALBUMIN 2.6 GM/DL (3.2-5.2); ALT/SGPT 21 U/L (12-78); BILIRUBIN,TOTAL 0.2 MG/DL (0.2-1.0); BLOOD UREA NITROGEN 14 MG/DL (7-18); CALCIUM LEVEL 9.5 MG/DL (8.8-10.2); CARBON DIOXIDE LEVEL 25 MEQ/L (21-32); CHLORIDE LEVEL 107 MEQ/L (98-107); CHOLESTEROL LEVEL 177 MG/DL (<200); CREATININE FOR GFR 1.04 MG/DL (0.55-1.30); GLOMERULAR FILTRATION RATE 56.8 (>45); GLUCOSE, FASTING 272 MG/DL (70-100); HDL CHOLESTEROL 25 MG/DL (>40); NON-HDL-C 152 MG/DL; POTASSIUM SERUM 4.3 MEQ/L (3.5-5.1); SODIUM LEVEL 137 MEQ/L (136-145); TOTAL PROTEIN 6.1 GM/DL (6.4-8.2); TRIGLYCERIDES LEVEL 1075 MG/DL (<150)
[2019-09-26 08:00] VITALS: BP 123/71
[2019-09-26] MEDS ORDERED: CEFU50TA PO (08:04)
[2019-09-26] MEDS: SPIRONOLACTONE 25 MG TAB PO SCH (08:26)
[2019-09-26] MEDS: CitaloPRAM (CeleXA) 20 MG TAB PO SCH (08:28)
[2019-09-26] MEDS: DIGOXIN 0.125 MG TAB PO SCH (08:28)
[2019-09-26] MEDS: VERAPAMIL 180MG EXTENDED RELEASE TABLET PO SCH (08:28)
[2019-09-26] MEDS: APIXABAN 5 MG TAB (ELIQUIS) PO SCH (08:28)
[2019-09-26] MEDS: SODIUM CHLORIDE NASAL 0.65% SPRAY BTL (OCEAN) SCH (08:30)
[2019-09-26] MEDS: HumaLOG INSULIN (NovoLOG) PER UNIT SC SCH (08:30)
[2019-09-26] MEDS ORDERED: TORSEMIDE 10 MG TABLET PO SCH (09:00)
[2019-09-26] MEDS ORDERED: LEVEMIR (INSULIN DETEMIR) 1 UNITS/0.01ML SC SCH ×2 (09:00)
--- NOTE | 2019-09-26 14:14 | DS.PDOC ---
Discharge Summary General Date of Admission Sep 24, 2019 at 22:50 Date of Discharge 09/26/19 Attending Physician: Opal Arauz MD Discharge Summary HISTORY OF PRESENT ILLNESS: This is a very pleasant 63 years old, obese, white female with past medical history of A. fib on chronic anticoagulation with APAXIBAN, morbid obesity, insulin-dependent diabetes type 2, obstructive sleep apnea, hypertension, rheumatoid arthritis, ankylosing spondylitis, gout, GERD, anxiety, depression, C OPD, had developed frequent UTIs. She is was seen by her primary care physician, Dr. Rosen and treated with by mouth antibiotics, 2 times without any symptom relief and today she went to see him again and patient was transferred to the emergency room for possible IV antibiotics and control of her blood sugar. CT abd/pelvis showed no acute abdominal or pelvic abnormality. Patient major complaints are right flank pain, dysuria, burning, frequency, dizziness, weakness, but no chest pain or shortness of breath. Patient was admitted for recurrent UTI, acute pyelonephritis. HOSPITAL COURSE: Patient was continued on ceftriaxone IV, IVFs. UCx later resulted E. coli sensitive to ceftriaxone. The pain the patient was experiencing on admission had much improved after treatment. BS better controlled with BID dosing of levemir. Patient's VS remained stable and WBC had normalized. Renal US neg. Decision to discharge on 09/26/19 was made. She will be leaving with a 10 day course of ceftin 500 mg PO BID to complete for recurrent UTI and pyelonephritis. At discharge she denied chest pain, shortness of breath, n/v/d, increased abdominal pain, fevers, chills. Note. Patient was called after discharge for triglycerides >1000 on lipid panel, HbA1c >11. She admits to being noncomplaint with medications since her . In the last several months she was called by her housekeeping associate to notify her of very high triglyceridemia and that is when she was started on atorvastatin. With her abdominal pain and triglyceridemia, there was no suspicion for pancreatitis on CT abdomen or physical exam. Also WBC had improved on ceftriaxone with improvement of her primary presenting symptoms. She is advised to call her PCP's office in the AM and have them schedule her for f/u within 1 week after discharge if possible. Also, I asked for her to request them to review this discharge summary prior to coming in. REVIEW OF SYSTEMS: Neg except for what is mentioned above. PAST MEDICAL HISTORY: A. fib on chronic anticoagulation with Apixiban. Morbid obesity, insulin dependent diabetes mellitus, obstructive sleep apnea, hypertension, rheumatoid arthritis, ankylosing spondylitis, gout, GERD, anxiety, depression, chronic obstructive lung disease PAST SURGICAL HISTORY: Cholecystectomy, bilateral hip replacement, pilonidal cyst removal, tonsillectomy, FAMILY HISTORY: Father had lymphoma and mother had Parkinson's disease SOCIAL HISTORY: Smoker: former Smoker Alcohol: Denies Drugs: denies ALLERGIES: Please see below. DISCHARGE MEDICATIONS: Please see below. PHYSICAL EXAMINATION: CONSTITUTIONAL: No acute distress, resting comfortably, AAO x 3 EYES: PERRLA, EOM intact HENT, MOUTH: Normocephalic, atraumatic, moist mucous membranes NECK: SUPPLE, no JVD, no lymphadenopathy, no carotid bruit CV: Regular rate and rhythm, S1S2 normal, no murmurs/rubs/gallops RESPIRATORY: Clear to auscultation bilaterally, no rales/rhonchi/wheezes GI: obese abd, BS positive in 4 quadrants, soft, nontender, nondistended, no rebound or guarding, no organomegaly : Deferred MUSCULOSKELETAL: Normal ROM. No cyanosis, clubbing, swelling, joint deformity, extremity edema INTEGUMENTARY: Intact, no rashes, no lesions, no erythema NEUROLOGIC: Cranial Nerves II-XII are intact, no focal deficits PSYCHIATRIC: Mood and affect are normal CURRENT MEDICATIONS: Please see below LABORATORY DATA: Please see below IMAGING: Renal US: Limited study. No hydronephrosis. CT abd/pelvis: No acute abdominal or pelvic abnormality. ASSESSMENT: 63 y/o F admitted for recurrent UTI, pyelonephritis. PLAN: 1. Acute pyelonephritis. Hx of recurrent UTIs. WBC wnl, afebrile, symptoms improved. C/w 10 days of ceftin 500 mg Po BID, encouraged increased PO intake of water at home, tylenol PRN. 2. Recurrent UTI. E. coli on UCx. Renal US neg. Improved abd pain, WBC now normal. C/w plan and treatment above. 3. Diabetes Mellitus, uncontrolled. HbA1c >11, high TG. Admits to being noncompliant with meds since her passed. Will send home on prior medication regiment but would recommend PCP to consider placing on BID levemir, consistent carb diet, AC/HS blood sugar checks. Perhaps patient would benefit from diabetic education. 4. Hypertriglyceridemia, chronic. As per patient, she was started on atorvastatin 20 mg PO daily in the last several months. Will start on fenofibrate in addition to statin today because it is unknown if patient will follow up with history of noncompliance BUT with all patients with TGs >1000 mg/dL, we emphasize the importance of extreme dietary fat restriction, with <5 percent of total calories as fat, until TGs are approximately 1000 mg/dL (8.86 mmol/L). TG-lowering drugs work well below this concentration. Nonpharmacologic interventions such as weight loss in obese patients, aerobic exercise, avoidance of concentrated sugars with strict glycemic control in patients with diabetes, and reasonable consumption of alcohol are first-line therapy. Will need close follow up as outpatient on this matter and, because it effects this particular i ssue directly, her uncontrolled DM type II. 5. Ankylosing spondylitis, chronic. C/w home meds. 6. Rheumatoid aortitis, chronic. C/w home meds. 7. Atrial fibrillation, chronic and controlled. C/w home meds. 8. Essential hypertension, chronic. C/w home meds. 9. DVT px. Eliquis. DISPOSITION: Discharging home today in improved condition. Needs close f/u with PCP. Patient called and updated on high triglyceride results. She will be calling her PCP to make f/u appointment. TIME SPENT ON DISCHARGE: Greater than 30 minutes. Vital Signs/I&Os Vital Signs Date Time Temp Pulse Resp B/P (MAP) Pulse Ox O2 Delivery O2 Flow Rate FiO2 09/26/19 08:28 98 09/26/19 08:00 96.9 18 123/71 (88) 98 Room Air I&O- Last 24 Hours up to 6 AM 09/26/19 06:00 Intake Total 900 ml Output Total 900 ml Balance 0 ml Laboratory Data Labs 24H Laboratory Tests 2 09/25/19 16:32: Bedside Glucose (Misc Panel) 271H 09/25/19 20:03: Bedside Glucose (Misc Panel) 250H 09/26/19 04:45: Nucleated Red Blood Cells % (auto) 0.0, Anion Gap 5L, Glomerular Filtration Rate 56.8, Estimated Mean Plasma Glucose 280H, Hemoglobin A1c 11.4, Calcium Level 9.5, Total Bilirubin 0.2, Aspartate Amino Transf (AST/SGOT) 10, Alanine Aminotransferase (ALT/SGPT) 21, Alkaline Phosphatase 74, Total Protein 6.1L, Albumin 2.6L, Albumin/Globulin Ratio 0.7L, Triglycerides Level 1075H, Total Cholesterol 177, LDL Cholesterol , Non-HDL Cholesterol (LDL + VLDL) 152, Total HDL Cholesterol 25L, Cholesterol/HDL Ratio 7.080H CBC/BMP Laboratory Tests 09/26/19 04:45 FSBS Laboratory Tests Test 09/25/19 16:32 09/25/19 20:03 Range/Units Bedside Glucose (Misc Panel) 271 250 80-115 MG/DL Microbiology Microbiology 09/24/19 Urine Culture - Final, Complete Escherichia Coli Discharge Medications Scheduled Amitriptyline HCl (Amitriptyline HCl) 50 Mg Tablet, 50 MG PO QHS, (Reported) Apixaban (Eliquis) 5 Mg Tablet, 5 MG PO BID, (Reported) Atorvastatin Calcium (Atorvastatin Calcium) 20 Mg Tablet, 20 MG PO QHS, (Reported) Cefuroxime Axetil (Cefuroxime) 500 Mg Tablet, 500 MG PO BID Citalopram Hydrobromide (Citalopram HBr) 20 Mg Tablet, 20 MG PO DAILY, (Reported) Digoxin (Digoxin) 125 Mcg Tab, 125 MCG PO DAILY, (Reported) Insulin Aspart (Novolog Flexpen) 100 Unit/1 Ml Insuln.pen, 1 DOSE INJ ASDIRECTED, (Reported) sliding scale Insulin Glargine,Hum.rec.anlog (Basaglar Kwikpen U-100) 100 Unit/Ml Inj, 60 UNIT SC DAILY, (Reported) Sodium Chloride (Saline Nasal Laurens) 44 Ml [place], 1 SPRAY NARES DAILY, (Reported) Spironolactone (Spironolactone) 25 Mg Tab, 25 MG PO DAILY, (Reported) Torsemide (Torsemide) 20 Mg Tab, 10 MG PO DAILY, (Reported) Verapamil Hcl (Verapamil ER Pm) 300 Mg Cap, 300 MG PO DAILY, (Reported) Scheduled PRN Albuterol Sulfate (Ventolin Hfa) 108 Mcg/Act Aer, 216 MCG INH Q4H PRN for SHORTNESS OF BREATH, (Reported) Famotidine (Famotidine) 20 Mg Tablet, 40 MG PO DAILY PRN for GAS PAIN, (Re ported) Polyvinyl Alcohol (Artificial Tears) 1.4 % Preethi, 1 DROP OU QID PRN for DRY EYES, (Reported) Allergies Coded Allergies: niacin (Verified Allergy, Intermediate, facial swelling, 09/24/19) Opal Arauz MD Sep 26, 2019 14:14
[2019-09-26] MEDS ORDERED: FENO145T7 PO (16:13)
--- NOTE | 2019-09-27 09:58 | REP ---
REASON FOR EXAM: History of atrial fibrillation. Latest prior for comparison: 09/21/2018 The technique utilized in obtaining the radiograph has magnified the cardiac silhouette and accentuated the interstitial markings. The lower left lung field has not been included on the radiograph. With that exception, there is no change from the prior exam. Cardiomediastinal silhouette and lung lagos are otherwise stable. There is no evidence of acute disease. There is no change in the osseous structures. Preliminary report was given by Dr. Olsen. Consider repeat to include all of the lung lagos. Electronically Signed by Vince Hernandez DO 09/27/2019 10:55 A
== END 2019-09-26 10:09 | disposition home or self-care (01) | DRG 638 ==
LOC: M ED 17:26 → M ED INP 22:50 → ENRESERV 23:05 → M PCU 23:51
PROVIDERS: ADMIT Internal Medicine; ATTEND Internal Medicine
DX: E11.65 Type 2 diabetes mellitus with hyperglycemia (principal); I48.20 Chronic atrial fibrillation, unspecified; N10 Acute pyelonephritis; E66.01 Morbid (severe) obesity due to excess calories; G47.33 Obstructive sleep apnea (adult) (pediatric); I10 Essential (primary) hypertension; M06.9 Rheumatoid arthritis, unspecified; M45.9 Ankylosing spondylitis of unspecified sites in spine; M10.9 Gout, unspecified; K21.9 Gastro-esophageal reflux disease without esophagitis; F41.9 Anxiety disorder, unspecified; F32.9 Major depressive disorder, single episode, unspecified; B96.20 Unspecified Escherichia coli [E. coli] as the cause of diseases classified elsewhere; J44.9 Chronic obstructive pulmonary disease, unspecified; Z79.01 Long term (current) use of anticoagulants; Z79.4 Long term (current) use of insulin; Z79.899 Other long term (current) drug therapy; Z88.8 Allergy status to other drugs, medicaments and biological substances; Z91.14 Patient's other noncompliance with medication regimen; Z68.37 Body mass index [BMI] 37.0-37.9, adult

== ENCOUNTER → 2019-11-08 | Outpatient (CLI) | payer MEDICARE ==
[~2019-11-08] MED LIST changes: +AMIT50TA PO; +AMLO1TAB24 PO; -AMLO5TAB6 PO; +ATOR1TAB21 PO; +CEFU50TA PO; +CITA20TA6 PO; +ELIQ5TAB PO; +FENO145T7 PO; +HM S0.65 NARES
[2019-11-08 16:46] LABS: RHEUMATOID FACTOR QUANT < 10.0 IU/ML (<15.0)
== END ==
LOC: M WUC 14:39
PROVIDERS: ATTEND Internal Medicine Rheumatology
DX: M25.50 Pain in unspecified joint (principal)

== ENCOUNTER 2019-12-07 15:50 | Emergency (ER) | payer MEDICARE ==
[2019-12-07] MEDS ORDERED: BOOSTRIX/ADACEL VACCINE (DIPHTH/PERTUSS/ACELL/TETANUS) 0.5ML SYR ONE (16:41)
== END 2019-12-07 18:30 | disposition home or self-care (01) ==
LOC: M ED 15:50
DX: T25.222A Burn of second degree of left foot, initial encounter (principal); T14.8XXA Other injury of unspecified body region, initial encounter; W01.10XA Fall on same level from slipping, tripping and stumbling with subsequent striking against unspecified object, initial encounter; X11.8XXA Contact with other hot tap-water, initial encounter; Y92.9 Unspecified place or not applicable; Y93.9 Activity, unspecified; Y99.9 Unspecified external cause status; I48.91 Unspecified atrial fibrillation; E11.9 Type 2 diabetes mellitus without complications; J44.9 Chronic obstructive pulmonary disease, unspecified; G47.33 Obstructive sleep apnea (adult) (pediatric); I10 Essential (primary) hypertension; M06.9 Rheumatoid arthritis, unspecified; E04.1 Nontoxic single thyroid nodule; Z79.01 Long term (current) use of anticoagulants; Z79.899 Other long term (current) drug therapy; Z88.5 Allergy status to narcotic agent

== ENCOUNTER → 2020-11-09 | Outpatient (CLI) | payer MEDICARE ==
[~2020-11-09] MED LIST changes: -DOXY100C37 PO; +DOXY1CAP62 PO; +OMEP40CA4 PO; -OMEP40CA97 PO; -OXYC1TAB15 PO; +OXYC7.5T3 PO
[2020-11-09 17:05] LABS: ALBUMIN 3.7 GM/DL (3.2-5.2); ALT/SGPT 20 U/L (12-78); BILIRUBIN,TOTAL 0.3 MG/DL (0.2-1.0); BLOOD UREA NITROGEN 15 MG/DL (7-18); CALCIUM LEVEL 11.1 MG/DL (8.8-10.2); CARBON DIOXIDE LEVEL 23 MEQ/L (21-32); CHLORIDE LEVEL 103 MEQ/L (98-107); CHOLESTEROL LEVEL 176 MG/DL (<200); CHOLESTEROL RISK RATIO 5.333 (<5); CREATININE FOR GFR 1.06 MG/DL (0.55-1.30); GLOMERULAR FILTRATION RATE 55.4 (>45); GLUCOSE, FASTING 243 MG/DL (70-100); HDL CHOLESTEROL 33 MG/DL (>40); NON-HDL-C 143 MG/DL; POTASSIUM SERUM 4.1 MEQ/L (3.5-5.1); SODIUM LEVEL 137 MEQ/L (136-145); TOTAL PROTEIN 7.2 GM/DL (6.4-8.2); TRIGLYCERIDES LEVEL 624 MG/DL (<150)
[2020-11-09 17:34] LABS: HEMOGLOBIN A1c 9.7 %
== END ==
LOC: M WUC 14:40
PROVIDERS: ATTEND Family Medicine Addiction Medicine
DX: E11.69 Type 2 diabetes mellitus with other specified complication (principal); I48.21 Permanent atrial fibrillation; I11.9 Hypertensive heart disease without heart failure; E78.2 Mixed hyperlipidemia; I25.10 Atherosclerotic heart disease of native coronary artery without angina pectoris

== ENCOUNTER → 2020-11-09 | Outpatient (CLI) | payer MEDICARE ==
[2020-11-09 16:30] LABS: HEMATOCRIT 45.2 % (36.0-47.0); HEMOGLOBIN 15.5 g/dl (12.0-15.5); MEAN CORPUSCULAR HEMOGLOBIN 30.3 pg (27.0-33.0); MEAN CORPUSCULAR HGB CONC 34.3 g/dl (32.0-36.5); MEAN CORPUSCULAR VOLUME 88.3 fl (80.0-96.0); PLATELET COUNT, AUTOMATED 324 10^3/uL (150-450); RED BLOOD COUNT 5.12 10^6/uL (4.00-5.40); WHITE BLOOD COUNT 12.4 10^3/uL (4.0-10.0)
[2020-11-09 16:43] LABS: ALBUMIN 3.7 GM/DL (3.2-5.2); ALT/SGPT 20 U/L (12-78); BILIRUBIN,TOTAL 0.3 MG/DL (0.2-1.0); BLOOD UREA NITROGEN 16 MG/DL (7-18); CALCIUM LEVEL 10.7 MG/DL (8.8-10.2); CARBON DIOXIDE LEVEL 24 MEQ/L (21-32); CHLORIDE LEVEL 103 MEQ/L (98-107); CHOLESTEROL LEVEL 182 MG/DL (<200); CHOLESTEROL RISK RATIO 5.352 (<5); CREATININE FOR GFR 1.09 MG/DL (0.55-1.30); GLOMERULAR FILTRATION RATE 53.6 (>45); GLUCOSE, FASTING 255 MG/DL (70-100); HDL CHOLESTEROL 34 MG/DL (>40); MAGNESIUM LEVEL 1.5 MG/DL (1.8-2.4); NON-HDL-C 148 MG/DL; SODIUM LEVEL 136 MEQ/L (136-145); TRIGLYCERIDES LEVEL 642 MG/DL (<150)
== END ==
LOC: M WUC 14:44
PROVIDERS: ATTEND Physician Assistant
DX: I48.21 Permanent atrial fibrillation (principal); I11.9 Hypertensive heart disease without heart failure; E78.2 Mixed hyperlipidemia; I25.10 Atherosclerotic heart disease of native coronary artery without angina pectoris

== ENCOUNTER 2021-10-01 07:34 | Inpatient (IN) | payer MEDICARE ==
[~2021-10-01] VITALS: Ht 177.8 cm; Wt 121.2 kg
[~2021-10-01 07:34] MED LIST changes: -CITA40TA4 PO; +CITA40TA7 PO; +DOXY-443 PO; -DOXY100C PO; +DOXY100C3 PO; -DOXY1CAP62 PO; -FENO200C PO; +FENO200C19 PO; -FENO48TA7 PO; +FENO48TA8 PO; +LOSA100T45 PO; -LOSA100T50 PO; +LOSA50TA28 PO; -LOSA50TA88 PO
[2021-10-01] MEDS ORDERED: ACETAMINOPHEN TAB 650MG DOSE (2X325MG) PO ONE (08:05)
[2021-10-01 08:13] LABS: BASO # 0.1 10^3/uL (0.0-0.2); BASO % 0.4 % (0.0-1.0); EOS % 0.2 % (0.0-3.0); HEMATOCRIT 37.4 % (36.0-47.0); HEMOGLOBIN 12.8 g/dl (12.0-15.5); LYMPH # 0.4 10^3/uL (1.5-5.0); LYMPH % 3.5 % (24.0-44.0); MEAN CORPUSCULAR HEMOGLOBIN 30.8 pg (27.0-33.0); MEAN CORPUSCULAR HGB CONC 34.2 g/dl (32.0-36.5); MEAN CORPUSCULAR VOLUME 90.1 fl (80.0-96.0); MONO # 0.5 10^3/uL (0.0-0.8); MONO % 4.3 % (2.0-8.0); NEUTROPHILS # 11.5 10^3/uL (1.5-8.5); PLATELET COUNT, AUTOMATED 302 10^3/uL (150-450); RED BLOOD COUNT 4.15 10^6/uL (4.00-5.40); WHITE BLOOD COUNT 12.7 10^3/uL (4.0-10.0)
[2021-10-01 08:49] LABS: RSV AMPLIFICATION NEGATIVE (NEGATIVE)
[2021-10-01 08:51] LABS: C REACTIVE PROTEIN QUANTITATIV 8.18 MG/DL (0.00-0.30); CALCIUM LEVEL 10.6 MG/DL (8.8-10.2); CREATININE FOR GFR 1.23 MG/DL (0.55-1.30); GLOMERULAR FILTRATION RATE 46.5 (>45); POTASSIUM SERUM 4.8 MEQ/L (3.5-5.1)
[2021-10-01 09:01] LABS: ERYTHROCYTE SEDIMENTATION RATE 63 mm/hr (0-30)
[2021-10-01] MEDS ORDERED: ACET-910 PO (09:58)
[2021-10-01] MEDS ORDERED: FENO145T7 PO (09:58)
[2021-10-01] MEDS ORDERED: TORS10TA3 PO (09:58)
[2021-10-01] MEDS ORDERED: IBUP-1720 PO (09:58)
[2021-10-01] MEDS ORDERED: VERA240T64 PO (09:58)
[2021-10-01] MEDS ORDERED: HOME MED LIST COMPLETE! XX SCH (10:00)
[2021-10-01] MEDS ORDERED: DEXTROSE 50% 50 ML SYRINGE IV PRN (10:10)
[2021-10-01] MEDS ORDERED: GLUCOSE 4GM CHEW TABLET PO PRN (10:10)
[2021-10-01] MEDS ORDERED: GLUCAGON INJ 1MG VIAL SC PRN (10:10)
[2021-10-01 10:30] LABS: INR 1.26; PROTHROMBIN TIME 16.2 SECONDS (12.7-14.5)
[2021-10-01 10:31] LABS: PARTIAL THROMBOPLASTIN TIME 33.7 SECONDS (25.9-37.0)
[2021-10-01] MEDS ORDERED: ACETAMINOPHEN 325 MG TAB PO PRN (10:35)
[2021-10-01] MEDS ORDERED: ALBUTEROL 90 MCG/ACT 8GM HFA INHALER INH PRN (10:35)
[2021-10-01] MEDS ORDERED: NS 1,000 ML IV ONE (10:40)
[2021-10-01] MEDS ORDERED: IPRATROPIUM 0.5MG/ALBUTEROL 2.5MG INH SOL UD 3ML (DUONEB) NEB PRN (10:45)
[2021-10-01 11:23] VITALS: BP 115/59
[2021-10-01 12:00] VITALS: BP 130/77
[2021-10-01] MEDS: INSULIN LISPRO (NovoLOG) PER UNIT SC SCH ×2 (12:00→18:47)
[2021-10-01] MEDS: PIPERACILLIN/TAZOBACTAM SOD 4.5 GM in D5W MINI-BAG PLUS 50 ML IV SCH ×2 (12:49→17:35)
[2021-10-01] MEDS: VANCOMYCIN HCL 1,000 MG, VIAL MATE ADAPTER 1 EACH in NS 250 ML IV SCH ×3 (13:00→23:58)
[2021-10-01] MEDS: SANTYL OINT 30GM TOP SCH (14:42)
[2021-10-01 16:00] VITALS: BP 136/71
[2021-10-01] MEDS ORDERED: VANCOMYCIN HCL 1,000 MG, VIAL MATE ADAPTER 1 EACH in NS 250 ML IV SCH (17:30)
[2021-10-01] MEDS ORDERED: NS 500 ML IV ONE (17:50)
[2021-10-01] MEDS ORDERED: PERCOCET 5MG/325MG TAB PO PRN (19:45)
[2021-10-01 20:00] VITALS: BP 128/59
[2021-10-01] MEDS: PERCOCET 5MG/325MG TAB PO PRN (20:45)
[2021-10-01] MEDS: NS 1,000 ML IV SCH (21:25)
[2021-10-01] MEDS: AMITRIPTYLINE 50 MG TAB PO SCH (21:25)
[2021-10-01] MEDS: APIXABAN 5 MG TAB (ELIQUIS) PO SCH (21:25)
[2021-10-01] MEDS: ATORVASTATIN 20 MG TAB PO SCH (21:25)
[2021-10-02] VITALS: BP 121/56
[2021-10-02] MEDS: INSULIN LISPRO (NovoLOG) PER UNIT SC SCH ×5 (00:06→20:15)
[2021-10-02] MEDS: PIPERACILLIN/TAZOBACTAM SOD 4.5 GM in D5W MINI-BAG PLUS 50 ML IV SCH ×5 (00:07→22:23)
[2021-10-02] MEDS: NS 1,000 ML IV SCH (02:40)
[2021-10-02 04:00] VITALS: BP 111/59
[2021-10-02 05:42] LABS: BASO % 0.4 % (0.0-1.0); EOS # 0.1 10^3/uL (0.0-0.5); EOS % 1.4 % (0.0-3.0); HEMATOCRIT 32.8 % (36.0-47.0); HEMOGLOBIN 11.1 g/dl (12.0-15.5); LYMPH % 14.4 % (24.0-44.0); MEAN CORPUSCULAR HEMOGLOBIN 31.1 pg (27.0-33.0); MEAN CORPUSCULAR HGB CONC 33.8 g/dl (32.0-36.5); MEAN CORPUSCULAR VOLUME 91.9 fl (80.0-96.0); MONO # 0.6 10^3/uL (0.0-0.8); MONO % 8.7 % (2.0-8.0); NEUTROPHILS # 5.3 10^3/uL (1.5-8.5); NEUTROPHILS % 74.4 % (36.0-66.0); PLATELET COUNT, AUTOMATED 259 10^3/uL (150-450); RED BLOOD COUNT 3.57 10^6/uL (4.00-5.40); WHITE BLOOD COUNT 7.2 10^3/uL (4.0-10.0)
[2021-10-02 06:03] LABS: BLOOD UREA NITROGEN 16 MG/DL (7-18); CALCIUM LEVEL 9.4 MG/DL (8.8-10.2); CARBON DIOXIDE LEVEL 24 MEQ/L (21-32); CHLORIDE LEVEL 108 MEQ/L (98-107); CREATININE FOR GFR 0.88 MG/DL (0.55-1.30); GLOMERULAR FILTRATION RATE > 60.0 (>45); GLUCOSE, FASTING 138 MG/DL (70-100); MAGNESIUM LEVEL 1.2 MG/DL (1.8-2.4); POTASSIUM SERUM 4.3 MEQ/L (3.5-5.1); SODIUM LEVEL 134 MEQ/L (136-145)
[2021-10-02] MEDS: TIOTROPIUM INHALER/CAPSULE (SPIRIVA) INH SCH (07:45)
[2021-10-02 08:30] VITALS: BP 119/58
[2021-10-02] MEDS: VERAPAMIL 120MG SR TAB PO SCH (08:35)
[2021-10-02] MEDS: SPIRONOLACTONE 25 MG TAB PO SCH (08:35)
[2021-10-02] MEDS: APIXABAN 5 MG TAB (ELIQUIS) PO SCH ×2 (08:35→20:18)
[2021-10-02] MEDS: FENOFIBRATE 145MG TABLET (TRICOR) PO SCH (08:35)
[2021-10-02] MEDS: DIGOXIN 0.125 MG TAB PO SCH (08:36)
[2021-10-02] MEDS: CitaloPRAM (CeleXA) 20 MG TAB PO SCH (08:36)
[2021-10-02] MEDS: SANTYL OINT 30GM TOP SCH (08:37)
[2021-10-02] MEDS: VANCOMYCIN HCL 1,000 MG, VIAL MATE ADAPTER 1 EACH in NS 250 ML IV SCH ×2 (08:37→21:13)
[2021-10-02] MEDS ORDERED: MAG SULF 1GM/100ML (MAG RUN) 1 GM in IV 1 EA IV ONE (09:15)
[2021-10-02] MEDS ORDERED: LIDOCAINE 1% MDV 20ML VIAL As Ordered ONE (11:13)
[2021-10-02 13:00] VITALS: BP 126/57
[2021-10-02 17:14] VITALS: BP 130/73
[2021-10-02] MEDS: NYSTATIN 100,000 UNITS/GM TOPICAL PWD 15 GM TOP SCH (18:00)
[2021-10-02] MEDS: SODIUM CHLORIDE 0.9% INJ 10 ML SYR IV SCH (18:03)
[2021-10-02] MEDS: ATORVASTATIN 20 MG TAB PO SCH (20:18)
[2021-10-02] MEDS: AMITRIPTYLINE 50 MG TAB PO SCH (20:18)
[2021-10-02 21:43] VITALS: BP 139/67
[2021-10-02] MEDS: PERCOCET 5MG/325MG TAB PO PRN (22:57)
[2021-10-03 04:00] VITALS: BP 125/64
[2021-10-03] MEDS: PIPERACILLIN/TAZOBACTAM SOD 4.5 GM in D5W MINI-BAG PLUS 50 ML IV SCH ×4 (04:53→22:47)
[2021-10-03 05:22] LABS: BASO # 0.1 10^3/uL (0.0-0.2); BASO % 0.5 % (0.0-1.0); EOS # 0.1 10^3/uL (0.0-0.5); HEMATOCRIT 33.7 % (36.0-47.0); HEMOGLOBIN 11.2 g/dl (12.0-15.5); LYMPH # 1.7 10^3/uL (1.5-5.0); LYMPH % 14.7 % (24.0-44.0); MEAN CORPUSCULAR HEMOGLOBIN 29.6 pg (27.0-33.0); MEAN CORPUSCULAR HGB CONC 33.2 g/dl (32.0-36.5); MEAN CORPUSCULAR VOLUME 89.2 fl (80.0-96.0); MONO # 1.2 10^3/uL (0.0-0.8); MONO % 9.8 % (2.0-8.0); NEUTROPHILS # 8.7 10^3/uL (1.5-8.5); NEUTROPHILS % 73.4 % (36.0-66.0); PLATELET COUNT, AUTOMATED 250 10^3/uL (150-450); RED BLOOD COUNT 3.78 10^6/uL (4.00-5.40); WHITE BLOOD COUNT 11.9 10^3/uL (4.0-10.0)
[2021-10-03 05:39] LABS: BLOOD UREA NITROGEN 12 MG/DL (7-18); CALCIUM LEVEL 9.6 MG/DL (8.8-10.2); CARBON DIOXIDE LEVEL 20 MEQ/L (21-32); CHLORIDE LEVEL 108 MEQ/L (98-107); CREATININE FOR GFR 0.94 MG/DL (0.55-1.30); GLOMERULAR FILTRATION RATE > 60.0 (>45); GLUCOSE, FASTING 212 MG/DL (70-100); SODIUM LEVEL 132 MEQ/L (136-145)
[2021-10-03] MEDS: SODIUM CHLORIDE 0.9% INJ 10 ML SYR IV SCH ×2 (05:58→17:36)
[2021-10-03] MEDS: TIOTROPIUM INHALER/CAPSULE (SPIRIVA) INH SCH (08:18)
[2021-10-03 08:24] VITALS: BP 126/64
[2021-10-03] MEDS: NYSTATIN 100,000 UNITS/GM TOPICAL PWD 15 GM TOP SCH (08:35)
[2021-10-03] MEDS: INSULIN LISPRO (NovoLOG) PER UNIT SC SCH ×4 (08:35→21:36)
[2021-10-03] MEDS: SPIRONOLACTONE 25 MG TAB PO SCH (08:36)
[2021-10-03] MEDS: VERAPAMIL 120MG SR TAB PO SCH (08:36)
[2021-10-03] MEDS: APIXABAN 5 MG TAB (ELIQUIS) PO SCH ×2 (08:36→21:05)
[2021-10-03] MEDS: FENOFIBRATE 145MG TABLET (TRICOR) PO SCH (08:36)
[2021-10-03] MEDS: CitaloPRAM (CeleXA) 20 MG TAB PO SCH (08:36)
[2021-10-03] MEDS: DIGOXIN 0.125 MG TAB PO SCH (08:37)
[2021-10-03] MEDS ORDERED: NYSTATIN 100,000 UNITS/GM TOPICAL PWD 15 GM TOP SCH (09:00)
[2021-10-03] MEDS: SANTYL OINT 30GM TOP SCH (10:09)
[2021-10-03] MEDS: VANCOMYCIN HCL 1,000 MG, VIAL MATE ADAPTER 1 EACH in NS 250 ML IV SCH ×2 (10:15→21:30)
[2021-10-03 12:00] VITALS: BP 124/64
[2021-10-03 14:55] VITALS: BP 102/61
[2021-10-03 15:56] LABS: HEMOGLOBIN A1c 8.7 %
[2021-10-03 15:59] VITALS: BP 104/60
[2021-10-03 17:49] LABS: C REACTIVE PROTEIN QUANTITATIV 9.66 MG/DL (0.00-0.30)
[2021-10-03] MEDS: AMITRIPTYLINE 50 MG TAB PO SCH (21:05)
[2021-10-03] MEDS: ATORVASTATIN 20 MG TAB PO SCH (21:05)
[2021-10-03] MEDS: LEVEMIR (INSULIN DETEMIR) 1 UNITS/0.01ML SC SCH (21:36)
[2021-10-03 22:00] VITALS: BP 108/60
[2021-10-04 02:00] VITALS: BP 144/70
[2021-10-04] MEDS: PIPERACILLIN/TAZOBACTAM SOD 4.5 GM in D5W MINI-BAG PLUS 50 ML IV SCH ×4 (05:01→23:52)
[2021-10-04 06:00] VITALS: BP 147/71
[2021-10-04 06:02] LABS: BASO # 0.1 10^3/uL (0.0-0.2); BASO % 0.5 % (0.0-1.0); EOS # 0.1 10^3/uL (0.0-0.5); EOS % 1.2 % (0.0-3.0); HEMATOCRIT 28.5 % (36.0-47.0); HEMOGLOBIN 9.9 g/dl (12.0-15.5); LYMPH % 18.8 % (24.0-44.0); MEAN CORPUSCULAR HGB CONC 34.7 g/dl (32.0-36.5); MEAN CORPUSCULAR VOLUME 89.3 fl (80.0-96.0); MONO # 0.9 10^3/uL (0.0-0.8); MONO % 8.5 % (2.0-8.0); NEUTROPHILS # 7.6 10^3/uL (1.5-8.5); NEUTROPHILS % 70.2 % (36.0-66.0); PLATELET COUNT, AUTOMATED 274 10^3/uL (150-450); RED BLOOD COUNT 3.19 10^6/uL (4.00-5.40); WHITE BLOOD COUNT 10.8 10^3/uL (4.0-10.0)
[2021-10-04 06:26] LABS: BLOOD UREA NITROGEN 14 MG/DL (7-18); CALCIUM LEVEL 10.7 MG/DL (8.8-10.2); CARBON DIOXIDE LEVEL 21 MEQ/L (21-32); CHLORIDE LEVEL 107 MEQ/L (98-107); GLOMERULAR FILTRATION RATE > 60.0 (>45); GLUCOSE, FASTING 231 MG/DL (70-100); POTASSIUM SERUM 4.3 MEQ/L (3.5-5.1); SODIUM LEVEL 135 MEQ/L (136-145)
[2021-10-04] MEDS: SODIUM CHLORIDE 0.9% INJ 10 ML SYR IV SCH ×2 (06:37→17:39)
[2021-10-04] MEDS: TIOTROPIUM INHALER/CAPSULE (SPIRIVA) INH SCH (07:15)
[2021-10-04] MEDS: DIGOXIN 0.125 MG TAB PO SCH (08:17)
[2021-10-04] MEDS: INSULIN LISPRO (NovoLOG) PER UNIT SC SCH ×4 (08:17→20:55)
[2021-10-04] MEDS: APIXABAN 5 MG TAB (ELIQUIS) PO SCH ×2 (08:17→21:01)
[2021-10-04] MEDS: CitaloPRAM (CeleXA) 20 MG TAB PO SCH (08:17)
[2021-10-04] MEDS: SPIRONOLACTONE 25 MG TAB PO SCH (08:18)
[2021-10-04] MEDS: FENOFIBRATE 145MG TABLET (TRICOR) PO SCH (08:18)
[2021-10-04] MEDS: VERAPAMIL 120MG SR TAB PO SCH (08:20)
[2021-10-04] MEDS: NYSTATIN 100,000 UNITS/GM TOPICAL PWD 15 GM TOP SCH ×2 (08:27→09:00)
[2021-10-04] MEDS: SANTYL OINT 30GM TOP SCH (08:27)
[2021-10-04] MEDS ORDERED: SALIVA SUBSTITUTE(MOUTHKOTE) BTL MT PRN (08:30)
[2021-10-04 09:17] LABS: HEMATOCRIT 30.5 % (36.0-47.0); HEMOGLOBIN 10.4 g/dl (12.0-15.5)
[2021-10-04 10:00] VITALS: BP 141/73
[2021-10-04] MEDS: VANCOMYCIN HCL 1,000 MG, VIAL MATE ADAPTER 1 EACH in NS 250 ML IV SCH ×2 (10:58→22:39)
[2021-10-04] MEDS: SODIUM CHLORIDE 0.9% INJ 10 ML SYR IV PRN (13:04)
[2021-10-04] MEDS ORDERED: MOM 30ML SUSPENSION UDC PO ONE (13:55)
[2021-10-04 14:00] VITALS: BP 117/63
[2021-10-04] MEDS: PERCOCET 5MG/325MG TAB PO PRN (17:49)
[2021-10-04] MEDS: AMITRIPTYLINE 50 MG TAB PO SCH (21:01)
[2021-10-04] MEDS: ATORVASTATIN 20 MG TAB PO SCH (21:01)
[2021-10-04] MEDS: LEVEMIR (INSULIN DETEMIR) 1 UNITS/0.01ML SC SCH (21:01)
[2021-10-04 22:00] VITALS: BP 111/55
[2021-10-05] MEDS: PIPERACILLIN/TAZOBACTAM SOD 4.5 GM in D5W MINI-BAG PLUS 50 ML IV SCH ×2 (05:25→11:38)
[2021-10-05] MEDS: SODIUM CHLORIDE 0.9% INJ 10 ML SYR IV SCH (05:26)
[2021-10-05 06:00] VITALS: BP 113/62
[2021-10-05 06:06] LABS: BASO # 0.1 10^3/uL (0.0-0.2); BASO % 0.8 % (0.0-1.0); EOS # 0.3 10^3/uL (0.0-0.5); HEMATOCRIT 29.2 % (36.0-47.0); HEMOGLOBIN 9.6 g/dl (12.0-15.5); LYMPH # 2.9 10^3/uL (1.5-5.0); LYMPH % 30.1 % (24.0-44.0); MEAN CORPUSCULAR HEMOGLOBIN 29.9 pg (27.0-33.0); MEAN CORPUSCULAR HGB CONC 32.9 g/dl (32.0-36.5); MONO # 0.8 10^3/uL (0.0-0.8); MONO % 8.3 % (2.0-8.0); NEUTROPHILS # 5.4 10^3/uL (1.5-8.5); NEUTROPHILS % 56.3 % (36.0-66.0); PLATELET COUNT, AUTOMATED 296 10^3/uL (150-450); RED BLOOD COUNT 3.21 10^6/uL (4.00-5.40); WHITE BLOOD COUNT 9.6 10^3/uL (4.0-10.0)
[2021-10-05 06:36] LABS: BLOOD UREA NITROGEN 15 MG/DL (7-18); CALCIUM LEVEL 10.7 MG/DL (8.8-10.2); CARBON DIOXIDE LEVEL 24 MEQ/L (21-32); CHLORIDE LEVEL 109 MEQ/L (98-107); CREATININE FOR GFR 0.94 MG/DL (0.55-1.30); GLOMERULAR FILTRATION RATE > 60.0 (>45); GLUCOSE, FASTING 180 MG/DL (70-100); POTASSIUM SERUM 4.8 MEQ/L (3.5-5.1); SODIUM LEVEL 139 MEQ/L (136-145)
[2021-10-05] MEDS: TIOTROPIUM INHALER/CAPSULE (SPIRIVA) INH SCH (07:48)
[2021-10-05 08:10] VITALS: BP 130/73
[2021-10-05] MEDS: FENOFIBRATE 145MG TABLET (TRICOR) PO SCH (08:10)
[2021-10-05] MEDS: CitaloPRAM (CeleXA) 20 MG TAB PO SCH (08:10)
[2021-10-05] MEDS: INSULIN LISPRO (NovoLOG) PER UNIT SC SCH ×2 (08:10→12:35)
[2021-10-05] MEDS: VERAPAMIL 120MG SR TAB PO SCH (08:10)
[2021-10-05] MEDS: APIXABAN 5 MG TAB (ELIQUIS) PO SCH (08:10)
[2021-10-05] MEDS: NYSTATIN 100,000 UNITS/GM TOPICAL PWD 15 GM TOP SCH (08:11)
[2021-10-05] MEDS: SANTYL OINT 30GM TOP SCH (08:11)
[2021-10-05] MEDS: DIGOXIN 0.125 MG TAB PO SCH (08:11)
[2021-10-05] MEDS: SPIRONOLACTONE 25 MG TAB PO SCH (08:13)
[2021-10-05] MEDS: PERCOCET 5MG/325MG TAB PO PRN (08:14)
[2021-10-05] MEDS ORDERED: ZOSY1SOL6 IV (10:17)
[2021-10-05] MEDS: SODIUM CHLORIDE 0.9% INJ 10 ML SYR IV PRN (11:38)
== END 2021-10-05 14:59 | DRG 854 ==
LOC: M ED 07:34 → EDBD 07:34 → M ED INP 10:01 → ENRESERV 10:22 → M PCU 10:56 → M MSPAV 10-03 14:28
PROVIDERS: ADMIT Family Medicine; ATTEND Internal Medicine
PROC: 0LBW0ZZ Excision of Left Foot Tendon, Open Approach (ICD-10-PCS; principal; 2021-10-01)
PROC: 02HV33Z Insertion of Infusion Device into Superior Vena Cava, Percutaneous Approach (ICD-10-PCS; 2021-10-02)
PROC: 0QBM0ZZ Excision of Left Tarsal, Open Approach (ICD-10-PCS; 2021-10-03)
DX: A41.9 Sepsis, unspecified organism (principal); J96.10 Chronic respiratory failure, unspecified whether with hypoxia or hypercapnia; M86.172 Other acute osteomyelitis, left ankle and foot; R65.20 Severe sepsis without septic shock; E11.40 Type 2 diabetes mellitus with diabetic neuropathy, unspecified; I48.91 Unspecified atrial fibrillation; I10 Essential (primary) hypertension; M06.00 Rheumatoid arthritis without rheumatoid factor, unspecified site; J44.9 Chronic obstructive pulmonary disease, unspecified; K21.9 Gastro-esophageal reflux disease without esophagitis; M45.9 Ankylosing spondylitis of unspecified sites in spine; M10.9 Gout, unspecified; F41.9 Anxiety disorder, unspecified; F32.A Depression, unspecified; F17.210 Nicotine dependence, cigarettes, uncomplicated; E66.01 Morbid (severe) obesity due to excess calories; E11.621 Type 2 diabetes mellitus with foot ulcer; L97.524 Non-pressure chronic ulcer of other part of left foot with necrosis of bone; E78.5 Hyperlipidemia, unspecified; N39.3 Stress incontinence (female) (male); B37.2 Candidiasis of skin and nail; E11.51 Type 2 diabetes mellitus with diabetic peripheral angiopathy without gangrene; B95.2 Enterococcus as the cause of diseases classified elsewhere; I70.202 Unspecified atherosclerosis of native arteries of extremities, left leg; Z99.81 Dependence on supplemental oxygen; Z96.643 Presence of artificial hip joint, bilateral; Z90.49 Acquired absence of other specified parts of digestive tract; Z79.01 Long term (current) use of anticoagulants; Z79.4 Long term (current) use of insulin; Z79.899 Other long term (current) drug therapy; Z88.8 Allergy status to other drugs, medicaments and biological substances; Z68.38 Body mass index [BMI] 38.0-38.9, adult

== ENCOUNTER 2022-06-29 12:22 | Inpatient (IN) | payer MEDICARE ==
[~2022-06-29] VITALS: Ht 177.8 cm; Wt 119.0 kg
[~2022-06-29 12:22] MED LIST changes: +ACET-910 PO; -FENO200C19 PO; +FENO200C24 PO; +IBUP-1720 PO; +TORS10TA3 PO; +VERA240T64 PO; +ZOSY1SOL6 IV
[2022-06-29] MEDS ORDERED: NS 1,000 ML IV ONE (12:40)
[2022-06-29] MEDS ORDERED: ONDANSETRON 4MG 2ML VIAL IV ONE (12:40)
[2022-06-29] MEDS: MORPHINE 2 MG/ML 1ML VIAL IV PRN ×2 (13:22→15:11)
[2022-06-29 13:35] LABS: BASO # 0.1 10^3/uL (0.0-0.2); BASO % 0.5 % (0.0-1.0); EOS # 0.1 10^3/uL (0.0-0.5); EOS % 0.5 % (0.0-3.0); HEMATOCRIT 40.5 % (36.0-47.0); LYMPH # 2.4 10^3/uL (1.5-5.0); LYMPH % 13.5 % (24.0-44.0); MEAN CORPUSCULAR HEMOGLOBIN 30.9 pg (27.0-33.0); MEAN CORPUSCULAR HGB CONC 34.6 g/dl (32.0-36.5); MEAN CORPUSCULAR VOLUME 89.4 fl (80.0-96.0); MONO % 5.9 % (2.0-8.0); NEUTROPHILS % 79.1 % (36.0-66.0); PLATELET COUNT, AUTOMATED 312 10^3/uL (150-450); RED BLOOD COUNT 4.53 10^6/uL (4.00-5.40); WHITE BLOOD COUNT 17.7 10^3/uL (4.0-10.0)
[2022-06-29] MEDS ORDERED: ISOVUE-370 76% 100ML VIAL As Ordered ONE (13:35)
[2022-06-29 13:53] LABS: INR 1.51; PARTIAL THROMBOPLASTIN TIME 29.6 SECONDS (24.8-34.2); PROTHROMBIN TIME 18.5 SECONDS (12.5-14.5)
[2022-06-29] MEDS ORDERED: NS 2,000 ML in IV 1 EA IV ONE (14:05)
[2022-06-29] MEDS ORDERED: PIPERACILLIN/TAZOBACTAM SOD 4.5 GM in D5W MINI-BAG PLUS 50 ML IV ONE (14:05)
[2022-06-29 14:07] LABS: MB/CK RELATIVE INDEX 2.27 (< OR =4)
[2022-06-29 14:08] LABS: ALBUMIN 3.3 G/DL (3.2-5.2); BILIRUBIN,DIRECT 0.1 MG/DL (<0.4); BILIRUBIN,TOTAL 0.4 MG/DL (0.3-1.2); CALCIUM LEVEL 11.2 MG/DL (8.3-10.6); CREATININE FOR GFR 1.21 MG/DL (0.55-1.30); GLOMERULAR FILTRATION RATE 47.2 (>45); POTASSIUM SERUM 4.9 MMOL/L (3.5-5.1); TOTAL PROTEIN 6.3 G/DL (5.7-8.2)
[2022-06-29 14:10] LABS: RSV AMPLIFICATION NEGATIVE (NEGATIVE)
[2022-06-29] MEDS ORDERED: ONDANSETRON 4MG 2ML VIAL IV PRN (15:05)
[2022-06-29] MEDS ORDERED: LISI20TA33 PO (15:19)
[2022-06-29] MEDS ORDERED: HOME MED LIST COMPLETE! XX SCH (15:20)
[2022-06-29] MEDS: NS 1,000 ML IV SCH ×2 (16:32→19:35)
[2022-06-29] MEDS: PANTOPRAZOLE 40MG VIAL IV SCH (16:36)
[2022-06-29] MEDS: KETOROLAC 30 MG/ML 1ML VIAL IV PRN (18:52)
[2022-06-29] MEDS: PIPERACILLIN/TAZOBACTAM SOD 3.375 GM in D5W MINI-BAG PLUS 50 ML IV SCH (19:35)
[2022-06-29 22:00] VITALS: BP 119/56
[2022-06-29] MEDS ORDERED: ALBUTEROL 90 MCG/ACT 8GM HFA INHALER INH PRN (23:10)
[2022-06-29] MEDS ORDERED: DEXTROSE 50% 50ML SYRINGE IV PRN (23:10)
[2022-06-29] MEDS ORDERED: POLYVINYL ALCOHOL OPHTH SOLN 15ML (LIQUITEARS) OU PRN (23:10)
[2022-06-29] MEDS ORDERED: GLUCOSE 4GM CHEW TABLET PO PRN (23:10)
[2022-06-29] MEDS ORDERED: GLUCAGON INJ 1MG VIAL SC PRN (23:10)
[2022-06-29] MEDS: AMITRIPTYLINE 50 MG TAB PO SCH (23:52)
[2022-06-29] MEDS: ATORVASTATIN 20 MG TAB PO SCH (23:52)
[2022-06-29] MEDS: LEVEMIR (INSULIN DETEMIR) 1 UNITS/0.01ML SC SCH (23:52)
[2022-06-30] MEDS: PIPERACILLIN/TAZOBACTAM SOD 3.375 GM in D5W MINI-BAG PLUS 50 ML IV SCH ×4 (01:12→20:47)
[2022-06-30 05:59] LABS: BASO # 0.1 10^3/uL (0.0-0.2); BASO % 0.5 % (0.0-1.0); EOS # 0.3 10^3/uL (0.0-0.5); EOS % 2.1 % (0.0-3.0); HEMATOCRIT 35.2 % (36.0-47.0); LYMPH # 2.7 10^3/uL (1.5-5.0); LYMPH % 21.7 % (24.0-44.0); MEAN CORPUSCULAR HEMOGLOBIN 30.5 pg (27.0-33.0); MEAN CORPUSCULAR HGB CONC 33.2 g/dl (32.0-36.5); MEAN CORPUSCULAR VOLUME 91.9 fl (80.0-96.0); MONO # 0.8 10^3/uL (0.0-0.8); MONO % 6.1 % (2.0-8.0); NEUTROPHILS # 8.7 10^3/uL (1.5-8.5); NEUTROPHILS % 69.1 % (36.0-66.0); PLATELET COUNT, AUTOMATED 267 10^3/uL (150-450); RED BLOOD COUNT 3.83 10^6/uL (4.00-5.40); WHITE BLOOD COUNT 12.6 10^3/uL (4.0-10.0)
[2022-06-30 06:00] VITALS: BP 112/58
[2022-06-30 06:01] LABS: HEMOGLOBIN 11.7 g/dl (12.0-15.5)
[2022-06-30 06:19] LABS: C REACTIVE PROTEIN QUANTITATIV 2.8 MG/DL (<1.0)
[2022-06-30 06:21] LABS: CALCIUM LEVEL 9.5 MG/DL (8.3-10.6); CREATININE FOR GFR 1.17 MG/DL (0.55-1.30); GLOMERULAR FILTRATION RATE 49.1 (>45); POTASSIUM SERUM 4.8 MMOL/L (3.5-5.1)
[2022-06-30] MEDS: INSULIN LISPRO (NovoLOG) PER UNIT SC SCH ×4 (07:49→20:48)
[2022-06-30] MEDS: VERAPAMIL 120MG SR TAB PO SCH (09:00)
[2022-06-30] MEDS: SODIUM CHLORIDE NASAL 0.65% SPRAY BTL (OCEAN) SCH (09:03)
[2022-06-30] MEDS: CitaloPRAM (CeleXA) 20 MG TAB PO SCH (09:04)
[2022-06-30] MEDS: DIGOXIN 0.125 MG TAB PO SCH (09:05)
[2022-06-30] MEDS: FENOFIBRATE 145MG TABLET (TRICOR) PO SCH (09:06)
[2022-06-30 09:09] VITALS: BP 98/50
[2022-06-30 15:13] VITALS: BP 119/64
[2022-06-30] MEDS: KETOROLAC 30 MG/ML 1ML VIAL IV PRN (15:20)
[2022-06-30] MEDS: PANTOPRAZOLE 40MG VIAL IV SCH (15:20)
[2022-06-30] MEDS: NS 1,000 ML IV SCH (18:20)
[2022-06-30] MEDS: ATORVASTATIN 20 MG TAB PO SCH (20:48)
[2022-06-30] MEDS: AMITRIPTYLINE 50 MG TAB PO SCH (20:48)
[2022-06-30] MEDS: LEVEMIR (INSULIN DETEMIR) 1 UNITS/0.01ML SC SCH (20:50)
[2022-06-30 21:21] VITALS: BP 117/69
[2022-07-01] MEDS: NS 1,000 ML IV SCH (03:25)
[2022-07-01] MEDS: PIPERACILLIN/TAZOBACTAM SOD 3.375 GM in D5W MINI-BAG PLUS 50 ML IV SCH ×4 (03:25→21:05)
[2022-07-01 05:46] VITALS: BP 116/72
[2022-07-01 06:21] LABS: BASO # 0.1 10^3/uL (0.0-0.2); BASO % 0.5 % (0.0-1.0); EOS # 0.3 10^3/uL (0.0-0.5); EOS % 2.5 % (0.0-3.0); HEMATOCRIT 35.5 % (36.0-47.0); HEMOGLOBIN 11.8 g/dl (12.0-15.5); LYMPH # 3.4 10^3/uL (1.5-5.0); LYMPH % 31.9 % (24.0-44.0); MEAN CORPUSCULAR HEMOGLOBIN 30.9 pg (27.0-33.0); MEAN CORPUSCULAR HGB CONC 33.2 g/dl (32.0-36.5); MEAN CORPUSCULAR VOLUME 92.9 fl (80.0-96.0); MONO # 0.6 10^3/uL (0.0-0.8); NEUTROPHILS # 6.2 10^3/uL (1.5-8.5); NEUTROPHILS % 58.6 % (36.0-66.0); PLATELET COUNT, AUTOMATED 260 10^3/uL (150-450); RED BLOOD COUNT 3.82 10^6/uL (4.00-5.40); WHITE BLOOD COUNT 10.6 10^3/uL (4.0-10.0)
[2022-07-01 06:46] LABS: CALCIUM LEVEL 9.6 MG/DL (8.3-10.6); CREATININE FOR GFR 1.05 MG/DL (0.55-1.30); GLOMERULAR FILTRATION RATE 55.7 (>45); POTASSIUM SERUM 4.6 MMOL/L (3.5-5.1)
[2022-07-01] MEDS: INSULIN LISPRO (NovoLOG) PER UNIT SC SCH ×4 (07:30→21:00)
[2022-07-01] MEDS: FENOFIBRATE 145MG TABLET (TRICOR) PO SCH (10:32)
[2022-07-01] MEDS: CitaloPRAM (CeleXA) 20 MG TAB PO SCH (10:32)
[2022-07-01] MEDS: VERAPAMIL 120MG SR TAB PO SCH (10:33)
[2022-07-01] MEDS: DIGOXIN 0.125 MG TAB PO SCH (10:34)
[2022-07-01] MEDS: SODIUM CHLORIDE NASAL 0.65% SPRAY BTL (OCEAN) SCH (10:34)
[2022-07-01 14:00] VITALS: BP 121/69
[2022-07-01] MEDS: PANTOPRAZOLE 40MG VIAL IV SCH (16:51)
[2022-07-01] MEDS: KETOROLAC 30 MG/ML 1ML VIAL IV PRN (16:52)
[2022-07-01 20:28] VITALS: BP 125/72
[2022-07-01] MEDS ORDERED: SIMETHICONE 80MG CHEW TAB PO ONE (20:45)
[2022-07-01] MEDS ORDERED: LEVEMIR (INSULIN DETEMIR) 1 UNITS/0.01ML SC SCH (21:00)
[2022-07-01] MEDS: ATORVASTATIN 20 MG TAB PO SCH (21:04)
[2022-07-01] MEDS: AMITRIPTYLINE 50 MG TAB PO SCH (21:04)
[2022-07-01] MEDS: CLOTRIMAZOLE 1% TOPICAL CREAM 30GM TOP SCH (21:06)
[2022-07-02] MEDS: PIPERACILLIN/TAZOBACTAM SOD 3.375 GM in D5W MINI-BAG PLUS 50 ML IV SCH ×2 (02:35→08:43)
[2022-07-02 06:06] VITALS: BP 146/74
[2022-07-02 06:27] LABS: BASO # 0.1 10^3/uL (0.0-0.2); BASO % 0.7 % (0.0-1.0); EOS # 0.2 10^3/uL (0.0-0.5); EOS % 2.4 % (0.0-3.0); HEMATOCRIT 34.7 % (36.0-47.0); HEMOGLOBIN 11.9 g/dl (12.0-15.5); LYMPH # 2.6 10^3/uL (1.5-5.0); LYMPH % 26.5 % (24.0-44.0); MEAN CORPUSCULAR HEMOGLOBIN 30.6 pg (27.0-33.0); MEAN CORPUSCULAR HGB CONC 34.3 g/dl (32.0-36.5); MEAN CORPUSCULAR VOLUME 89.2 fl (80.0-96.0); MONO # 0.6 10^3/uL (0.0-0.8); MONO % 6.2 % (2.0-8.0); NEUTROPHILS # 6.2 10^3/uL (1.5-8.5); NEUTROPHILS % 63.7 % (36.0-66.0); PLATELET COUNT, AUTOMATED 267 10^3/uL (150-450); RED BLOOD COUNT 3.89 10^6/uL (4.00-5.40); WHITE BLOOD COUNT 9.7 10^3/uL (4.0-10.0)
[2022-07-02 07:17] LABS: BLOOD UREA NITROGEN 14 MG/DL (9-23); CALCIUM LEVEL 9.9 MG/DL (8.3-10.6); CARBON DIOXIDE LEVEL 23 MMOL/L (20-31); CHLORIDE LEVEL 107 MMOL/L (98-107); CREATININE FOR GFR 0.97 MG/DL (0.55-1.30); GLOMERULAR FILTRATION RATE > 60.0 (>45); GLUCOSE, FASTING 135 MG/DL (74-106); POTASSIUM SERUM 4.7 MMOL/L (3.5-5.1); SODIUM LEVEL 136 MMOL/L (136-145)
[2022-07-02 08:00] VITALS: BP 136/71
[2022-07-02 08:41] VITALS: BP 136/54
[2022-07-02] MEDS: KETOROLAC 30 MG/ML 1ML VIAL IV PRN (08:41)
[2022-07-02] MEDS: FENOFIBRATE 145MG TABLET (TRICOR) PO SCH (08:41)
[2022-07-02] MEDS: CitaloPRAM (CeleXA) 20 MG TAB PO SCH (08:41)
[2022-07-02] MEDS: INSULIN LISPRO (NovoLOG) PER UNIT SC SCH ×2 (08:42→12:35)
[2022-07-02] MEDS: CLOTRIMAZOLE 1% TOPICAL CREAM 30GM TOP SCH (08:42)
[2022-07-02] MEDS: SODIUM CHLORIDE NASAL 0.65% SPRAY BTL (OCEAN) SCH (08:42)
[2022-07-02] MEDS: VERAPAMIL 120MG SR TAB PO SCH (08:44)
[2022-07-02] MEDS: DIGOXIN 0.125 MG TAB PO SCH ×2 (08:44→08:52)
[2022-07-02] MEDS ORDERED: CIPR750T2 PO ×2 (11:18→11:28)
[2022-07-02] MEDS ORDERED: CLOTR1CR TOP (11:18)
[2022-07-02] MEDS ORDERED: PANT40TA29 PO (11:18)
[2022-07-02] MEDS ORDERED: METR-265 PO (11:28)
== END 2022-07-02 15:10 | disposition home or self-care (01) | DRG 392 ==
LOC: EDBD 12:22 → M ED 12:22 → ENRESERV 15:18 → M ED INP 16:05 → M MS5PR 16:55
PROVIDERS: ADMIT Internal Medicine Nephrology; ATTEND Family Medicine
DX: A09 Infectious gastroenteritis and colitis, unspecified (principal); J96.10 Chronic respiratory failure, unspecified whether with hypoxia or hypercapnia; E87.20 Acidosis, unspecified; K92.2 Gastrointestinal hemorrhage, unspecified; K57.92 Diverticulitis of intestine, part unspecified, without perforation or abscess without bleeding; K55.9 Vascular disorder of intestine, unspecified; E86.0 Dehydration; M06.00 Rheumatoid arthritis without rheumatoid factor, unspecified site; M79.7 Fibromyalgia; M19.90 Unspecified osteoarthritis, unspecified site; M75.31 Calcific tendinitis of right shoulder; E11.40 Type 2 diabetes mellitus with diabetic neuropathy, unspecified; I48.91 Unspecified atrial fibrillation; I10 Essential (primary) hypertension; E78.5 Hyperlipidemia, unspecified; I25.10 Atherosclerotic heart disease of native coronary artery without angina pectoris; J44.9 Chronic obstructive pulmonary disease, unspecified; G47.33 Obstructive sleep apnea (adult) (pediatric); G20 Parkinson's disease; E11.51 Type 2 diabetes mellitus with diabetic peripheral angiopathy without gangrene; E83.52 Hypercalcemia; F17.200 Nicotine dependence, unspecified, uncomplicated; M10.9 Gout, unspecified; M45.9 Ankylosing spondylitis of unspecified sites in spine; B37.2 Candidiasis of skin and nail; K21.9 Gastro-esophageal reflux disease without esophagitis; N39.3 Stress incontinence (female) (male); Z86.718 Personal history of other venous thrombosis and embolism; Z96.643 Presence of artificial hip joint, bilateral; Z90.49 Acquired absence of other specified parts of digestive tract; Z79.01 Long term (current) use of anticoagulants; Z79.4 Long term (current) use of insulin; Z79.899 Other long term (current) drug therapy; Z88.8 Allergy status to other drugs, medicaments and biological substances

== ENCOUNTER 2022-09-30 21:46 | Inpatient (IN) | payer MEDICARE ==
[~2022-09-30] VITALS: Ht 177.8 cm; Wt 103.0 kg
[~2022-09-30 21:46] MED LIST changes: +ARTIDRO4 OU; +CIPR750T2 PO; +CLOTR1CR TOP; +LISI20TA33 PO; -LOSA100T45 PO; +LOSA100T46 PO; +METR-265 PO; -NOVOINJ3 INJ; +NOVOINJ3 SC; +PANT40TA29 PO; -POLYOPD OU
[2022-09-30 22:33] LABS: BASO # 0.1 10^3/uL (0.0-0.2); BASO % 0.8 % (0.0-1.0); EOS # 0.2 10^3/uL (0.0-0.5); EOS % 1.3 % (0.0-3.0); LYMPH # 3.8 10^3/uL (1.5-5.0); LYMPH % 32.5 % (24.0-44.0); MEAN CORPUSCULAR HEMOGLOBIN 30.6 pg (27.0-33.0); MEAN CORPUSCULAR HGB CONC 36.1 g/dl (32.0-36.5); MEAN CORPUSCULAR VOLUME 84.7 fl (80.0-96.0); MONO # 0.5 10^3/uL (0.0-0.8); MONO % 4.5 % (2.0-8.0); NEUTROPHILS # 7.2 10^3/uL (1.5-8.5); NEUTROPHILS % 60.6 % (36.0-66.0); PLATELET COUNT, AUTOMATED 305 10^3/uL (150-450); RED BLOOD COUNT 4.25 10^6/uL (4.00-5.40); WHITE BLOOD COUNT 11.8 10^3/uL (4.0-10.0)
[2022-09-30 23:11] LABS: BLOOD UREA NITROGEN 16 MG/DL (9-23); CALCIUM LEVEL 10.5 MG/DL (8.3-10.6); CARBON DIOXIDE LEVEL 24 MMOL/L (20-31); CHLORIDE LEVEL 99 MMOL/L (98-107); CK-MB VALUE MASS < 1.0 NG/ML (<3.6); CPK CREATINE PHOSPHOKINASE 31 U/L (34-145); CREATININE FOR GFR 0.95 MG/DL (0.55-1.30); GLOMERULAR FILTRATION RATE > 60.0 (>45); GLUCOSE, FASTING 174 MG/DL (74-106); MB/CK RELATIVE INDEX 3.22 (< OR =4); SODIUM LEVEL 128 MMOL/L (136-145)
[2022-09-30] MEDS ORDERED: ISOVUE-370 76% 100ML VIAL As Ordered ONE (23:55)
[2022-10-01 00:02] LABS: CK-MB VALUE MASS < 1.0 NG/ML (<3.6); DIGOXIN LEVEL 2.5 NG/ML (0.8-2.0)
[2022-10-01 00:03] LABS: CPK CREATINE PHOSPHOKINASE 35 U/L (34-145); MB/CK RELATIVE INDEX 2.85 (< OR =4)
[2022-10-01] MEDS ORDERED: SODIUM CHLORIDE 0.9% 1000ML IV ONE (02:51)
[2022-10-01] MEDS ORDERED: ACETAMINOPHEN TAB 650MG DOSE (2X325MG) PO PRN (04:45)
[2022-10-01] MEDS ORDERED: ULTRACET TAB PO PRN (04:45)
[2022-10-01] MEDS ORDERED: GLUCAGON INJ 1MG VIAL SC PRN (04:45)
[2022-10-01] MEDS ORDERED: ONDANSETRON 4MG ORAL DISINTEGRATING TAB PO PRN (04:45)
[2022-10-01] MEDS ORDERED: DEXTROSE 50% 50ML SYRINGE IV PRN (04:45)
[2022-10-01] MEDS ORDERED: GLUCOSE 4GM CHEW TABLET PO PRN (04:45)
[2022-10-01] MEDS ORDERED: PANT40TA29 PO (05:58)
[2022-10-01] MEDS ORDERED: HOME MED LIST COMPLETE! XX SCH (06:00)
[2022-10-01] MEDS: INSULIN LISPRO (NovoLOG) PER UNIT SC SCH ×3 (10:13→17:25)
[2022-10-01] MEDS: PANTOPRAZOLE 40MG TAB (PROTONIX) PO SCH (10:14)
[2022-10-01] MEDS: CitaloPRAM (CeleXA) 20 MG TAB PO SCH (10:14)
[2022-10-01] MEDS: APIXABAN 5 MG TAB (ELIQUIS) PO SCH ×2 (10:14→20:26)
[2022-10-01 11:24] VITALS: BP 104/51; TEMP 97.9; O2SAT 98
[2022-10-01 12:00] VITALS: BP 98/54; TEMP 97.9; O2SAT 97
[2022-10-01 13:50] VITALS: BP 117/63; TEMP 97; O2SAT 100
[2022-10-01 16:01] VITALS: BP 107/57; TEMP 97.3; O2SAT 99
[2022-10-01 20:00] VITALS: BP 122/60; TEMP 97.1; O2SAT 97
[2022-10-01] MEDS ORDERED: LEVEMIR (INSULIN DETEMIR) 1 UNITS/0.01ML SC SCH (21:00)
[2022-10-01] MEDS ORDERED: ATORVASTATIN 20 MG TAB PO SCH (21:00)
[2022-10-01] MEDS ORDERED: INSULIN LISPRO (NovoLOG) PER UNIT SC SCH (21:00)
[2022-10-02] VITALS: BP 122/62; TEMP 96.9; O2SAT 92
[2022-10-02 02:29] VITALS: BP 127/63
[2022-10-02 04:00] VITALS: BP 117/66; TEMP 97; O2SAT 99
[2022-10-02 05:28] LABS: BASO # 0.1 10^3/uL (0.0-0.2); BASO % 0.8 % (0.0-1.0); EOS # 0.3 10^3/uL (0.0-0.5); EOS % 2.6 % (0.0-3.0); HEMATOCRIT 36.4 % (36.0-47.0); HEMOGLOBIN 12.7 g/dl (12.0-15.5); LYMPH # 3.8 10^3/uL (1.5-5.0); LYMPH % 34.8 % (24.0-44.0); MEAN CORPUSCULAR HEMOGLOBIN 30.2 pg (27.0-33.0); MEAN CORPUSCULAR HGB CONC 34.9 g/dl (32.0-36.5); MEAN CORPUSCULAR VOLUME 86.7 fl (80.0-96.0); MONO # 0.7 10^3/uL (0.0-0.8); MONO % 6.7 % (2.0-8.0); NEUTROPHILS % 54.8 % (36.0-66.0); PLATELET COUNT, AUTOMATED 278 10^3/uL (150-450)
[2022-10-02 05:54] LABS: BLOOD UREA NITROGEN 15 MG/DL (9-23); CALCIUM LEVEL 10.6 MG/DL (8.3-10.6); CARBON DIOXIDE LEVEL 27 MMOL/L (20-31); CHLORIDE LEVEL 102 MMOL/L (98-107); GLOMERULAR FILTRATION RATE > 60.0 (>45); GLUCOSE, FASTING 184 MG/DL (74-106); MAGNESIUM LEVEL 1.2 MG/DL (1.8-2.4); POTASSIUM SERUM 5.2 MMOL/L (3.5-5.1); SODIUM LEVEL 133 MMOL/L (136-145)
[2022-10-02] MEDS: MAG SULF 1GM/100ML (MAG RUN) 1 GM in IV 1 EA IV SCH ×2 (06:16→08:35)
[2022-10-02 07:45] VITALS: BP 121/65; TEMP 96.8; O2SAT 95
[2022-10-02] MEDS: PANTOPRAZOLE 40MG TAB (PROTONIX) PO SCH (08:33)
[2022-10-02] MEDS: APIXABAN 5 MG TAB (ELIQUIS) PO SCH (08:33)
[2022-10-02] MEDS: CitaloPRAM (CeleXA) 20 MG TAB PO SCH (08:33)
[2022-10-02] MEDS: INSULIN LISPRO (NovoLOG) PER UNIT SC SCH ×2 (08:34→12:14)
[2022-10-02] MEDS ORDERED: ELIQ5TAB PO (11:52)
[2022-10-02] MEDS ORDERED: BASA100I SC (11:52)
[2022-10-02] MEDS ORDERED: FENO145T7 PO (12:00)
[2022-10-02] MEDS ORDERED: VENTAER INH (12:00)
[2022-10-02] MEDS ORDERED: MAGN400T2 PO (12:00)
[2022-10-02] MEDS ORDERED: ACET500P3 PO (12:00)
[2022-10-02 12:19] VITALS: BP 119/59; TEMP 98.5; O2SAT 96
[2022-10-02 12:21] LABS: CHOLESTEROL LEVEL 165 MG/DL (<200); CHOLESTEROL RISK RATIO 6.42 (<5); HDL CHOLESTEROL 25.7 MG/DL (>40); NON-HDL-C 139.3 MG/DL; TRIGLYCERIDES LEVEL 776 MG/DL (<150)
[2022-10-02 12:38] LABS: HEMOGLOBIN A1c 7.5 % (4.0-6.0)
== END 2022-10-02 15:58 | disposition home or self-care (01) | DRG 309 ==
LOC: EDBD 21:46 → M ED 21:46 → M ED INP 10-01 04:43 → ENRESERV 10-01 08:35 → M MS4PR 10-01 11:05 → M PCU 10-01 13:43
PROVIDERS: ADMIT Internal Medicine; ATTEND Internal Medicine
DX: I48.20 Chronic atrial fibrillation, unspecified (principal); E87.1 Hypo-osmolality and hyponatremia; J96.10 Chronic respiratory failure, unspecified whether with hypoxia or hypercapnia; M06.9 Rheumatoid arthritis, unspecified; M45.9 Ankylosing spondylitis of unspecified sites in spine; R26.89 Other abnormalities of gait and mobility; E11.42 Type 2 diabetes mellitus with diabetic polyneuropathy; I10 Essential (primary) hypertension; F32.A Depression, unspecified; I27.81 Cor pulmonale (chronic); J44.9 Chronic obstructive pulmonary disease, unspecified; F17.210 Nicotine dependence, cigarettes, uncomplicated; E78.5 Hyperlipidemia, unspecified; I25.10 Atherosclerotic heart disease of native coronary artery without angina pectoris; G47.33 Obstructive sleep apnea (adult) (pediatric); I73.9 Peripheral vascular disease, unspecified; E11.51 Type 2 diabetes mellitus with diabetic peripheral angiopathy without gangrene; G20 Parkinson's disease; M79.7 Fibromyalgia; M10.9 Gout, unspecified; G89.29 Other chronic pain; Z79.4 Long term (current) use of insulin; Z20.822 Contact with and (suspected) exposure to COVID-19; Z96.643 Presence of artificial hip joint, bilateral; Z86.718 Personal history of other venous thrombosis and embolism; Z79.899 Other long term (current) drug therapy; Z99.81 Dependence on supplemental oxygen; Z90.49 Acquired absence of other specified parts of digestive tract; Z88.8 Allergy status to other drugs, medicaments and biological substances; T50.905A Adverse effect of unspecified drugs, medicaments and biological substances, initial encounter

== ENCOUNTER → 2022-10-10 | Outpatient (REF) | payer MEDICARE ==
[~2022-10-10] MED LIST changes: +ACET500P3 PO; +MAGN400T2 PO
[2022-10-10 18:05] LABS: FREE T4 0.92 NG/DL (0.89-1.76)
[2022-10-10 18:06] LABS: ALBUMIN 3.9 G/DL (3.2-5.2); BILIRUBIN,TOTAL 0.3 MG/DL (0.3-1.2); CALCIUM LEVEL 11.1 MG/DL (8.3-10.6); CREATININE FOR GFR 1.02 MG/DL (0.55-1.30); GLOMERULAR FILTRATION RATE 57.5 (>45); MAGNESIUM LEVEL 1.4 MG/DL (1.8-2.4); POTASSIUM SERUM 4.8 MMOL/L (3.5-5.1); THYROID STIMULATING HORMONE 4.168 uIU/ML (0.55-4.78); TOTAL PROTEIN 6.6 G/DL (5.7-8.2)
== END ==
LOC: M LAB REF 16:33
PROVIDERS: ATTEND Family Medicine Addiction Medicine
DX: E83.42 Hypomagnesemia (principal); E87.1 Hypo-osmolality and hyponatremia

== ENCOUNTER → 2023-09-11 | Outpatient (REF) | payer MEDICARE ==
[~2023-09-11] MED LIST changes: +ACET-907 PO; +ALBU8.5H INH; +AMLO1TAB25 PO; +BACI1CAP PO; -DILT1CAP46 PO; +DILT360C22 PO; +DOXY-323 PO; -DOXY-443 PO; -HM S0.65 NARES; +NICO14PA TD; +SALI0.6531 NARES; +WARF-23 PO
[2023-09-11 17:41] LABS: INR 3.6; PROTHROMBIN TIME 34.6 SECONDS (12.5-14.5)
== END ==
LOC: M LAB REF 16:20
PROVIDERS: ATTEND Nurse Practitioner Family
DX: Z79.01 Long term (current) use of anticoagulants (principal)

== ENCOUNTER → 2023-09-19 | Outpatient (REF) | payer MEDICARE ==
[2023-09-19 17:05] LABS: INR 2.7; PROTHROMBIN TIME 27.7 SECONDS (12.5-14.5)
== END ==
LOC: M LAB REF 16:21
PROVIDERS: ATTEND Nurse Practitioner Family
DX: Z79.01 Long term (current) use of anticoagulants (principal)

== ENCOUNTER → 2023-10-01 | Outpatient (REF) | payer MEDICARE ==
[2023-10-01 16:41] LABS: INR 1.61; PROTHROMBIN TIME 18.6 SECONDS (12.5-14.5)
== END ==
LOC: M LAB REF 16:05
PROVIDERS: ATTEND Nurse Practitioner Family
DX: Z79.01 Long term (current) use of anticoagulants (principal)

== ENCOUNTER → 2023-10-15 | Outpatient (REF) | payer MEDICARE ==
[2023-10-15 17:24] LABS: INR 2.75; PROTHROMBIN TIME 28.1 SECONDS (12.5-14.5)
== END ==
LOC: M LAB REF 16:08
PROVIDERS: ATTEND Family Medicine Addiction Medicine
DX: I48.91 Unspecified atrial fibrillation (principal)

== ENCOUNTER 2023-10-27 11:26 | Observation (INO) | payer MEDICARE ==
[~2023-10-27] VITALS: Ht 175.3 cm; Wt 103.2 kg
[~2023-10-27 11:26] MED LIST changes: +PIPE4.5F IV; -ZOSY1SOL6 IV
[2023-10-27] MEDS ORDERED: LABETALOL 100MG/20ML VIAL IV STA (12:42)
[2023-10-27 12:49] LABS: BASO # 0.1 10^3/uL (0.0-0.2); BASO % 0.7 % (0.0-1.0); EOS # 0.1 10^3/uL (0.0-0.5); EOS % 0.6 % (0.0-3.0); HEMATOCRIT 45.8 % (36.0-47.0); HEMOGLOBIN 15.2 g/dl (12.0-15.5); LYMPH # 2.5 10^3/uL (1.5-5.0); LYMPH % 19.2 % (24.0-44.0); MEAN CORPUSCULAR HEMOGLOBIN 29.2 pg (27.0-33.0); MEAN CORPUSCULAR HGB CONC 33.2 g/dl (32.0-36.5); MEAN CORPUSCULAR VOLUME 87.9 fl (80.0-96.0); MONO # 0.7 10^3/uL (0.0-0.8); MONO % 5.7 % (2.0-8.0); NEUTROPHILS # 9.3 10^3/uL (1.5-8.5); NEUTROPHILS % 73.4 % (36.0-66.0); PLATELET COUNT, AUTOMATED 462 10^3/uL (150-450); RED BLOOD COUNT 5.21 10^6/uL (4.00-5.40); WHITE BLOOD COUNT 12.7 10^3/uL (4.0-10.0)
[2023-10-27 13:07] LABS: INR 3.09; PARTIAL THROMBOPLASTIN TIME 37.2 SECONDS (24.8-34.2); PROTHROMBIN TIME 30.8 SECONDS (12.5-14.5)
[2023-10-27] MEDS: NS 500 ML IV ONE (13:10)
[2023-10-27] MEDS: METOPROLOL 5 MG/5 ML VIAL IV STA (13:11)
[2023-10-27 13:22] LABS: ALBUMIN 3.5 G/DL (3.2-5.2); ALKALINE PHOSPHATASE 127 U/L (46-116); ALT/SGPT 15 U/L (7.0-40); AST/SGOT 11 U/L (<34); BILIRUBIN,DIRECT 0.2 MG/DL (<0.4); BILIRUBIN,TOTAL 0.5 MG/DL (0.3-1.2); BLOOD UREA NITROGEN 9 MG/DL (9-23); CALCIUM LEVEL 10.7 MG/DL (8.3-10.6); CARBON DIOXIDE LEVEL 25 MMOL/L (20-31); CHLORIDE LEVEL 106 MMOL/L (98-107); CK-MB VALUE MASS 2.5 NG/ML (<3.6); CPK CREATINE PHOSPHOKINASE 116 U/L (34-145); CREATININE FOR GFR 0.77 MG/DL (0.55-1.30); GLOMERULAR FILTRATION RATE > 60.0 (>45); GLUCOSE, FASTING 126 MG/DL (74-106); MB/CK RELATIVE INDEX 2.15 (< OR =4); SODIUM LEVEL 137 MMOL/L (136-145); TOTAL PROTEIN 6.5 G/DL (5.7-8.2)
[2023-10-27 13:26] LABS: FREE T4 1.12 NG/DL (0.89-1.76); THYROID STIMULATING HORMONE 1.754 uIU/ML (0.55-4.78)
[2023-10-27] MEDS ORDERED: ISOVUE-370 76% 100ML VIAL As Ordered ONE (13:31)
[2023-10-27 14:50] LABS: CPK CREATINE PHOSPHOKINASE 101 U/L (34-145); MB/CK RELATIVE INDEX 1.98 (< OR =4)
[2023-10-27] MEDS: NS 1,000 ML IV SCH (16:13)
[2023-10-27] MEDS ORDERED: GLUCOSE 4 GM CHEW PO PRN (16:25)
[2023-10-27] MEDS ORDERED: DEXTROSE 50% 50ML SYRINGE IV PRN (16:25)
[2023-10-27] MEDS ORDERED: GLUCAGON INJ 1MG VIAL SC PRN (16:25)
[2023-10-27] MEDS: METOPROLOL TART 25 MG TABLET PO SCH (16:48)
[2023-10-27] MEDS ORDERED: WARF-23 PO (16:48)
[2023-10-27] MEDS: LR 1,000 ML IV ONE (16:49)
[2023-10-27] MEDS ORDERED: MED REC COMMENT (16:49)
[2023-10-27] MEDS ORDERED: HOME MED LIST COMPLETE! XX SCH (16:50)
[2023-10-27 16:52] LABS: C REACTIVE PROTEIN QUANTITATIV < 0.40 MG/DL (<1.0)
[2023-10-27] MEDS ORDERED: ACETAMINOPHEN 325 MG TAB PO PRN (16:55)
[2023-10-27] MEDS ORDERED: ACETAMINOPHEN TAB 650MG DOSE (2X325MG) PO PRN (17:05)
[2023-10-27 17:24] LABS: PROCALCITONIN <0.04 ng/ml
[2023-10-27] MEDS: INSULIN LISPRO (NovoLOG) PER UNIT SC SCH ×2 (17:30→21:00)
[2023-10-27] MEDS: AMITRIPTYLINE 50 MG TAB PO SCH (21:25)
[2023-10-27] MEDS: ATORVASTATIN 20 MG TAB PO SCH (21:25)
[2023-10-27 21:47] VITALS: BP 140/75; TEMP 97; O2SAT 95
[2023-10-28 04:00] VITALS: BP 125/83; TEMP 97.2; O2SAT 94
[2023-10-28 05:56] LABS: HEMATOCRIT 43.2 % (36.0-47.0); HEMOGLOBIN 14.2 g/dl (12.0-15.5); MEAN CORPUSCULAR HEMOGLOBIN 29.2 pg (27.0-33.0); MEAN CORPUSCULAR HGB CONC 32.9 g/dl (32.0-36.5); MEAN CORPUSCULAR VOLUME 88.7 fl (80.0-96.0); PLATELET COUNT, AUTOMATED 415 10^3/uL (150-450); RED BLOOD COUNT 4.87 10^6/uL (4.00-5.40); WHITE BLOOD COUNT 9.9 10^3/uL (4.0-10.0)
[2023-10-28 06:21] LABS: PROTHROMBIN TIME 37.5 SECONDS (12.5-14.5)
[2023-10-28 06:22] LABS: BLOOD UREA NITROGEN 9 MG/DL (9-23); CALCIUM LEVEL 10.8 MG/DL (8.3-10.6); CARBON DIOXIDE LEVEL 24 MMOL/L (20-31); CHLORIDE LEVEL 112 MMOL/L (98-107); CREATININE FOR GFR 0.72 MG/DL (0.55-1.30); GLOMERULAR FILTRATION RATE > 60.0 (>45); GLUCOSE, FASTING 120 MG/DL (74-106); POTASSIUM SERUM 4.6 MMOL/L (3.5-5.1); SODIUM LEVEL 141 MMOL/L (136-145)
[2023-10-28 08:00] VITALS: BP 137/81; TEMP 97.7; O2SAT 98
[2023-10-28 08:58] VITALS: BP 137/81
[2023-10-28] MEDS: CitaloPRAM (CeleXA) 20 MG TAB PO SCH (08:59)
[2023-10-28 09:24] VITALS: BP_SYST 139; BP_SYST 140; BP_SYST 147; BP_DIAS 71; BP_DIAS 72
[2023-10-28] MEDS ORDERED: WARF-23 PO (10:55)
[2023-10-28] MEDS ORDERED: TORS10TA3 PO (10:55)
[2023-10-28] MEDS ORDERED: METO1TAB87 PO (10:55)
[2023-10-28 12:00] VITALS: BP 131/65; TEMP 97.5; O2SAT 98
== END 2023-10-28 15:43 | disposition home health service (06) ==
LOC: EDBD 11:26 → M ED 11:26 → M ED INP 11:27 → M MSPAV 21:33
PROVIDERS: ADMIT Internal Medicine; ATTEND Internal Medicine
DX: R55 Syncope and collapse (principal); R53.1 Weakness; I48.11 Longstanding persistent atrial fibrillation; I16.0 Hypertensive urgency; L97.429 Non-pressure chronic ulcer of left heel and midfoot with unspecified severity; R65.10 Systemic inflammatory response syndrome (SIRS) of non-infectious origin without acute organ dysfunction; E11.621 Type 2 diabetes mellitus with foot ulcer; Z86.718 Personal history of other venous thrombosis and embolism; E11.40 Type 2 diabetes mellitus with diabetic neuropathy, unspecified; E87.20 Acidosis, unspecified; D72.829 Elevated white blood cell count, unspecified; G62.9 Polyneuropathy, unspecified; E78.5 Hyperlipidemia, unspecified; I10 Essential (primary) hypertension; F41.9 Anxiety disorder, unspecified; F32.A Depression, unspecified; E04.1 Nontoxic single thyroid nodule; M06.9 Rheumatoid arthritis, unspecified; M45.9 Ankylosing spondylitis of unspecified sites in spine; J44.9 Chronic obstructive pulmonary disease, unspecified; G47.33 Obstructive sleep apnea (adult) (pediatric); Z96.643 Presence of artificial hip joint, bilateral; Z90.49 Acquired absence of other specified parts of digestive tract; Z90.89 Acquired absence of other organs; F17.219 Nicotine dependence, cigarettes, with unspecified nicotine-induced disorders; Z88.8 Allergy status to other drugs, medicaments and biological substances; Z79.899 Other long term (current) drug therapy; Z79.4 Long term (current) use of insulin; Z79.01 Long term (current) use of anticoagulants; Z80.8 Family history of malignant neoplasm of other organs or systems; Z82.0 Family history of epilepsy and other diseases of the nervous system
CPT/HCPCS: 11042; 36415; 51701; 70450; 71045; 71275; 80048; 80076; 81001; 82550; 82553; 83605; 84145; 84439; 84443; 84484; 85025; 85027; 85610; 85730; 86140; 86850; 86900; 86901; 87040; 87486; 87581; 87633; 87798; 93005; 93041; 94760; 96361; 96374; 97161; 97165; 97535; 99285; G0378; J1815; Q9967

== ENCOUNTER 2023-11-24 08:47 | Emergency (ER) | payer MEDICARE ==
[~2023-11-24] VITALS: Ht 177.8 cm; Wt 106.8 kg
[~2023-11-24 08:47] MED LIST changes: +MED REC COMMENT; +METO1TAB87 PO
[2023-11-24 09:16] LABS: BASO # 0.1 10^3/uL (0.0-0.2); BASO % 0.6 % (0.0-1.0); EOS # 0.1 10^3/uL (0.0-0.5); HEMATOCRIT 42.3 % (36.0-47.0); HEMOGLOBIN 14.6 g/dl (12.0-15.5); LYMPH # 2.2 10^3/uL (1.5-5.0); MEAN CORPUSCULAR HEMOGLOBIN 29.7 pg (27.0-33.0); MEAN CORPUSCULAR HGB CONC 34.5 g/dl (32.0-36.5); MONO # 0.6 10^3/uL (0.0-0.8); MONO % 5.5 % (2.0-8.0); NEUTROPHILS # 8.5 10^3/uL (1.5-8.5); NEUTROPHILS % 73.6 % (36.0-66.0); PLATELET COUNT, AUTOMATED 334 10^3/uL (150-450); RED BLOOD COUNT 4.92 10^6/uL (4.00-5.40); WHITE BLOOD COUNT 11.6 10^3/uL (4.0-10.0)
[2023-11-24 09:33] LABS: INR 3.05; PROTHROMBIN TIME 30.4 SECONDS (12.5-14.5)
[2023-11-24] MEDS: KETOROLAC 30 MG/ML 1ML VIAL IV ONE (09:40)
[2023-11-24 09:51] LABS: BLOOD UREA NITROGEN 15 MG/DL (9-23); CALCIUM LEVEL 11.1 MG/DL (8.3-10.6); CARBON DIOXIDE LEVEL 23 MMOL/L (20-31); CHLORIDE LEVEL 105 MMOL/L (98-107); CPK CREATINE PHOSPHOKINASE 89 U/L (34-145); CREATININE FOR GFR 0.67 MG/DL (0.55-1.30); GLOMERULAR FILTRATION RATE > 60.0 (>45); GLUCOSE, FASTING 184 MG/DL (74-106); MB/CK RELATIVE INDEX 3.37 (< OR =4); SODIUM LEVEL 134 MMOL/L (136-145)
[2023-11-24 10:31] VITALS: BP 145/79; TEMP 96.9; O2SAT 100
== END 2023-11-24 10:41 | disposition home or self-care (01) ==
LOC: M ED 08:47
DX: R51.9 Headache, unspecified (principal); I48.91 Unspecified atrial fibrillation; E11.621 Type 2 diabetes mellitus with foot ulcer; I44.4 Left anterior fascicular block; I25.2 Old myocardial infarction; I10 Essential (primary) hypertension; E78.5 Hyperlipidemia, unspecified; F41.9 Anxiety disorder, unspecified; F32.A Depression, unspecified; F10.10 Alcohol abuse, uncomplicated; Z88.8 Allergy status to other drugs, medicaments and biological substances; Z79.1 Long term (current) use of non-steroidal anti-inflammatories (NSAID); Z79.4 Long term (current) use of insulin; Z79.899 Other long term (current) drug therapy
CPT/HCPCS: 71045; 80047; 80048; 82550; 82553; 83880; 84484; 85025; 85610; 93005; 93041; 94760; 96374; 99285; J1885

== ENCOUNTER 2023-12-01 11:45 | Inpatient (IN) | payer MEDICARE ==
[~2023-12-01] VITALS: Ht 177.8 cm; Wt 103.2 kg
[2023-12-01] VITALS (10 sets, daily range): BP systolic 119–159; BP diastolic 65–90; TEMP 97.3; O2SAT 92–98
[2023-12-01] MEDS: ACETAMINOPHEN 325 MG TAB PO ONE (12:35)
[2023-12-01 13:11] LABS: BASO # 0.1 10^3/uL (0.0-0.2); BASO % 0.6 % (0.0-1.0); EOS # 0.1 10^3/uL (0.0-0.5); EOS % 0.5 % (0.0-3.0); HEMATOCRIT 42.9 % (36.0-47.0); HEMOGLOBIN 14.9 g/dl (12.0-15.5); LYMPH # 1.8 10^3/uL (1.5-5.0); LYMPH % 16.1 % (24.0-44.0); MEAN CORPUSCULAR HGB CONC 34.7 g/dl (32.0-36.5); MEAN CORPUSCULAR VOLUME 86.5 fl (80.0-96.0); MONO # 0.7 10^3/uL (0.0-0.8); MONO % 6.5 % (2.0-8.0); NEUTROPHILS # 8.5 10^3/uL (1.5-8.5); NEUTROPHILS % 75.9 % (36.0-66.0); PLATELET COUNT, AUTOMATED 378 10^3/uL (150-450); RED BLOOD COUNT 4.96 10^6/uL (4.00-5.40); WHITE BLOOD COUNT 11.2 10^3/uL (4.0-10.0)
[2023-12-01 13:16] LABS: ERYTHROCYTE SEDIMENTATION RATE 35 mm/hr (0-30)
[2023-12-01 13:25] LABS: INR 4.21
[2023-12-01 13:37] LABS: ALBUMIN 3.4 G/DL (3.2-5.2); ALKALINE PHOSPHATASE 121 U/L (46-116); ALT/SGPT 11 U/L (7.0-40); AST/SGOT 9 U/L (<34); BILIRUBIN,DIRECT < 0.1 MG/DL (<0.4); BILIRUBIN,TOTAL 0.2 MG/DL (0.3-1.2); BLOOD UREA NITROGEN 13 MG/DL (9-23); CALCIUM LEVEL 11.2 MG/DL (8.3-10.6); CARBON DIOXIDE LEVEL 24 MMOL/L (20-31); CHLORIDE LEVEL 102 MMOL/L (98-107); CREATININE FOR GFR 0.67 MG/DL (0.55-1.30); GLOMERULAR FILTRATION RATE > 60.0 (>45); GLUCOSE, FASTING 182 MG/DL (74-106); POTASSIUM SERUM 5.3 MMOL/L (3.5-5.1); SODIUM LEVEL 132 MMOL/L (136-145); TOTAL PROTEIN 6.6 G/DL (5.7-8.2)
[2023-12-01 13:42] LABS: PROCALCITONIN 0.04 ng/ml
[2023-12-01] MEDS ORDERED: AMLO10TA PO (16:53)
[2023-12-01] MEDS ORDERED: METO1TAB87 PO (16:53)
[2023-12-01] MEDS ORDERED: ACET-683 PO (16:53)
[2023-12-01] MEDS ORDERED: HOME MED LIST COMPLETE! XX SCH (16:55)
[2023-12-01] MEDS ORDERED: MAALOX 30 ML SUSP *UDC PO PRN (17:30)
[2023-12-01] MEDS: INSULIN LISPRO (NovoLOG) PER UNIT SC SCH ×2 (17:30→21:00)
[2023-12-01] MEDS ORDERED: GLUCOSE 4 GM CHEW PO PRN (17:35)
[2023-12-01] MEDS ORDERED: GLUCAGON INJ 1MG VIAL SC PRN (17:35)
[2023-12-01] MEDS ORDERED: DEXTROSE 50% 50ML SYRINGE IV PRN (17:35)
[2023-12-01] MEDS: ACETAMINOPHEN TAB 650MG DOSE (2X325MG) PO PRN (19:46)
[2023-12-01] MEDS: METOPROLOL TART 25 MG TABLET PO SCH (21:48)
[2023-12-02] VITALS (10 sets, daily range): BP systolic 117–166; BP diastolic 57–81; TEMP 97.1–97.4; O2SAT 97–99
[2023-12-02 07:01] LABS: INR 4.11; PROTHROMBIN TIME 38.2 SECONDS (12.5-14.5)
[2023-12-02 07:22] LABS: BLOOD UREA NITROGEN 11 MG/DL (9-23); CALCIUM LEVEL 10.6 MG/DL (8.3-10.6); CARBON DIOXIDE LEVEL 27 MMOL/L (20-31); CHLORIDE LEVEL 102 MMOL/L (98-107); CREATININE FOR GFR 0.71 MG/DL (0.55-1.30); GLOMERULAR FILTRATION RATE > 60.0 (>45); GLUCOSE, FASTING 136 MG/DL (74-106); MAGNESIUM LEVEL 1.4 MG/DL (1.8-2.4); POTASSIUM SERUM 4.8 MMOL/L (3.5-5.1); SODIUM LEVEL 130 MMOL/L (136-145)
[2023-12-02 08:02] LABS: BASO # 0.1 10^3/uL (0.0-0.2); BASO % 0.8 % (0.0-1.0); EOS # 0.1 10^3/uL (0.0-0.5); EOS % 1.4 % (0.0-3.0); HEMATOCRIT 41.5 % (36.0-47.0); LYMPH # 2.3 10^3/uL (1.5-5.0); LYMPH % 25.7 % (24.0-44.0); MEAN CORPUSCULAR HGB CONC 33.7 g/dl (32.0-36.5); MEAN CORPUSCULAR VOLUME 85.9 fl (80.0-96.0); MONO # 0.7 10^3/uL (0.0-0.8); MONO % 8.2 % (2.0-8.0); NEUTROPHILS # 5.8 10^3/uL (1.5-8.5); NEUTROPHILS % 63.5 % (36.0-66.0); PLATELET COUNT, AUTOMATED 370 10^3/uL (150-450); RED BLOOD COUNT 4.83 10^6/uL (4.00-5.40); WHITE BLOOD COUNT 9.1 10^3/uL (4.0-10.0)
[2023-12-02] MEDS: TORSEMIDE 10 MG TABLET PO SCH (08:02)
[2023-12-02] MEDS: LEVEMIR (INSULIN DETEMIR) 1 UNITS/0.01ML SC SCH (08:03)
[2023-12-02] MEDS: SPIRONOLACTONE 25 MG TAB PO SCH (08:03)
[2023-12-02] MEDS: MAGNESIUM OXIDE 400MG TAB (MAG-OX) PO SCH (13:28)
[2023-12-02] MEDS ORDERED: WARFARIN SOD 3MG TAB PO SCH (17:00)
[2023-12-02] MEDS: ACETAMINOPHEN 500 MG TAB PO PRN (18:25)
[2023-12-02] MEDS: NYSTATIN 100,000 UNITS/GM TOPICAL PWD 15GM TOP SCH (21:03)
[2023-12-02] MEDS: PERCOCET 5MG/325MG TAB PO PRN (21:05)
[2023-12-03 04:07] VITALS: BP 140/74; TEMP 97.5; O2SAT 96
[2023-12-03 06:07] LABS: HEMOGLOBIN 14.4 g/dl (12.0-15.5); MEAN CORPUSCULAR HEMOGLOBIN 29.5 pg (27.0-33.0); MEAN CORPUSCULAR HGB CONC 34.3 g/dl (32.0-36.5); MEAN CORPUSCULAR VOLUME 86.1 fl (80.0-96.0); PLATELET COUNT, AUTOMATED 367 10^3/uL (150-450); RED BLOOD COUNT 4.88 10^6/uL (4.00-5.40); WHITE BLOOD COUNT 10.2 10^3/uL (4.0-10.0)
[2023-12-03 06:37] LABS: BLOOD UREA NITROGEN 14 MG/DL (9-23); CALCIUM LEVEL 10.4 MG/DL (8.3-10.6); CARBON DIOXIDE LEVEL 28 MMOL/L (20-31); CHLORIDE LEVEL 103 MMOL/L (98-107); CREATININE FOR GFR 0.72 MG/DL (0.55-1.30); GLOMERULAR FILTRATION RATE > 60.0 (>45); GLUCOSE, FASTING 135 MG/DL (74-106); MAGNESIUM LEVEL 1.4 MG/DL (1.8-2.4); POTASSIUM SERUM 4.3 MMOL/L (3.5-5.1); SODIUM LEVEL 132 MMOL/L (136-145)
[2023-12-03 07:11] LABS: INR 2.76; PROTHROMBIN TIME 28.1 SECONDS (12.5-14.5)
[2023-12-03 12:00] VITALS: BP 152/79; TEMP 97.3; O2SAT 99
[2023-12-03 20:35] VITALS: BP 140/81; TEMP 97.5; O2SAT 97
[2023-12-04 03:54] VITALS: BP 140/82; TEMP 97.2; O2SAT 100
[2023-12-04 06:29] LABS: HEMATOCRIT 42.4 % (36.0-47.0); HEMOGLOBIN 14.4 g/dl (12.0-15.5); MEAN CORPUSCULAR HEMOGLOBIN 29.9 pg (27.0-33.0); MEAN CORPUSCULAR VOLUME 88.1 fl (80.0-96.0); PLATELET COUNT, AUTOMATED 373 10^3/uL (150-450); RED BLOOD COUNT 4.81 10^6/uL (4.00-5.40); WHITE BLOOD COUNT 10.6 10^3/uL (4.0-10.0)
[2023-12-04 06:40] LABS: INR 1.82; PROTHROMBIN TIME 20.5 SECONDS (12.5-14.5)
[2023-12-04 06:56] LABS: BLOOD UREA NITROGEN 21 MG/DL (9-23); CALCIUM LEVEL 10.8 MG/DL (8.3-10.6); CARBON DIOXIDE LEVEL 25 MMOL/L (20-31); CHLORIDE LEVEL 106 MMOL/L (98-107); CREATININE FOR GFR 0.68 MG/DL (0.55-1.30); GLOMERULAR FILTRATION RATE > 60.0 (>45); GLUCOSE, FASTING 123 MG/DL (74-106); MAGNESIUM LEVEL 1.6 MG/DL (1.8-2.4); POTASSIUM SERUM 4.6 MMOL/L (3.5-5.1); SODIUM LEVEL 136 MMOL/L (136-145)
[2023-12-04] MEDS ORDERED: ISOVUE-370 76% 100ML VIAL As Ordered ONE (10:27)
[2023-12-04 12:00] VITALS: BP 114/69; TEMP 97.5; O2SAT 96
[2023-12-04] MEDS: WARFARIN SOD 5MG TAB PO SCH (17:48)
[2023-12-04 19:56] VITALS: BP 136/78; TEMP 97.5; O2SAT 98
[2023-12-05 04:00] VITALS: BP 109/63; TEMP 97.8; O2SAT 98
[2023-12-05 05:58] LABS: HEMATOCRIT 44.1 % (36.0-47.0); HEMOGLOBIN 14.8 g/dl (12.0-15.5); MEAN CORPUSCULAR HEMOGLOBIN 29.8 pg (27.0-33.0); MEAN CORPUSCULAR HGB CONC 33.6 g/dl (32.0-36.5); MEAN CORPUSCULAR VOLUME 88.7 fl (80.0-96.0); PLATELET COUNT, AUTOMATED 330 10^3/uL (150-450); RED BLOOD COUNT 4.97 10^6/uL (4.00-5.40); WHITE BLOOD COUNT 9.5 10^3/uL (4.0-10.0)
[2023-12-05 06:11] LABS: INR 1.51; PROTHROMBIN TIME 17.7 SECONDS (12.5-14.5)
[2023-12-05 06:17] LABS: BLOOD UREA NITROGEN 23 MG/DL (9-23); CALCIUM LEVEL 10.8 MG/DL (8.3-10.6); CARBON DIOXIDE LEVEL 25 MMOL/L (20-31); CHLORIDE LEVEL 106 MMOL/L (98-107); CREATININE FOR GFR 0.69 MG/DL (0.55-1.30); GLOMERULAR FILTRATION RATE > 60.0 (>45); GLUCOSE, FASTING 121 MG/DL (74-106); MAGNESIUM LEVEL 1.8 MG/DL (1.8-2.4); POTASSIUM SERUM 4.3 MMOL/L (3.5-5.1); SODIUM LEVEL 135 MMOL/L (136-145)
[2023-12-05 12:00] VITALS: BP 110/66; TEMP 97.8; O2SAT 98
[2023-12-05 19:37] VITALS: BP 109/66; TEMP 97; O2SAT 98
[2023-12-05 19:43] VITALS: BP 133/82; TEMP 98.4; O2SAT 93
[2023-12-06 07:02] LABS: HEMATOCRIT 43.4 % (36.0-47.0); HEMOGLOBIN 14.3 g/dl (12.0-15.5); MEAN CORPUSCULAR HEMOGLOBIN 29.3 pg (27.0-33.0); MEAN CORPUSCULAR HGB CONC 32.9 g/dl (32.0-36.5); MEAN CORPUSCULAR VOLUME 88.9 fl (80.0-96.0); PLATELET COUNT, AUTOMATED 366 10^3/uL (150-450); RED BLOOD COUNT 4.88 10^6/uL (4.00-5.40); WHITE BLOOD COUNT 10.6 10^3/uL (4.0-10.0)
[2023-12-06 07:13] LABS: INR 1.6; PROTHROMBIN TIME 18.5 SECONDS (12.5-14.5)
[2023-12-06 07:22] LABS: BLOOD UREA NITROGEN 21 MG/DL (9-23); CARBON DIOXIDE LEVEL 27 MMOL/L (20-31); CHLORIDE LEVEL 107 MMOL/L (98-107); CREATININE FOR GFR 0.77 MG/DL (0.55-1.30); GLOMERULAR FILTRATION RATE > 60.0 (>45); GLUCOSE, FASTING 112 MG/DL (74-106); MAGNESIUM LEVEL 1.8 MG/DL (1.8-2.4); POTASSIUM SERUM 4.8 MMOL/L (3.5-5.1); SODIUM LEVEL 138 MMOL/L (136-145)
[2023-12-06 12:00] VITALS: BP 114/67; TEMP 97.3; O2SAT 99
[2023-12-06 19:30] VITALS: BP 143/87; TEMP 97.2; O2SAT 98
[2023-12-07 04:13] VITALS: BP 114/66; TEMP 97; O2SAT 100
[2023-12-07 07:10] LABS: HEMATOCRIT 42.7 % (36.0-47.0); HEMOGLOBIN 14.4 g/dl (12.0-15.5); MEAN CORPUSCULAR HEMOGLOBIN 29.9 pg (27.0-33.0); MEAN CORPUSCULAR HGB CONC 33.7 g/dl (32.0-36.5); MEAN CORPUSCULAR VOLUME 88.8 fl (80.0-96.0); PLATELET COUNT, AUTOMATED 369 10^3/uL (150-450); RED BLOOD COUNT 4.81 10^6/uL (4.00-5.40); WHITE BLOOD COUNT 9.7 10^3/uL (4.0-10.0)
[2023-12-07 07:22] LABS: INR 1.64; PROTHROMBIN TIME 18.9 SECONDS (12.5-14.5)
[2023-12-07 07:30] LABS: BLOOD UREA NITROGEN 19 MG/DL (9-23); CALCIUM LEVEL 10.7 MG/DL (8.3-10.6); CARBON DIOXIDE LEVEL 27 MMOL/L (20-31); CHLORIDE LEVEL 107 MMOL/L (98-107); CREATININE FOR GFR 0.78 MG/DL (0.55-1.30); GLOMERULAR FILTRATION RATE > 60.0 (>45); GLUCOSE, FASTING 113 MG/DL (74-106); MAGNESIUM LEVEL 1.6 MG/DL (1.8-2.4); POTASSIUM SERUM 4.5 MMOL/L (3.5-5.1); SODIUM LEVEL 136 MMOL/L (136-145)
[2023-12-07] MEDS: DOXYCYCLINE HYCLATE 100MG TABLET PO SCH (09:51)
[2023-12-07 12:00] VITALS: BP 114/63; TEMP 97.5; O2SAT 97
[2023-12-07] MEDS: MOM 30ML SUSPENSION UDC PO PRN (16:04)
[2023-12-07] MEDS: WARFARIN SOD 3MG TAB PO SCH (17:02)
[2023-12-07 20:13] VITALS: BP 125/73; TEMP 97.2; O2SAT 96
[2023-12-08 04:14] VITALS: BP 129/84; TEMP 97.2; O2SAT 99
[2023-12-08 05:47] LABS: HEMATOCRIT 43.5 % (36.0-47.0); HEMOGLOBIN 14.5 g/dl (12.0-15.5); MEAN CORPUSCULAR HEMOGLOBIN 29.6 pg (27.0-33.0); MEAN CORPUSCULAR HGB CONC 33.3 g/dl (32.0-36.5); MEAN CORPUSCULAR VOLUME 88.8 fl (80.0-96.0); PLATELET COUNT, AUTOMATED 379 10^3/uL (150-450); WHITE BLOOD COUNT 11.2 10^3/uL (4.0-10.0)
[2023-12-08 05:58] LABS: INR 1.64; PROTHROMBIN TIME 18.9 SECONDS (12.5-14.5)
[2023-12-08 06:29] LABS: BLOOD UREA NITROGEN 20 MG/DL (9-23); CALCIUM LEVEL 10.6 MG/DL (8.3-10.6); CARBON DIOXIDE LEVEL 28 MMOL/L (20-31); CHLORIDE LEVEL 107 MMOL/L (98-107); CREATININE FOR GFR 0.82 MG/DL (0.55-1.30); GLOMERULAR FILTRATION RATE > 60.0 (>45); GLUCOSE, FASTING 114 MG/DL (74-106); MAGNESIUM LEVEL 1.8 MG/DL (1.8-2.4); POTASSIUM SERUM 4.9 MMOL/L (3.5-5.1); SODIUM LEVEL 135 MMOL/L (136-145)
[2023-12-08 12:00] VITALS: BP 108/69; TEMP 97.2; O2SAT 98
[2023-12-08] MEDS: WARFARIN SOD 7.5MG TAB PO SCH (17:17)
[2023-12-08 20:00] VITALS: BP 115/70; TEMP 97.2; O2SAT 98
[2023-12-09 04:00] VITALS: BP_SYST 109; BP_SYST 123; BP_DIAS 54; BP_DIAS 68; TEMP 97; O2SAT 94
[2023-12-09 06:37] LABS: HEMATOCRIT 43.9 % (36.0-47.0); HEMOGLOBIN 14.5 g/dl (12.0-15.5); MEAN CORPUSCULAR HEMOGLOBIN 29.7 pg (27.0-33.0); MEAN CORPUSCULAR VOLUME 89.8 fl (80.0-96.0); PLATELET COUNT, AUTOMATED 372 10^3/uL (150-450); RED BLOOD COUNT 4.89 10^6/uL (4.00-5.40); WHITE BLOOD COUNT 10.1 10^3/uL (4.0-10.0)
[2023-12-09 06:46] LABS: INR 1.78; PROTHROMBIN TIME 20.1 SECONDS (12.5-14.5)
[2023-12-09 07:21] LABS: BLOOD UREA NITROGEN 21 MG/DL (9-23); CALCIUM LEVEL 11.1 MG/DL (8.3-10.6); CARBON DIOXIDE LEVEL 27 MMOL/L (20-31); CHLORIDE LEVEL 106 MMOL/L (98-107); CREATININE FOR GFR 0.86 MG/DL (0.55-1.30); GLOMERULAR FILTRATION RATE > 60.0 (>45); GLUCOSE, FASTING 87 MG/DL (74-106); POTASSIUM SERUM 4.7 MMOL/L (3.5-5.1); SODIUM LEVEL 138 MMOL/L (136-145)
[2023-12-09 08:36] LABS: PTH INTACT 185.4 PG/ML (18.5-88.0)
[2023-12-09 12:00] VITALS: BP 111/71; TEMP 97.2; O2SAT 98
[2023-12-09 20:00] VITALS: BP 128/76; TEMP 97.2; O2SAT 100
[2023-12-10 04:00] VITALS: BP 110/61; TEMP 97; O2SAT 99
[2023-12-10 09:00] LABS: TOTAL 25(OH) VITAMIN D 16.6 NG/ML (20.0-100.0)
[2023-12-10] MEDS: ONDANSETRON 4MG TAB PO PRN (09:51)
[2023-12-10 12:00] VITALS: BP 112/68; TEMP 97.2; O2SAT 100
[2023-12-10 19:41] VITALS: BP 126/80; TEMP 97.3; O2SAT 98
[2023-12-11 04:06] VITALS: BP 139/77; TEMP 96.8; O2SAT 99
[2023-12-11 05:57] LABS: HEMATOCRIT 42.2 % (36.0-47.0); HEMOGLOBIN 13.9 g/dl (12.0-15.5); MEAN CORPUSCULAR HEMOGLOBIN 29.4 pg (27.0-33.0); MEAN CORPUSCULAR HGB CONC 32.9 g/dl (32.0-36.5); MEAN CORPUSCULAR VOLUME 89.4 fl (80.0-96.0); PLATELET COUNT, AUTOMATED 374 10^3/uL (150-450); RED BLOOD COUNT 4.72 10^6/uL (4.00-5.40); WHITE BLOOD COUNT 9.7 10^3/uL (4.0-10.0)
[2023-12-11 06:10] LABS: INR 2.61
[2023-12-11 06:18] LABS: ALBUMIN 2.9 G/DL (3.2-5.2); BLOOD UREA NITROGEN 22 MG/DL (9-23); CALCIUM LEVEL 10.8 MG/DL (8.3-10.6); CARBON DIOXIDE LEVEL 25 MMOL/L (20-31); CHLORIDE LEVEL 108 MMOL/L (98-107); CREATININE FOR GFR 0.84 MG/DL (0.55-1.30); GLOMERULAR FILTRATION RATE > 60.0 (>45); GLUCOSE, FASTING 83 MG/DL (74-106); PHOSPHORUS LEVEL 3.5 MG/DL (2.4-5.1); POTASSIUM SERUM 4.3 MMOL/L (3.5-5.1); SODIUM LEVEL 138 MMOL/L (136-145)
[2023-12-11] MEDS: VITAMIN D 50,000 UNITS CAPSULE (ERGOCALCIFEROL 1.25MG) PO SCH (08:53)
[2023-12-11 12:00] VITALS: BP 110/58; TEMP 97.3; O2SAT 97
[2023-12-11] MEDS: WARFARIN SOD 2.5MG TAB PO SCH (17:15)
[2023-12-11 20:05] VITALS: BP 105/67; TEMP 97.2; O2SAT 97
[2023-12-12 04:04] VITALS: BP 99/59; TEMP 97; O2SAT 99
[2023-12-12 05:58] LABS: HEMATOCRIT 42.1 % (36.0-47.0); HEMOGLOBIN 13.9 g/dl (12.0-15.5); MEAN CORPUSCULAR HEMOGLOBIN 29.5 pg (27.0-33.0); MEAN CORPUSCULAR VOLUME 89.4 fl (80.0-96.0); PLATELET COUNT, AUTOMATED 359 10^3/uL (150-450); RED BLOOD COUNT 4.71 10^6/uL (4.00-5.40); WHITE BLOOD COUNT 9.9 10^3/uL (4.0-10.0)
[2023-12-12 06:08] LABS: INR 3.02; PROTHROMBIN TIME 30.2 SECONDS (12.5-14.5)
[2023-12-12 06:19] LABS: ALBUMIN 2.9 G/DL (3.2-5.2); BLOOD UREA NITROGEN 21 MG/DL (9-23); CALCIUM LEVEL 11.1 MG/DL (8.3-10.6); CARBON DIOXIDE LEVEL 26 MMOL/L (20-31); CHLORIDE LEVEL 108 MMOL/L (98-107); GLOMERULAR FILTRATION RATE > 60.0 (>45); GLUCOSE, FASTING 92 MG/DL (74-106); PHOSPHORUS LEVEL 3.9 MG/DL (2.4-5.1); POTASSIUM SERUM 4.1 MMOL/L (3.5-5.1); SODIUM LEVEL 137 MMOL/L (136-145)
[2023-12-12 07:50] VITALS: BP 139/71
== END 2023-12-12 10:53 | DRG 623 ==
LOC: M ED 11:45 → M ED INP 17:28 → OBSVTOIN 12-02 11:54 → M MSPAV 12-02 16:33
PROVIDERS: ADMIT Student in an Organized Health Care Education/Training Program; ATTEND Internal Medicine
PROC: 0JBQ0ZZ Excision of Right Foot Subcutaneous Tissue and Fascia, Open Approach (ICD-10-PCS; principal; 2023-12-05)
DX: E11.621 Type 2 diabetes mellitus with foot ulcer (principal); I48.11 Longstanding persistent atrial fibrillation; E87.20 Acidosis, unspecified; L97.428 Non-pressure chronic ulcer of left heel and midfoot with other specified severity; I10 Essential (primary) hypertension; R78.5 Finding of other psychotropic drug in blood; F41.9 Anxiety disorder, unspecified; E83.52 Hypercalcemia; M21.611 Bunion of right foot; E83.42 Hypomagnesemia; K59.00 Constipation, unspecified; L84 Corns and callosities; F32.A Depression, unspecified; R91.1 Solitary pulmonary nodule; Z96.643 Presence of artificial hip joint, bilateral; Z90.49 Acquired absence of other specified parts of digestive tract; F17.210 Nicotine dependence, cigarettes, uncomplicated; R53.81 Other malaise; E78.5 Hyperlipidemia, unspecified; E87.5 Hyperkalemia; Z79.4 Long term (current) use of insulin; Z79.01 Long term (current) use of anticoagulants; Z79.899 Other long term (current) drug therapy; Z88.8 Allergy status to other drugs, medicaments and biological substances

== ENCOUNTER 2024-02-11 18:22 | Inpatient (IN) | payer MEDICARE ==
[~2024-02-11] VITALS: Ht 177.8 cm; Wt 99.2 kg
[~2024-02-11 18:22] MED LIST changes: -CALM1OIN TOP; -DAKI0.12 TOP
[2024-02-11 19:48] LABS: HEMATOCRIT 36.5 % (36.0-47.0); HEMOGLOBIN 12.7 g/dl (12.0-15.5); MEAN CORPUSCULAR HEMOGLOBIN 30.8 pg (27.0-33.0); MEAN CORPUSCULAR HGB CONC 34.8 g/dl (32.0-36.5); MEAN CORPUSCULAR VOLUME 88.6 fl (80.0-96.0); PLATELET COUNT, AUTOMATED 377 10^3/uL (150-450); RED BLOOD COUNT 4.12 10^6/uL (4.00-5.40); WHITE BLOOD COUNT 24.2 10^3/uL (4.0-10.0)
[2024-02-11 20:16] LABS: PARTIAL THROMBOPLASTIN TIME 74.4 SECONDS (24.8-34.2)
[2024-02-11 20:19] LABS: BLOOD UREA NITROGEN 15 MG/DL (9-23); CARBON DIOXIDE LEVEL 26 MMOL/L (20-31); CHLORIDE LEVEL 98 MMOL/L (98-107); CREATININE FOR GFR 0.87 MG/DL (0.55-1.30); GLOMERULAR FILTRATION RATE > 60.0 (>45); GLUCOSE, FASTING 181 MG/DL (74-106); POTASSIUM SERUM 4.3 MMOL/L (3.5-5.1); SODIUM LEVEL 128 MMOL/L (136-145)
[2024-02-11 20:26] LABS: PROCALCITONIN 0.22 ng/ml
[2024-02-11] MEDS: ACETAMINOPHEN 325 MG TAB PO ONE (20:27)
[2024-02-11 20:30] LABS: INR 7.38
[2024-02-11] MEDS: cefTRIAXone SOD 1 GM in DEXTROSE 5% (D5W) ADV/MINI-BAG 50 ML IV ONE (23:11)
[2024-02-12] MEDS ORDERED: DEXTROSE 50% 50ML SYRINGE IV PRN (00:30)
[2024-02-12] MEDS ORDERED: GLUCOSE 4 GM CHEW PO PRN (00:30)
[2024-02-12] MEDS ORDERED: GLUCAGON INJ 1MG VIAL SC PRN (00:30)
[2024-02-12] MEDS: METOPROLOL TART 25 MG TABLET PO SCH (01:05)
[2024-02-12] MEDS ORDERED: SODIUM CHLORIDE NASAL 0.65% SPRAY BTL (OCEAN) PRN (01:05)
[2024-02-12] MEDS ORDERED: CALM1OIN TOP (01:05)
[2024-02-12] MEDS ORDERED: DAKI0.12 TOP (01:05)
[2024-02-12] MEDS: ATORVASTATIN 20 MG TAB PO SCH (01:05)
[2024-02-12] MEDS ORDERED: HOME MED LIST COMPLETE! XX SCH (01:05)
[2024-02-12 01:10] LABS: BASO # 0.1 10^3/uL (0.0-0.2); BASO % 0.4 % (0.0-1.0); MONO # 1.7 10^3/uL (0.0-0.8); NEUTROPHILS # 21.2 10^3/uL (1.5-8.5)
[2024-02-12] MEDS ORDERED: VANCOMYCIN HCL 1 MG in IV FLUID PLACE HOLDER 1 EA IV SCH (01:10)
[2024-02-12 01:15] LABS: ALKALINE PHOSPHATASE 78 U/L (46-116); ALT/SGPT 11 U/L (7.0-40); AST/SGOT 8 U/L (<34); BILIRUBIN,DIRECT 0.4 MG/DL (<0.4); BILIRUBIN,TOTAL 0.8 MG/DL (0.3-1.2); TOTAL PROTEIN 6.1 G/DL (5.7-8.2)
[2024-02-12] MEDS: NS 1,000 ML IV SCH ×2 (01:15→17:08)
[2024-02-12 01:31] LABS: ERYTHROCYTE SEDIMENTATION RATE 56 mm/hr (0-30)
[2024-02-12] MEDS: VANCOMYCIN 2,000 MG/400 ML IV BAG *LOAD IV ONE (02:00)
[2024-02-12 03:07] VITALS: BP 98/58; TEMP 98.5
[2024-02-12 07:13] LABS: BASO # 0.1 10^3/uL (0.0-0.2); BASO % 0.4 % (0.0-1.0); EOS # 0.1 10^3/uL (0.0-0.5); EOS % 0.3 % (0.0-3.0); HEMATOCRIT 33.8 % (36.0-47.0); HEMOGLOBIN 11.7 g/dl (12.0-15.5); LYMPH # 2.2 10^3/uL (1.5-5.0); LYMPH % 11.6 % (24.0-44.0); MEAN CORPUSCULAR HEMOGLOBIN 30.5 pg (27.0-33.0); MEAN CORPUSCULAR HGB CONC 34.6 g/dl (32.0-36.5); MEAN CORPUSCULAR VOLUME 88.3 fl (80.0-96.0); MONO # 1.5 10^3/uL (0.0-0.8); NEUTROPHILS # 15.2 10^3/uL (1.5-8.5); NEUTROPHILS % 78.9 % (36.0-66.0); PLATELET COUNT, AUTOMATED 338 10^3/uL (150-450); RED BLOOD COUNT 3.83 10^6/uL (4.00-5.40); WHITE BLOOD COUNT 19.2 10^3/uL (4.0-10.0)
[2024-02-12 07:30] LABS: BLOOD UREA NITROGEN 13 MG/DL (9-23); CALCIUM LEVEL 10.4 MG/DL (8.3-10.6); CARBON DIOXIDE LEVEL 25 MMOL/L (20-31); CHLORIDE LEVEL 103 MMOL/L (98-107); CREATININE FOR GFR 0.77 MG/DL (0.55-1.30); GLOMERULAR FILTRATION RATE > 60.0 (>45); GLUCOSE, FASTING 109 MG/DL (74-106); MAGNESIUM LEVEL 1.5 MG/DL (1.8-2.4); POTASSIUM SERUM 4.3 MMOL/L (3.5-5.1); SODIUM LEVEL 131 MMOL/L (136-145)
[2024-02-12] MEDS ORDERED: INSULIN LISPRO (NovoLOG) PER UNIT SC SCH ×2 (07:30→21:00)
[2024-02-12 07:38] LABS: PARTIAL THROMBOPLASTIN TIME 96.8 SECONDS (24.8-34.2); PROTHROMBIN TIME 69.6 SECONDS (12.5-14.5)
[2024-02-12 07:58] VITALS: BP 100/58; TEMP 97; O2SAT 99
[2024-02-12 08:39] LABS: INR 8.95
[2024-02-12] MEDS: NICOTINE 21MG/24HR 1 EA TRANSDERMAL TD SCH (09:00)
[2024-02-12] MEDS: PHYTONADIONE 5 MG TAB PO ONE (09:30)
[2024-02-12] MEDS: VANCOMYCIN 1,000MG/200 ML IV BAG IV SCH (09:32)
[2024-02-12] MEDS ORDERED: PROHANCE 279.3MG/ML 5ML VIAL As Ordered ONE (10:11)
[2024-02-12] MEDS ORDERED: PROHANCE 279.3MG/ML 15ML VIAL As Ordered ONE (10:11)
[2024-02-12] MEDS ORDERED: VANCOMYCIN 1,250 MG/250 ML IV BAG IV SCH (12:00)
[2024-02-12] MEDS ORDERED: ELIQ5TAB PO (12:34)
[2024-02-12] MEDS: PIPERACILLIN/TAZOBACTAM SOD 4.5 GM in DEXTROSE 5% (D5W) ADV/MINI-BAG 50 ML IV SCH (13:43)
[2024-02-12] MEDS: MAG SULF 1GM/100ML (MAG RUN) 1 GM in IV 1 EA IV SCH (14:05)
[2024-02-12] MEDS: NS 1,000 ML IV ONE (15:08)
[2024-02-12 17:01] VITALS: BP 122/56; TEMP 98; O2SAT 98
[2024-02-12] MEDS: INSULIN LISPRO (NovoLOG) PER UNIT SC SCH ×3 (17:19→20:06)
[2024-02-12 20:05] VITALS: BP 108/70; TEMP 99; O2SAT 99
[2024-02-12] MEDS: VANICREAM MOISTURIZING SKIN CREAM 113GM TUBE TOP SCH (20:26)
[2024-02-12] MEDS: ACETAMINOPHEN 325 MG TAB PO PRN (22:12)
[2024-02-13 00:35] VITALS: BP 115/58; TEMP 98.3; O2SAT 98
[2024-02-13 03:32] VITALS: BP 106/60; TEMP 98.1; O2SAT 97
[2024-02-13 05:37] LABS: BASO # 0.1 10^3/uL (0.0-0.2); BASO % 0.6 % (0.0-1.0); EOS # 0.1 10^3/uL (0.0-0.5); EOS % 0.9 % (0.0-3.0); HEMATOCRIT 31.1 % (36.0-47.0); HEMOGLOBIN 10.6 g/dl (12.0-15.5); LYMPH # 2.1 10^3/uL (1.5-5.0); LYMPH % 13.9 % (24.0-44.0); MEAN CORPUSCULAR HEMOGLOBIN 30.5 pg (27.0-33.0); MEAN CORPUSCULAR HGB CONC 34.1 g/dl (32.0-36.5); MEAN CORPUSCULAR VOLUME 89.6 fl (80.0-96.0); MONO # 1.1 10^3/uL (0.0-0.8); MONO % 7.4 % (2.0-8.0); NEUTROPHILS # 11.3 10^3/uL (1.5-8.5); NEUTROPHILS % 76.5 % (36.0-66.0); PLATELET COUNT, AUTOMATED 342 10^3/uL (150-450); RED BLOOD COUNT 3.47 10^6/uL (4.00-5.40); WHITE BLOOD COUNT 14.8 10^3/uL (4.0-10.0)
[2024-02-13 05:50] LABS: INR 2.74; PARTIAL THROMBOPLASTIN TIME 57.4 SECONDS (24.8-34.2)
[2024-02-13 05:57] LABS: BLOOD UREA NITROGEN 11 MG/DL (9-23); CARBON DIOXIDE LEVEL 23 MMOL/L (20-31); CHLORIDE LEVEL 107 MMOL/L (98-107); CREATININE FOR GFR 0.69 MG/DL (0.55-1.30); GLOMERULAR FILTRATION RATE > 60.0 (>45); GLUCOSE, FASTING 105 MG/DL (74-106); MAGNESIUM LEVEL 1.8 MG/DL (1.8-2.4); POTASSIUM SERUM 4.5 MMOL/L (3.5-5.1); SODIUM LEVEL 134 MMOL/L (136-145)
[2024-02-13 08:01] VITALS: BP 106/55; TEMP 97.8; O2SAT 96
[2024-02-13] MEDS: LEVEMIR (INSULIN DETEMIR) 1 UNITS/0.01ML SC SCH (08:24)
[2024-02-13] MEDS ORDERED: LEVEMIR (INSULIN DETEMIR) 1 UNITS/0.01ML SC SCH (09:00)
[2024-02-13 11:48] VITALS: BP 98/58; TEMP 97.5; O2SAT 99
[2024-02-13 16:45] VITALS: BP 119/59; TEMP 98.8; O2SAT 100
[2024-02-13 20:50] VITALS: BP 128/66; TEMP 98.1; O2SAT 96
[2024-02-14 00:05] VITALS: BP 103/59; TEMP 97.1; O2SAT 99
[2024-02-14 03:32] VITALS: BP 141/68; TEMP 97.2; O2SAT 98
[2024-02-14 05:02] LABS: BASO # 0.1 10^3/uL (0.0-0.2); BASO % 0.6 % (0.0-1.0); EOS # 0.1 10^3/uL (0.0-0.5); EOS % 0.4 % (0.0-3.0); HEMATOCRIT 31.8 % (36.0-47.0); HEMOGLOBIN 10.9 g/dl (12.0-15.5); LYMPH # 1.8 10^3/uL (1.5-5.0); LYMPH % 11.2 % (24.0-44.0); MEAN CORPUSCULAR HEMOGLOBIN 30.2 pg (27.0-33.0); MEAN CORPUSCULAR HGB CONC 34.3 g/dl (32.0-36.5); MEAN CORPUSCULAR VOLUME 88.1 fl (80.0-96.0); MONO # 1.2 10^3/uL (0.0-0.8); MONO % 7.3 % (2.0-8.0); NEUTROPHILS # 12.6 10^3/uL (1.5-8.5); NEUTROPHILS % 79.7 % (36.0-66.0); PLATELET COUNT, AUTOMATED 432 10^3/uL (150-450); RED BLOOD COUNT 3.61 10^6/uL (4.00-5.40); WHITE BLOOD COUNT 15.8 10^3/uL (4.0-10.0)
[2024-02-14 05:14] LABS: INR 1.8; PARTIAL THROMBOPLASTIN TIME 36.1 SECONDS (24.8-34.2); PROTHROMBIN TIME 21.1 SECONDS (12.5-14.5)
[2024-02-14 05:34] LABS: BLOOD UREA NITROGEN 9 MG/DL (9-23); CALCIUM LEVEL 10.3 MG/DL (8.3-10.6); CARBON DIOXIDE LEVEL 20 MMOL/L (20-31); CHLORIDE LEVEL 109 MMOL/L (98-107); CREATININE FOR GFR 0.64 MG/DL (0.55-1.30); GLOMERULAR FILTRATION RATE > 60.0 (>45); GLUCOSE, FASTING 123 MG/DL (74-106); MAGNESIUM LEVEL 1.4 MG/DL (1.8-2.4); POTASSIUM SERUM 4.2 MMOL/L (3.5-5.1); SODIUM LEVEL 135 MMOL/L (136-145)
[2024-02-14] MEDS ORDERED: HEPARIN SOD (PORCINE) 5000UNITS/ML 1ML VIAL/SYRINGE IV PRN (07:25)
[2024-02-14 07:56] VITALS: BP 102/58; TEMP 97.1; O2SAT 100
[2024-02-14] MEDS: HEPARIN DRIP 25,000 UNITS in IV 1 EA IV SCH (08:52)
[2024-02-14] MEDS: MAG SULF 1GM/100ML (MAG RUN) 1 GM in IV 1 EA IV SCH (09:36)
[2024-02-14] MEDS ORDERED: XARE20TA PO (11:24)
[2024-02-14 16:39] VITALS: BP 130/72; TEMP 97.2; O2SAT 98
[2024-02-14 20:05] VITALS: BP 100/60; TEMP 98; O2SAT 99
[2024-02-15 05:28] LABS: BASO # 0.1 10^3/uL (0.0-0.2); BASO % 0.9 % (0.0-1.0); EOS # 0.3 10^3/uL (0.0-0.5); EOS % 2.2 % (0.0-3.0); LYMPH % 24.2 % (24.0-44.0); MEAN CORPUSCULAR HEMOGLOBIN 30.4 pg (27.0-33.0); MEAN CORPUSCULAR HGB CONC 33.3 g/dl (32.0-36.5); MEAN CORPUSCULAR VOLUME 91.2 fl (80.0-96.0); MONO # 0.9 10^3/uL (0.0-0.8); MONO % 6.9 % (2.0-8.0); PLATELET COUNT, AUTOMATED 394 10^3/uL (150-450); RED BLOOD COUNT 3.29 10^6/uL (4.00-5.40); WHITE BLOOD COUNT 12.3 10^3/uL (4.0-10.0)
[2024-02-15 05:33] VITALS: BP 117/68; TEMP 97.2; O2SAT 97
[2024-02-15 05:45] LABS: INR 1.8; PARTIAL THROMBOPLASTIN TIME 95.3 SECONDS (24.8-34.2); PROTHROMBIN TIME 21.1 SECONDS (12.5-14.5)
[2024-02-15 06:21] LABS: BLOOD UREA NITROGEN 9 MG/DL (9-23); CALCIUM LEVEL 10.4 MG/DL (8.3-10.6); CARBON DIOXIDE LEVEL 24 MMOL/L (20-31); CHLORIDE LEVEL 108 MMOL/L (98-107); CREATININE FOR GFR 0.65 MG/DL (0.55-1.30); GLOMERULAR FILTRATION RATE > 60.0 (>45); GLUCOSE, FASTING 96 MG/DL (74-106); MAGNESIUM LEVEL 1.8 MG/DL (1.8-2.4); POTASSIUM SERUM 4.7 MMOL/L (3.5-5.1); SODIUM LEVEL 136 MMOL/L (136-145)
[2024-02-15] MEDS: cefTRIAXone SOD 2 GM in DEXTROSE 5% (D5W) ADV/MINI-BAG 50 ML IV SCH (11:52)
[2024-02-15 12:00] VITALS: BP 105/63; TEMP 98.1; O2SAT 96
[2024-02-15 19:00] VITALS: BP 126/78; TEMP 97.9; O2SAT 99
[2024-02-16] VITALS (10 sets, daily range): BP systolic 113–172; BP diastolic 68–92; TEMP 97.7–98.1; O2SAT 91–100
[2024-02-16 06:13] LABS: BASO # 0.1 10^3/uL (0.0-0.2); BASO % 0.7 % (0.0-1.0); EOS # 0.3 10^3/uL (0.0-0.5); EOS % 2.3 % (0.0-3.0); HEMATOCRIT 31.2 % (36.0-47.0); HEMOGLOBIN 10.5 g/dl (12.0-15.5); LYMPH # 2.9 10^3/uL (1.5-5.0); LYMPH % 23.8 % (24.0-44.0); MEAN CORPUSCULAR HGB CONC 33.7 g/dl (32.0-36.5); MONO # 0.9 10^3/uL (0.0-0.8); NEUTROPHILS % 65.5 % (36.0-66.0); PLATELET COUNT, AUTOMATED 449 10^3/uL (150-450); RED BLOOD COUNT 3.39 10^6/uL (4.00-5.40); WHITE BLOOD COUNT 12.2 10^3/uL (4.0-10.0)
[2024-02-16 06:21] LABS: INR 1.66; PARTIAL THROMBOPLASTIN TIME 94.2 SECONDS (24.8-34.2); PROTHROMBIN TIME 19.8 SECONDS (12.5-14.5)
[2024-02-16 06:30] LABS: BLOOD UREA NITROGEN 9 MG/DL (9-23); CALCIUM LEVEL 10.5 MG/DL (8.3-10.6); CARBON DIOXIDE LEVEL 23 MMOL/L (20-31); CHLORIDE LEVEL 109 MMOL/L (98-107); CREATININE FOR GFR 0.55 MG/DL (0.55-1.30); GLOMERULAR FILTRATION RATE > 60.0 (>45); GLUCOSE, FASTING 111 MG/DL (74-106); MAGNESIUM LEVEL 1.6 MG/DL (1.8-2.4); POTASSIUM SERUM 4.5 MMOL/L (3.5-5.1); SODIUM LEVEL 137 MMOL/L (136-145)
[2024-02-16] MEDS: MAG SULF 1GM/100ML (MAG RUN) 1 GM in IV 1 EA IV SCH (08:14)
[2024-02-16] MEDS ORDERED: NS 1,000 ML IV SCH (12:50)
[2024-02-16] MEDS ORDERED: LIDOCAINE 1% MDV 20ML VIAL As Ordered ONE (13:25)
[2024-02-16] MEDS ORDERED: ISOVUE-300 61% 100ML VIAL As Ordered ONE (13:25)
[2024-02-16] MEDS ORDERED: MIDAZOLAM INJ 2MG/2ML VIAL As Ordered ONE (14:16)
[2024-02-16] MEDS ORDERED: fentaNYL 100 MCG/2 ML INJECTION As Ordered ONE (14:16)
[2024-02-16] MEDS ORDERED: HEPARIN 1,000UNITS/ML 10ML VIAL (FOR RADIOLOGY & DIALYSIS ONLY) As Ordered ONE (14:26)
[2024-02-16] MEDS ORDERED: diphenhydrAMINE 50MG/ML VIAL As Ordered ONE (15:40)
[2024-02-16] MEDS ORDERED: ISOVUE-370 76% 100ML VIAL As Ordered ONE (17:05)
[2024-02-16] MEDS ORDERED: ONDANSETRON 4MG 2ML VIAL IV PRN (17:20)
[2024-02-16] MEDS: NS 1,000 ML IV SCH (17:20)
[2024-02-16] MEDS ORDERED: PERCOCET 5MG/325MG TAB As Ordered ONE (17:22)
[2024-02-16] MEDS: PERCOCET 5MG/325MG TAB PO PRN (17:25)
[2024-02-16] MEDS: NYSTATIN 100,000 UNITS/GM TOPICAL PWD 15GM TOP PRN (21:46)
[2024-02-17 04:46] VITALS: BP 123/68; TEMP 97.9; O2SAT 100
[2024-02-17 08:12] LABS: BASO # 0.1 10^3/uL (0.0-0.2); BASO % 0.8 % (0.0-1.0); EOS # 0.2 10^3/uL (0.0-0.5); EOS % 1.3 % (0.0-3.0); HEMOGLOBIN 10.9 g/dl (12.0-15.5); LYMPH # 2.6 10^3/uL (1.5-5.0); LYMPH % 22.6 % (24.0-44.0); MEAN CORPUSCULAR HEMOGLOBIN 30.6 pg (27.0-33.0); MEAN CORPUSCULAR VOLUME 92.7 fl (80.0-96.0); MONO # 0.7 10^3/uL (0.0-0.8); MONO % 6.1 % (2.0-8.0); NEUTROPHILS # 7.7 10^3/uL (1.5-8.5); NEUTROPHILS % 68.4 % (36.0-66.0); PLATELET COUNT, AUTOMATED 508 10^3/uL (150-450); RED BLOOD COUNT 3.56 10^6/uL (4.00-5.40); WHITE BLOOD COUNT 11.3 10^3/uL (4.0-10.0)
[2024-02-17 08:23] LABS: INR 1.53; PARTIAL THROMBOPLASTIN TIME 46.9 SECONDS (24.8-34.2); PROTHROMBIN TIME 18.6 SECONDS (12.5-14.5)
[2024-02-17] MEDS: RIVAROXABAN 20MG TAB (XARELTO) PO SCH (08:27)
[2024-02-17 08:33] LABS: BLOOD UREA NITROGEN 8 MG/DL (9-23); CALCIUM LEVEL 10.8 MG/DL (8.3-10.6); CARBON DIOXIDE LEVEL 24 MMOL/L (20-31); CHLORIDE LEVEL 110 MMOL/L (98-107); CREATININE FOR GFR 0.59 MG/DL (0.55-1.30); GLOMERULAR FILTRATION RATE > 60.0 (>45); GLUCOSE, FASTING 105 MG/DL (74-106); MAGNESIUM LEVEL 1.8 MG/DL (1.8-2.4); POTASSIUM SERUM 4.8 MMOL/L (3.5-5.1); SODIUM LEVEL 138 MMOL/L (136-145)
[2024-02-17] MEDS: MAG SULF 1GM/100ML (MAG RUN) 1 GM in IV 1 EA IV SCH (10:10)
[2024-02-17 12:00] VITALS: BP 102/55; TEMP 97.5; O2SAT 97
[2024-02-17 20:20] VITALS: BP 109/67; TEMP 97.2; O2SAT 98
[2024-02-18 04:22] VITALS: BP 132/79; TEMP 97.9; O2SAT 97
[2024-02-18 05:58] LABS: BASO # 0.1 10^3/uL (0.0-0.2); BASO % 0.5 % (0.0-1.0); EOS # 0.2 10^3/uL (0.0-0.5); HEMATOCRIT 31.6 % (36.0-47.0); HEMOGLOBIN 10.6 g/dl (12.0-15.5); LYMPH # 2.6 10^3/uL (1.5-5.0); LYMPH % 22.2 % (24.0-44.0); MEAN CORPUSCULAR HEMOGLOBIN 30.8 pg (27.0-33.0); MEAN CORPUSCULAR HGB CONC 33.5 g/dl (32.0-36.5); MEAN CORPUSCULAR VOLUME 91.9 fl (80.0-96.0); MONO # 0.8 10^3/uL (0.0-0.8); MONO % 6.9 % (2.0-8.0); NEUTROPHILS # 7.9 10^3/uL (1.5-8.5); NEUTROPHILS % 67.3 % (36.0-66.0); PLATELET COUNT, AUTOMATED 477 10^3/uL (150-450); RED BLOOD COUNT 3.44 10^6/uL (4.00-5.40); WHITE BLOOD COUNT 11.7 10^3/uL (4.0-10.0)
[2024-02-18 06:15] LABS: BLOOD UREA NITROGEN 9 MG/DL (9-23); CALCIUM LEVEL 11.1 MG/DL (8.3-10.6); CARBON DIOXIDE LEVEL 24 MMOL/L (20-31); CHLORIDE LEVEL 109 MMOL/L (98-107); CREATININE FOR GFR 0.64 MG/DL (0.55-1.30); GLOMERULAR FILTRATION RATE > 60.0 (>45); GLUCOSE, FASTING 130 MG/DL (74-106); MAGNESIUM LEVEL 1.8 MG/DL (1.8-2.4); POTASSIUM SERUM 4.7 MMOL/L (3.5-5.1); SODIUM LEVEL 138 MMOL/L (136-145)
[2024-02-18 06:25] LABS: INR 1.78; PROTHROMBIN TIME 20.9 SECONDS (12.5-14.5)
[2024-02-18 08:30] VITALS: BP 122/70; TEMP 98.1; O2SAT 95
[2024-02-18] MEDS: LACTOBACILLUS ACIDOPHILUS CAP (BACID) PO SCH (11:56)
[2024-02-18 12:00] VITALS: BP 131/78; TEMP 98.1; O2SAT 98
[2024-02-18] MEDS ORDERED: PERCOCET 5MG/325MG TAB PO PRN (13:05)
[2024-02-18] MEDS: PERCOCET 5MG/325MG TAB PO PRN (13:26)
[2024-02-18 20:00] VITALS: BP 133/78; TEMP 97.9; O2SAT 99
[2024-02-19 04:22] VITALS: BP 139/86; TEMP 97.5; O2SAT 95
[2024-02-19 08:05] VITALS: BP 135/86
[2024-02-19] MEDS ORDERED: RISATAB3 PO (08:27)
[2024-02-19] MEDS ORDERED: CEFD1CAP9 PO (08:27)
[2024-02-19] MEDS ORDERED: PERCOCET PO ×2 (10:14)
== END 2024-02-19 16:35 | DRG 629 ==
LOC: M ED 18:22 → M ED INP 18:23 → M PCU 02-12 03:15 → OBSVTOIN 02-12 10:06 → M MS5PR 02-14 22:07
PROVIDERS: ADMIT Student in an Organized Health Care Education/Training Program; ATTEND Internal Medicine
PROC: 0QBM0ZZ Excision of Left Tarsal, Open Approach (ICD-10-PCS; principal; 2024-02-12)
PROC: 047S3ZZ Dilation of Left Posterior Tibial Artery, Percutaneous Approach (ICD-10-PCS; 2024-02-16)
DX: E11.621 Type 2 diabetes mellitus with foot ulcer (principal); I48.20 Chronic atrial fibrillation, unspecified; E87.1 Hypo-osmolality and hyponatremia; L03.116 Cellulitis of left lower limb; M86.172 Other acute osteomyelitis, left ankle and foot; M86.672 Other chronic osteomyelitis, left ankle and foot; I70.92 Chronic total occlusion of artery of the extremities; E87.20 Acidosis, unspecified; M06.9 Rheumatoid arthritis, unspecified; M45.9 Ankylosing spondylitis of unspecified sites in spine; I10 Essential (primary) hypertension; E78.5 Hyperlipidemia, unspecified; E11.51 Type 2 diabetes mellitus with diabetic peripheral angiopathy without gangrene; I25.10 Atherosclerotic heart disease of native coronary artery without angina pectoris; M10.9 Gout, unspecified; R91.1 Solitary pulmonary nodule; E11.42 Type 2 diabetes mellitus with diabetic polyneuropathy; E04.1 Nontoxic single thyroid nodule; L97.529 Non-pressure chronic ulcer of other part of left foot with unspecified severity; F41.9 Anxiety disorder, unspecified; B96.4 Proteus (mirabilis) (morganii) as the cause of diseases classified elsewhere; F32.A Depression, unspecified; F17.200 Nicotine dependence, unspecified, uncomplicated; E11.69 Type 2 diabetes mellitus with other specified complication; R79.1 Abnormal coagulation profile; I70.202 Unspecified atherosclerosis of native arteries of extremities, left leg; E83.42 Hypomagnesemia; Z90.49 Acquired absence of other specified parts of digestive tract; Z96.643 Presence of artificial hip joint, bilateral; Z79.01 Long term (current) use of anticoagulants; Z86.718 Personal history of other venous thrombosis and embolism; Z79.4 Long term (current) use of insulin; Z79.899 Other long term (current) drug therapy; Z88.8 Allergy status to other drugs, medicaments and biological substances

== ENCOUNTER → 2024-02-11 | Outpatient (REF) | payer MEDICARE ==
[~2024-02-11] MED LIST changes: +ACET-683 PO; +AMLO10TA PO; +CALM1OIN TOP; +DAKI0.12 TOP; -DOXY-323 PO; +DOXY-441 PO
[2024-02-11 17:20] LABS: PROTHROMBIN TIME 59.3 SECONDS (12.5-14.5)
[2024-02-11 17:26] LABS: ALBUMIN 3.3 G/DL (3.2-5.2); ALKALINE PHOSPHATASE 85 U/L (46-116); ALT/SGPT 11 U/L (7.0-40); AST/SGOT < 8 U/L (<34); BILIRUBIN,TOTAL 0.8 MG/DL (0.3-1.2); BLOOD UREA NITROGEN 12 MG/DL (9-23); CALCIUM LEVEL 11.4 MG/DL (8.3-10.6); CARBON DIOXIDE LEVEL 26 MMOL/L (20-31); CHLORIDE LEVEL 100 MMOL/L (98-107); CREATININE FOR GFR 0.79 MG/DL (0.55-1.30); GLOMERULAR FILTRATION RATE > 60.0 (>45); GLUCOSE, FASTING 177 MG/DL (74-106); POTASSIUM SERUM 4.5 MMOL/L (3.5-5.1); SODIUM LEVEL 129 MMOL/L (136-145); TOTAL PROTEIN 6.2 G/DL (5.7-8.2)
[2024-02-11 17:28] LABS: INR 7.27
[2024-02-11 18:43] LABS: HEMOGLOBIN A1c 6.7 % (4.0-6.0)
== END ==
LOC: M LAB REF 16:28
PROVIDERS: ATTEND Family Medicine Addiction Medicine
DX: I48.91 Unspecified atrial fibrillation (principal); E11.621 Type 2 diabetes mellitus with foot ulcer

== ENCOUNTER 2024-03-09 15:38 | Emergency (ER) | payer MEDICARE ==
[~2024-03-09] VITALS: Ht 177.8 cm; Wt 97.3 kg
[~2024-03-09 15:38] MED LIST changes: +CALM1OIN TOP; +CEFD1CAP9 PO; +DAKI0.12 TOP; +PERCOCET PO; +RISATAB3 PO; +XARE20TA PO
[2024-03-09 17:19] LABS: BASO # 0.1 10^3/uL (0.0-0.2); BASO % 0.6 % (0.0-1.0); EOS # 0.2 10^3/uL (0.0-0.5); EOS % 1.8 % (0.0-3.0); HEMATOCRIT 34.9 % (36.0-47.0); HEMOGLOBIN 11.4 g/dl (12.0-15.5); LYMPH % 23.7 % (24.0-44.0); MEAN CORPUSCULAR HEMOGLOBIN 30.5 pg (27.0-33.0); MEAN CORPUSCULAR HGB CONC 32.7 g/dl (32.0-36.5); MEAN CORPUSCULAR VOLUME 93.3 fl (80.0-96.0); MONO # 0.9 10^3/uL (0.0-0.8); MONO % 6.8 % (2.0-8.0); NEUTROPHILS # 8.3 10^3/uL (1.5-8.5); NEUTROPHILS % 66.5 % (36.0-66.0); PLATELET COUNT, AUTOMATED 386 10^3/uL (150-450); RED BLOOD COUNT 3.74 10^6/uL (4.00-5.40); WHITE BLOOD COUNT 12.5 10^3/uL (4.0-10.0)
[2024-03-09 17:28] LABS: BLOOD UREA NITROGEN 24 MG/DL (9-23); CALCIUM LEVEL 10.9 MG/DL (8.3-10.6); CARBON DIOXIDE LEVEL 26 MMOL/L (20-31); CHLORIDE LEVEL 107 MMOL/L (98-107); CREATININE FOR GFR 1.01 MG/DL (0.55-1.30); GLOMERULAR FILTRATION RATE 57.9 (>45); GLUCOSE, FASTING 125 MG/DL (74-106); POTASSIUM SERUM 4.3 MMOL/L (3.5-5.1); SODIUM LEVEL 138 MMOL/L (136-145)
[2024-03-09] MEDS: cefTRIAXone SOD 2 GM in DEXTROSE 5% (D5W) ADV/MINI-BAG 50 ML IV ONE (17:31)
[2024-03-09] MEDS ORDERED: GLUCOSE 4 GM CHEW PO PRN (18:35)
[2024-03-09] MEDS ORDERED: GLUCAGON INJ 1MG VIAL SC PRN (18:35)
[2024-03-09] MEDS ORDERED: DEXTROSE 50% 50ML SYRINGE IV PRN (18:35)
[2024-03-09 19:11] LABS: INR 1.36; PROTHROMBIN TIME 17.1 SECONDS (12.5-14.5)
[2024-03-09] MEDS: LR 1,000 ML IV ONE (19:26)
[2024-03-09] MEDS: BISACODYL 10MG SUPP PR ONE (20:04)
[2024-03-09] MEDS: PERCOCET 5MG/325MG TAB PO PRN (20:05)
[2024-03-09 21:14] LABS: PROCALCITONIN <0.04 ng/ml
[2024-03-09] MEDS: INSULIN LISPRO (NovoLOG) PER UNIT SC SCH (21:28)
[2024-03-09] MEDS: CEFEPIME HCL 2 GM in DEXTROSE 5% (D5W) ADV/MINI-BAG 50 ML IV SCH (21:38)
[2024-03-09] MEDS: metroNIDAZOLE (FLAGYL) 500MG TABLET PO SCH (21:55)
[2024-03-09 22:31] VITALS: BP 107/49; TEMP 97.4
[2024-03-09] MEDS: ONDANSETRON 4MG 2ML VIAL IV PRN (22:31)
[2024-03-09 22:32] VITALS: O2SAT 98
[2024-03-09] MEDS: MORPHINE 2 MG/ML 1ML VIAL IV PRN (22:32)
[2024-03-10] MEDS ORDERED: INSULIN LISPRO (NovoLOG) PER UNIT SC SCH (07:30)
[2024-03-10] MEDS ORDERED: LACTOBACILLUS ACIDOPHILUS CAP (BACID) PO SCH (08:00)
[2024-03-10] MEDS ORDERED: PANTOPRAZOLE 40MG VIAL IV SCH (09:00)
[2024-03-10] MEDS ORDERED: ENOXAPARIN 100MG/1ML SYRINGE (J1650 PER 10MG) SC SCH (09:00)
== END 2024-03-09 22:51 | disposition short-term general hospital (02) ==
LOC: EDBD 15:38 → M ED 15:38 → CANBEDREQ 18:32 → M ED 22:51
DX: E11.621 Type 2 diabetes mellitus with foot ulcer (principal); M86.672 Other chronic osteomyelitis, left ankle and foot; I73.9 Peripheral vascular disease, unspecified; I48.91 Unspecified atrial fibrillation; I25.119 Atherosclerotic heart disease of native coronary artery with unspecified angina pectoris; I10 Essential (primary) hypertension; E78.5 Hyperlipidemia, unspecified
CPT/HCPCS: 71045; 73650; 74018; 80048; 84145; 85025; 85610; 86140; 87040; 87070; 87077; 87154; 87186; 87205; 93005; 96365; 96366; 96375; 99284; J0692; J0696; J2405

== ENCOUNTER → 2025-04-01 | Outpatient (REF) | payer MEDICARE, OTHER ==
[~2025-04-01] MED LIST changes: +AMLO-751 PO; -AMLO10TA PO; -VERA300C6 PO; +VERA300C7 PO
[2025-04-05 13:02] LABS: HPV APTIMA Not Detected (Not Detected)
== END ==
LOC: M SFHCWAGY 17:16
PROVIDERS: ATTEND Physician Assistant
DX: Z12.4 Encounter for screening for malignant neoplasm of cervix (principal); N95.0 Postmenopausal bleeding; D26.0 Other benign neoplasm of cervix uteri
CPT/HCPCS: 87624; 88305; G0123